=== PATIENT | female | born 1950 | race Hispanic/Latino ===

== ENCOUNTER 2018-03-21 23:08 | Inpatient (IN) | payer OTHER ==
--- OUTSIDE RECORDS SUMMARY | 2018-03-21 23:11 | XMS REPORT | Summary of Care ---
:1950 Author Organization [facility] Address [address], [place] [address]- Encounter HQ Encntr_alias([facility]) [id number] Date(s): 08/01/16 - 08/01/16 [facility] [address] [place] [address]- Discharge Disposition: Home or Self Care Attending Physician: Cele Santos MD Referring Physician: Cele Santos MD Vital Signs No data available for this section Problem List No data available for this section Allergies, Adverse Reactions, Alerts No data available for this section Medications No data available for this section Results No data available for this section Immunizations No data available for this section Procedures No data available for this section Social History No data available for this section Assessment and Plan No data available for this section
--- OUTSIDE RECORDS SUMMARY | 2018-03-21 23:11 | XMS REPORT | Continuity of Care Document ---
:1950 Author Organization Interface Problems Problem Status Onset Classification Date Comments Source Date Reported R33.9 RETENTION Active [facility] OF URINE, 6 UNSPECIFIED RETENTION OF [facility] URINE, UNSPECIFIED Medications Medication Details Route Status Patient Ordering Order Source Instructions Provider Date Allergies, Adverse Reactions, Alerts Substance Category Reaction Severity Reaction Status Date Comments Source type Reported Immunizations Immunization Date Given Site Status Last Updated Comments Source Results Order Name Results Value Reference Date Interpretation Comments Source Range Retroperit Retroperiton Retroperitoneal Complete US 08/01 - sellers ea - [facility] Complete US US CLINICAL HISTORY:bladder retention. Read by: Ricco Figueroa MD Dictated Date/time: 08/01/16 16:21 Electronically Signed by: Ricco Figueroa MD 08/01/16 16:22 FINAL REPORT COMPARISON: None TECHNIQUE: Alvarado scale and color Doppler images of both kidneys were performed with a curvilinear transducer with standard technique. Static images are submitted for review. FINDINGS: KIDNEYS: The right kidney measures 9.6 x 4.4 x 5.1 cm and the left kidney measures 9.9 x 4.8 x 4.7 cm in the sagittal AP and transverse dimensions respectively. Kidneys are relatively symmetric in size. Cortical volume is reasonably well-preserved. 7 mm cyst is noted in the upper pole of left kidney. No renal calculus is evident. No hydronephrosis. BLADDER: Bladder is partially distended with anechoic urine. ASCITES: No ascites noted. IMPRESSION: 7 mm cyst, upper pole of left kidney. No other significant sonographic abnormality is noted in either kidney. SL: [id number] Vital Signs Vital Sign Value Date Comments Source Encounters Location Location Encounter Encounter Reason Attending ADM DC Status Source Details Type Number For Provider Date Date Visit [facility] Outpatient [id number] Cele 08/01 08/02 Jean-Pierre Santos /2015 [facility] Procedures Procedure Code Date Perfomer Comments Source
[2018-03-21] MEDS ORDERED: NA CHLORIDE 0.9% 1,000 ML ONE (23:47)
[2018-03-21 23:49] LABS: Absolute Lymphocytes (CBC) 1.6 K/uL (0.7-4.9); Absolute Monocytes 0.8 K/uL (0.1-1.3); Absolute Neutrophil 9.5 K/uL (1.8-8.0); Basophils % 0.3 % (0-1.3); Eosinophils % 0.9 % (0-4.4); Hematocrit 31.8 % (36.0-45.0); Lymphocytes % 13.2 % (15.3-44.8); MCV 82.5 fL (80-100); MPV 7.6 fL (7.6-11.3); Monocytes % 6.3 % (3.3-12.3); RBC Red Blood Cell Count 3.86 M/uL (3.86-4.86)
[2018-03-21 23:56] LABS: Protime INR 1.15
[2018-03-22 00:16] LABS: ALT/SGPT 19 U/L (12-78); AST/SGOT 20 U/L (15-37); Albumin 3.3 g/dL (3.4-5.0); Alkaline Phosphatase 69 U/L (45-117); BUN Blood Urea Nitrogen 32 mg/dL (7-18); Bicarbonate 27 mmol/L (21-32); Bilirubin Direct < 0.1 mg/dL (0-0.2); Bilirubin Total 0.3 mg/dL (0.2-1.0); Creatine Phosphokinase 141 U/L (26-192); Glucose Level 168 mg/dL (74-106); Lipase 59 U/L (73-393); Magnesium 1.4 mg/dL (1.8-2.4); NT PRO-BNP 422 pg/mL (<125); Potassium 4.1 mmol/L (3.5-5.1); Protein, Total 7.2 g/dL (6.4-8.2); Sodium Level 138 mmol/L (136-145)
[2018-03-22 00:45] LABS: Urine Blood 1+ (NEG); Urine Glucose NEGATIVE (NEG); Urine Protein 3+ (NEG); Urine pH 8.5 (5.0-7.0)
[2018-03-22] MEDS ORDERED: MAGNESIUM SULFATE 1 gm IVPB 1 GM/100 ML BAG IV ONE ×2 (00:50→06:20)
[2018-03-22] MEDS ORDERED: CEFTRIAXONE/SWI 1gm 1 GM/10 ML SYR ONE (00:50)
[2018-03-22] MEDS ORDERED: ONDANSETRON 4 MG/2 ML VIAL ONE (01:27)
[2018-03-22] MEDS ORDERED: MORPHINE 4 MG/ML SYR ONE (01:27)
[2018-03-22] MEDS ORDERED: Levofloxacin500mg IV 0 MG/0 ML BAG IV ONE (01:28)
--- NOTE | 2018-03-22 01:31 | ER ---
Nurse's Notes [facility] Name: Cherry Pompa Age: 68 yrs Sex: Female : 1950 Arrival Date: 03/21/2018 Time: 23:10 Bed 4 Private MD: Diagnosis: Cystitis;Abdominal tenderness;Hypotension;Type 1 diabetes mellitus Presentation: 03/21 23:46 Presenting complaint: Patient states: "She has lower back pain and pain when she pees, lp1 when she wiped herself, there was blood'; Patient states symptoms since this morning. Transition of care: patient was not received from another setting of care. Onset of symptoms was March 21, 2018. Risk Assessment: Do you want to hurt yourself or someone else? Patient reports no desire to harm self or others. Initial Sepsis Screen: Does the patient meet any 2 criteria? No. Patient's initial sepsis screen is negative. Does the patient have a suspected source of infection? No. Patient's initial sepsis screen is negative. Care prior to arrival: None. 23:46 Method Of Arrival: Wheelchair lp1 23:46 Acuity: HERIBERTO 2 lp1 Historical: - Allergies: 23:55 No Known Allergies; lp1 - Home Meds: 23:55 BP med [Active]; insulin SQ [Active]; lp1 - PMHx: 23:55 Angina; Arthritis; Diabetes - IDDM; High Cholesterol; Hypertension; lp1 - PSHx: 23:55 Hernia repair; knee replacement; Hysterectomy; lp1 - Immunization history:: Adult Immunizations up to date. - Family history:: not pertinent. - Social history:: Smoking status: Patient/guardian denies using tobacco. - Ebola Screening: : No symptoms or risks identified at this time. Screenin:52 Abuse screen: Denies threats or abuse. Denies injuries from another. Nutritional lp1 screening: No deficits noted. Tuberculosis screening: No symptoms or risk factors identified. Fall Risk Total Jackson Fall Scale indicates High Risk Score (45 or more points). Fall prevention measures have been instituted. Side Rails Up X 2. Assessment: 23:30 General: Appears in no apparent distress. Behavior is appropriate for age. Pain: Denies lp1 pain. Neuro: Level of Consciousness is awake, alert, obeys commands, Oriented to person, place, situation. Cardiovascular: Patient's skin is warm and dry. Respiratory: Airway is patent Respiratory effort is even, unlabored, Respiratory pattern is regular, symmetrical, Breath sounds are clear bilaterally. GI: Abdomen is non-distended, Abd is soft and non tender X 4 quads. : at vaginal opening Reports burning with urination, vaginal bleeding that is when she wipes. EENT: No signs and/or symptoms were reported regarding the EENT system. Derm: Skin is intact, Skin is dry, Skin is pale. Musculoskeletal: Circulation, motion, and sensation intact. 23:35 Reassessment: Dr. Kurtz at bedside for pelvic exam, bladder observed. lp1 03/22 00:45 Reassessment: Patient appears in no apparent distress at this time. Patient and/or lp1 family updated on plan of care and expected duration. Pain level reassessed. Patient complaint of pain to lower abdomen, provider notified. 01:45 Reassessment: Patient appears in no apparent distress at this time. Patient and/or lp1 family updated on plan of care and expected duration. Pain level reassessed. Patient resting, eyes closed, respirations unlabored; Family at bedside. 03:00 Reassessment: Patient appears in no apparent distress at this time. Patient and/or lp1 family updated on plan of care and expected duration. Pain level reassessed. Patient resting, eyes closed, respirations unlabored. 03:29 Reassessment: Assisted patient to bsc, vomited x1 at this time. lp1 03:29 General: Reports chills for. lp1 04:19 Reassessment: Patient appears in no apparent distress at this time. Patient resting, lp1 eyes closed, respirations unlabored. Vital Signs: 03/21 23:20 BP 80 / 41; Pulse 78; Resp 18; Temp 99(O); Pulse Ox 97% on R/A; Weight 70.76 kg; Height lp1 5 ft. 1 in. (154.94 cm); Pain 0/10; 23:30 BP 110 / 50; Pulse 78; Resp 14; Pulse Ox 96% on R/A; lp1 03/22 00:30 BP 112 / 49; Pulse 98; Resp 19; Pulse Ox 98% on R/A; lp1 01:45 BP 107 / 67; Pulse 90; Resp 14; Pulse Ox 99% on R/A; mt 03:00 BP 126 / 47; Pulse 106; Resp 18; Pulse Ox 95% on R/A; lp1 03:28 BP 126 / 90; Pulse 111; Resp 19; Temp 100(O); Pulse Ox 97% on R/A; lp1 04:18 BP 108 / 79; Pulse 109; Resp 15; Pulse Ox 95% on R/A; lp1 03/21 23:20 Body Mass Index 29.48 (70.76 kg, 154.94 cm) lp1 ED Course: 03/21 23:10 Patient arrived in ED. es 23:23 Carlos Kurtz MD is Attending Physician. aramis 23:35 Inserted saline lock: 20 gauge in right antecubital area, using aseptic technique. lp1 Blood collected. By ITA Salgado. Inserted saline lock: 22 gauge in left wrist, using aseptic technique. 23:37 Vishal Hess, ITA is Primary Nurse. bp 23:46 Arm band placed on right wrist. lp1 23:48 X-ray completed. Portable x-ray completed in exam room. Patient tolerated procedure kw well. 23:48 Triage completed. lp1 23:48 XRAY Chest (1 view) In Process Unspecified. EDMS 23:52 Patient has correct armband on for positive identification. Placed in gown. Bed in low lp1 position. Call light in reach. Side rails up X2. internal combustion engine subassembler on. Pulse ox on. NIBP on. 23:53 Indiana Zapata, ITA is Primary Nurse. lp1 03/22 00:[address] via stretcher. kw1 00:13 CT completed. Patient tolerated procedure well. Patient moved back from CT. kw1 00:17 CT Stone Protocol In Process Unspecified. EDMS 00:30 Urine collected: straight cath specimen, cloudy, sediment noted. lp1 01:29 Yessi Benson MD is Hospitalizing Provider. aramis 02:03 No provider procedures requiring assistance completed. Patient admitted, IV remains in lp1 place. Administered Medications: 03/21 23:54 Drug: NS 0.9% 1000 ml Route: IV; Rate: 125 ml/hr; Site: right antecubital; rv 03/22 03:48 Follow up: IV Status: Infusion continued upon admission bp 00:55 Drug: Magnesium Sulfate 1 grams Route: IVPB; Infused Over: 1 hrs; Site: left wrist; lp1 02:00 Follow up: IV Status: Completed infusion lp1 00:55 Drug: Rocephin - (cefTRIAXone) 1 grams Route: IVPB; Infused Over: 30 mins; Site: right lp1 antecubital; 01:35 Follow up: Response: No adverse reaction; IV Status: Completed infusion lp1 01:34 Drug: levofloxacin 500 mg Volume: 100 ml; Route: IVPB; Infused Over: 60 mins; Site: lp1 right antecubital; 02:50 Follow up: IV Status: Completed infusion lp1 01:35 Drug: morphine 4 mg Route: IVP; Site: right antecubital; lp1 02:00 Follow up: Response: No adverse reaction; Pain is decreased lp1 01:35 Drug: Zofran 4 mg Route: IVP; Site: right antecubital; lp1 02:50 Follow up: Response: No adverse reaction lp1 02:17 Drug: Lactulose 30 grams Volume: 45 ml; Route: PO; rv 03:48 Follow up: Response: No adverse reaction bp 02:17 Drug: Dulcolax Suppository 10 mg Route: OK; rv 03:48 Follow up: Response: No adverse reaction bp Outcome: 01:30 Decision to Hospitalize by Provider. aramis 02:27 Condition: stable lp1 02:27 Instructed on the need for admit. 04:24 Admitted to Med/surg room 207, with chart, Report called to ITA Green lp1 04:31 Patient left the ED. fc Signatures: Dispatcher [employer] EDCarlos Gonzalez MD MD cha Salyer, Edna es Chretien, Felicia, RN RN Evelyn Valencia Laura, RN RN lp1 Rosario Wellington mt, Brian, RN RN Janki Lau kw Giovanni Madsen RN RN rv Corrections: (The following items were deleted from the chart) 00:55 07/01 23:20 BP 80 / 41; Pulse 78bpm; Resp 18bpm; Pulse Ox 97% RA; 70.76 kg; Height 5 lp1 ft. 1 in.; BMI: 29.4; Pain 0/10; lp1 03/22 00:57 07 23:35 Inserted saline lock: 22 gauge in right wrist, using aseptic technique. lp1 lp1
--- NOTE | 2018-03-22 01:31 | EDPHYS ---
Physician Documentation [facility] Name: Cherry Pompa Age: 68 yrs Sex: Female : 1950 Arrival Date: 03/21/2018 Time: 23:10 Bed 4 Private MD: ED Physician Carlos Kurtz HPI: 03/21 23:34 This 68 yrs old Female presents to ER via Unassigned with complaints of PAIN aramis WAIST DOWN, Vaginal Bleeding. 23:34 The patient presents with pelvic pain, urinary symptoms, frequency, hematuria, aramis hesitancy, urgency. Onset: The symptoms/episode began/occurred 3 day(s) ago. Modifying factors: The symptoms are alleviated by nothing, the symptoms are aggravated by nothing. Associated signs and symptoms: The patient has no apparent associated signs or symptoms. Severity of symptoms: At their worst the symptoms were mild, moderate, in the emergency department the symptoms are unchanged. The patient is not sexually active. The patient has experienced similar episodes in the past, a few times. Historical: - Allergies: 23:55 No Known Allergies; lp1 - Home Meds: 23:55 BP med [Active]; insulin SQ [Active]; lp1 - PMHx: 23:55 Angina; Arthritis; Diabetes - IDDM; High Cholesterol; Hypertension; lp1 - PSHx: 23:55 Hernia repair; knee replacement; Hysterectomy; lp1 - Immunization history:: Adult Immunizations up to date. - Family history:: not pertinent. - Social history:: Smoking status: Patient/guardian denies using tobacco. - Ebola Screening: : No symptoms or risks identified at this time. ROS: 23:34 Constitutional: Negative for fever, chills, and weight loss, Eyes: Negative for injury, aramis pain, redness, and discharge, ENT: Negative for injury, pain, and discharge, Neck: Negative for injury, pain, and swelling, Cardiovascular: Negative for chest pain, palpitations, and edema, Respiratory: Negative for shortness of breath, cough, wheezing, and pleuritic chest pain, Back: Negative for injury and pain, MS/Extremity: Negative for injury and deformity, Skin: Negative for injury, rash, and discoloration, Neuro: Negative for headache, weakness, numbness, tingling, and seizure, Psych: Negative for depression, anxiety, suicide ideation, homicidal ideation, and hallucinations, Allergy/Immunology: Negative for hives, rash, and allergies, Endocrine: Negative for neck swelling, polydipsia, polyuria, polyphagia, and marked weight changes, Hematologic/Lymphatic: Negative for swollen nodes, abnormal bleeding, and unusual bruising. 23:34 Abdomen/GI: Positive for abdominal cramps, of the suprapubic area. Exam: 23:34 Constitutional: This is a well developed, well nourished patient who is awake, alert, aramis and in no acute distress. Head/Face: Normocephalic, atraumatic. Eyes: Pupils equal round and reactive to light, extra-ocular motions intact. Lids and lashes normal. Conjunctiva and sclera are non-icteric and not injected. Cornea within normal limits. Periorbital areas with no swelling, redness, or edema. ENT: Nares patent. No nasal discharge, no septal abnormalities noted. Tympanic membranes are normal and external auditory canals are clear. Oropharynx with no redness, swelling, or masses, exudates, or evidence of obstruction, uvula midline. Mucous membranes moist. Neck: Trachea midline, no thyromegaly or masses palpated, and no cervical lymphadenopathy. Supple, full range of motion without nuchal rigidity, or vertebral point tenderness. No Meningismus. Chest/axilla: Normal chest wall appearance and motion. Nontender with no deformity. No lesions are appreciated. Cardiovascular: Regular rate and rhythm with a normal S1 and S2. No gallops, murmurs, or rubs. Normal PMI, no JVD. No pulse deficits. Respiratory: Lungs have equal breath sounds bilaterally, clear to auscultation and percussion. No rales, rhonchi or wheezes noted. No increased work of breathing, no retractions or nasal flaring. Back: No spinal tenderness. No costovertebral tenderness. Full range of motion. Female : Normal external genitalia. Skin: Warm, dry with normal turgor. Normal color with no rashes, no lesions, and no evidence of cellulitis. MS/ Extremity: Pulses equal, no cyanosis. Neurovascular intact. Full, normal range of motion. Neuro: Awake and alert, GCS 15, oriented to person, place, time, and situation. Cranial nerves II-XII grossly intact. Motor strength 5/5 in all extremities. Sensory grossly intact. Cerebellar exam normal. Normal gait. Psych: Awake, alert, with orientation to person, place and time. Behavior, mood, and affect are within normal limits. 23:34 Abdomen/GI: Inspection: abdomen appears normal, Bowel sounds: normal, Palpation: mild abdominal tenderness, in the suprapubic area, Liver: no appreciated palpable abnormalities, Hernia: not appreciated. 23:37 Abdomen/GI: Rectal exam: is unremarkable, rectal tone normal, Stool: normal, aramis hemorrhoid(s), are not appreciated, mass, is not appreciated, swelling, is not appreciated, tenderness, is not appreciated. Vital Signs: 23:20 BP 80 / 41; Pulse 78; Resp 18; Temp 99(O); Pulse Ox 97% on R/A; Weight 70.76 kg; Height lp1 5 ft. 1 in. (154.94 cm); Pain 0/10; 23:30 BP 110 / 50; Pulse 78; Resp 14; Pulse Ox 96% on R/A; lp1 03/22 00:30 BP 112 / 49; Pulse 98; Resp 19; Pulse Ox 98% on R/A; lp1 01:45 BP 107 / 67; Pulse 90; Resp 14; Pulse Ox 99% on R/A; mt 03:00 BP 126 / 47; Pulse 106; Resp 18; Pulse Ox 95% on R/A; lp1 03:28 BP 126 / 90; Pulse 111; Resp 19; Temp 100(O); Pulse Ox 97% on R/A; lp1 04:18 BP 108 / 79; Pulse 109; Resp 15; Pulse Ox 95% on R/A; lp1 03/21 23:20 Body Mass Index 29.48 (70.76 kg, 154.94 cm) lp1 MDM: 03/21 23:23 Patient medically screened. [facility] 23:34 Data reviewed: vital signs, nurses notes, lab test result(s), EKG, radiologic studies, [facility] CT scan, plain films. 03/21 23:33 Order name: Basic Metabolic Panel; Complete Time: 00:27 [facility] 03/21 23:33 Order name: CBC with Diff; Complete Time: 00:27 [facility] 03/21 23:33 Order name: Ckmb; Complete Time: 00:27 [facility] 03/21 23:33 Order name: CPK; Complete Time: 00:27 [facility] 03/21 23:33 Order name: LFT's; Complete Time: 00:27 [facility] 03/21 23:33 Order name: Magnesium; Complete Time: 00:27 [facility] 03/21 23:33 Order name: NT PRO-BNP; Complete Time: 00:27 [facility] 03/21 23:33 Order name: PT-INR; Complete Time: 00:27 [facility] 03/21 23:33 Order name: Ptt, Activated; Complete Time: 00:27 [facility] 03/21 23:33 Order name: Troponin (emerg Dept Use Only); Complete Time: 00:27 [facility] 03/21 23:33 Order name: Urine Culture [facility] 03/21 23:33 Order name: Lipase; Complete Time: 00:27 [facility] 03/21 23:33 Order name: Type And Screen [facility] 03/22 00:09 Order name: Bb Add On 03/21 23:33 Order name: XRAY Chest (1 view) [facility] 03/21 23:33 Order name: EKG; Complete Time: 23:34 [facility] 03/21 23:33 Order name: Cardiac monitoring; Complete Time: 23:54 [facility] 03/21 23:33 Order name: EKG - Nurse/Tech; Complete Time: 01:17 [facility] 03/21 23:33 Order name: IV Saline Lock; Complete Time: 23:55 [facility] 03/21 23:33 Order name: CT Stone Protocol [facility] 03/22 00:09 Order name: Packed RBC Leukored -1 EDTX 03/22 00:42 Order name: Urine Dipstick--Ancillary (enter results); Complete Time: 01:07 03/21 23:33 Order name: Labs collected and sent; Complete Time: 23:55 [facility] 03/21 23:33 Order name: O2 Per Protocol; Complete Time: 23:55 [facility] 03/21 23:33 Order name: O2 Sat Monitoring; Complete Time: 23:55 [facility] 03/21 23:33 Order name: Urine Dipstick-Ancillary (obtain specimen); Complete Time: 00:57 [facility] Administered Medications: 23:54 Drug: NS 0.9% 1000 ml Route: IV; Rate: 125 ml/hr; Site: right antecubital; rv 03/22 03:48 Follow up: IV Status: Infusion continued upon admission bp 00:55 Drug: Magnesium Sulfate 1 grams Route: IVPB; Infused Over: 1 hrs; Site: left wrist; lp1 02:00 Follow up: IV Status: Completed infusion lp1 00:55 Drug: Rocephin - (cefTRIAXone) 1 grams Route: IVPB; Infused Over: 30 mins; Site: right lp1 antecubital; 01:35 Follow up: Response: No adverse reaction; IV Status: Completed infusion lp1 01:34 Drug: levofloxacin 500 mg Volume: 100 ml; Route: IVPB; Infused Over: 60 mins; Site: lp1 right antecubital; 02:50 Follow up: IV Status: Completed infusion lp1 01:35 Drug: morphine 4 mg Route: IVP; Site: right antecubital; lp1 02:00 Follow up: Response: No adverse reaction; Pain is decreased lp1 01:35 Drug: Zofran 4 mg Route: IVP; Site: right antecubital; lp1 02:50 Follow up: Response: No adverse reaction lp1 02:17 Drug: Lactulose 30 grams Volume: 45 ml; Route: PO; rv 03:48 Follow up: Response: No adverse reaction bp 02:17 Drug: Dulcolax Suppository 10 mg Route: MS; rv 03:48 Follow up: Response: No adverse reaction bp Disposition: 03/22/18 01:30 Hospitalization ordered by Yessi Benson for Inpatient Admission. Preliminary diagnosis are Cystitis, Abdominal tenderness, Hypotension, Type 1 diabetes mellitus. - Bed requested for Telemetry/MedSurg (Inpatient). - Status is Inpatient Admission. fc - Condition is Fair. - Problem is new. - Symptoms have improved. UTI on Admission? Yes Signatures: Dispatcher [employer] EDMS Janki Franklin RN Carlos Everett MD MD cha Chretien, Felicia, RN RN Indiana Zapata RN RN lp1 Rebecca Melendez Ronaldo, RN RN rv Vishal Hess RN bp Corrections: (The following items were deleted from the chart) 01:42 01:30 Hospitalization Ordered by Yessi Benson MD for Inpatient Admission. Preliminary eb diagnosis is Cystitis; Abdominal tenderness; Hypotension; Type 1 diabetes mellitus. Bed requested for Telemetry/MedSurg (Inpatient). Status is Inpatient Admission. Condition is Fair. Problem is new. Symptoms have improved. UTI on Admission? Yes. aramis 03:56 01:42 03/22/2018 01:30 Hospitalization Ordered by Yessi Benson MD for Inpatient kl Admission. Preliminary diagnosis is Cystitis; Abdominal tenderness; Hypotension; Type 1 diabetes mellitus. Bed requested for Telemetry/MedSurg (Inpatient). Status is Inpatient Admission. Condition is Fair. Problem is new. Symptoms have improved. UTI on Admission? Yes. eb 04:17 03:56 03/22/2018 01:30 Hospitalization Ordered by Yessi Benson MD for Inpatient kl Admission. Preliminary diagnosis is Cystitis; Abdominal tenderness; Hypotension; Type 1 diabetes mellitus. Bed requested for Telemetry/MedSurg (Inpatient). Status is Inpatient Admission. Condition is Fair. Problem is new. Symptoms have improved. UTI on Admission? Yes. kl 04:31 04:17 03/22/2018 01:30 Hospitalization Ordered by Yessi Benson MD for Inpatient fc Admission. Preliminary diagnosis is Cystitis; Abdominal tenderness; Hypotension; Type 1 diabetes mellitus. Bed requested for Telemetry/MedSurg (Inpatient). Status is Inpatient Admission. Condition is Fair. Problem is new. Symptoms have improved. UTI on Admission? Yes. kl
[2018-03-22] MEDS ORDERED: Levofloxacin500mg IV 500 MG/100 ML BAG IV ONE (01:32)
[2018-03-22] MEDS ORDERED: BISACODYL 10 MG RECTAL SUPP ONE (02:01)
[2018-03-22] MEDS ORDERED: LACTULOSE 20 GM/30 ML UCUP ONE (02:01)
--- NOTE | 2018-03-22 03:50 | P.HP ---
Certification for Inpatient Patient admitted to: Inpatient With expected LOS: >2 Midnights Practitioner: I am a practitioner with admitting privileges, knowledge of patient current condition, hospital course, and medical plan of care. Services: Services provided to patient in accordance with Admission requirements found in Title 42 Section 412.3 of the Code of Federal Regulations Patient History Date of Service: 03/22/18 Reason for admission: UTI History of Present Illness: Ms Pompa is a 68 years old woman with history of CAD, HTN, IDDM, who start yesterday with burning urination. It was associated with subjective fever, and generalized body ache. She had chills but no diaphoresis. She also denied nausea , vomiting or diarrhea. She noticed some blood in her urine. The patient states that she had UTI in the past, and her symptoms are similar. Lab work remarkable for leukocytosis 12.0K, MG low, UA abnormal consistent with UTI. Renal function is abnormal consistent with acute renal injury. Her BP at arrival was 80/40, but improved after volume replacement. Allergies No Known Drug Allergies Allergy (Verified 09/11/14 03:44) Unknown NKDA Allergy (Uncoded 09/11/14 03:44) Unknown No Known Allergies Allergy (Uncoded 11/28/16 20:39) Unknown Home medications list reviewed: Yes Home Medications: Hydrocodone 10/APAP 325 [[place] 10/325*] 1 tab PO Q6HR 09/11/14 Esomeprazole Mag Trihydrate [Nexium] 40 mg PO DAILY 03/01/17 Insulin Glargine,Hum.rec.anlog [Lantus] 25 unit SQ BEDTIME 03/01/17 Insulin Lispro [Humalog] 8 units SQ TID 03/01/17 Liraglutide [Victoza 2-Sharan] 1.8 mg SQ DAILY 03/01/17 Lisinopril 10 mg PO DAILY 03/01/17 Metformin HCl [Metformin HCl ER] 1,000 mg PO DAILY 03/01/17 Simvastatin [Zocor] 40 mg PO BEDTIME 03/01/17 Amoxicillin/Potassium Clav [Augmentin 500-125 Tablet] 1 each PO BID #14 tablet 03/04/17 Aspirin [Aspirin EC 81 MG] 81 mg PO DAILY #90 tablet. 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 - Family History Mother -: Heart disease, Hypertension - Social History Smoking Status: Never smoker Alcohol use: No CD- Drugs: No Caffeine use: Yes Place of Residence: Home Review of Systems 10-point ROS is otherwise unremarkable Physical Examination - Physical Exam General: Alert, In no apparent distress HEENT: Atraumatic, PERRLA, Mucous membr. moist/pink, EOMI, Sclerae nonicteric Neck: Supple, 2+ carotid pulse no bruit, No LAD, Without JVD or thyroid abnormality Respiratory: Clear to auscultation bilaterally, Normal air movement Cardiovascular: Regular rate/rhythm, Normal S1 S2 Gastrointestinal: Normal bowel sounds, No tenderness Musculoskeletal: No tenderness Integumentary: No rashes Neurological: Normal speech, Normal strength at 5/5 x4 extr, Normal tone, Normal affect Lymphatics: No axilla or inguinal lymphadenopathy - Studies Laboratory Data (last 24 hrs) 03/21/18 23:30: PT 13.6 H, INR 1.15, APTT 26.8 03/21/18 23:30: WBC 12.0 H, Hgb 10.0 L, Hct 31.8 L, Plt Count 211 03/21/18 23:30: Sodium 138, Potassium 4.1, BUN 32 H, Creatinine 1.20, Glucose 168 H, Magnesium 1.4 L*, Total Bilirubin 0.3, AST 20, ALT 19, Alkaline Phosphatase 69, Lipase 59 L Assessment and Plan - Problems (Diagnosis) (1) Acute renal injury Onset Date: 03/03/17 Current Visit: No Status: Acute (2) Hypertension Onset Date: 08/06/15 Current Visit: No Status: Acute Qualifiers: Hypertension type: essential hypertension Qualified Code(s): I10 - Essential (primary) hypertension (3) Hypomagnesemia Onset Date: 07/17/15 Current Visit: No Status: Acute (4) Diabetes mellitus Onset Date: 07/17/15 Current Visit: No Status: Chronic (5) UTI (urinary tract infection) Onset Date: 03/03/17 Current Visit: No Status: Acute Qualifiers: Urinary tract infection type: acute cystitis Hematuria presence: with hematuria Qualified Code(s): N30.01 - Acute cystitis with hematuria - Plan The patient will be admitted to the hospital due to UTI. CT abd/pelvis shows no acute abnormalities. Will continue empiric treatment with IV Rocephin, IV fluids , urine culture in process. - Advance Directives Does patient have a Living Will: No Does patient have a Durable POA for Healthcare: No - Code Status/Comfort Care Code Status Assessed: Yes Code Status: Full Code
[2018-03-22] MEDS ORDERED: ACETAMINOPHEN 500 MG TAB ONE (04:06)
[2018-03-22] MEDS ORDERED: ONDANSETRON 4 MG/2 ML VIAL IV PRN (04:10)
[2018-03-22] MEDS: ACETAMINOPHEN 500 MG TAB PO PRN ×2 (04:15→18:16)
[2018-03-22 04:44] VITALS: O2SAT 95
[2018-03-22 05:20] VITALS: BMI 30.6
[2018-03-22] MEDS: NA CHLORIDE 0.9% 1,000 ML IV SCH ×3 (05:46→22:45)
--- NOTE | 2018-03-22 06:32 | EKG ---
Test Date: 2018-03-22 Test Time: 01:10:54 Paper Baler: SUNNY MEASUREMENT RESULTS: Intervals: Rate: 94 VA: 190 QRSD: 74 QT: 362 QTc: 452 [place]: P: 57 VA: 190 QRS: 82 T: 79 INTERPRETIVE STATEMENTS: Normal sinus rhythm Normal ECG Compared to ECG 12/11/2017 23:36:30 No significant changes Electronically Signed On 03-22-18 06:31:27 CDT by Ronald Atkins
--- NOTE | 2018-03-22 06:55 | RAD REPORT ---
EXAM DESCRIPTION: RAD - Chest Single View - 03/21/2018 11:50 pm CLINICAL HISTORY: Cough, abdominal pain COMPARISON: December 11 TECHNIQUE: AP portable chest image was obtained 2337 hours . FINDINGS: Lung volumes are low. Lung eason are clear of failure, infiltrate or mass. Lung markings are similar to comparison. Heart and vasculature are normal. No measurable pleural effusion and no pn eumothorax. No gross bony abnormality seen. No acute aortic findings suspected. IMPRESSION: No acute cardiopulmonary process. No significant change comparison.
--- NOTE | 2018-03-22 07:06 | RAD REPORT ---
EXAM DESCRIPTION: CT - Stone Protocol - 03/22/2018 1:55 am CLINICAL HISTORY: Abdominal pain, back pain, dysuria A preliminary written report was provided at the time of the study, and the report was reviewed prio r to final dictation. COMPARISON: CT study October 2014 TECHNIQUE: Axial 5 mm thick images were obtained without oral or IV contrast. The [id number] span s the entirety of the system including uppermost abdomen and lung bases. All CT scans are performed using dose optimization technique as appropriate and may include automated exposure control or mA/KV adjustment according to patient size. FINDINGS: No hydronephrosis is present and no obstructing ureteral calculi. No suspicious renal mass es. Isodense masses and pyelonephritis are not excluded on a stone protocol CT scan. No bladder wall thickening or mass identifiable. No adrenal abnormality. Two punctate air densities are present withi n the lumen of the urinary bladder. This is typically air associated with a catheterization procedure . Gas-forming organism is possible. Patient has significant pelvic floor laxity. Portion of the bladder trigone and distal rectum fall ou tside of the field of view. Patient has numerous phleboliths. Uterus is absent. Ovaries are absent or atrophic. No ovarian or adnexal mass identifiable. Imaged portions of the liver, spleen and pancreas show no suspicious findings on non-contrast imaging . Cholecystectomy clips are present. No biliary tree dilatation. No significant adrenal finding. No gastric dilatation or gastric wall thickening. No small bowel abnormality identified. Moderate sto ol volume is present throughout colon. Sigmoid colon is redundant with a mild diverticulosis pattern. No active GI process seen. No mass or bulky lymphadenopathy. Postsurgical changes are noted to the anterior abdominal wall. Ther e is stranding in the subcutaneous fatty tissue that is believed to be a mild old scar tissue. There is match or postsurgical change from prior hernia repair. No large hernia defect confirmed. An active process in this region is not suspected. No free air, free fluid or pneumatosis. Disc and bone degenerative changes are present. No acute bone process or bone pathologic process seen . IMPRESSION: No hydronephrosis, obstructing calculus or acute process. Isodense masses and pyelonephritis are not excluded on stone protocol technique. Two punctate air densities are present within the lumen of the bladder. This is the will still weighs associated with an in and out catheterization procedure rather than gas-forming organism. This can b e correlated with history. Patient has significant pelvic floor laxity partially obscuring the distal most rectum, trigone of th e bladder and perineum. Moderate stool volume throughout the colon. No acute GI process.
[2018-03-22] MEDS: INSULIN -REGULAR HUMAN 50 UNIT/0.5 ML ML SQ SCH ×4 (08:18→21:00)
[2018-03-22] MEDS: ENOXAPARIN 40 MG/0.4 ML SQ SCH (08:19)
[2018-03-22] MEDS ORDERED: CEFTRIAXONE 1 GM/NS 50 ML 1 GM/50 ML BAG IV SCH (09:00)
[2018-03-22] MEDS ORDERED: Morphine 2 MG/2 ML SYR IV ONE (22:36)
[2018-03-22] MEDS ORDERED: MORPHINE 2 MG/ML SYR ONE (22:45)
[2018-03-23] MEDS: ACETAMINOPHEN 500 MG TAB PO PRN ×2 (00:50→19:43)
[2018-03-23 05:09] LABS: Absolute Lymphocytes (CBC) 1.6 K/uL (0.7-4.9); Absolute Monocytes 0.8 K/uL (0.1-1.3); Absolute Neutrophil 4.5 K/uL (1.8-8.0); Basophils % 0.8 % (0-1.3); Eosinophils % 2.3 % (0-4.4); Hematocrit 31.7 % (36.0-45.0); Lymphocytes % 22.4 % (15.3-44.8); MCH 26.8 pg (27.0-35.0); MCV 83.3 fL (80-100); MPV 7.6 fL (7.6-11.3); Monocytes % 10.9 % (3.3-12.3)
[2018-03-23 05:47] LABS: Potassium 3.9 mmol/L (3.5-5.1)
[2018-03-23] MEDS ORDERED: POTASSIUM CL SA 10 MEQ TAB PO ONE (06:00)
[2018-03-23] MEDS: INSULIN -REGULAR HUMAN 50 UNIT/0.5 ML ML SQ SCH ×4 (07:30→21:00)
[2018-03-23] MEDS ORDERED: MAGNESIUM SULFATE 1 gm IVPB 1 GM/100 ML BAG IV ONE (07:41)
[2018-03-23] MEDS: CEFTRIAXONE/SWI 1gm 1 GM/10 ML SYR IV SCH (09:39)
[2018-03-23] MEDS: ENOXAPARIN 40 MG/0.4 ML SQ SCH (09:39)
[2018-03-23] MEDS: NA CHLORIDE 0.9% 1,000 ML IV SCH ×2 (09:39→21:50)
--- NOTE | 2018-03-23 14:02 | P.PN ---
Subjective Date of Service: 03/23/18 Chief Complaint: UTI Pt seen and examined at bedside with RN. Chart Reviewed. Pt complains of having back pain and pain in the vaginal Area. H/o of Bladder prolapse with recurrent UTI. Has been seeing urologist in [place]. Awaiting improvement in the blood sugar to perform surgery. Review of Systems General: As per HPI Physical Examination - Vital Signs Temperature: 99.1 F Blood Pressure: 134/59 Pulse: 86 Respirations: 18 Pulse Ox (%): 94 - Physical Exam General: Alert, In no apparent distress HEENT: Atraumatic, PERRLA, EOMI Neck: Supple, JVD not distended Respiratory: Clear to auscultation bilaterally, Normal air movement Cardiovascular: Regular rate/rhythm, Normal S1 S2 Gastrointestinal: Normal bowel sounds, No tenderness Musculoskeletal: No tenderness Integumentary: No rashes Neurological: Normal speech, Normal tone, Normal affect Lymphatics: No axilla or inguinal lymphadenopathy External genitalia: Masses - Studies Medications List Reviewed: Yes Assessment & Plan - Problems (Diagnosis) (1) UTI (urinary tract infection) Onset Date: 03/22/18 Current Visit: Yes Status: Acute Plan: Urine culture + for 4+ gram - rods -H/o Of recurrent UTI due to Bladder prolapse. -Currently on IV rocephin will continue till culture back. -Pt has appt with urology for bladder surgery however needs her BS control before that -Pt advise on diet and exercise. Qualifiers: Urinary tract infection type: acute cystitis (2) Hypertension Onset Date: 08/06/15 Current Visit: No Status: Chronic Qualifiers: Hypertension type: essential hypertension Qualified Code(s): I10 - Essential (primary) hypertension (3) Coronary arteriosclerosis Current Visit: No Status: Chronic (4) Depressive disorder Current Visit: No Status: Chronic (5) Diabetes mellitus Onset Date: 07/17/15 Current Visit: No Status: Chronic (6) Hyperlipidemia Current Visit: No Status: Chronic (7) Hypertensive disorder, systemic arterial Onset Date: 03/03/17 Current Visit: No Status: Chronic Discharge Plan: Home Plan to discharge in: 48 Hours - Code Status/Comfort Care Code Status Assessed: Yes Critical Care: No
[2018-03-24] MEDS: ACETAMINOPHEN 500 MG TAB PO PRN (04:57)
[2018-03-24 05:39] LABS: Magnesium 1.9 mg/dL (1.8-2.4); Potassium 4.3 mmol/L (3.5-5.1)
[2018-03-24] MEDS: NA CHLORIDE 0.9% 1,000 ML IV SCH (06:21)
[2018-03-24] MEDS: INSULIN -REGULAR HUMAN 50 UNIT/0.5 ML ML SQ SCH ×2 (07:30→12:06)
[2018-03-24] MEDS: ENOXAPARIN 40 MG/0.4 ML SQ SCH (09:35)
[2018-03-24] MEDS: CEFTRIAXONE/SWI 1gm 1 GM/10 ML SYR IV SCH (09:35)
--- NOTE | 2018-03-24 11:47 | P.SSS ---
Patient History Date of Service: 03/24/18 Primary Care Provider: Dr Wu Reason for admission: UTI History of Present Illness: Ms Pompa is a 68 years old woman with history of CAD, HTN, IDDM, who start yesterday with burning urination. It was associated with subjective fever, and generalized body ache. She had chills but no diaphoresis. She also denied nausea , vomiting or diarrhea. She noticed some blood in her urine. The patient states that she had UTI in the past, and her symptoms are similar. Lab work remarkable for leukocytosis 12.0K, MG low, UA abnormal consistent with UTI. Renal function is abnormal consistent with acute renal injury. Her BP at arrival was 80/40, but improved after volume replacement. Allergies No Known Drug Allergies Allergy (Verified 03/22/18 04:48) Unknown NKDA Allergy (Uncoded 03/22/18 04:48) Unknown No Known Allergies Allergy (Uncoded 03/22/18 04:48) Unknown Home Medications: Gabapentin [Neurontin*] 1 cap PO BID 03/22/18 Lisinopril 1 tab PO BID 03/22/18 Pantoprazole Sodium [Protonix] 1 tab PO DAILY 03/22/18 levoFLOXacin [Levaquin] 500 mg PO DAILY #10 tab 03/24/18 - Past Medical/Surgical History Has patient received pneumonia vaccine in the past: Yes Diabetic: Yes -: HTN -: Hyperlipidemia -: CAD -: Arthritis -: Obesity -: Noncompliance -: Depression with anxiety -: Hyperlipidemia -: History of UTI -: 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 - Family History Mother -: Heart disease, Hypertension - Social History Smoking Status: Never smoker Alcohol use: No CD- Drugs: No Caffeine use: Yes Place of Residence: Home Review of Systems General: As per HPI Physical Examination - Vital Signs Temperature: 97.8 F Blood Pressure: 177/70 Pulse: 76 Respirations: 16 Pulse Ox (%): 97 - Physical Exam General: Alert, In no apparent distress HEENT: Atraumatic, PERRLA, Mucous membr. moist/pink, EOMI, Sclerae nonicteric Neck: Supple, 2+ carotid pulse no bruit, No LAD, Without JVD or thyroid abnormality Respiratory: Clear to auscultation bilaterally, Normal air movement Cardiovascular: Regular rate/rhythm, Normal S1 S2 Gastrointestinal: Normal bowel sounds, No tenderness Musculoskeletal: No tenderness Integumentary: No rashes Neurological: Normal gait, Normal speech, Normal strength at 5/5 x4 extr, Normal tone, Normal affect Lymphatics: No axilla or inguinal lymphadenopathy - Studies Microbiology Data (last 24 hrs): 03/22/18 00:30 Catheterized Urine [place] Count - Final >100,000 CFU/ML. 03/22/18 00:30 Catheterized Urine - Final Escherichia Coli - Diagnosis (Problem(s)) (1) UTI (urinary tract infection) Onset Date: 03/22/18 Current Visit: Yes Status: Acute Qualifiers: Urinary tract infection type: acute cystitis Hematuria presence: without hematuria Qualified Code(s): N30.00 - Acute cystitis without hematuria (2) Hypertension Onset Date: 08/06/15 Current Visit: No Status: Chronic Qualifiers: Hypertension type: essential hypertension Qualified Code(s): I10 - Essential (primary) hypertension (3) Coronary arteriosclerosis Current Visit: No Status: Chronic (4) Depressive disorder Current Visit: No Status: Chronic (5) Diabetes mellitus Onset Date: 07/17/15 Current Visit: No Status: Chronic (6) Hyperlipidemia Current Visit: No Status: Chronic (7) Hypertensive disorder, systemic arterial Onset Date: 03/03/17 Current Visit: No Status: Chronic Treatment Summary: Pt was admitted to the hospital for UTI. She has a h/o Recurrent UTI due to bladder prolapse. pt has been seen by a urologist in [place] who reccs getting bladder suspension surgery, however pt is asked to get her Diabetes under control before the surgery. Pt was started on IV abx. Urine Culture + for ECOLI sensitive to Levaquin and thus switched to PO levaquin. Resolution of symptoms and thus pt DC home with levaquin and was asked to f.u with urology and for diabetic education was provided. - Disposition Condition: GOOD Patient Discharge Instructions: Please f.u with PCP and Urology in 1 to 2 weeks post discharge. -You need to get your BS under control so that you can schedule your surgery appt with Urology for bladder suspension. New medication. Levaquin 500mg Daily for 10 days. You are admitted to the hospital for UTI. You had ECOLI growing in the urine. Diet: Regular Activity: Ad gera
[2018-03-24 13:09] VITALS: BP 188/79; TEMP 98.4
== END 2018-03-24 16:17 | disposition home or self-care (01) | DRG 690 ==
LOC: ER 23:08 → ERHOLD 03-22 01:33 → 2ND 03-22 04:06
PROVIDERS: ADMIT Internal Medicine; ATTEND Internal Medicine
DX: N30.00 Acute cystitis without hematuria (principal); N17.9 Acute kidney failure, unspecified; B96.20 Unspecified Escherichia coli [E. coli] as the cause of diseases classified elsewhere; N81.10 Cystocele, unspecified; F32.9 Major depressive disorder, single episode, unspecified; I25.10 Atherosclerotic heart disease of native coronary artery without angina pectoris; I10 Essential (primary) hypertension; E11.9 Type 2 diabetes mellitus without complications; E78.5 Hyperlipidemia, unspecified; E83.42 Hypomagnesemia
CPT/HCPCS: 36415; 71045; 74176; 76377; 80048; 80076; 81003; 82550; 82553; 82962; 83690; 83735; 83880; 84484; 85025; 85610; 85730; 86850; 86900; 86901; 87077; 87086; 87088; 87186; 93005; 99285; J0696; J1650; J2270; J2405; J3475; J7030

== ENCOUNTER 2018-04-20 17:09 | Emergency (ER) | payer OTHER ==
--- OUTSIDE RECORDS SUMMARY | 2018-04-20 17:11 | XMS REPORT | Continuity of Care Document ---
[...] Complete US 08/01 - [facility] - [facility] Complete US US CLINICAL HISTORY:bladder retention. [...] abnormality is noted in either kidney. SL: [id number] Vital Signs Vital Sign Value Date Comments Source Encounters Location Location Encounter Encounter Reason Attending ADM DC Status Source Details Type Number For Provider Date Date Visit [facility] Outpatient [id number] Cele 08/01 08/02 Jean-Pierre Santos /2015 [facility] Procedures Procedure Code Date Perfomer Comments Source
[2018-04-20] MEDS ORDERED: NA CHLORIDE 0.9% 1,000 ML ONE (17:47)
[2018-04-20] MEDS ORDERED: MECLIZINE HCL 12.5 MG TAB ONE (17:47)
[2018-04-20] MEDS ORDERED: ONDANSETRON 4 MG/2 ML VIAL ONE (17:47)
[2018-04-20 17:58] LABS: Protime INR 0.93
[2018-04-20 17:59] LABS: Absolute Lymphocytes (CBC) 2.1 K/uL (0.7-4.9); Absolute Monocytes 0.7 K/uL (0.1-1.3); Absolute Neutrophil 4.2 K/uL (1.8-8.0); Basophils % 0.7 % (0-1.3); Eosinophils % 3.8 % (0-4.4); Hematocrit 36.3 % (36.0-45.0); Lymphocytes % 28.4 % (15.3-44.8); MCH 27.8 pg (27.0-35.0); MPV 7.5 fL (7.6-11.3); RBC Red Blood Cell Count 4.38 M/uL (3.86-4.86)
--- NOTE | 2018-04-20 18:21 | RAD REPORT ---
EXAM DESCRIPTION: RAD - Chest Single View - 04/20/2018 5:59 pm CLINICAL HISTORY: Dyspnea COMPARISON: March 21 TECHNIQUE: AP portable chest image was obtained 1745 hour . FINDINGS: Lung volumes are low. No focal lung parenchymal process seen. Heart and vasculature are no rmal. No measurable pleural effusion and no pneumothorax. No gross bony abnormality seen. No acute ao rtic findings suspected. IMPRESSION: No acute cardiopulmonary process. No suspicious change from comparison.
[2018-04-20 18:22] LABS: ALT/SGPT 22 U/L (12-78); AST/SGOT 27 U/L (15-37); Albumin 3.8 g/dL (3.4-5.0); Alkaline Phosphatase 138 U/L (45-117); BUN Blood Urea Nitrogen 17 mg/dL (7-18); Bicarbonate 29 mmol/L (21-32); Bilirubin Direct < 0.1 mg/dL (0-0.2); Bilirubin Total 0.2 mg/dL (0.2-1.0); Glucose Level 231 mg/dL (74-106); Lipase 60 U/L (73-393); Magnesium 1.5 mg/dL (1.8-2.4); NT PRO-BNP 285 pg/mL (<125); Potassium 3.7 mmol/L (3.5-5.1); Protein, Total 8.4 g/dL (6.4-8.2); Sodium Level 139 mmol/L (136-145)
[2018-04-20] MEDS ORDERED: MAGNESIUM SULFATE 1 gm IVPB 2 GM/200 ML BAG IV ONE (18:38)
[2018-04-20] MEDS ORDERED: NA CHLORIDE 0.9% 500 ML ONE (18:39)
[2018-04-20 19:10] LABS: Urine Blood 1+ (NEG); Urine Glucose 2+ (NEG); Urine Protein 1+ (NEG); Urine pH 7.5 (5.0-7.0)
--- NOTE | 2018-04-20 20:45 | ER ---
Nurse's Notes [facility] Name: Cherry Pompa Age: 68 yrs Sex: Female : 1950 Arrival Date: 04/20/2018 Time: 17:12 Bed 8 Private MD: Diagnosis: Nausea and vomiting;Dizziness Presentation: 04/20 17:13 Presenting complaint: EMS states: toned out for dizzyness nausea and vomiting for 2 ch hours. pt vomited sausage in route. pt did not take her blood pressure medication today, doesn't know when she last took it. pt is lethargic. given zofran in route. denies chest pain but c/o "reflux, and burning with vomiting." bp on scene was 226/89. denies headache. Transition of care: pt lives at home with family. Onset of symptoms was April 20, 2018 at 15:00. Risk Assessment: Do you want to hurt yourself or someone else? Patient reports no desire to harm self or others. Initial Sepsis Screen: Does the patient meet any 2 criteria? No. Patient's initial sepsis screen is negative. Does the patient have a suspected source of infection? No. Patient's initial sepsis screen is negative. Care prior to arrival: None. 17:13 Method Of Arrival: EMS: [facility] 17:13 Acuity: HERIBERTO 3 ch Triage Assessment: 17:25 General: Appears in no apparent distress. uncomfortable, Behavior is listless, ch lethargic. Pain: Denies pain. Neuro: Level of Consciousness is obeys commands, lethargic, Oriented to person, place, time, situation, Freight Car [employer]er are equal bilaterally Moves all extremities. Speech is normal, Facial symmetry appears normal, Facial symmetry: tongue is midline, Pupils are sluggish, Reports dizziness. Respiratory: Airway is patent Respiratory effort is even, unlabored. GI: Reports nausea, vomiting, "heart burn, feels like my normal heartburn". Derm: Skin is jaundiced. Musculoskeletal: Circulation, motion, and sensation intact. Historical: - Allergies: 17:25 No Known Allergies; ch - Home Meds: 17:25 insulin SQ [Active]; ch - PMHx: 17:25 Angina; Arthritis; Diabetes - IDDM; High Cholesterol; Hypertension; ch - PSHx: 17:25 Hernia repair; knee replacement; Hysterectomy; ch - Immunization history:: Adult Immunizations up to date. - Social history:: Smoking status: Patient/guardian denies using tobacco, Patient/guardian denies using alcohol, street drugs. - Ebola Screening: : Patient negative for fever greater than or equal to 101.5 degrees Fahrenheit, and additional compatible Ebola Virus Disease symptoms Patient denies exposure to infectious person Patient denies travel to an Ebola-affected area in the 21 days before illness onset No symptoms or risks identified at this time. Screenin:30 Abuse screen: Denies threats or abuse. Denies injuries from another. Nutritional mg2 screening: No deficits noted. Tuberculosis screening: No symptoms or risk factors identified. Fall Risk IV access (20 points). Assessment: 17:31 General: Appears uncomfortable, unkempt, Behavior is calm, cooperative, drowsy. Pain: mg2 Denies pain. Neuro: Level of Consciousness is awake, alert, obeys commands, Oriented to person, place, time, situation, Reports dizziness, since today. Cardiovascular: Capillary refill < 3 seconds Patient's skin is warm and dry. Respiratory: Airway is patent Respiratory effort is even, unlabored, Respiratory pattern is regular, symmetrical. GI: Pt is actively vomiting undigested food. : EENT: No signs and/or symptoms were reported regarding the EENT system. Derm: Skin is intact, Skin is pink, warm \\T\\ dry. normal. Musculoskeletal: Circulation, motion, and sensation intact. 17:59 Reassessment: Patient appears in no apparent distress at this time. No changes from previously documented assessment. Patient and/or family updated on plan of care and expected duration. Pain level reassessed. 19:00 Reassessment: RECD REPORT FROM DORIS JEAN BAPTISTE. 68YO HF P/W NAUSEA AND VOMITING x2 HR. ALL bp CURRENT ORDERS COMPLETE, MAG INFUSING. 19:08 Reassessment: Patient appears in no apparent distress at this time. Patient and/or ch family updated on plan of care and expected duration. Pain level reassessed. pt is still sleepy in room. responds to verbal stimuli. no s/s of distress. report given to vishal. 19:16 Reassessment: pt family calls wanting information on pt. I tell them she is here and ch stable, but that legally speaking I cannot give any more information out. I try to get a call back number to have mother call the pt back, but the line cuts off. 19:45 General: Appears in no apparent distress. Behavior is calm, cooperative, drowsy. Pain: ea Denies pain. Neuro: Level of Consciousness is awake, alert, obeys commands, Oriented to person, place, time, situation. Cardiovascular: Heart tones S1 S2 present Patient's skin is warm and dry. Respiratory: Airway is patent Respiratory effort is even, unlabored, Respiratory pattern is regular, symmetrical, Breath sounds are clear bilaterally. GI: Bowel sounds present X 4 quads. Reports nausea. : No signs and/or symptoms were reported regarding the genitourinary system. EENT: No signs and/or symptoms were reported regarding the EENT system. Derm: Skin is pink, warm \\T\\ dry. Musculoskeletal: Circulation, motion, and sensation intact. 20:30 Reassessment: Patient and/or family updated on plan of care and expected duration. Pain ea level reassessed. Patient is alert, oriented x 3, equal unlabored respirations, skin warm/dry/pink. Patient states symptoms have improved. 21:31 Reassessment: Patient and/or family updated on plan of care and expected duration. Pain ea level reassessed. Patient is alert, oriented x 3, equal unlabored respirations, skin warm/dry/pink. Patient states feeling better. Patient states symptoms have improved. Discharge instructions given to patient and son, verbalized the understanding of instruction. Awaiting on other family member for ride. . 22:08 Reassessment: Patient and/or family updated on plan of care and expected duration. Pain bp level reassessed. Patient is alert, oriented x 3, equal unlabored respirations, skin warm/dry/pink. pt stated she called family, reports they are heading back to pick her up. 22:34 Reassessment: Patient and/or family updated on plan of care and expected duration. Pain bp level reassessed. Patient is alert, oriented x 3, equal unlabored respirations, skin warm/dry/pink. Pt discharged home via wheelchair with family. Vital Signs: 17:25 BP 205 / 109; Pulse 112; Resp 22; Temp 98.5; Pulse Ox 98% on R/A; Weight 68.49 kg; ch Height 5 ft. (152.40 cm); Pain 0/10; 17:59 BP 169 / 82; Pulse 110; Resp 22; Pulse Ox 97% on R/A; Pain 0/10; ch 19:08 BP 189 / 91; Pulse 108; Resp 24; Pulse Ox 99% on R/A; Pain 0/10; ch 20:08 BP 113 / 71; Pulse 97; Resp 16; Pulse Ox 99% ; Pain 0/10; ea 21:35 BP 162 / 89; Pulse 96; Resp 20; Temp 98(O); Pulse Ox 98% on R/A; Pain 0/10; ea 17:25 Body Mass Index 29.49 (68.49 kg, 152.40 cm) ED Course: 17:12 Patient arrived in ED. iw 17:13 Doris Calzada, RN is Primary Nurse. ch 17:15 Triage completed. ch 17:15 Earl Gill PA is PHCP. jr8 17:15 Carlos Kurtz MD is Attending Physician. jr8 17:25 Arm band placed on left wrist. Patient placed in an exam room, on a stretcher, on pulse oximetry. 17:31 Inserted saline lock: 20 gauge in left forearm, using aseptic technique. Blood mg2 collected. 17:31 Maintain EMS IV. Dressing intact. Site clean \\T\\ dry. Gauge \\T\\ site: 22 \\T\\ right forearm. mg2 17:33 Patient has correct armband on for positive identification. Placed in gown. Bed in low mg2 position. Call light in reach. Side rails up X2. cafeteria monitor on. Pulse ox on. NIBP on. Door closed. 17:56 X-ray completed. Portable x-ray completed in exam room. Patient tolerated procedure ml well. 17:57 XRAY Chest (1 view) In Process Unspecified. EDMS 18:30 Urine collected: clean catch specimen. ch 19:08 Report given to Vishal. ch 19:50 Vishal Hess, RN is Primary Nurse. bp 21:34 No provider procedures requiring assistance completed. IV discontinued, intact, ea bleeding controlled, No redness/swelling at site. Pressure dressing applied. Administered Medications: 17:49 Drug: Meclizine 25 mg Route: PO; mg2 17:58 Follow up: Response: No adverse reaction ch 17:49 Drug: NS 0.9% 1000 ml Route: IV; Rate: 1000 ml; Site: left forearm; mg2 19:10 Follow up: IV Status: Completed infusion; IV Intake: 1000ml ch 17:50 Drug: Zofran 4 mg Route: IVP; Site: left forearm; mg2 17:58 Follow up: Response: No adverse reaction; Nausea is decreased ch 19:00 Drug: Magnesium Sulfate 2 grams Route: IVPB; Infused Over: 2 hrs; Site: left forearm; mg2 20:30 Follow up: Response: No adverse reaction; IV Status: Completed infusion ea Point of Care Testing: Blood Glucose: 17:34 Blood Glucose: 236 mg/dL; mg2 Ranges: Intake: 19:10 IV: 1000ml; Total: 1000ml. ch Outcome: 20:45 Discharge ordered by . jrRosie 21:36 Condition: improved ea 21:36 Discharge instructions given to patient, family, Instructed on discharge instructions, follow up and referral plans. medication usage, Demonstrated understanding of instructions, follow-up care, medications, Prescriptions given X 2. 22:34 Discharged to home via wheelchair, with family. bp 22:35 Patient left the ED. bp Signatures: Dispatcher [employer] EDMS Doris Calzada, RN Kayleen Collier ch, RN Fela Gr Josh, PA PA jr8 Binta Gtz RN RN ea Peltier, Brian, RN RN Ralf Villatoro RN RN mg2
--- NOTE | 2018-04-20 20:45 | EDPHYS ---
Physician Documentation [facility] Name: Cherry oPmpa Age: 68 yrs Sex: Female : 1950 Arrival Date: 04/20/2018 Time: 17:12 Bed 8 Private MD: ED Physician Carlos Kurtz HPI: 04/20 20:21 This 68 yrs old Female presents to ER via EMS with complaints of nausea, jr8 vomiting, dizziness. 20:21 The patient presents to the emergency department with nausea, vomiting. Onset: The jr8 symptoms/episode began/occurred acutely, today. Possible causes: bad food exposure. The symptoms are aggravated by food , The symptoms are alleviated by nothing. Associated signs and symptoms: Pertinent positives: dizziness. Severity of symptoms: At their worst the symptoms were moderate in the emergency department the symptoms are unchanged. The patient has not experienced similar symptoms in the past. The patient has not recently seen a physician. Patient stated that she had eggs and sausage for lunch. About 1 hour afterwards had sudden onset of nausea and vomiting followed by dizziness. EMS called at that time . Historical: - Allergies: 17:25 No Known Allergies; ch - Home Meds: 17:25 insulin SQ [Active]; ch - PMHx: 17:25 Angina; Arthritis; Diabetes - IDDM; High Cholesterol; Hypertension; ch - PSHx: 17:25 Hernia repair; knee replacement; Hysterectomy; ch - Immunization history:: Adult Immunizations up to date. - Social history:: Smoking status: Patient/guardian denies using tobacco, Patient/guardian denies using alcohol, street drugs. - Ebola Screening: : Patient negative for fever greater than or equal to 101.5 degrees Fahrenheit, and additional compatible Ebola Virus Disease symptoms Patient denies exposure to infectious person Patient denies travel to an Ebola-affected area in the 21 days before illness onset No symptoms or risks identified at this time. ROS: 20:21 Eyes: Negative for injury, pain, redness, and discharge, ENT: Negative for injury, jr8 pain, and discharge, Neck: Negative for injury, pain, and swelling, Cardiovascular: Negative for chest pain, palpitations, and edema, Respiratory: Negative for shortness of breath, cough, wheezing, and pleuritic chest pain, Back: Negative for injury and pain, MS/Extremity: Negative for injury and deformity, Skin: Negative for injury, rash, and discoloration. 20:21 Abdomen/GI: Positive for nausea and vomiting, Negative for abdominal pain, diarrhea, constipation, abdominal cramps, abdominal distension, anorexia, dysphagia, hematemesis, black/tarry stool, rectal pain, rectal bleeding, bowel incontinence, flatulence. 20:21 Neuro: Positive for dizziness, Negative for altered mental status, gait disturbance, headache, hearing loss, loss of consciousness, numbness, seizure activity, speech changes, syncope, near syncope, tingling, tinnitus, tremor, visual changes, weakness. Exam: 20:21 Eyes: Pupils equal round and reactive to light, extra-ocular motions intact. Lids and jr8 lashes normal. Conjunctiva and sclera are non-icteric and not injected. Cornea within normal limits. Periorbital areas with no swelling, redness, or edema. ENT: Nares patent. No nasal discharge, no septal abnormalities noted. Tympanic membranes are normal and external auditory canals are clear. Oropharynx with no redness, swelling, or masses, exudates, or evidence of obstruction, uvula midline. Mucous membranes moist. Neck: Trachea midline, no thyromegaly or masses palpated, and no cervical lymphadenopathy. Supple, full range of motion without nuchal rigidity, or vertebral point tenderness. No Meningismus. Cardiovascular: Regular rate and rhythm with a normal S1 and S2. No gallops, murmurs, or rubs. Normal PMI, no JVD. No pulse deficits. Respiratory: Lungs have equal breath sounds bilaterally, clear to auscultation and percussion. No rales, rhonchi or wheezes noted. No increased work of breathing, no retractions or nasal flaring. Abdomen/GI: Soft, non-tender, with normal bowel sounds. No distension or tympany. No guarding or rebound. No evidence of tenderness throughout. Back: No spinal tenderness. No costovertebral tenderness. Full range of motion. Skin: Warm, dry with normal turgor. Normal color with no rashes, no lesions, and no evidence of cellulitis. MS/ Extremity: Pulses equal, no cyanosis. Neurovascular intact. Full, normal range of motion. Neuro: Awake and alert, GCS 15, oriented to person, place, time, and situation. Cranial nerves II-XII grossly intact. Motor strength 5/5 in all extremities. Sensory grossly intact. Cerebellar exam normal. Normal gait. Vital Signs: 17:25 BP 205 / 109; Pulse 112; Resp 22; Temp 98.5; Pulse Ox 98% on R/A; Weight 68.49 kg; ch Height 5 ft. (152.40 cm); Pain 0/10; 17:59 BP 169 / 82; Pulse 110; Resp 22; Pulse Ox 97% on R/A; Pain 0/10; ch 19:08 BP 189 / 91; Pulse 108; Resp 24; Pulse Ox 99% on R/A; Pain 0/10; ch 20:08 BP 113 / 71; Pulse 97; Resp 16; Pulse Ox 99% ; Pain 0/10; ea 21:35 BP 162 / 89; Pulse 96; Resp 20; Temp 98(O); Pulse Ox 98% on R/A; Pain 0/10; ea 17:25 Body Mass Index 29.49 (68.49 kg, 152.40 cm) ch MDM: 17:15 Patient medically screened. jr8 20:44 Data reviewed: vital signs, nurses notes, lab test result(s), EKG, radiologic studies, jr8 plain films, and as a result, I will discharge patient. Data interpreted: Pulse oximetry: on room air is 99 %. Interpretation: normal. Counseling: I had a detailed discussion with the patient and/or guardian regarding: the historical points, exam findings, and any diagnostic results supporting the discharge/admit diagnosis, lab results, radiology results, the need for outpatient follow up, a family practitioner, to return to the emergency department if symptoms worsen or persist or if there are any questions or concerns that arise at home. Response to treatment: the patient's symptoms have markedly improved after treatment, patient is well hydrated. ED course: Patient no longer dizzy. Feels much better. Able to ambulate. Negative for focal neurologic deficits. Will send home on Antivert and nausea medicine . 04/20 17:38 Order name: Basic Metabolic Panel; Complete Time: 18:23 8 04/20 17:38 Order name: CBC with Diff; Complete Time: 18:08 8 04/20 17:38 Order name: LFT's; Complete Time: 18:23 8 04/20 17:38 Order name: Magnesium; Complete Time: 18:23 8 04/20 17:38 Order name: NT PRO-BNP; Complete Time: 18:23 04/20 17:38 Order name: PT-INR; Complete Time: 18:08 04/20 17:38 Order name: Troponin (emerg Dept Use Only); Complete Time: 18:22 04/20 17:38 Order name: XRAY Chest (1 view); Complete Time: 18:22 04/20 17:38 Order name: Lipase; Complete Time: 18:23 04/20 18:54 Order name: Urine Dipstick--Ancillary (enter results); Complete Time: 19:45 04/20 17:38 Order name: EKG; Complete Time: 17:39 04/20 17:38 Order name: Cardiac monitoring; Complete Time: 17:50 04/20 17:38 Order name: EKG - Nurse/Tech; Complete Time: 17:50 04/20 17:38 Order name: IV Saline Lock; Complete Time: 17:50 04/20 17:38 Order name: Labs collected and sent; Complete Time: 17: 04/20 17:38 Order name: O2 Per Protocol; Complete Time: 17:04/20 17:38 Order name: O2 Sat Monitoring; Complete Time: 17:50 04/20 17:38 Order name: Urine Dipstick-Ancillary (obtain specimen); Complete Time: 18:55 Administered Medications: 17:49 Drug: Meclizine 25 mg Route: PO; mg2 17:58 Follow up: Response: No adverse reaction ch 17:49 Drug: NS 0.9% 1000 ml Route: IV; Rate: 1000 ml; Site: left forearm; mg2 19:10 Follow up: IV Status: Completed infusion; IV Intake: 1000ml ch 17:50 Drug: Zofran 4 mg Route: IVP; Site: left forearm; mg2 17:58 Follow up: Response: No adverse reaction; Nausea is decreased ch 19:00 Drug: Magnesium Sulfate 2 grams Route: IVPB; Infused Over: 2 hrs; Site: left forearm; mg2 20:30 Follow up: Response: No adverse reaction; IV Status: Completed infusion ea Point of Care Testing: Blood Glucose: 17:34 Blood Glucose: 236 mg/dL; mg2 Ranges: Critical Glucose Levels:Adult <50 mg/dl or >400 mg/dl <40 mg/dl or >180 mg/dl Disposition: 04/21 07:07 Co-signature as Attending Physician, Carlos Kurtz MD I agree with the assessment and [facility] plan of care. Disposition: 04/20/18 20:45 Discharged to Home. Impression: Nausea and vomiting, Dizziness . - Condition is Stable. - Discharge Instructions: Nausea and Vomiting, Adult. - Prescriptions for Meclizine 25 mg Oral Tablet - take 1 tablet by ORAL route every 8 hours As needed; 30 tablet. Zofran 4 mg Oral Tablet - take 1 tablet by ORAL route every 12 hours As needed; 20 tablet. - Medication Reconciliation Form, Thank You Letter, Antibiotic Education, Prescription Opioid Use form. - Follow up: Private Physician; When: 2 - 3 days; Reason: Recheck today's complaints, Continuance of care, Re-evaluation by your physician. - Problem is new. - Symptoms have improved. Signatures: Dispatcher [employer] EDDoris Barton, Carlos Murry RN, ch, MD MD cha Roszak, Josh, PA KYUNG jr8 Vishal Hess RN RN bp Gardose, Michele, RN RN mg2 Antunez, Elena RN ea Corrections: (The following items were deleted from the chart) 04/20 22:35 20:45 04/20/2018 20:45 Discharged to Home. Impression: Nausea and vomiting; Dizziness . bp Condition is Stable. Forms are Medication Reconciliation Form, Thank You Letter, Antibiotic Education, Prescription Opioid Use. Follow up: Private Physician; When: 2 - 3 days; Reason: Recheck today's complaints, Continuance of care, Re-evaluation by your physician. Problem is new. Symptoms have improved. jr8
[2018-04-20 22:49] VITALS: BP 162/89; TEMP 98; O2SAT 98
--- NOTE | 2018-04-21 14:38 | EKG ---
Test Date: 2018-04-20 Test Time: 17:58:03 [employer] Supervisor: MG MEASUREMENT RESULTS: Intervals: Rate: 110 CA: 176 QRSD: 74 QT: 348 QTc: 470 [place]: P: 48 CA: 176 QRS: 72 T: 29 INTERPRETIVE STATEMENTS: Sinus tachycardia Otherwise normal ECG Compared to ECG 03/22/2018 01:10:54 Sinus rhythm no longer present Electronically Signed On 04-21-18 14:36:15 CDT by Ronald Atkins
== END 2018-04-20 22:35 | disposition home or self-care (01) ==
LOC: ER 17:09
DX: R11.2 Nausea with vomiting, unspecified (principal); R42 Dizziness and giddiness; I20.9 Angina pectoris, unspecified; E10.9 Type 1 diabetes mellitus without complications; Z79.4 Long term (current) use of insulin; E78.00 Pure hypercholesterolemia, unspecified; I10 Essential (primary) hypertension
CPT/HCPCS: 36415; 71045; 80048; 80076; 81003; 82962; 83690; 83735; 83880; 84484; 85025; 85610; 93005; J2405; J3475; J7030; 96361; 96365; 96375; 99285

== ENCOUNTER 2018-08-13 16:28 | Emergency (ER) | payer OTHER ==
--- OUTSIDE RECORDS SUMMARY | 2018-08-13 16:31 | XMS REPORT | Continuity of Care Document ---
[...] abnormality is noted in either kidney. SL: [id number] Vital Signs Vital Sign Value Date Comments Source Encounters Location Location Encounter Encounter Reason Attending ADM DC Status Source Details Type Number For Provider Date Date Visit [facility] Outpatient [id number] Cele 08/01 08/02 Jean-Pierre Santos /2015 [facility] Procedures Procedure Code Date Perfomer Comments Source
--- NOTE | 2018-08-13 19:23 | ER ---
Nurse's Notes [facility] Name: Cherry Pompa Age: 68 yrs Sex: Female : 1950 Arrival Date: 08/13/2018 Time: 16:32 Bed 28 Private MD: Diagnosis: Urinary tract infection, site not specified Presentation: 08/13 16:59 Presenting complaint: Patient states: burning with urination that began 3 days ago. Pt aa5 c/o vaginal pressure. Transition of care: patient was not received from another setting of care. Onset of symptoms was July 2018. Risk Assessment: Do you want to hurt yourself or someone else? Patient reports no desire to harm self or others. Initial Sepsis Screen: Does the patient meet any 2 criteria? No. Patient's initial sepsis screen is negative. Does the patient have a suspected source of infection? No. Patient's initial sepsis screen is negative. Care prior to arrival: None. 16:59 Method Of Arrival: Ambulatory aa5 16:59 Acuity: HERIBERTO 3 aa5 Historical: - Allergies: 17:00 No Known Allergies; aa5 - PMHx: 17:00 Angina; Arthritis; Diabetes - IDDM; High Cholesterol; Hypertension; aa5 - PSHx: 17:00 Hernia repair; knee replacement; Hysterectomy; aa5 - Immunization history:: Flu vaccine is not up to date. - Social history:: Smoking status: Patient/guardian denies using tobacco. - Ebola Screening: : No symptoms or risks identified at this time. Screenin:15 Abuse screen: Denies threats or abuse. Nutritional screening: No deficits noted. tl3 Tuberculosis screening: No symptoms or risk factors identified. Fall Risk None identified. Assessment: 19:09 General: Appears uncomfortable, well groomed, well developed, well nourished, Behavior tl3 is calm, cooperative, appropriate for age. Pain: Complains of pain in pain with urination. Neuro: No deficits noted. Level of Consciousness is awake, alert, obeys commands. Cardiovascular: Patient's skin is warm and dry. Respiratory: Airway is patent Respiratory effort is even, unlabored, Respiratory pattern is regular, symmetrical. GI: No signs and/or symptoms were reported involving the gastrointestinal system. : Urine is. 20:14 Reassessment: No changes from previously documented assessment. Patient and/or family tl3 updated on plan of care and expected duration. Pain level reassessed. Patient is alert, oriented x 3, equal unlabored respirations, skin warm/dry/pink. Vital Signs: 17:00 BP 122 / 45; Pulse 90; Resp 18 S; Temp 99.1(O); Pulse Ox 98% on R/A; Weight 70.31 kg aa5 (R); Height 5 ft. 0 in. (152.40 cm) (R); Pain 9/10; 19:45 BP 172 / 82; Pulse 102; Resp 18; Pulse Ox 100% on R/A; tl3 20:14 BP 191 / 156; Pulse 102; Resp 18; Pulse Ox 98% on R/A; tl3 17:00 Body Mass Index 30.27 (70.31 kg, 152.40 cm) aa5 ED Course: 16:32 Patient arrived in ED. mr 16:59 Triage completed. aa5 16:59 Arm band placed on. aa5 18:07 Jerel Quinn NP is PHCP. pm1 18:07 Carlos Kurtz MD is Attending Physician. pm1 19:00 Denia Degroot RN is Primary Nurse. tl3 19:15 Patient has correct armband on for positive identification. Bed in low position. Call tl3 light in reach. Side rails up X 1. Pulse ox on. NIBP on. Warm blanket given. 19:15 No provider procedures requiring assistance completed. Patient did not have IV access tl3 during this emergency room visit. 19:19 Urine Microscopic Only Sent. tl3 19:23 Raman Wu MD is Referral Physician. pm1 19:46 Urine Culture Sent. tl3 Administered Medications: 19:44 Drug: Rocephin (cefTRIAXone) 1 grams Route: IM; Site: left gluteus; tl3 20:15 Follow up: Response: No adverse reaction tl3 Outcome: 19:23 Discharge ordered by MD. pm1 20:14 Discharged to home via wheelchair. tl3 20:14 Condition: stable 20:14 Discharge instructions given to patient, Instructed on discharge instructions, follow up and referral plans. medication usage, Demonstrated understanding of instructions, follow-up care, medications, Prescriptions given X 1. 20:16 Patient left the ED. tl3 Signatures: Elba Holland mr Flora Montes RN RN aa5 Jerel Quinn NP RESTORATION OFFICER pm1 Denia Degroot, RN RN tl3 Corrections: (The following items were deleted from the chart) 17:02 16:59 Presenting complaint: Patient states: burning with urination that began 3 days aa5 ago. aa5 19:17 19:15 ED physician to see patient. Dr Araujo at bedside Pt visited by tl3 tl3
--- NOTE | 2018-08-13 19:24 | EDPHYS ---
Physician Documentation [facility] Name: Cherry Pompa Age: 68 yrs Sex: Female : 1950 Arrival Date: 08/13/2018 Time: 16:32 Bed 28 Private MD: ED Physician Carlos Kurtz HPI: 08/13 19:22 This 68 yrs old Female presents to ER via Ambulatory with complaints of pm1 Urinary Problem. 19:22 The patient presents with urinary symptoms, dysuria. Onset: The symptoms/episode pm1 began/occurred 2 day(s) ago. Modifying factors: The symptoms are alleviated by nothing, the symptoms are aggravated by urinating. Associated signs and symptoms: Pertinent negatives: fever, nausea, vomiting. Severity of symptoms: in the emergency department the symptoms are unchanged. The patient has experienced similar episodes in the past, a few times. The patient has not recently seen a physician, the patient's primary care provider is Dr. Wu. Historical: - Allergies: 17:00 No Known Allergies; aa5 - PMHx: 17:00 Angina; Arthritis; Diabetes - IDDM; High Cholesterol; Hypertension; aa5 - PSHx: 17:00 Hernia repair; knee replacement; Hysterectomy; aa5 - Immunization history:: Flu vaccine is not up to date. - Social history:: Smoking status: Patient/guardian denies using tobacco. - Ebola Screening: : No symptoms or risks identified at this time. ROS: 19:22 Positive for burning with urination. pm1 19:22 Constitutional: Negative for fever, chills, and weight loss, Eyes: Negative for injury, pain, redness, and discharge, ENT: Negative for injury, pain, and discharge, Neck: Negative for injury, pain, and swelling, Cardiovascular: Negative for chest pain, palpitations, and edema, Respiratory: Negative for shortness of breath, cough, wheezing, and pleuritic chest pain, Abdomen/GI: Negative for abdominal pain, nausea, vomiting, diarrhea, and constipation, Back: Negative for injury and pain, MS/Extremity: Negative for injury and deformity, Skin: Negative for injury, rash, and discoloration, Neuro: Negative for headache, weakness, numbness, tingling, and seizure. Exam: 19:22 Constitutional: This is a well developed, well nourished patient who is awake, alert, pm1 and in no acute distress. Head/Face: Normocephalic, atraumatic. Eyes: Pupils equal round and reactive to light, extra-ocular motions intact. Lids and lashes normal. Conjunctiva and sclera are non-icteric and not injected. Cornea within normal limits. Periorbital areas with no swelling, redness, or edema. ENT: Nares patent. No nasal discharge, no septal abnormalities noted. Tympanic membranes are normal and external auditory canals are clear. Oropharynx with no redness, swelling, or masses, exudates, or evidence of obstruction, uvula midline. Mucous membranes moist. Neck: Trachea midline, no thyromegaly or masses palpated, and no cervical lymphadenopathy. Supple, full range of motion without nuchal rigidity, or vertebral point tenderness. No Meningismus. Chest/axilla: Normal chest wall appearance and motion. Nontender with no deformity. No lesions are appreciated. Cardiovascular: Regular rate and rhythm with a normal S1 and S2. No gallops, murmurs, or rubs. Normal PMI, no JVD. No pulse deficits. Respiratory: Lungs have equal breath sounds bilaterally, clear to auscultation and percussion. No rales, rhonchi or wheezes noted. No increased work of breathing, no retractions or nasal flaring. Abdomen/GI: Soft, non-tender, with normal bowel sounds. No distension or tympany. No guarding or rebound. No evidence of tenderness throughout. Back: No spinal tenderness. No costovertebral tenderness. Full range of motion. Skin: Warm, dry with normal turgor. Normal color with no rashes, no lesions, and no evidence of cellulitis. MS/ Extremity: Pulses equal, no cyanosis. Neurovascular intact. Full, normal range of motion. 19:22 Neuro: Orientation: is normal, Motor: is normal, moves all fours. Vital Signs: 17:00 BP 122 / 45; Pulse 90; Resp 18 S; Temp 99.1(O); Pulse Ox 98% on R/A; Weight 70.31 kg aa5 (R); Height 5 ft. 0 in. (152.40 cm) (R); Pain 9/10; 19:45 BP 172 / 82; Pulse 102; Resp 18; Pulse Ox 100% on R/A; tl3 20:14 BP 191 / 156; Pulse 102; Resp 18; Pulse Ox 98% on R/A; tl3 17:00 Body Mass Index 30.27 (70.31 kg, 152.40 cm) aa5 MDM: 18:07 Patient medically screened. pm1 19:22 Data reviewed: vital signs. Data interpreted: Pulse oximetry: on room air is 98 %. pm1 Interpretation: normal. Counseling: I had a detailed discussion with the patient and/or guardian regarding: the historical points, exam findings, and any diagnostic results supporting the discharge/admit diagnosis, lab results, the need for outpatient follow up, to return to the emergency department if symptoms worsen or persist or if there are any questions or concerns that arise at home. 08/13 18:08 Order name: Urine Microscopic Only pm1 08/13 18:09 Order name: Urine Microscopic Only; Complete Time: 23:00 EDMS 08/13 18:08 Order name: Urine Dipstick-Ancillary (obtain specimen); Complete Time: 19:19 pm1 08/13 18:55 Order name: Urine Dipstick--Ancillary (enter results); Complete Time: 23:00 ms 08/13 19:45 Order name: Urine Culture EDMS Administered Medications: 19:44 Drug: Rocephin (cefTRIAXone) 1 grams Route: IM; Site: left gluteus; tl3 20:15 Follow up: Response: No adverse reaction tl3 Disposition: 08/13/18 19:23 Discharged to Home. Impression: Urinary tract infection, site not specified. - Condition is Stable. - Discharge Instructions: Urinary Tract Infection, Adult. - Prescriptions for Bactrim DS 800- 160 mg Oral Tablet - take 1 tablet by ORAL route every 12 hours for 10 days; 20 tablet. - Medication Reconciliation Form, Thank You Letter, Antibiotic Education form. - Follow up: Emergency Department; When: As needed; Reason: Worsening of condition. Follow up: Raman Wu MD; When: 2 - 3 days; Reason: Recheck today's complaints, Continuance of care, Re-evaluation by your physician. - Problem is new. - Symptoms have improved. Addendum: 08/16/2018 08:10 Co-signature as Attending Physician, Carlos Kurtz MD I agree with the assessment and c donato plan of care. Signatures: Dispatcher [employer] EDWI Carlos Kurtz MD MD cha Calderon, Audri, RN RN aa5 Jerel Quinn, PULP MILL SUPERVISOR PULP MILL SUPERVISOR pm1 Denia Degroot, RN RN tl3 Corrections: (The following items were deleted from the chart) 08/13 20:16 19:23 08/13/2018 19:23 Discharged to Home. Impression: Urinary tract infection, site tl3 not specified. Condition is Stable. Forms are Medication Reconciliation Form, Thank You Letter, Antibiotic Education, Prescription Opioid Use. Follow up: Emergency Department; When: As needed; Reason: Worsening of condition. Follow up: Raman Wu; When: 2 - 3 days; Reason: Recheck today's complaints, Continuance of care, Re-evaluation by your physician. Problem is new. Symptoms have improved. pm1
[2018-08-13 19:42] LABS: Urine Bacteria 20-50 /HPF (<20); Urine RBC <5 /HPF (NONE SEEN)
[2018-08-13 19:43] LABS: Urine Amorphous Sediment 3+ /HPF (NONE SEEN); Urine Culture Reflex Order REFLEXED
[2018-08-13] MEDS ORDERED: CEFTRIAXONE 1000 MG/VIAL ONE (19:45)
[2018-08-13] MEDS ORDERED: WATER FOR INJ,STERILE 10 ML ONE (19:45)
[2018-08-13 20:16] LABS: Urine Blood TRACE (NEG); Urine Glucose TRACE (NEG); Urine Specific Gravity 1.015 (1.005-1.030); Urine pH 7.5 (5.0-7.0)
[2018-08-13 20:17] LABS: Urine Protein NEGATIVE (NEG)
[2018-08-13 20:32] VITALS: TEMP 99.1
[2018-08-13 20:34] VITALS: BP 191/156; O2SAT 98
== END 2018-08-13 20:16 | disposition home or self-care (01) ==
LOC: ER 16:28
DX: N39.0 Urinary tract infection, site not specified (principal); I10 Essential (primary) hypertension
CPT/HCPCS: 81003; 81015; 87086; 87088; 96372; 99284

== ENCOUNTER 2018-12-18 09:48 | Emergency (ER) | payer OTHER ==
--- OUTSIDE RECORDS SUMMARY | 2018-12-18 09:50 | XMS REPORT | Continuity of Care Document ---
[...] Complete US 08/01 - sellers ea - [facility] Complete US US CLINICAL HISTORY:bladder retention. [...] abnormality is noted in either kidney. SL: [id number] Vital Signs Vital Sign Value Date Comments Source Encounters Location Location Encounter Encounter Reason Attending ADM DC Status Source Details Type Number For Provider Date Date Visit [facility] [id number] Cele 08/01 08/02 Jean-Pierre Santos /2015 [facility] Procedures Procedure Code Date Perfomer Comments Source
[2018-12-18] MEDS ORDERED: NA CHLORIDE 0.9% 0 ML ONE (10:27)
--- NOTE | 2018-12-18 10:43 | RAD REPORT ---
EXAM DESCRIPTION: CT - [id number] - 12/18/2018 10:29 am CLINICAL HISTORY: Trauma, head and neck injury. Pain;Smash injury COMPARISON: Head C Spine Mpr Wo Con dated 12/12/2017 TECHNIQUE: Axial 5 mm thick images of the head were obtained. Axial 2 mm thick images of the cervical spine were obtained with sagittal and coronal reconstruction images generated and reviewed. All CT scans are performed using dose optimization technique as appropriate and may include automated exposure control or mA/KV adjustment according to patient size. FINDINGS: CT HEAD WITHOUT CONTRAST: No acute hemorrhage, hydrocephalus or extra-axial collection is identified.No areas of brain edema or midline shift. The paranasal sinuses and mastoids are clear.Chronic right lobe hyperdensity.The calvarium is intact. CT CERVICAL SPINE WITHOUT CONTRAST: No fracture or subluxation.No prevertebral soft tissues swelling is identified. IMPRESSION: No acute intracranial or cervical spine findings.
[2018-12-18] MEDS ORDERED: NA CHLORIDE 0.9% 500 ML ONE (10:53)
[2018-12-18 11:25] LABS: Absolute Lymphocytes (CBC) 2.1 K/uL (0.7-4.9); Absolute Monocytes 0.7 K/uL (0.1-1.3); Basophils % 0.9 % (0-1.3); Eosinophils % 4.4 % (0-4.4); Hematocrit 28.1 % (36.0-45.0); Lymphocytes % 33.3 % (15.3-44.8); MPV 7.4 fL (7.6-11.3); Monocytes % 12.2 % (3.3-12.3); RBC Red Blood Cell Count 3.36 M/uL (3.86-4.86)
[2018-12-18 11:44] LABS: BUN Blood Urea Nitrogen 37 mg/dL (7-18); Bicarbonate 25 mmol/L (21-32); Glucose Level 126 mg/dL (74-106); Potassium 4.9 mmol/L (3.5-5.1); Sodium Level 142 mmol/L (136-145); Troponin (Emerg Dept Use Only) < 0.02 ng/mL (0.0-0.045)
--- NOTE | 2018-12-18 11:59 | RAD REPORT ---
EXAM DESCRIPTION: RAD - Shoulder Left 2 View - 12/18/2018 11:43 am CLINICAL HISTORY: SMASH INJURY Fall, trauma, pain COMPARISON: Shoulder Left 2 View dated 12/11/2017 FINDINGS: AC joint and glenohumeral joint arthritic changes are present. No acute fracture or disloc ation. No aggressive marrow lesion.
--- NOTE | 2018-12-18 12:03 | RAD REPORT ---
EXAM DESCRIPTION: RAD - Chest Single View - 12/18/2018 11:43 am CLINICAL HISTORY: PAIN Chest pain. COMPARISON: <Comparisons> FINDINGS: Portable technique limits examination quality. The lungs are grossly clear. The heart is upper limit of normal in size. Degenerative changes are pre sent in the left shoulder. IMPRESSION: No acute intrathoracic process suspected.
--- NOTE | 2018-12-18 12:08 | EDPHYS ---
Physician Documentation [facility] Name: Cherry Pompa Age: 68 yrs Sex: Female : 1950 Arrival Date: 12/18/2018 Time: 09:50 Bed 19 Private MD: ED Physician Bruce Araujo HPI: 12/18 10:09 This 68 yrs old Female presents to ER via EMS with complaints of Shoulder Pain.snw 10:14 This 68 yrs old Female presents to ER via EMS with complaints of Shoulder Pain.rn 10:09 The patient or guardian complains of pain, that is acute. left shoulder and left snw trapezius. Context: The problem was sustained at a store, resulted from a fall, The patient reports no decreased range of motion. The patient reports no obvious deformity. Onset: The symptoms/episode began/occurred suddenly, 3 day(s) ago, and became persistent. Associated signs and symptoms: Pertinent positives: right neck discomfort. Severity of symptoms: At their worst the symptoms were moderate. The patient has experienced similar episodes in the past. The patient has been recently seen by a physician: the patient's primary care provider, Dr. Aron Ocampo with different complaint(s), and apparently was diagnosed with UTI, was given a prescription for antibiotics. 10:14 The patient or guardian complains of pain. left shoulder. Onset: The symptoms/episode rn began/occurred 2 day(s) ago. Modifying factors: the symptoms are alleviated by remaining still, The symptoms are aggravated by movement. Severity of symptoms: At their worst the symptoms were mild, in the emergency department the symptoms are unchanged. The patient has experienced similar episodes in the past. Reports multiple falls in past as well as left shoulder injuries, reports fell 2 days ago, hit left shoulder again, no LOC, does take plavix, reports chronic pain to feet and knees. Reports pain got worse this morning so came in for eval.. Historical: - Allergies: 10:08 No Known Drug Allergies; tw2 - PMHx: 10:08 Angina; Arthritis; Diabetes - IDDM; High Cholesterol; Hypertension; tw2 - PSHx: 10:08 knee replacement; Hernia repair; Hysterectomy; tw2 - Immunization history:: Adult Immunizations. - Social history:: Smoking status: . - Ebola Screening: : Patient denies travel to an Ebola-affected area in the 21 days before illness onset. - Family history:: not pertinent. - Hospitalizations: : No recent hospitalization is reported. ROS: 10:09 Constitutional: Negative for fever, chills, and weight loss, Eyes: Negative for injury, snw pain, redness, and discharge, ENT: Negative for injury, pain, and discharge, Neck: Negative for injury and swelling, +pain to right neck Cardiovascular: Negative for chest pain, palpitations, and edema, Respiratory: Negative for shortness of breath, cough, wheezing, and pleuritic chest pain, Abdomen/GI: Negative for abdominal pain, nausea, vomiting, diarrhea, and constipation, Back: Negative for injury and pain, : Negative for injury, bleeding, discharge, and swelling, MS/Extremity: Negative for deformity, + pain to left shoulder Skin: Negative for injury, rash, and discoloration, Neuro: Negative for headache, weakness, numbness, tingling, and seizure. Exam: 10:09 Constitutional: This is a well developed, well nourished patient who is awake, alert, snw and in no acute distress. Head/Face: Normocephalic, atraumatic. 10:09 ENT: Nares patent. No nasal discharge, no septal abnormalities noted. Tympanic membranes are normal and external auditory canals are clear. Oropharynx with no redness, swelling, or masses, exudates, or evidence of obstruction, uvula midline. Mucous membranes moist. Neck: Trachea midline, no thyromegaly or masses palpated, and no cervical lymphadenopathy. Supple, full range of motion without nuchal rigidity, or vertebral point tenderness. No Meningismus. tenderness to right lateral neck Chest/axilla: Normal chest wall appearance and motion. Nontender with no deformity. No lesions are appreciated. Cardiovascular: Regular rate and rhythm with a normal S1 and S2. No gallops, murmurs, or rubs. Normal PMI, no JVD. No pulse deficits. Respiratory: Lungs have equal breath sounds bilaterally, clear to auscultation and percussion. No rales, rhonchi or wheezes noted. No increased work of breathing, no retractions or nasal flaring. Abdomen/GI: Soft, non-tender, with normal bowel sounds. No distension or tympany. No guarding or rebound. No evidence of tenderness throughout. Back: No spinal tenderness. No costovertebral tenderness. Full range of motion. Skin: Warm, dry with normal turgor. Normal color with no rashes, no lesions, and no evidence of cellulitis. Neuro: Awake and alert, GCS 15, oriented to person, place, time, and situation. Cranial nerves II-XII grossly intact. Motor strength 5/5 in all extremities. Sensory grossly intact. Cerebellar exam normal. Normal gait. Psych: Awake, alert, with orientation to person, place and time. Behavior, mood, and affect are within normal limits. 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 10:09 Musculoskeletal/extremity: Extremities: grossly normal except: noted in the left arm: ROM: intact in all extremities, Circulation is intact in all extremities. Sensation intact. left hand with mild edema. 11:07 ECG was reviewed by the Attending Physician. rn Vital Signs: 09:55 BP 78 / 62; Pulse 71; Resp 16; Temp 98.5(O); Pulse Ox 97% on R/A; Pain 10/10; tw2 10:08 BP 89 / 51; em 10:51 BP 129 / 65; Pulse 76; Resp 18; Pulse Ox 97% on R/A; em 11:30 BP 120 / 73; Pulse 77; Resp 18; Pulse Ox 100% on R/A; em MDM: 09:54 Patient medically screened. rn 12:06 Differential diagnosis: humeral head fracture, glenoid fracture, DJD, tendonitis. Data rn reviewed: vital signs, nurses notes, lab test result(s), EKG, radiologic studies, CT scan, plain films, and as a result, I will discharge patient. Counseling: I had a detailed discussion with the patient and/or guardian regarding: the historical points, exam findings, and any diagnostic results supporting the discharge/admit diagnosis, lab results, radiology results, the need for outpatient follow up, to return to the emergency department if symptoms worsen or persist or if there are any questions or concerns that arise at home. Response to treatment: the patient's symptoms have mildly improved after treatment, and as a result, I will discharge patient. Special discussion: I discussed with the patient/guardian in detail that at this point there is no indication for admission to the hospital. It is understood, however, that if the symptoms persist or worsen the patient needs to return immediately for re-evaluation. 12:18 ED course: Pt on abx for UTI. rn 12/18 11:12 Order name: CBC with Diff; Complete Time: 11:52 iw 12/18 11:12 Order name: Basic Metabolic Panel; Complete Time: 11:52 iw 12/18 10:07 Order name: CT Head C Spine; Complete Time: 11:21 snw 12/18 10:09 Order name: Shoulder Left (2 View) XRAY; Complete Time: 12:06 snw 12/18 11:12 Order name: Troponin (emerg Dept Use Only); Complete Time: 11:52 iw 12/18 12:15 Order name: Urine Dipstick--Ancillary (enter results); Complete Time: 12:18 eb 12/18 10:09 Order name: EKG - Nurse/Tech; Complete Time: 10:22 snw 12/18 10:46 Order name: XRAY Chest (1 view); Complete Time: 12:06 rn EC: Rate is 72 beats/min. Rhythm is regular. DE interval is normal. QRS interval is normal. rn QT interval is normal. T waves are Normal. No ST changes noted. Clinical impression: NSR w/ Non-specific ST/T Changes. Interpreted by me. Reviewed by me. Administered Medications: 10:50 Drug: NS 0.9% 500 ml Route: IV; Rate: bolus; Site: right antecubital; em 12:12 Follow up: IV Status: Completed infusion; IV Intake: 500ml em Disposition: 13:56 Co-signature as Attending Physician, Bruce Araujo MD. rn Disposition: 12/18/18 12:07 Discharged to Home. Impression: Dehydration, Contusion of left shoulder. - Condition is Stable. - Discharge Instructions: Dehydration, Adult, Shoulder Pain. - Medication Reconciliation Form, Thank You Letter, Antibiotic Education, Prescription Opioid Use form. - Follow up: Private Physician; When: As needed; Reason: Recheck today's complaints, Re-evaluation by your physician. - Problem is new. - Symptoms have improved. Signatures: Dispatcher [employer] EDMS Angely Edwards, CADMIUM LIQUOR MAKER-C CADMIUM LIQUOR MAKER-Csnw Jan, Chevy, HTML DEVELOPER HTML DEVELOPER em Bruce Araujo MD MD rn Wise, Tara, RN RN tw2 Corrections: (The following items were deleted from the chart) 12:30 12:07 12/18/2018 12:07 Discharged to Home. Impression: Dehydration; Contusion of left em shoulder. Condition is Stable. Forms are Medication Reconciliation Form, Thank You Letter, Antibiotic Education, Prescription Opioid Use. Follow up: Private Physician; When: As needed; Reason: Recheck today's complaints, Re-evaluation by your physician. Problem is new. Symptoms have improved. rn
--- NOTE | 2018-12-18 12:08 | ER ---
Nurse's Notes [facility] Name: Cherry Pompa Age: 68 yrs Sex: Female : 1950 Arrival Date: 12/18/2018 Time: 09:50 Bed 19 Private MD: Diagnosis: Dehydration;Contusion of left shoulder Presentation: 12/18 09:50 Presenting complaint: EMS states: pt is c/o of LEFT shoulder pain, started tw2 after she fell in the backyard while doing some yardwork, at 3 am the pain woke her up, vs stable. Transition of care: patient was not received from another setting of care. Onset of symptoms was December 18, 2018. Risk Assessment: Do you want to hurt yourself or someone else? Patient reports no desire to harm self or others. Initial Sepsis Screen: Does the patient meet any 2 criteria? No. Patient's initial sepsis screen is negative. Does the patient have a suspected source of infection? No. Patient's initial sepsis screen is negative. Care prior to arrival: None. 09:50 Method Of Arrival: EMS: [facility] tw2 09:55 Acuity: HERIBERTO 3 tw2 Historical: - Allergies: 10:08 No Known Drug Allergies; tw2 - PMHx: 10:08 Angina; Arthritis; Diabetes - IDDM; High Cholesterol; Hypertension; tw2 - PSHx: 10:08 knee replacement; Hernia repair; Hysterectomy; tw2 - Immunization history:: Adult Immunizations. - Social history:: Smoking status: . - Ebola Screening: : Patient denies travel to an Ebola-affected area in the 21 days before illness onset. - Family history:: not pertinent. - Hospitalizations: : No recent hospitalization is reported. Screenin:05 Abuse screen: Denies threats or abuse. Nutritional screening: No deficits noted. em Tuberculosis screening: No symptoms or risk factors identified. Fall Risk Fall in past 12 months (25 points). Secondary diagnosis (15 points) impaired mobility, Ambulatory Aid- Crutches/Cane/Walker (15 pts). Total Jackson Fall Scale indicates High Risk Score (45 or more points). Fall prevention measures have been instituted. Side Rails Up X 2 Placed Close to Nursing Station Family Present and informed to notify staff if the need to leave the bedside. Assessment: 10:05 General: Appears in no apparent distress. comfortable, Behavior is cooperative, drowsy. em Pain: Complains of pain in left shoulder Pain radiates to anterior aspect of left upper chest Pain currently is 10 out of 10 on a pain scale. Quality of pain is described as sharp. Neuro: Level of Consciousness is awake, alert, obeys commands, Oriented to person, place, time, situation, Speech is normal, Facial symmetry appears normal. Cardiovascular: Heart tones S1 S2 present Capillary refill < 3 seconds Patient's skin is warm and dry. Respiratory: Airway is patent Respiratory effort is even, unlabored, Respiratory pattern is regular, symmetrical, Breath sounds are clear bilaterally. GI: Abdomen is round non-distended. : No signs and/or symptoms were reported regarding the genitourinary system. EENT: No signs and/or symptoms were reported regarding the EENT system. Derm: Skin is intact, is healthy with good turgor, Skin is pink, warm \T\ dry. Musculoskeletal: Range of motion: limited in left shoulder. 10:05 Reassessment: provider notified of BP, received verbal order for 500 mL NS 0.9 bolus. em 11:30 Reassessment: Patient appears in no apparent distress at this time. Patient and/or em family updated on plan of care and expected duration. Pain level reassessed. Patient is alert, oriented x 3, equal unlabored respirations, skin warm/dry/pink. ambulated to restroom with cane and assistance from family. 11:54 Reassessment: Patient appears in no apparent distress at this time. Patient and/or em family updated on plan of care and expected duration. Pain level reassessed. Patient is alert, oriented x 3, equal unlabored respirations, skin warm/dry/pink. Vital Signs: 09:55 BP 78 / 62; Pulse 71; Resp 16; Temp 98.5(O); Pulse Ox 97% on R/A; Pain 10/10; tw2 10:08 BP 89 / 51; em 10:51 BP 129 / 65; Pulse 76; Resp 18; Pulse Ox 97% on R/A; em 11:30 BP 120 / 73; Pulse 77; Resp 18; Pulse Ox 100% on R/A; em ED Course: 09:50 Patient arrived in ED. tw2 09:51 Triage completed. tw2 09:52 Arm band placed on. tw2 09:54 Bruce Araujo MD is Attending Physician. rn 10:05 Patient has correct armband on for positive identification. Bed in low position. Call em light in reach. Side rails up X2. Adult w/ patient. laboratory monitor on. Pulse ox on. NIBP on. 10:06 Angely Edwards FNP-C is PHCP. snw 10:08 Chevy Montoya LVN is Primary Nurse. em 10:29 CT Head C Spine In Process Unspecified. EDMS 10:29 CT completed. Patient tolerated procedure well. Patient moved to CT via stretcher. bq Patient moved to radiology. 10:50 Initial lab(s) drawn, by me, sent to lab. Inserted saline lock: 20 gauge in right em antecubital area, using aseptic technique. Blood collected. 11:44 Shoulder Left (2 View) XRAY In Process Unspecified. EDMS 11:44 XRAY Chest (1 view) In Process Unspecified. EDMS 12:15 Urine collected: clean catch specimen, cloudy. [facility] 12:26 No provider procedures requiring assistance completed. IV discontinued, intact, em bleeding controlled, No redness/swelling at site. Pressure dressing applied. Administered Medications: 10:50 Drug: NS 0.9% 500 ml Route: IV; Rate: bolus; Site: right antecubital; em 12:12 Follow up: IV Status: Completed infusion; IV Intake: 500ml em Intake: 12:12 IV: 500ml; Total: 500ml. em Outcome: 12:07 Discharge ordered by MD. rn 12:27 Discharged to home via wheelchair, with family. em 12:27 Condition: good 12:27 Discharge instructions given to patient, family, Instructed on discharge instructions, follow up and referral plans. Demonstrated understanding of instructions, follow-up care. 12:30 Patient left the ED. em Signatures: Dispatcher [employer] EDMS Angely Edwards FNP-C FAMILY EDUCATOR-Csnw Ann Macias bq Chevy Montoya LVN LVN em Bruce Araujo MD MD rn Wise, Tara, RN RN 2 Brigette Kasper [facility] Corrections: (The following items were deleted from the chart) 09:55 09:50 Acuity: HERIBERTO 4 tw2 tw2
[2018-12-18 12:17] LABS: Urine Blood NEGATIVE (NEG); Urine Glucose NEGATIVE (NEG); Urine Protein NEGATIVE (NEG); Urine Specific Gravity 1.015 (1.005-1.030)
[2018-12-18 14:24] VITALS: TEMP 98.5
[2018-12-18 14:27] VITALS: BP 120/73; O2SAT 100
== END 2018-12-18 12:30 | disposition home or self-care (01) ==
LOC: ER 09:48
DX: E86.0 Dehydration (principal); W19.XXXA Unspecified fall, initial encounter; Y93.9 Activity, unspecified; Y92.512 Supermarket, store or market as the place of occurrence of the external cause; Z79.01 Long term (current) use of anticoagulants; I10 Essential (primary) hypertension; E11.9 Type 2 diabetes mellitus without complications
CPT/HCPCS: 36415; 70450; 71045; 72125; 80048; 81003; 84484; 85025; 96360; 99285

== ENCOUNTER 2019-01-14 17:31 | Emergency (ER) | payer OTHER ==
--- OUTSIDE RECORDS SUMMARY | 2019-01-14 17:33 | XMS REPORT | Continuity of Care Document ---
[...] Complete US 08/01 - sellers ea - [facility] Complete US US CLINICAL HISTORY:bladder retention. Read [...] abnormality is noted in either kidney. SL: [id number] Vital Signs Vital Sign Value Date Comments Source Encounters Location Location Encounter Encounter Reason Attending ADM DC Status Source Details Type Number For Provider Date Date Visit [facility] Outpatient [id number] Cele 08/01 08/02 Jean-Pierre Santos /2015 [facility] Procedures Procedure Code Date Perfomer Comments Source
--- NOTE | 2019-01-14 18:17 | EDPHYS ---
Physician Documentation [facility] Name: Cherry Pompa Age: 69 yrs Sex: Female : 1950 Arrival Date: 01/14/2019 Time: 17:34 Bed 23 Private MD: Raman Wu E ED Physician Esivn Alaniz HPI: 01/14 18:13 This 69 yrs old Female presents to ER via Ambulatory with complaints of Leg ma2 Pain. 18:13 The complaints affect the lateral aspect of left calf, left calf, medial aspect of left ma2 calf and left gupta. Onset: The symptoms/episode began/occurred gradually, 3 week(s) ago. Associated signs and symptoms: Pertinent negatives fever, nausea, numbness, rash, swelling, tingling, vomiting, warmth, weakness. Severity of symptoms: At their worst the symptoms were mild, in the emergency department the symptoms are unchanged. Historical: - Allergies: 17:59 No Known Allergies; rv - PMHx: 17:59 Angina; Arthritis; Diabetes - IDDM; High Cholesterol; Hypertension; rv - PSHx: 17:59 Hysterectomy; Cholecystectomy; rv - Immunization history:: Adult Immunizations not up to date. - Social history:: Smoking status: Patient/guardian denies using tobacco, never smoked, Patient/guardian denies using alcohol, street drugs, The patient lives with family. - Ebola Screening: : No symptoms or risks identified at this time. - Family history:: not pertinent. - Hospitalizations: : No recent hospitalization is reported. ROS: 18:13 Constitutional: Negative for fever, chills, and weight loss, Eyes: Negative for injury, ma2 pain, redness, and discharge, Cardiovascular: Negative for chest pain, palpitations, and edema, Respiratory: Negative for shortness of breath, cough, wheezing, and pleuritic chest pain, Abdomen/GI: Negative for abdominal pain, nausea, diarrhea, and constipation. 18:13 MS/extremity: Positive for pain, Negative for contusion, decreased range of motion, swelling, tenderness. 18:13 Skin: Positive for mild cellulitis of both legs no crepitations , Negative for burn, ecchymosis, lesions. 18:13 All other systems are negative. Exam: 18:13 Constitutional: This is a well developed, well nourished patient who is awake, alert, ma2 and in no acute distress. Head/Face: Normocephalic, atraumatic. Eyes: Pupils equal round and reactive to light, extra-ocular motions intact. Lids and lashes normal. Conjunctiva and sclera are non-icteric and not injected. Cornea within normal limits. Periorbital areas with no swelling, redness, or edema. ENT: Nares patent. No nasal discharge, no septal abnormalities noted. Tympanic membranes are normal and external auditory canals are clear. Oropharynx with no redness, swelling, or masses, exudates, or evidence of obstruction, uvula midline. Mucous membranes moist. Neck: Trachea midline, no thyromegaly or masses palpated, and no cervical lymphadenopathy. Supple, full range of motion without nuchal rigidity, or vertebral point tenderness. No Meningismus. Chest/axilla: Normal chest wall appearance and motion. Nontender with no deformity. No lesions are appreciated. Cardiovascular: Regular rate and rhythm with a normal S1 and S2. No gallops, murmurs, or rubs. Normal PMI, no JVD. No pulse deficits. Respiratory: Lungs have equal breath sounds bilaterally, clear to auscultation and percussion. No rales, rhonchi or wheezes noted. No increased work of breathing, no retractions or nasal flaring. Abdomen/GI: Soft, non-tender, with normal bowel sounds. No distension or tympany. No guarding or rebound. No evidence of tenderness throughout. Back: No spinal tenderness. No costovertebral tenderness. Full range of motion. MS/ Extremity: Pulses equal, no cyanosis. Neurovascular intact. Full, normal range of motion. Neuro: Awake and alert, GCS 15, oriented to person, place, time, and situation. Cranial nerves II-XII grossly intact. Motor strength 5/5 in all extremities. Sensory grossly intact. Cerebellar exam normal. Normal gait. Psych: Awake, alert, with orientation to person, place and time. Behavior, mood, and affect are within normal limits. 18:13 Skin: Appearance: Color: normal in color, Temperature: normal temperature, abscess, not appreciated, cellulitis, that is minimal, irregular, on the right leg and left leg, Turgor: is excellent. Vital Signs: 18:00 BP 111 / 54; Pulse 78; Resp 18; Temp 98.1; Pulse Ox 98% ; Weight 73.48 kg; Height 5 ft. rv (152.40 cm); 18:30 BP 109 / 61; Pulse 72; Resp 19 S; Pulse Ox 99% on R/A; ca1 18:00 Body Mass Index 31.64 (73.48 kg, 152.40 cm) rv MDM: 17:52 Patient medically screened. ma2 18:13 Differential diagnosis: mild cellulitis of both legs. Data reviewed: vital signs, ma2 nurses notes. Counseling: I had a detailed discussion with the patient and/or guardian regarding: the historical points, exam findings, and any diagnostic results supporting the discharge/admit diagnosis, the presence of at least one elevated blood pressure reading (>120/80) during this emergency department visit, the need for outpatient follow up. Response to treatment: the patient's symptoms have markedly improved after treatment. Administered Medications: No medications were administered Disposition: 01/14/19 18:16 Discharged to Home. Impression: Cellulitis of left lower limb, Cellulitis of right lower limb. - Condition is Stable. - Discharge Instructions: Cellulitis, Adult. - Prescriptions for Bactrim DS 800- 160 mg Oral Tablet - take 1 tablet by ORAL route every 12 hours for 10 days; 20 tablet. - Medication Reconciliation Form, Thank You Letter, Antibiotic Education, Prescription Opioid Use form. - Follow up: Private Physician; When: Tomorrow; Reason: Continuance of care. Signatures: Esvin Alaniz MD MD ma2 Giovanni Madsen RN RN rv Liz Melgar RN RN ca1 Corrections: (The following items were deleted from the chart) 18:42 18:16 01/14/2019 18:16 Discharged to Home. Impression: Cellulitis of left lower limb; ca1 Cellulitis of right lower limb. Condition is Stable. Forms are Medication Reconciliation Form, Thank You Letter, Antibiotic Education, Prescription Opioid Use. Follow up: Private Physician; When: Tomorrow; Reason: Continuance of care. ma2
--- NOTE | 2019-01-14 18:17 | ER ---
Nurse's Notes [facility] Name: Cherry Pompa Age: 69 yrs Sex: Female : 1950 Arrival Date: 01/14/2019 Time: 17:34 Bed 23 Private MD: Raman Wu E Diagnosis: Cellulitis of left lower limb;Cellulitis of right lower limb Presentation: 01/14 17:57 Presenting complaint: Child states: SHE STARTED HAVING SWELLING WITH HER FEET. AND rv RIGHT LEG PAIN, MOVES UPTO HER HIP. SHE ALSO GOT SOME ABSCESS ON BOTH LEGS. Transition of care: patient was not received from another setting of care. Onset of symptoms was January 07, 2019 at 08:00. Risk Assessment: Do you want to hurt yourself or someone else? Patient reports no desire to harm self or others. Initial Sepsis Screen: Does the patient meet any 2 criteria? No. Patient's initial sepsis screen is negative. Does the patient have a suspected source of infection? No. Patient's initial sepsis screen is negative. Care prior to arrival: None. 17:57 Method Of Arrival: Ambulatory rv 17:57 Acuity: HERIBERTO 4 rv Triage Assessment: 18:00 General: Appears in no apparent distress. comfortable, Behavior is calm, cooperative. rv Pain: Complains of pain in right leg. EENT: No signs and/or symptoms were reported regarding the EENT system. Neuro: Level of Consciousness is awake, alert, obeys commands, Oriented to person, place, time, situation. Cardiovascular: Capillary refill < 3 seconds. Respiratory: Airway is patent. GI: No signs and/or symptoms were reported involving the gastrointestinal system. : No signs and/or symptoms were reported regarding the genitourinary system. Derm: Skin is intact. Musculoskeletal: Swelling present in right leg and left leg Reports pain in right leg. Historical: - Allergies: 17:59 No Known Allergies; rv - PMHx: 17:59 Angina; Arthritis; Diabetes - IDDM; High Cholesterol; Hypertension; rv - PSHx: 17:59 Hysterectomy; Cholecystectomy; rv - Immunization history:: Adult Immunizations not up to date. - Social history:: Smoking status: Patient/guardian denies using tobacco, never smoked, Patient/guardian denies using alcohol, street drugs, The patient lives with family. - Ebola Screening: : No symptoms or risks identified at this time. - Family history:: not pertinent. - Hospitalizations: : No recent hospitalization is reported. Screenin:00 Abuse screen: Denies threats or abuse. Denies injuries from another. Nutritional rv screening: No deficits noted. Tuberculosis screening: No symptoms or risk factors identified. Fall Risk None identified. Assessment: 18:00 General: Appears in no apparent distress. comfortable, Behavior is calm, cooperative, ca1 appropriate for age. Pain: Complains of pain in left gupta and medial aspect of left calf and left calf and lateral aspect of left calf and left leg and right leg Pain currently is 7 out of 10 on a pain scale. Neuro: Level of Consciousness is awake, alert, obeys commands, Oriented to person, place, time, situation. Cardiovascular: Heart tones S1 S2 present Capillary refill < 3 seconds Patient's skin is warm and dry. Respiratory: Airway is patent Respiratory effort is even, unlabored, Respiratory pattern is regular, symmetrical, Breath sounds are clear bilaterally. GI: No deficits noted. No signs and/or symptoms were reported involving the gastrointestinal system. : No deficits noted. No signs and/or symptoms were reported regarding the genitourinary system. EENT: No deficits noted. No signs and/or symptoms were reported regarding the EENT system. Derm: Skin is intact, is healthy with good turgor, Skin is pink, warm \T\ dry. Musculoskeletal: Circulation, motion, and sensation intact. Capillary refill < 3 seconds. Vital Signs: 18:00 BP 111 / 54; Pulse 78; Resp 18; Temp 98.1; Pulse Ox 98% ; Weight 73.48 kg; Height 5 ft. rv (152.40 cm); 18:30 BP 109 / 61; Pulse 72; Resp 19 S; Pulse Ox 99% on R/A; ca1 18:00 Body Mass Index 31.64 (73.48 kg, 152.40 cm) rv ED Course: 17:34 Patient arrived in ED. mr 17:35 Raman Wu MD is Private Physician. mr 17:52 Esvin Alaniz MD is Attending Physician. ma2 17:59 Triage completed. rv 18:01 Patient has correct armband on for positive identification. Bed in low position. Call rv light in reach. Side rails up X 1. Adult w/ patient. Pulse ox on. NIBP on. 18:02 Patient placed in an exam room, on a stretcher, on pulse oximetry, Patient notified of rv wait time. 18:40 No provider procedures requiring assistance completed. Patient did not have IV access ca1 during this emergency room visit. 18:42 Liz Melgar, RN is Primary Nurse. ca1 Administered Medications: No medications were administered Outcome: 18:16 Discharge ordered by . emily 18:40 Discharged to home ambulatory, with family. ca1 18:40 Condition: stable 18:40 Discharge instructions given to patient, Instructed on discharge instructions, follow up and referral plans. medication usage, Demonstrated understanding of instructions, follow-up care, medications, Prescriptions given X 1. 18:42 Patient left the ED. ca1 Signatures: Elba Holland mr Esvin Alaniz MD MD ma2 Giovanni Madsen, RN RN rv Liz Melgar, ITA RN ca1
[2019-01-14] MEDS ORDERED: CLINDAMYCIN IV 150 MG/ML (4 mL) VIAL ONE (18:26)
[2019-01-14 18:48] VITALS: BP 111/54; TEMP 98.1; O2SAT 98
== END 2019-01-14 18:42 | disposition home or self-care (01) ==
LOC: ER 17:31
DX: L03.116 Cellulitis of left lower limb (principal); L03.115 Cellulitis of right lower limb
CPT/HCPCS: 99283; S0077

== ENCOUNTER 2019-01-24 16:53 | Emergency (ER) | payer OTHER ==
--- OUTSIDE RECORDS SUMMARY | 2019-01-24 16:57 | XMS REPORT | Continuity of Care Document ---
[...] Complete US 08/01 - sellers ea - [facility] Complete US US CLINICAL HISTORY:bladder retention. [...] abnormality is noted in either kidney. SL: [id number] Vital Signs Vital Sign Value Date Comments Source Encounters Location Location Encounter Encounter Reason Attending ADM DC Status Source Details Type Number For Provider Date Date Visit [facility] Outpatient [id number] Cele 08/01 08/02 Jean-Pierre Santos /2015 [facility] Procedures Procedure Code Date Perfomer Comments Source
[2019-01-24 18:56] LABS: Absolute Lymphocytes (CBC) 1.8 K/uL (0.7-4.9); Absolute Monocytes 0.6 K/uL (0.1-1.3); Basophils % 0.8 % (0-1.3); Lymphocytes % 22.9 % (15.3-44.8); Monocytes % 8.4 % (3.3-12.3); RBC Red Blood Cell Count 3.79 M/uL (3.86-4.86)
[2019-01-24 19:17] LABS: ALT/SGPT 22 U/L (12-78); AST/SGOT 17 U/L (15-37); Albumin 3.3 g/dL (3.4-5.0); Alkaline Phosphatase 107 U/L (45-117); BUN Blood Urea Nitrogen 19 mg/dL (7-18); Bicarbonate 29 mmol/L (21-32); Bilirubin Direct < 0.1 mg/dL (0-0.2); Bilirubin Total 0.2 mg/dL (0.2-1.0); Glucose Level 276 mg/dL (74-106); Potassium 4.6 mmol/L (3.5-5.1); Protein, Total 7.9 g/dL (6.4-8.2); Sodium Level 139 mmol/L (136-145)
[2019-01-24] MEDS ORDERED: BENZONATATE 100 MG CAP PO ONE (19:54)
--- NOTE | 2019-01-24 20:35 | RAD REPORT ---
EXAM DESCRIPTION: RAD - Chest Single View - 01/24/2019 8:17 pm CLINICAL HISTORY: Cough, shortness of breath COMPARISON: November 2018 TECHNIQUE: AP portable chest image was obtained 1955 hours . FINDINGS: Lung volumes are low. No peripheral mass or consolidation. Lung markings are accentuated b y body habitus and shallow inspiration. No clear change from comparison. Heart and vasculature are no rmal. No measurable pleural effusion and no pneumothorax. No acute bony abnormality seen. No acute ao rtic findings suspected. IMPRESSION: Limited shallow inspiration film without acute cardiopulmonary finding. No significant change from comparison.
--- NOTE | 2019-01-24 20:40 | ER ---
Nurse's Notes [facility] Name: Cherry Pompa Age: 69 yrs Sex: Female : 1950 Arrival Date: 01/24/2019 Time: 16:55 Bed 17 Private MD: Raman Wu E Diagnosis: Cough;Rash and other nonspecific skin eruption Presentation: 01/24 17:02 Presenting complaint: Patient states: bilateral feet swelling and leg pain x 2 weeks. ss Pt reports it is probably because of her poor circulation and diabetes. Transition of care: patient was not received from another setting of care. Onset of symptoms is unknown. Risk Assessment: Do you want to hurt yourself or someone else? Patient reports no desire to harm self or others. Initial Sepsis Screen: Does the patient meet any 2 criteria? No. Patient's initial sepsis screen is negative. Does the patient have a suspected source of infection? No. Patient's initial sepsis screen is negative. Care prior to arrival: None. 17:02 Method Of Arrival: Ambulatory ss 17:02 Acuity: HERIBERTO 4 ss Triage Assessment: 17:18 General: Appears in no apparent distress. uncomfortable, Behavior is calm, cooperative, hj appropriate for age. Pain: Complains of pain in right leg and left leg. Historical: - Allergies: 17:07 No Known Allergies; ss - PMHx: 17:07 Angina; Arthritis; Diabetes - IDDM; Hypertension; High Cholesterol; ss - PSHx: 17:07 Hysterectomy; Cholecystectomy; ss - Immunization history:: Adult Immunizations up to date. - Social history:: Smoking status: Patient/guardian denies using tobacco. - Ebola Screening: : Patient denies exposure to infectious person Patient denies travel to an Ebola-affected area in the 21 days before illness onset. Screenin:18 Abuse screen: Denies threats or abuse. Denies injuries from another. Nutritional hj screening: No deficits noted. Tuberculosis screening: No symptoms or risk factors identified. Fall Risk None identified. Assessment: 17:19 General: Appears in no apparent distress. uncomfortable, Behavior is calm, cooperative, hj appropriate for age. Pain: Complains of pain in right leg and left leg. Neuro: Level of Consciousness is awake, alert, obeys commands, Oriented to person, place, time, situation, Appropriate for age. Cardiovascular: Capillary refill < 3 seconds Patient's skin is warm and dry. Respiratory: Airway is patent Respiratory effort is even, unlabored, Respiratory pattern is regular, symmetrical. GI: No signs and/or symptoms were reported involving the gastrointestinal system. : No signs and/or symptoms were reported regarding the genitourinary system. EENT: No signs and/or symptoms were reported regarding the EENT system. Derm: No signs and/or symptoms reported regarding the dermatologic system. Musculoskeletal: Reports pain in left leg and right leg. 17:25 Reassessment: Patient and/or family updated on plan of care and expected duration. Pain hj level reassessed. Patient is alert, oriented x 3, equal unlabored respirations, skin warm/dry/pink. awaiting provider to signed up;. 18:39 Reassessment: Patient and/or family updated on plan of care and expected duration. Pain hj level reassessed. Patient is alert, oriented x 3, equal unlabored respirations, skin warm/dry/pink. awaiting results and POC; kid in the room with pt;. 19:21 Reassessment: Patient appears in no apparent distress at this time. No changes from jd3 previously documented assessment. Patient and/or family updated on plan of care and expected duration. Pain level reassessed. Patient is alert, oriented x 3, equal unlabored respirations, skin warm/dry/pink. 20:57 Reassessment: Patient appears in no apparent distress at this time. Patient and/or jd3 family updated on plan of care and expected duration. Pain level reassessed. Patient is alert, oriented x 3, equal unlabored respirations, skin warm/dry/pink. Vital Signs: 17:07 BP 126 / 43; Pulse 84; Resp 17; Temp 98.3(TE); Pulse Ox 97% on R/A; Weight 74.84 kg; ss Height 5 ft. 0 in. (152.40 cm); Pain 5/10; 18:39 BP 125 / 50; Pulse 85; Resp 18; Pulse Ox 98% on R/A; hj 19:21 BP 124 / 55; Pulse 86; Resp 15 S; Pulse Ox 95% on R/A; jd3 20:56 BP 104 / 61; Pulse 84; Resp 17 S; Pulse Ox 98% on R/A; jd3 17:07 Body Mass Index 32.22 (74.84 kg, 152.40 cm) ED Course: 16:55 Patient arrived in ED. mr 16:56 Raman Wu MD is Private Physician. mr 17:06 Triage completed. ss 17:07 Arm band placed on right wrist. 17:17 Gordon Lopez, RN is Primary Nurse. 17:18 Patient has correct armband on for positive identification. Placed in gown. Bed in low hj position. Call light in reach. Side rails up X 1. 17:32 Earl Gill PA is PHCP. jr8 17:32 Andrew Rodriguez MD is Attending Physician. jr8 18:45 Initial lab(s) drawn, by nc, sent to lab. Inserted saline lock: 22 gauge in right hj antecubital area, using aseptic technique. Blood collected. 18:46 CBC with Diff Sent. hj 18:46 Basic Metabolic Panel Sent. hj 18:46 LFT's Sent. 20:17 Chest Single View XRAY In Process Unspecified. EDMS 21:09 No provider procedures requiring assistance completed. IV discontinued, intact, jd3 bleeding controlled, No redness/swelling at site. Pressure dressing applied. Administered Medications: 19:43 Drug: Tessalon Perle 100 mg Route: PO; jd3 21:10 Follow up: Response: No adverse reaction jd3 Outcome: 20:40 Discharge ordered by . jr8 21:09 Discharged to home ambulatory. jd3 21:09 Condition: stable 21:09 Discharge instructions given to patient, Instructed on discharge instructions, follow up and referral plans. medication usage, Demonstrated understanding of instructions, follow-up care, medications, Prescriptions given X 1. 21:13 Patient left the ED. jd3 Signatures: Dispatcher [employer] [facility] Elba HollandMakenna, RN ITA Ealr Gill PA PA jr8 Gordon Lopez, Fei Rios RN, RN RN jd3
--- NOTE | 2019-01-24 20:41 | EDPHYS ---
Physician Documentation [facility] Name: Cherry Pompa Age: 69 yrs Sex: Female : 1950 Arrival Date: 01/24/2019 Time: 16:55 Bed 17 Private MD: Raman Wu E ED Physician Andrew Rodriguez HPI: 01/24 18:05 This 69 yrs old Female presents to ER via Ambulatory with complaints of Leg jr8 Pain, Cough. 18:05 The patient presents with a rash, patient describes as "nonhealing pimples" to jr8 bilateral lower legs. The complaints affect the lateral aspect of left calf, left lateral ankle, left calf, left Achilles, medial aspect of left calf, left medial ankle, left gupta and anterior aspect of left ankle. Onset: The symptoms/episode began/occurred gradually, 2 week(s) ago, and became persistent 2 weeks ago. Modifying factors: The symptoms are alleviated by nothing. the symptoms are aggravated by nothing. Associated signs and symptoms: Pertinent negatives calf tenderness, fever, swelling, warmth. Treatment prior to arrival includes: antibiotics. The patient has experienced similar episodes in the past, a few times. The patient has been recently seen at the [facility] Emergency Department, a couple of weeks ago, for similar complaints was given a prescription for antibiotics. Historical: - Allergies: 17:07 No Known Allergies; ss - PMHx: 17:07 Angina; Arthritis; Diabetes - IDDM; Hypertension; High Cholesterol; ss - PSHx: 17:07 Hysterectomy; Cholecystectomy; ss - Immunization history:: Adult Immunizations up to date. - Social history:: Smoking status: Patient/guardian denies using tobacco. - Ebola Screening: : Patient denies exposure to infectious person Patient denies travel to an Ebola-affected area in the 21 days before illness onset. ROS: 18:53 Constitutional: Negative for fever, chills, and weight loss, Cardiovascular: Negative jr8 for chest pain, palpitations, and edema, Respiratory: Negative for shortness of breath, cough, wheezing, and pleuritic chest pain, Abdomen/GI: Negative for abdominal pain, nausea, vomiting, diarrhea, and constipation, Back: Negative for injury and pain, MS/Extremity: Negative for injury and deformity, Neuro: Negative for headache, weakness, numbness, tingling, and seizure. 18:53 Skin: Positive for pustules. Exam: 18:54 Constitutional: This is a well developed, well nourished patient who is awake, alert, jr8 and in no acute distress. ENT: Nares patent. No nasal discharge, no septal abnormalities noted. Tympanic membranes are normal and external auditory canals are clear. Oropharynx with no redness, swelling, or masses, exudates, or evidence of obstruction, uvula midline. Mucous membranes moist. Cardiovascular: Regular rate and rhythm with a normal S1 and S2. No gallops, murmurs, or rubs. Normal PMI, no JVD. No pulse deficits. Respiratory: Lungs have equal breath sounds bilaterally, clear to auscultation and percussion. No rales, rhonchi or wheezes noted. No increased work of breathing, no retractions or nasal flaring. Abdomen/GI: Soft, non-tender, with normal bowel sounds. No distension or tympany. No guarding or rebound. No evidence of tenderness throughout. Back: No spinal tenderness. No costovertebral tenderness. Full range of motion. MS/ Extremity: Pulses equal, no cyanosis. Neurovascular intact. Full, normal range of motion. Neuro: Awake and alert, GCS 15, oriented to person, place, time, and situation. Cranial nerves II-XII grossly intact. Motor strength 5/5 in all extremities. Sensory grossly intact. Cerebellar exam normal. Normal gait. 18:54 Skin: Appearance: Color: jaundiced, Temperature: normal temperature, Moisture: normal moisture, cellulitis, is not appreciated, rash a mild rash is noted, rash can be described as pustular, on the lateral aspect of left calf, left lateral ankle, left calf, left Achilles, medial aspect of left calf, left medial ankle, left gupta and anterior aspect of left ankle, Turgor: is good. Vital Signs: 17:07 BP 126 / 43; Pulse 84; Resp 17; Temp 98.3(TE); Pulse Ox 97% on R/A; Weight 74.84 kg; ss Height 5 ft. 0 in. (152.40 cm); Pain 5/10; 18:39 BP 125 / 50; Pulse 85; Resp 18; Pulse Ox 98% on R/A; hj 19:21 BP 124 / 55; Pulse 86; Resp 15 S; Pulse Ox 95% on R/A; jd3 20:56 BP 104 / 61; Pulse 84; Resp 17 S; Pulse Ox 98% on R/A; jd3 17:07 Body Mass Index 32.22 (74.84 kg, 152.40 cm) ss MDM: 17:33 Patient medically screened. jr8 20:34 Data reviewed: vital signs, nurses notes, lab test result(s), radiologic studies, plain jr8 films, and as a result, I will discharge patient. Data interpreted: Pulse oximetry: on room air is 95 %. Interpretation: normal. Counseling: I had a detailed discussion with the patient and/or guardian regarding: the historical points, exam findings, and any diagnostic results supporting the discharge/admit diagnosis, the need for outpatient follow up, a family practitioner, to return to the emergency department if symptoms worsen or persist or if there are any questions or concerns that arise at home. ED course: Detailed discussion with patient that there are no acute lab or radiologic findings. That there is no sign of infection to her lesions on her legs. Antibiotics not indicated. Has 2 + pedal pulses bilaterally with no signs of acute arterial insufficiency. Recommended f/u with vascular surgeon or cardiology to further explore her PAD. If they deem ok then she needs to f/u with dermatology. From an emergency stand point. Nothing else we can do at this time except help with pain . 01/24 18:17 Order name: CBC with Diff; Complete Time: 19:04 [facility] 01/24 18:17 Order name: Basic Metabolic Panel; Complete Time: 19:37 [facility] 01/24 18:17 Order name: IV; Complete Time: 18:46 [facility] 01/24 18:17 Order name: LFT's; Complete Time: 19:37 [facility] 01/24 19:37 Order name: Chest Single View XRAY; Complete Time: 20:41 jd3 Administered Medications: 19:43 Drug: Tessalon Perle 100 mg Route: PO; jd3 21:10 Follow up: Response: No adverse reaction jd3 Disposition: 01/25 10:29 Co-signature as Attending Physician, Andrew Rodriguez MD. Disposition: 01/24/19 20:40 Discharged to Home. Impression: Cough, Rash and other nonspecific skin eruption. - Condition is Stable. - Discharge Instructions: Peripheral Vascular Disease, Cough, Adult. - Prescriptions for Ultracet 37.5- 325 mg Oral Tablet - take 2 tablet by ORAL route every 6 hours - for up to 5 days; do not exceed 8 tablets per day.; 30 tablet. - Medication Reconciliation Form, Thank You Letter, Antibiotic Education, Prescription Opioid Use form. - Follow up: Private Physician; When: 2 - 3 days; Reason: Wound Recheck, Recheck today's complaints, Continuance of care, Re-evaluation by your physician. - Problem is new. - Symptoms have improved. Signatures: Dispatcher [employer] EDMS Makenna Nelson RN RN Earl Arthur PA PA jr8 Andrew Rodriguez MD MD gs Davies, Jonathon, RN RN jd3 Corrections: (The following items were deleted from the chart) 01/24 21:13 20:40 01/24/2019 20:40 Discharged to Home. Impression: Cough; Rash and other jd3 nonspecific skin eruption. Condition is Stable. Forms are Medication Reconciliation Form, Thank You Letter, Antibiotic Education, Prescription Opioid Use. Follow up: Private Physician; When: 2 - 3 days; Reason: Wound Recheck, Recheck today's complaints, Continuance of care, Re-evaluation by your physician. Problem is new. Symptoms have improved. jr8
[2019-01-24 21:40] VITALS: TEMP 98.3
[2019-01-24 21:44] VITALS: BP 104/61; O2SAT 98
== END 2019-01-24 21:13 | disposition home or self-care (01) ==
LOC: ER 16:53
DX: R05 Cough (principal); R21 Rash and other nonspecific skin eruption; E11.9 Type 2 diabetes mellitus without complications; I10 Essential (primary) hypertension; E78.00 Pure hypercholesterolemia, unspecified; Z79.4 Long term (current) use of insulin
CPT/HCPCS: 36415; 71045; 80048; 80076; 85025; 99284

== ENCOUNTER 2019-04-03 22:01 | Emergency (ER) | payer OTHER ==
--- OUTSIDE RECORDS SUMMARY | 2019-04-03 22:04 | XMS REPORT | Continuity of Care Document ---
:1950 Author Organization [facility] Care Team Providers Name Role Phone [facility] Unavailable Unavailable Problems Problem Status Onset Classification Date Comments Source Date Reported R33.9 RETENTION Active [facility] OF URINE, 6 UNSPECIFIED RETENTION OF Active [facility] URINE, UNSPECIFIED Medications No Data Provided for This Section Allergies, Adverse Reactions, Alerts No Known Medication Allergies Immunizations No Data Provided for This Section Results No Data Provided for This Section Pathology Reports No Data Provided for This Section Diagnostic Reports Report Value Date Source Retroperitoneal Complete Retroperitoneal Complete US 08/01/2016 [facility] CLINICAL HISTORY:bladder retention. COMPARISON: None TECHNIQUE: Alvarado scale and color [...] symmetric in size. Cortical volume is reasonably well- preserved. 7 mm cyst is noted in the upper pole of left kidney. No renal calculus is evident. No hydronephrosis. BLADDER: Bladder is partially distended with anechoic urine. ASCITES: No ascites noted. IMPRESSION: 7 mm cyst, upper pole of left kidney. No other significant sonographic abnormality is noted in either kidney. SL: [id number] Consultation Notes No Data Provided for This Section Discharge Summaries No Data Provided for This Section History and Physicals No Data Provided for This Section Vital Signs No Data Provided for This Section Encounters Location Location Encounter Encounter Reason Attending ADM DC Status Source Details Type Number For Provider Date Date Visit [facility] [id number] Cele 08/01 08/02 [facility] /2015 [facility] Procedures No Data Provided for This Section Assessment and Plan No Data Provided for This Section Plan of Care No Data Provided for This Section Social History Social History Date Source No data available for this 08/02/2016 [facility] section Family History No Data Provided for This Section Advance Directives No Data Provided for This Section Functional Status No Data Provided for This Section
--- NOTE | 2019-04-03 22:39 | EDPHYS ---
Physician Documentation [facility] Name: Cherry Pompa Age: 69 yrs Sex: Female : 1950 Arrival Date: 04/03/2019 Time: 22:05 Bed 8 Private MD: ED Physician Josep Kessler HPI: 04/03 22:32 This 69 yrs old Female presents to ER via Wheelchair with complaints of Foot ps1 Pain. 22:32 patient states that she has recurrent leg pain. previously evaluated for the same. Hx ps1 of PAD. Did not follow up with out patient provider. States that she is still in pain. Has norco 7.5 at home. Leg is normal color and temperature. . Historical: - Allergies: 22:24 No Known Allergies; aa1 - Home Meds: 22:24 Unable to obtain [Active]; aa1 - PMHx: 22:24 Angina; Arthritis; Diabetes - IDDM; High Cholesterol; Hypertension; neuropathy; aa1 - PSHx: 22:24 Hysterectomy; Cholecystectomy; aa1 - Immunization history:: Flu vaccine is not up to date. - Social history:: Smoking status: Patient/guardian denies using tobacco. - Ebola Screening: : No symptoms or risks identified at this time. ROS: 22:32 Constitutional: Negative for fever, chills, and weight loss, Eyes: Negative for injury, ps1 pain, redness, and discharge, ENT: Negative for injury, pain, and discharge, Cardiovascular: Negative for chest pain, palpitations, and edema, Respiratory: Negative for shortness of breath, cough, wheezing, and pleuritic chest pain, Abdomen/GI: Negative for abdominal pain, nausea, vomiting, diarrhea, and constipation, MS/Extremity: Negative for injury and deformity. 22:32 Skin: Positive for ulceration, of the left leg and right leg and right gupta, PAD. Exam: 22:32 Constitutional: This is a well developed, well nourished patient who is awake, alert, ps1 and in no acute distress. Head/Face: Normocephalic, atraumatic. Eyes: Pupils equal round and reactive to light, extra-ocular motions intact. Lids and lashes normal. Conjunctiva and sclera are non-icteric and not injected. Chest/axilla: Normal chest wall appearance and motion. Nontender with no deformity. No lesions are appreciated. Cardiovascular: Regular rate and rhythm. No gallops, murmurs, or rubs. Normal PMI, no JVD. No pulse deficits. Respiratory: Lungs have equal breath sounds bilaterally, clear to auscultation and percussion. No rales, rhonchi or wheezes noted. No increased work of breathing, no retractions or nasal flaring. Abdomen/GI: Soft, non-tender, with normal bowel sounds. No distension or tympany. No guarding or rebound. No evidence of tenderness throughout. 22:32 Skin: lesion(s), noted, and can be described as stasis ulcers and skin discoloration c/w PAD. . Vital Signs: 22:24 BP 131 / 84; Pulse 76; Resp 18; Temp 97.4; Pulse Ox 98% on R/A; Weight 74.84 kg; Height aa1 5 ft. 0 in. (152.40 cm); Pain 8/10; 22:24 Body Mass Index 32.22 (74.84 kg, 152.40 cm) aa1 MDM: 22:32 Data reviewed: vital signs, nurses notes, and as a result, I will discharge patient. ps1 22:38 Patient medically screened. ps1 Administered Medications: No medications were administered Disposition: 04/03/19 22:38 Discharged to Home. Impression: Peripheral neuropathy. - Condition is Stable. - Discharge Instructions: Peripheral Neuropathy. - Prescriptions for gabapentin 300 mg Oral capsule - take 1 capsule by ORAL route 3 times per day; 30 capsule. - Medication Reconciliation Form, Thank You Letter, Antibiotic Education, Prescription Opioid Use form. - Follow up: Private Physician; When: [facility]; Reason: Further diagnostic work-up. Follow up: Emergency Department; When: As needed; Reason: Fever > 102 F, Worsening of condition. - Problem is an acute exacerbation. - Symptoms have worsened. Signatures: Deb Molina RN RN aa1 Fei Ontiveros RN RN jd3 Josep Kessler MD MD ps1 Corrections: (The following items were deleted from the chart) 22:59 22:38 04/03/2019 22:38 Discharged to Home. Impression: Peripheral neuropathy. Condition jd3 is Stable. Forms are Medication Reconciliation Form, Thank You Letter, Antibiotic Education, Prescription Opioid Use. Follow up: Private Physician; When: [facility]; Reason: Further diagnostic work-up. Follow up: Emergency Department; When: As needed; Reason: Fever > 102 F, Worsening of condition. Problem is an acute exacerbation. Symptoms have worsened. ps1
--- NOTE | 2019-04-03 22:39 | ER ---
Nurse's Notes [facility] Name: Cherry Pompa Age: 69 yrs Sex: Female : 1950 Arrival Date: 04/03/2019 Time: 22:05 Bed 8 Private MD: Diagnosis: Peripheral neuropathy Presentation: 04/03 22:22 Presenting complaint: Patient states: pain in RLE > 1 month. Reports she has neuropathy aa1 and has been seen here twice for this but she is still having pain and wants an x-ray. Denies injury. CMS intact. Transition of care: patient was not received from another setting of care. Onset of symptoms was January 2019. Risk Assessment: Do you want to hurt yourself or someone else? Patient reports no desire to harm self or others. Initial Sepsis Screen: Does the patient meet any 2 criteria? No. Patient's initial sepsis screen is negative. Does the patient have a suspected source of infection? No. Patient's initial sepsis screen is negative. Care prior to arrival: None. 22:22 Method Of Arrival: Wheelchair aa1 22:22 Acuity: HERIBERTO 4 aa1 Triage Assessment: 22:24 General: Appears in no apparent distress. comfortable, Behavior is calm, cooperative, aa1 appropriate for age. Historical: - Allergies: 22:24 No Known Allergies; aa1 - Home Meds: 22:24 Unable to obtain [Active]; aa1 - PMHx: 22:24 Angina; Arthritis; Diabetes - IDDM; High Cholesterol; Hypertension; neuropathy; aa1 - PSHx: 22:24 Hysterectomy; Cholecystectomy; aa1 - Immunization history:: Flu vaccine is not up to date. - Social history:: Smoking status: Patient/guardian denies using tobacco. - Ebola Screening: : No symptoms or risks identified at this time. Screenin:31 Abuse screen: Denies threats or abuse. Nutritional screening: No deficits noted. jd3 Tuberculosis screening: No symptoms or risk factors identified. Fall Risk Ambulatory Aid- None/Bed Rest/Nurse Assist (0 pts). Gait- Normal/Bed Rest/Wheelchair (0 pts) Mental Status- Oriented to own ability (0 pts). Total Jackson Fall Scale indicates No Risk (0-24 pts). Assessment: 22:26 General: Appears in no apparent distress. uncomfortable, Behavior is calm, cooperative, jd3 appropriate for age. Pain: Complains of pain in right gupta Quality of pain is described as aching, crampy. Neuro: Level of Consciousness is awake, alert, obeys commands, Oriented to person, place, time, situation. Cardiovascular: Capillary refill < 3 seconds Patient's skin is warm and dry. Respiratory: Airway is patent Respiratory effort is even, unlabored, Respiratory pattern is regular, symmetrical. GI: No signs and/or symptoms were reported involving the gastrointestinal system. : No signs and/or symptoms were reported regarding the genitourinary system. EENT: No signs and/or symptoms were reported regarding the EENT system. Derm: Skin is intact, Skin is dry, Skin is normal, Skin temperature is warm. Musculoskeletal: Circulation, motion, and sensation intact. Range of motion: intact in all extremities, Reports pain in right gupta. 22:58 Reassessment: Patient appears in no apparent distress at this time. Patient and/or jd3 family updated on plan of care and expected duration. Pain level reassessed. Patient is alert, oriented x 3, equal unlabored respirations, skin warm/dry/pink. reported understanding of discharge instructions. Vital Signs: 22:24 BP 131 / 84; Pulse 76; Resp 18; Temp 97.4; Pulse Ox 98% on R/A; Weight 74.84 kg; Height aa1 5 ft. 0 in. (152.40 cm); Pain 8/10; 22:24 Body Mass Index 32.22 (74.84 kg, 152.40 cm) aa1 ED Course: 22:05 Patient arrived in ED. ds1 22:23 Triage completed. aa1 22:24 Arm band placed on right wrist. Patient placed in an exam room, on a stretcher. aa1 22:25 Josep Kessler MD is Attending Physician. ps1 22:25 Fei Ontiveros, ITA is Primary Nurse. jd3 22:31 Patient has correct armband on for positive identification. Bed in low position. Call jd3 light in reach. Side rails up X 1. 22:57 No provider procedures requiring assistance completed. Patient did not have IV access jd3 during this emergency room visit. Administered Medications: No medications were administered Outcome: 22:38 Discharge ordered by . ps1 22:58 Discharged to home via wheelchair, with family. jd3 22:58 Condition: stable 22:58 Discharge instructions given to patient, Instructed on discharge instructions, follow up and referral plans. medication usage, Demonstrated understanding of instructions, follow-up care, medications, Prescriptions given X 1. 22:59 Patient left the ED. jd3 Signatures: Deb Molina RN RN aa1 Sherly Brower ds1 Fei Ontiveros RN RN jd3 Josep Kessler MD MD ps1
[2019-04-03 23:38] VITALS: BP 131/84; TEMP 97.4; O2SAT 98
== END 2019-04-03 22:59 | disposition home or self-care (01) ==
LOC: ER 22:01
DX: G62.9 Polyneuropathy, unspecified (principal)
CPT/HCPCS: 99282

== ENCOUNTER 2019-06-06 14:34 | Inpatient (IN) | payer OTHER ==
--- OUTSIDE RECORDS SUMMARY | 2019-06-06 14:39 | XMS REPORT | Summary of Care ---
:1950 Author Organization [facility] Address [address] [place] [address] Care Team Providers Name Role Phone Shell Qureshi RN Unavailable Unavailable James Crawford Primary Care Provider Reason for Referral (Routine) Status Reason Specialty Diagnoses / Referred By Referred To Procedures Contact Contact New Request Vascular Surgery Diagnoses Ulcer of right lower extremity, limited to breakdown of skin Karen, Procedures LORENA MULTI LEVEL BY VASCULAR LAB MD Yasmin [address] [place] [phone] Reason for Visit Reason Comments New Patient right leg issues (Routine) Status Reason Specialty Diagnoses / Referred By Referred To Procedures Contact Contact Closed CAIN-VASCULAR Procedures Vascular Surg Yasmin Jones, SURGERY / OUTPATIENT [address] Vascular Surgery [address] NEW VISIT (FIRST [facility] TIME) [place] [phone] Phone: Encounter Details Date Type Department Care Team Description 05/03/2019 Office Visit [facility] Vascular Yasmin Jones, Ulcer of right lower Surgery- Rohit SON extremity, limited to [address] breakdown of [address] [place], [place] (Primary Dx) [address] [phone] [place], [place] [phone] [address] [phone] Allergies No Known Allergiesdocumented as of this encounter (statuses as of 05/03/2019) Medications Medication Sig Dispensed Refills Start Date End Date Status insulin aspart RAPID inject 6 Units 0 Active 100 unit/mL injection under the skin 3 (three) times daily before meals. omeprazole 20 mg Take 20 mg by 0 Active capsule mouth daily. clopidogrel 75 mg Take 75 mg by 0 Active tablet mouth daily. meloxicam 15 mg tablet Take 15 mg by 0 Active mouth daily. gabapentin 300 mg Take 300 mg by 0 Active capsule mouth 2 (two) times daily. FLUoxetine 40 mg Take 40 mg by 0 Active capsule mouth daily. metFORMIN 1,000 mg Take 1,000 mg by 0 Active tablet mouth 2 (two) times daily. insulin glargine inject 25 Units 0 Active (LANTUS) 100 unit/mL under the skin at injection bedtime. HYDROcodone-acetaminoph Take 1 tablet by 0 Active en (NORCO) 10-325 mg mouth 4 (four) tablet times daily. fenofibrate 145 mg Take 145 mg by 0 Active tablet mouth daily. documented as of this encounter (statuses as of 05/03/2019) Active Problems Problem Noted Date Coronary artery disease involving [place] coronary artery of [place] heart 01/07 without angina pectoris Small bowel obstruction, partial 01/07/2017 UTI (urinary tract infection) 01/06/2017 Incisional hernia with bowel obstruction 01/06/2017 Diastasis recti 01/06/2017 Obesity (BMI 30-39.9) 11/15/2016 Incarcerated ventral hernia 11/15/2016 PEMA (acute kidney injury) 11/14/2016 Essential hypertension 10/22/2016 Type 2 diabetes mellitus with complication, with long-term current use of 09/2016 insulin Dyslipidemia 10/22/2016 Neuropathy 10/22/2016 documented as of this encounter (statuses as of 05/03/2019) Immunizations Name Administration Dates Next Due Influenza High Dose 11/18/2016 documented as of this encounter Social History Tobacco Use Types Packs/Day Years Used Date Never Smoker Smokeless Tobacco: Never Used Alcohol Use Drinks/Week oz/Week Comments No 0 Standard drinks or equivalent 0.0 Sex Assigned at Date Recorded Not on file Job Start Date Occupation Industry Not on file Not on file Not on file Travel History Travel Start Travel End No recent travel history available. documented as of this encounter Last Filed Vital Signs Vital Sign Reading Time Taken Comments Blood Pressure 107/53 05/03/2019 11:07 AM CDT Pulse 79 05/03/2019 11:07 AM CDT Temperature 36.7 C (98 F) 05/03/2019 11:07 AM CDT Respiratory Rate 16 05/03/2019 11:07 AM CDT Oxygen Saturation - - Inhaled Oxygen Concentration - - Weight 73.8 kg (162 lb 9.6 oz) 05/03/2019 11:07 AM CDT Height - - Body Mass Index 31.76 05/01/2017 3:00 PM CDT documented in this encounter Progress Notes Yasmin Jones MD - 05/03/2019 10:45 AM CDT Vascular Surgery Clinic Note Date of Service: 05/03/2019 HISTORY OF PRESENT ILLNESS: This 69 year old year old female patient presents for bilateral gupta wounds that have been presenting on and off for the past few months and are in stages of healing. She notes severe pain in her rightankle that is very sensitive to touch. She also notes severe right hip pain when lying on her right side that radiates down her right leg. She ambulates with a walker but denies typical claudication symptoms of calf or thigh cramping with ambulation. Her pain is more limited to foot/ankle. She does not have any toe wounds. She is a diabetic who was recently started on gabapentin for neuropathy. She has not seen her PCP recently as she states she recently was assigned a new one. She has yet to meet with them about her new concerns. She is otherwise without complaints today. No history of stroke/TIA. PAST MEDICAL HISTORY: Past Medical History: Diagnosis Date Back pain CAD (coronary artery disease) stents Diabetes Diastasis recti 01/06/2017 Dyslipidemia HTN (hypertension) Incarcerated ventral hernia 11/15/2016 Incisional hernia with bowel obstruction 01/06/2017 Obesity (BMI 30.0-34.9) non-contributory for this patient presenting symptoms Past Surgical History: Procedure Laterality Date LAPAROSCOPIC INTERNAL HERNIA REPAIR (SHX) N/A 01/10/2017 Surgeon: Wale Luna MD; Location: [facility] OR [facility] LUMBAR EPIDURAL STEROID INJECTION LUMBAR EPIDURAL STEROID INJECTION N/A 05/04/2017 Surgeon: Tyler Ledesma MD; Location: [facility] OR Location [place] LAP, VENTRAL HERNIA REPAIR,INCARCERATED 01/12/2017 PTCA/STENT 2006 Medications: Current Outpatient Medications on File Prior to Visit Medication Sig Dispense Refill clopidogrel 75 mg tablet Take 75 mg by mouth daily. fenofibrate 145 mg tablet Take 145 mg by mouth daily. FLUoxetine 40 mg capsule Take 40 mg by mouth daily. gabapentin 300 mg capsule Take 300 mg by mouth 2 (two) times daily. HYDROcodone-acetaminophen (NORCO) 10-325 mg tablet Take 1 tablet by mouth 4 (four) times daily. insulin aspart RAPID 100 unit/mL injection inject 6 Units under the skin 3 ( three) times daily before meals. insulin glargine (LANTUS) 100 unit/mL injection inject 25 Units under the skin at bedtime. meloxicam 15 mg tablet Take 15 mg by mouth daily. metFORMIN 1,000 mg tablet Take 1,000 mg by mouth 2 (two) times daily. omeprazole 20 mg capsule Take 20 mg by mouth daily. No current facility-administered medications on file prior to visit. I have reviewed the social history, it is non-contributory. I have reviewed the family history, it is non-contributory. Allergies: No Known Allergies Make sure patient is not allergic to Contrast (Iodine): No Review of Systems: (-)=Negative,(+)=Positive Constitutional: (-) fever, (-) chills Eyes: (-) Amarosis fugax Mouth/Throat: (-) facial droop Cardiovascular: (-) chest pain Respiratory: (-) cough Endocrine: (+) diabetes Musculoskeletal: (+) muscle pain, (+) joint pain, (-) claudication Integumentary: (-) swelling Hematologic: (-) DVT Infectious Disease: (-) Neuro: (+) numbness, (+) tingling, (-) TIAs/ Stroke Physical Exam: BP 107/53 (BP Location: Right arm, Patient Position: Sitting, BP CUFF SIZE: Adult Large) | Pulse 79 | Temp 36.7 C (98 F) (Oral) | Resp 16 | Wt 73.8 kg (162 lb 9.6 oz) | BMI 31.76 kg/m Constitutional: alert, healthy and no acute distress Facial Droop: No Eyes: extra ocular movements intact Head: normal Respiratory: breathing comfortably on room air Cardio: regular rate Extremities: no clubbing, cyanosis, or edema; bilateral gupta round lesions in various stages of healing without signs of infection, scab over one of the lesions on the right but appears to be healing; bilateral DP biphasic signals, bilateral PT monophasic signals; hyperesthetic right ankle without erythema or swelling Neurologic: alert and oriented x 3 Psychiatric: alert, with appropriate affect Hematologic: (-) bruises and (-) hematoma Labs: No new labs. Imaging: No new Radiology. Vascular Labs: No new Vascular lab studies. Diagnosis: Cherry Pompa is a 69 year old female with concern for multiple gupta lesions in setting of PAD. She does not have palpable pulses and denies any previous vascular history. Her current wounds are healing on their own. She does not have typical claudication. - LORENA multilevel - Continue ambulation as tolerated - Make appointment with PCP about neuropathy and gupta lesions - RTC in 4-6 weeks for wound check and discussion of LORENA results Yasmin Jones MD, [facility] Vascular Surgery TENTCCheryl cardona MA - 05/03/2019 10:45 AM CDTMabilio Pompa is a 69 year old female comes to clinic independent in ambulation for right leg pain. Pt comes alone . Pt in NAD w/ pain reported 0/10. Pt preferred language is Japanese. Pt. denies fall in last 12 months. Allergies and medications reviewed and updated. documented in this encounter Plan of Treatment Date Type Specialty Care Team Description 06/10/2019 Office Visit Vascular Surgery Yasmin Jones MD [address] [place] [phone] Health Maintenance Due Date Last Done Comments HEPATITIS C (HCV) SCREEN 1950 EYE EXAM 01/03/1958 LDL-C 01/03/1958 URINE MICROALBUMIN 01/03/1958 FOOT EXAM 01/03/1966 DTaP,Tdap,and Td Vaccines (1 - 01/03/1967 Tdap) MAMMOGRAM 1988 COLONOSCOPY 01/03/1998 Zoster Recombinant Vaccine 01/03/1998 (SHINGRIX) (1 of 2) Medicare Wellness Visit 01/03/2013 Osteoporosis Screening 01/03/2013 PNEUMOCOCCAL VACCINES 65+ (1 of 2 01/03/2013 - PCV13) HgA1C 04/21/2017 10/22/2016 CREATININE (SERUM) 01/12/2018 01/12/2017, 01/11/2017, 01/10/2017, Additional history exists INFLUENZA VACCINE 05/22/2019 11/18/2016 documented as of this encounter Implants Implanted Type Area Cashier Host/Hostess Device Shelf Model / Identifier Expiration Date Serial / Lot Proceed Surgical Mesh 15.2cmx20.3cm MESH Abdomen Ethicon 10/21/2018 [id number] / Implanted: Qty: 1 on 01/10/2017 by Wale Luna MD at [facility] [id number] / [id number] documented as of this encounter Results Not on filedocumented in this encounter Visit Diagnoses Diagnosis Ulcer of right lower extremity, limited to breakdown of skin - Primary documented in this encounter Insurance Payer Benefit Plan / Subscriber ID Effective Phone Address Type Group Dates [facility] [id number] 2016-Pres Medicare HEALTHCARE - HEALTHCARE ent Adv HMO MANAGED MEDICARE ADV MEDICARE HMO [facility] MEDICAID OF xxxxxxxxx 2013-Pres [phone] [place] ent [id number] [place] [address] (Work) documented as of this encounter"
--- OUTSIDE RECORDS SUMMARY | 2019-06-06 14:39 | XMS REPORT ---
:1950 Author Organization [facility] Address [address] [place] [address] Dr. Hess [address] [place] [address] Care Team Providers Name Role Phone Unavailable Unavailable Unavailable Problems This patient has no known problems. Allergies, Adverse Reactions, Alerts This patient has no known allergies or adverse reactions. Medications This patient has no known medications.
--- OUTSIDE RECORDS SUMMARY | 2019-06-06 14:39 | XMS REPORT | Summary of Care ---
:1950 Author Organization [facility] - Health Address [address] [place] [address] Care Team Providers Name Role Phone Shell Qureshi RN Unavailable Unavailable James Crawford Primary Care Provider Encounter Details Date Type Department Care Team Description 05/03/2019 Orders Only [facility] Doctor Unassigned, No [address] [facility] [place] [address] [address] [place] [address] Allergies No Known Allergiesdocumented as of this [...] Problem Noted Date Coronary artery disease involving [place] coronary artery of [place] heart 01/07 without angina pectoris Small bowel [...] of this encounter Last Filed Vital Signs Not on filedocumented in this encounter Plan of Treatment Health Maintenance Due Date Last Done Comments [...] of this encounter Implants Implanted Type Area Meat Soaker Device Shelf Model / Identifier Expiration Date Serial / Lot Proceed Surgical Mesh 15.2cmx20.3cm MESH Abdomen Ethicon 10/21/2018 [id number] / Implanted: Qty: 1 on 01/10/2017 by Wale Luna MD at [facility] [id number] / [id number] documented as of this encounter Procedures Procedure Name Priority Date/Time Associated Diagnosis Comments ASSIGNMENT OF BENEFITS Routine 05/03/2019 10:52 AM CDT documented in this encounter Results Not on filedocumented in this encounter Insurance Payer Benefit Plan / Subscriber ID Effective Phone Address Type Group Dates [facility] [id number] 2016-Pres Medicare HEALTHCARE - HEALTHCARE ent Adv HMO MANAGED MEDICARE ADV MEDICARE HMO [facility] MEDICAID OF xxxxxxxxx 2013-Pres [phone] Medicaid [place] ent [id number] [place] [address] documented as of this encounter
--- OUTSIDE RECORDS SUMMARY | 2019-06-06 14:39 | XMS REPORT | Continuity of Care Document ---
:1950 Author Organization [facility] [employer] Care Team Providers Name Role Phone [facility] [employer] Unavailable Unavailable Problems Problem Status Onset Classification Date Comments Source Date Reported R33.9 RETENTION Active [facility] OF URINE, 6 UNSPECIFIED RETENTION OF Active [facility] URINE, UNSPECIFIED Medications No Data Provided for This Section Allergies, Adverse Reactions, Alerts No Known Medication Allergies Immunizations No Data Provided for This Section Results No Data Provided for This Section Pathology Reports No Data Provided for This Section Diagnostic Reports Report Value Date Source Retroperitoneal Complete Retroperitoneal Complete US 08/01/2016 [facility] CLINICAL HISTORY:bladder retention. COMPARISON: None TECHNIQUE: Alvarado [...] abnormality is noted in either kidney. SL: [id number] Consultation Notes No Data Provided for This Section Discharge Summaries No Data Provided for This Section History and Physicals No Data Provided for This Section Vital Signs No Data Provided for This Section Encounters Location Location Encounter Encounter Reason Attending ADM DC Status Source Details Type Number For Provider Date Date Visit [facility] Outpatient [id number] Cele 08/01 08/02 [facility] [place] /2015 [facility] Procedures No Data Provided for This Section Assessment and Plan No Data Provided for This Section Plan of Care No Data Provided for This Section Social History Social History Date Source No data available for this 08/02/2016 [facility] section Family History No Data Provided for This Section Advance Directives No Data Provided for This Section Functional Status No Data Provided for This Section
--- OUTSIDE RECORDS SUMMARY | 2019-06-06 14:39 | XMS REPORT | Summary of Care ---
:1950 Author Organization [facility] Address [address] [place] [address] Care Team Providers Name Role Phone Shell Qureshi RN Unavailable Unavailable James Crawford Primary Care Provider Reason for Referral (Routine) Status Reason Specialty Diagnoses / Referred By Referred To Procedures Contact Contact New Request Vascular Surgery Diagnoses Ulcer of right lower extremity, limited to breakdown of skin Karen, Procedures LORENA MULTI LEVEL BY VASCULAR LAB MD Yasmin [address] [place] [phone] Reason for Visit Reason Comments New Patient right leg issues (Routine) Status Reason Specialty Diagnoses / Referred By Referred To Procedures Contact Contact Closed CAIN-VASCULAR Procedures Vascular Surg Yasmin Jones, SURGERY / OUTPATIENT [address] Vascular Surgery [address] NEW VISIT (FIRST [facility] TIME) [place] [phone] Phone: Encounter Details Date Type Department Care Team Description 05/03/2019 Office Visit [facility] Vascular Yasmin Jones, Ulcer of right lower Surgery- Rohit SON extremity, limited to [address] breakdown of skin [address] [place], [place] (Primary Dx) [address] [address] [place], [place] [phone] [address] [phone] Allergies No Known Allergiesdocumented as of this [...] Problem Noted Date Coronary artery disease involving [place] coronary artery of [place] heart 01/07 without angina pectoris Small bowel [...] N/A 01/10/2017 Surgeon: Wale Luna MD; Location: [facility] OR [facility] LUMBAR EPIDURAL STEROID INJECTION LUMBAR EPIDURAL STEROID INJECTION N/A 05/04/2017 Surgeon: Tyler Ledesma MD; Location: [facility] OR Location [place] LAP, VENTRAL HERNIA REPAIR,INCARCERATED 01/12/2017 PTCA/STENT 2006 [...] discussion of LORENA results Yasmin Jones MD, [facility] Vascular Surgery TENTCCheryl cardona MA - 05/03/2019 10:45 AM CDTMabilio Pompa is a 69 year old female comes to clinic independent in ambulation for right leg pain. Pt comes alone . Pt in NAD w/ pain reported 0/10. Pt preferred language is Turkish. Pt. denies fall in last 12 months. Allergies and medications reviewed and updated. documented in this encounter Plan of Treatment Date Type Specialty Care Team Description 06/10/2019 Office Visit Vascular Surgery Yasmin Jones MD [address] [place] [phone] Health Maintenance Due Date Last Done [...] of this encounter Implants Implanted Type Area Can Marker Device Shelf Model / Identifier Expiration Date Serial / Lot Proceed Surgical Mesh 15.2cmx20.3cm MESH Abdomen Ethicon 10/21/2018 [id number] / Implanted: Qty: 1 on 01/10/2017 by Wale Luna MD at [facility] [id number] / [id number] documented as of this encounter Results Not on filedocumented in this encounter Visit Diagnoses Diagnosis Ulcer of right lower extremity, limited to breakdown of skin - Primary documented in this encounter Insurance Payer Benefit Plan / Subscriber ID Effective Phone Address Type Group Dates [facility] [id number] 2016-Pres Medicare HEALTHCARE - HEALTHCARE ent Adv HMO MANAGED MEDICARE ADV MEDICARE HMO [facility] MEDICAID OF xxxxxxxxx 2013-Pres [phone] [place] ent [id number] [place] [address] (Work) documented as of this encounter"
--- OUTSIDE RECORDS SUMMARY | 2019-06-06 14:40 | XMS REPORT ---
:1950 Author Organization [employer] Care Team Providers Name Role Phone James Crawford Provider Role Unavailable Allergies No Known Allergies Problems Problem Type Condition Code Onset Dates Condition Status Problem Female bladder prolapse N81.10 Active Problem Diabetes E11.9 Active Problem Heart disease I51.9 Active Problem Hypertension I10 Active Problem Diabetic polyneuropathy associated E11.42 Active with type 2 diabetes mellitus Problem Peripheral vascular disease due to E13.51 Active secondary diabetes Problem History of heart artery stent Z95.5 Active Problem Coronary artery disease involving I25.10 Active [place] coronary artery of [place] heart without angina pectoris Medications No Known Medications Results No Known Results Summary Purpose [employer] Submission
[2019-06-06] MEDS ORDERED: FENTANYL CITR 100 MCG/2 ML ONE (15:39)
[2019-06-06 15:42] LABS: Absolute Lymphocytes (CBC) 1.3 K/uL (0.7-4.9); Basophils % 0.5 % (0-1.3); Hematocrit 30.9 % (36.0-45.0); Lymphocytes % 12.6 % (15.3-44.8); MPV 7.4 fL (7.6-11.3); RBC Red Blood Cell Count 3.74 M/uL (3.86-4.86)
[2019-06-06 15:43] LABS: Protime INR 1.05
[2019-06-06 16:00] LABS: ALT/SGPT 22 U/L (12-78); AST/SGOT 20 U/L (15-37); Albumin 3.7 g/dL (3.4-5.0); Alkaline Phosphatase 104 U/L (45-117); BUN Blood Urea Nitrogen 25 mg/dL (7-18); Bicarbonate 29 mmol/L (21-32); Bilirubin Direct < 0.1 mg/dL (0-0.2); Bilirubin Total 0.3 mg/dL (0.2-1.0); Glucose Level 276 mg/dL (74-106); Magnesium 1.8 mg/dL (1.8-2.4); NT PRO-BNP 352 pg/mL (<125); Potassium 4.4 mmol/L (3.5-5.1); Protein, Total 7.8 g/dL (6.4-8.2); Sodium Level 140 mmol/L (136-145); Troponin (Emerg Dept Use Only) < 0.02 ng/mL (0.0-0.045)
[2019-06-06] MEDS ORDERED: TETANUS & DIPHTHERIA TOX,ADULT 0.5 ML VIAL ONE (16:20)
--- NOTE | 2019-06-06 16:52 | RAD REPORT ---
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 Small suprapatellar joint effusion. No a cute fracture demonstrated.
--- NOTE | 2019-06-06 16:56 | EKG ---
Test Date: 2019-06-06 Test Time: 15:31:19 Curator Of Manuscripts: PANCHITO MEASUREMENT RESULTS: Intervals: Rate: 84 OH: 210 QRSD: 132 QT: 370 QTc: 437 [place]: P: 58 OH: 210 QRS: 105 T: 50 INTERPRETIVE STATEMENTS: Sinus rhythm with 1st degree AV block Right bundle branch block Abnormal ECG Compared to ECG 12/18/2018 10:18:58 First degree AV block now present Right bundle-branch block now present Right-axis deviation no longer present Electronically Signed On 06-06-19 16:55:25 CDT by Lobo Baird
--- NOTE | 2019-06-06 16:58 | RAD REPORT ---
EXAM DESCRIPTION: RAD - Hip Left 2 View - 06/06/2019 4:42 pm CLINICAL HISTORY: Pain;Smash injury COMPARISON: <Comparisons> FINDINGS: Intratrochanteric fracture of the proximal left femur is seen with varus angulation. No di slocation.
--- NOTE | 2019-06-06 17:00 | RAD REPORT ---
EXAM DESCRIPTION: RAD - Chest Single View - 06/06/2019 4:42 pm CLINICAL HISTORY: fall Chest pain. COMPARISON: <Comparisons> FINDINGS: Portable technique limits examination quality. The lungs are underinflated but grossly clear. The heart is normal in size. No displaced fractures. IMPRESSION: No acute intrathoracic process suspected.
--- NOTE | 2019-06-06 17:40 | EDPHYS ---
Physician Documentation [facility] Name: Cherry Pompa Age: 69 yrs Sex: Female : 1950 Arrival Date: 06/06/2019 Time: 14:44 Bed 27 Private MD: ED Physician Carlos Kurtz HPI: 06/06 15:51 This 69 yrs old Female presents to ER via EMS with complaints of Fall Injury. snw 15:51 Details of fall: The patient fell from an upright position, while walking. Onset: The snw symptoms/episode began/occurred suddenly. Associated injuries: The patient sustained left hip, decreased range of motion. Severity of symptoms: At their worst the symptoms were moderate. The patient has not experienced similar symptoms in the past. It is unknown whether or not the patient has recently seen a physician. No LOC. Historical: - Allergies: 14:54 No Known Allergies; ca1 - PMHx: 14:54 Angina; Arthritis; Diabetes - IDDM; High Cholesterol; Hypertension; neuropathy; ca1 - PSHx: 14:54 Cholecystectomy; Hysterectomy; ca1 - Immunization history: Last tetanus immunization: - up to date. - Social history:: Smoking status: Patient/guardian denies using tobacco. - Ebola Screening: : Patient negative for fever greater than or equal to 101.5 degrees Fahrenheit, and additional compatible Ebola Virus Disease symptoms Patient denies exposure to infectious person Patient denies travel to an Ebola-affected area in the 21 days before illness onset No symptoms or risks identified at this time. ROS: 15:32 Constitutional: Negative for fever, chills, and weight loss, Eyes: Negative for injury, snw pain, redness, and discharge, ENT: Negative for injury, pain, and discharge, Neck: Negative for injury, pain, and swelling, Cardiovascular: Negative for chest pain, palpitations, and edema, Respiratory: Negative for shortness of breath, cough, wheezing, and pleuritic chest pain, Abdomen/GI: Negative for abdominal pain, nausea, vomiting, diarrhea, and constipation, Back: Negative for injury and pain, : Negative for injury, bleeding, discharge, and swelling, Skin: Negative for injury, rash, and discoloration, Neuro: Negative for headache, weakness, numbness, tingling, and seizure, Psych: Negative for depression, anxiety, suicide ideation, homicidal ideation, and hallucinations. 15:32 MS/extremity: Positive for injury or acute deformity, pain, tenderness, of the left hip. Exam: 15:19 Eyes: Pupils equal round and reactive to light, extra-ocular motions intact. Lids and snw lashes normal. Conjunctiva and sclera are non-icteric and not injected. Cornea within normal limits. Periorbital areas with no swelling, redness, or edema. ENT: Nares patent. No nasal discharge, no septal abnormalities noted. Tympanic membranes are normal and external auditory canals are clear. Oropharynx with no redness, swelling, or masses, exudates, or evidence of obstruction, uvula midline. Mucous membranes moist. Neck: Trachea midline, no thyromegaly or masses palpated, and no cervical lymphadenopathy. Supple, full range of motion without nuchal rigidity, or vertebral point tenderness. No Meningismus. Chest/axilla: Normal chest wall appearance and motion. Nontender with no deformity. No lesions are appreciated. Cardiovascular: Regular rate and rhythm with a normal S1 and S2. No gallops, murmurs, or rubs. Normal PMI, no JVD. No pulse deficits. Respiratory: Lungs have equal breath sounds bilaterally, clear to auscultation and percussion. No rales, rhonchi or wheezes noted. No increased work of breathing, no retractions or nasal flaring. Abdomen/GI: Soft, non-tender, with normal bowel sounds. No distension or tympany. No guarding or rebound. No evidence of tenderness throughout. Back: No spinal tenderness. No costovertebral tenderness. Full range of motion. 15:19 Constitutional: The patient appears alert, awake, uncomfortable. 15:19 Head/face: Noted is no noted changes per family, pt's face is puffy with right eyelid ptosis. 15:19 Musculoskeletal/extremity: Extremities: grossly normal except: noted in the left hip: tenderness, left knee pain, decreased ROM, left leg with shortening and external rotation., ROM: limited active range of motion due to pain, in the left hip, Circulation is intact in all extremities. Sensation intact. 15:19 Skin: injury, abrasion(s), very small abrasion noted, of the left knee. Vital Signs: 14:45 BP 139 / 58; Pulse 89; Resp 12; Temp 99.5(O); Pulse Ox 95% on R/A; Weight 72.57 kg (R); ca1 Height 5 ft. (152.40 cm) (R); Pain 10/10; 15:05 BP 139 / 58; Pulse 89; Resp 12; Temp 99.5(O); Pulse Ox 95% on R/A; Weight 72.57 kg (R); ca1 Height 5 ft. (152.40 cm) (R); Pain 10/10; 16:10 BP 109 / 84; Pulse 97; Resp 17 S; Pulse Ox 95% on R/A; ca1 17:00 BP 133 / 62; Pulse 90; Resp 15 S; Pulse Ox 95% on R/A; ca1 18:00 BP 144 / 70; Pulse 86; Resp 16 S; Pulse Ox 94% on R/A; ca1 19:00 BP 137 / 67; Pulse 97; Resp 19 S; Pulse Ox 95% on NC; ca1 20:00 BP 132 / 66; Pulse 98; Resp 16 S; Pulse Ox 95% on R/A; ca1 15:05 Body Mass Index 31.25 (72.57 kg, 152.40 cm) ca1 Delonte Coma Score: 14:45 Eye Response: spontaneous(4). Verbal Response: oriented(5). Motor Response: obeys ca1 commands(6). Total: 15. Trauma Score (Adult): 14:45 Eye Response: spontaneous(1); Verbal Response: oriented(1); Motor Response: obeys ca1 commands(2); Systolic BP: > 89 mm Hg(4); Respiratory Rate: 10 to 29 per min(4); Delonte Score: 15; Trauma Score: 12 MDM: 14:59 Patient medically screened. aramis 17:26 Data reviewed: vital signs, nurses notes. Data interpreted: Pulse oximetry: on room air snw is 95 %. Interpretation: normal. Counseling: I had a detailed discussion with the patient and/or guardian regarding: the historical points, exam findings, and any diagnostic results supporting the discharge/admit diagnosis, lab results, radiology results, the need for further work-up and treatment in the hospital. Physician consultation: Felix Yung MD was called at 17:27, was contacted at 17:27, regarding consult. 17:39 Physician consultation: James Crawford MD was called at 17:39, was contacted at 17:39, snw regarding admission, to the telemetry unit. patient's condition. 06/06 15:14 Order name: Basic Metabolic Panel; Complete Time: 16:09 snw 06/06 15:14 Order name: CBC with Diff snw 06/06 15:14 Order name: LFT's; Complete Time: 16:09 snw 06/06 15:14 Order name: Magnesium; Complete Time: 16:09 snw 06/06 15:14 Order name: NT PRO-BNP; Complete Time: 16:09 snw 06/06 15:14 Order name: PT-INR snw 06/06 15:14 Order name: Troponin (emerg Dept Use Only); Complete Time: 16:09 snw 06/06 15:14 Order name: XRAY Chest (1 view); Complete Time: 17:54 snw 06/06 15:14 Order name: Hip Left 2 View XRAY; Complete Time: 17:54 snw 06/06 15:14 Order name: Knee Left 3 View XRAY; Complete Time: 17:54 snw 06/06 15:23 Order name: TSH; Complete Time: 16:09 snw 06/06 15:37 Order name: Glucose, Ancillary Testing; Complete Time: 15:52 EDMS 06/06 15:14 Order name: EKG; Complete Time: 15:16 snw 06/06 15:14 Order name: Cardiac monitoring; Complete Time: 15:30 snw 06/06 15:14 Order name: EKG - Nurse/Tech; Complete Time: 15:30 snw 06/06 15:14 Order name: IV Saline Lock; Complete Time: 15:30 snw 06/06 15:14 Order name: Labs collected and sent; Complete Time: 15:30 snw 06/06 15:14 Order name: O2 Per Protocol; Complete Time: 15:30 snw 06/06 15:14 Order name: O2 Sat Monitoring; Complete Time: 15:30 snw 06/06 17:40 Order name: NPO; Complete Time: 17:43 snw 06/06 17:40 Order name: Beckham; Complete Time: 18:06 snw Administered Medications: 15:40 Drug: fentaNYL (PF) 25 mcg {Note: RASS - 0.} Route: IVP; Site: right antecubital; ca1 16:22 Drug: Tetanus-Diphtheria Toxoid Adult 0.5 ml {Lehr Cutter: Utan. Exp: ca1 02/01/2021. Lot #: [id number]. } Route: IM; Site: right deltoid; Point of Care Testing: Blood Glucose: 15:12 Blood Glucose: 326 mg/dL; lt1 Ranges: Critical Glucose Levels:Adult <50 mg/dl or >400 mg/dl <40 mg/dl or >180 mg/dl Disposition: 06/07 07:45 Co-signature as Attending Physician, Carlos Kurtz MD I agree with the assessment and [facility] plan of care. Disposition: 06/06/19 17:39 Hospitalization ordered by James Crawford for Inpatient Admission. Preliminary diagnosis are Intertrochanteric fracture of femur, Fall on same level, unspecified, Hyperglycemia, unspecified. - Bed requested for Telemetry/MedSurg (Inpatient). - Status is Inpatient Admission. bb - Condition is Stable. - Problem is new. - Symptoms are unchanged. UTI on Admission? No Signatures: Dispatcher [employer] EDCarlos Gonzalez MD MD cha Therrien, Shelly, ELECTRIC TRUCK DRIVER-C ELECTRIC TRUCK DRIVER-Csnw Montse Cancino RN RN bb Brigette Kemp ms, Cheryl RN RN ca1 Corrections: (The following items were deleted from the chart) 06/06 18:52 17:39 Hospitalization Ordered by James Crawford MD for Inpatient Admission. Preliminary ms diagnosis is Intertrochanteric fracture of femur; Fall on same level, unspecified; Hyperglycemia, unspecified. Bed requested for Telemetry/MedSurg (Inpatient). Status is Inpatient Admission. Condition is Stable. Problem is new. Symptoms are unchanged. UTI on Admission? No. snw 20:15 18:52 06/06/2019 17:39 Hospitalization Ordered by James Crawford MD for Inpatient bb Admission. Preliminary diagnosis is Intertrochanteric fracture of femur; Fall on same level, unspecified; Hyperglycemia, unspecified. Bed requested for Telemetry/MedSurg (Inpatient). Status is Inpatient Admission. Condition is Stable. Problem is new. Symptoms are unchanged. UTI on Admission? No. ms
--- NOTE | 2019-06-06 17:40 | ER ---
Nurse's Notes [facility] Name: Cherry Pompa Age: 69 yrs Sex: Female : 1950 Arrival Date: 06/06/2019 Time: 14:44 Bed 27 Private MD: Diagnosis: Intertrochanteric fracture of femur;Fall on same level, unspecified;Hyperglycemia, unspecified Presentation: 06/06 14:45 Presenting complaint: EMS states: pt had mechanical fall at 0800. C/O left hip pain and ca1 leg pain. Denies LOC, denies use of blood thinners. Care prior to arrival: None. Mechanism of Injury: Fall from standing position. Trauma event details: Injury occurred in the [facility], Injury occurred: at home. Injury occurred: June 06, 2019 Injury occurred at: 08:00. 14:45 Acuity: HERIBERTO 2 ca1 14:45 Method Of Arrival: EMS: [facility] ca1 14:52 Transition of care: patient was not received from another setting of care. Onset of ca1 symptoms was June 06, 2019 at 08:00. Risk Assessment: Do you want to hurt yourself or someone else? Patient reports no desire to harm self or others. Initial Sepsis Screen: Does the patient meet any 2 criteria? No. Patient's initial sepsis screen is negative. Does the patient have a suspected source of infection? No. Patient's initial sepsis screen is negative. Trauma Activation: Alert Physician: ED Physician; Name: ; Notified At: ; Arrived At: Physician: General Surgeon; Name: ; Notified At: ; Arrived At: Physician: Radiology; Name: ; Notified At: ; Arrived At: Physician: Respiratory; Name: ; Notified At: ; Arrived At: Physician: Lab; Name: ; Notified At: ; Arrived At: Historical: - Allergies: 14:54 No Known Allergies; ca1 - PMHx: 14:54 Angina; Arthritis; Diabetes - IDDM; High Cholesterol; Hypertension; neuropathy; ca1 - PSHx: 14:54 Cholecystectomy; Hysterectomy; ca1 - Immunization history: Last tetanus immunization: - up to date. - Social history:: Smoking status: Patient/guardian denies using tobacco. - Ebola Screening: : Patient negative for fever greater than or equal to 101.5 degrees Fahrenheit, and additional compatible Ebola Virus Disease symptoms Patient denies exposure to infectious person Patient denies travel to an Ebola-affected area in the 21 days before illness onset No symptoms or risks identified at this time. Screenin:45 Abuse screen: Denies threats or abuse. Denies injuries from another. Nutritional ca1 screening: No deficits noted. Tuberculosis screening: No symptoms or risk factors identified. 14:55 Fall Risk Fall in past 12 months (25 points). IV access (20 points). Ambulatory Aid- ca1 Crutches/Cane/Walker (15 pts). Gait- Total Jackson Fall Scale indicates High Risk Score (45 or more points). Fall prevention measures have been instituted. Side Rails Up X 2 Frequent Obs/Assessments Occuring Family Present and informed to notify staff if the need to leave the bedside As available patient and family educated on Fall Prevention Program and Strategies. Primary Survey: 14:45 NO uncontrolled hemorrhage observed. A: The patient is alert. Airway: patent. ca1 Breathing/Chest: Respiratory pattern: regular, Respiratory effort: spontaneous, unlabored, Breath sounds: clear, bilaterally. Chest inspection: symmetrical rise and fall of the chest. Circulation: Cardiac rhythm: sinus rhythm Heart tones present. Pulses: palpable bilateral radial, brachial, femoral, popliteal, posterior tibial and and dorsalis pedis arteries.. Skin color: pink, Skin temperature: warm, dry. Disability Alert. Exposure/Environment: All clothing and personal items were removed. Forensic evidence collection is not deemed to be indicated at this time. Items placed in patient belonging bag. There is no evidence of uncontrolled external bleeding. Obvious injury(ies) are noted at this time: external rotation of left hip and shortening of L leg. 16:00 Reassessment Airway Airway Patent Breathing/Chest Respiratory pattern Regular ca1 Respiratory effort Spontaneous Unlabored Breath sounds Clear Chest inspection Symmetrical Circulation Heart rhythm Sinus rhythm Heart tones Present Absent Pulses Palpable Color [place] Temperature Warm Disability Alert. Assessment: 14:55 General: Appears in no apparent distress. comfortable, Behavior is calm, cooperative, ca1 appropriate for age. Pain: Complains of pain in left hip Pain currently is 10 out of 10 on a pain scale. Pain began 0800 today. Neuro: Level of Consciousness is awake, alert, obeys commands, Oriented to person, place, time, situation, Appropriate for age. Cardiovascular: Heart tones S1 S2 present Capillary refill < 3 seconds Patient's skin is warm and dry. Respiratory: Airway is patent Respiratory effort is even, unlabored, Respiratory pattern is regular, symmetrical, Breath sounds are clear bilaterally. GI: Abdomen is round non-distended, Bowel sounds present X 4 quads. Abd is soft and non tender X 4 quads. : No deficits noted. No signs and/or symptoms were reported regarding the genitourinary system. EENT: No deficits noted. No signs and/or symptoms were reported regarding the EENT system. Derm: Skin is intact, is healthy with good turgor, Skin is pink, warm \T\ dry. Musculoskeletal: Circulation, motion, and sensation intact. Capillary refill < 3 seconds, Range of motion: intact in all extremities. 16:10 Reassessment: Patient appears in no apparent distress at this time. Patient and/or ca1 family updated on plan of care and expected duration. Pain level reassessed. Patient is alert, oriented x 3, equal unlabored respirations, skin warm/dry/pink. 17:00 Reassessment: Patient appears in no apparent distress at this time. Patient and/or ca1 family updated on plan of care and expected duration. Pain level reassessed. Patient is alert, oriented x 3, equal unlabored respirations, skin warm/dry/pink. 18:00 Reassessment: Patient appears in no apparent distress at this time. Patient and/or ca1 family updated on plan of care and expected duration. Pain level reassessed. Patient is alert, oriented x 3, equal unlabored respirations, skin warm/dry/pink. 18:00 Reassessment: Dr. Crawford at bedside. He said to document: 0.4% risk of IA at OR table ca1 and Mild Sliding Scale. 19:55 Reassessment: report called to Christianne JEAN BAPTISTE for room 411. bb Vital Signs: 14:45 BP 139 / 58; Pulse 89; Resp 12; Temp 99.5(O); Pulse Ox 95% on R/A; Weight 72.57 kg (R); ca1 Height 5 ft. (152.40 cm) (R); Pain 10/10; 15:05 BP 139 / 58; Pulse 89; Resp 12; Temp 99.5(O); Pulse Ox 95% on R/A; Weight 72.57 kg (R); ca1 Height 5 ft. (152.40 cm) (R); Pain 10/10; 16:10 BP 109 / 84; Pulse 97; Resp 17 S; Pulse Ox 95% on R/A; ca1 17:00 BP 133 / 62; Pulse 90; Resp 15 S; Pulse Ox 95% on R/A; ca1 18:00 BP 144 / 70; Pulse 86; Resp 16 S; Pulse Ox 94% on R/A; ca1 19:00 BP 137 / 67; Pulse 97; Resp 19 S; Pulse Ox 95% on NC; ca1 20:00 BP 132 / 66; Pulse 98; Resp 16 S; Pulse Ox 95% on R/A; ca1 15:05 Body Mass Index 31.25 (72.57 kg, 152.40 cm) ca1 Delonte Coma Score: 14:45 Eye Response: spontaneous(4). Verbal Response: oriented(5). Motor Response: obeys ca1 commands(6). Total: 15. Trauma Score (Adult): 14:45 Eye Response: spontaneous(1); Verbal Response: oriented(1); Motor Response: obeys ca1 commands(2); Systolic BP: > 89 mm Hg(4); Respiratory Rate: 10 to 29 per min(4); Lavina Score: 15; Trauma Score: 12 ED Course: 14:44 Patient arrived in ED. ca1 14:44 Liz Melgar, RN is Primary Nurse. ca1 14:45 Patient has correct armband on for positive identification. Placed in gown. Bed in low ca1 position. Call light in reach. Side rails up X2. 14:45 Arm band placed on. ca1 14:45 Patient maintains SpO2 saturation greater than 95% on room air. ca1 14:47 Triage completed. ca1 14:55 potline monitor on. Pulse ox on. NIBP on. Warm blanket given. ca1 14:55 No provider procedures requiring assistance completed. ca1 14:58 Carlos Kurtz MD is Attending Physician. snw 14:58 Angely Edwards FNP-C [facility]. snw 15:05 Thermoregulation: warm blanket given to patient. ca1 15:28 Initial lab(s) drawn, by me, sent to lab. Inserted saline lock: 22 gauge in right lt1 antecubital area, using aseptic technique. 15:36 EKG done, by consultant technology. reviewed by Angely RUIZ. sm3 16:46 XRAY Chest (1 view) In Process Unspecified. EDMS 16:46 Hip Left 2 View XRAY In Process Unspecified. EDMS 16:47 Knee Left 3 View XRAY In Process Unspecified. EDMS 17:37 James Crawford MD is Hospitalizing Provider. snw 17:50 Beckham cath inserted, using sterile technique, 18 Fr., by ri, balloon inflated, to ca1 gravity drainage, clamped. returned clear yellow urine. Patient tolerated well. 20:00 Patient admitted, IV remains in place. ca1 Administered Medications: 15:40 Drug: fentaNYL (PF) 25 mcg {Note: RASS - 0.} Route: IVP; Site: right antecubital; ca1 16:22 Drug: Tetanus-Diphtheria Toxoid Adult 0.5 ml {Medical Secretary: Azuro. Exp: ca1 02/01/2021. Lot #: [id number]. } Route: IM; Site: right deltoid; Point of Care Testing: Blood Glucose: 15:12 Blood Glucose: 326 mg/dL; lt1 Ranges: Output: 18:00 Urine: 300ml (Beckham); Total: 300ml. ca1 Outcome: 17:39 Decision to Hospitalize by Provider. snw 19:55 Admitted to Tele via stretcher, room 411. bb 19:55 Condition: stable 19:55 Instructed on the need for admit. 20:10 Patient's length of stay in the Emergency Department was greater than 2 hours. ca1 20:15 Patient left the ED. bb Signatures: Dispatcher [employer] EDMS Angely Edwards, MANDY-C LOBBY PORTER-Csnw Montse Cancino RN RN bb Kyra Jones 3 Liz Melgar RN RN ca1 Elvira Moss lt1 Corrections: (The following items were deleted from the chart) 14:55 14:45 BP 139 / 58; Pulse 89bpm; Resp 12bpm; Pulse Ox 95% RA; 72.57 kg Reported; Height ca1 5 ft. Reported; BMI: 31.2; Pain 10/10; ca1 15:04 14:55 Fall Risk Fall in past 12 months (25 points). IV access (20 points). Ambulatory ca1 Aid- Crutches/Cane/Walker (15 pts). Gait- Weak (10 pts.). ca1 22:35 21:30 Patient admitted, IV remains in place. ca1 ca1
[2019-06-06] MEDS ORDERED: MORPHINE 2 MG/ML SYR IV PRN (21:30)
[2019-06-06] MEDS ORDERED: GLUCAGON 1 MG/VIAL IM PRN (21:30)
[2019-06-06] MEDS ORDERED: D50W 25 GM/50 ML SYRINGE IV PRN (21:30)
[2019-06-06] MEDS ORDERED: ACETAMINOPHEN 500 MG TAB PO PRN (21:30)
[2019-06-06] MEDS: INSULIN -REGULAR HUMAN 50 UNIT/0.5 ML ML SQ SCH (22:00)
[2019-06-06] MEDS: NA CHLORIDE 0.9% 1,000 ML IV SCH (22:00)
[2019-06-06 22:42] VITALS: BMI 32.8
--- NOTE | 2019-06-07 01:55 | CON ---
Reason For Consultation: Left IT hip fracture. History Of Present Illness: Ms. Pompa is a 69-year-old woman with a host of medical problems, who ahmadi stained a left IT hip fracture. We were consulted for management of this. Past Medical History: Significant for coronary artery disease, hypertension, altered mental status, hyperlipidemia, diabetes mellitus type 2, abdominal pain, leukocytosis, anemia of chronic disease. S he is admitted this evening after this mechanical fall. Current Medications: Only listed for the current medication she is taking in the hospital. Allergies: SHE HAS NO KNOWN DRUG ALLERGIES. Physical Examination: General: She is alert and oriented x3, but somewhat lethargic. Musculoskeletal: Complains of pain in the left hip. Clearly communicates with the location of her h ip fracture. Denies pain elsewhere. Laboratory Data: Reveals a hemoglobin low at 10.3. Her sodium is 140. Her glucose is 276. Pro-geeta e and INR within normal limits. X-ray revealed displaced IT hip fracture. Plan: Plan will be to proceed with intramedullary rodding after medical clearance. SARAY Voice ID: [id number] Report ID: [id number]
[2019-06-07 06:15] LABS: Urine Appearance CLOUDY; Urine Bilirubin NEGATIVE (NEG); Urine Blood TRACE (NEG); Urine Color YELLOW; Urine Glucose 2+ (NEG); Urine Protein NEGATIVE (NEG); Urine Specific Gravity 1.025 (1.005-1.030)
[2019-06-07] MEDS: MORPHINE 4 MG/ML SYR IV PRN ×3 (06:23→20:16)
[2019-06-07 06:40] LABS: Absolute Lymphocytes (CBC) 1.6 K/uL (0.7-4.9); Basophils % 0.5 % (0-1.3); Hematocrit 30.4 % (36.0-45.0); Lymphocytes % 10.7 % (15.3-44.8); RBC Red Blood Cell Count 3.72 M/uL (3.86-4.86)
[2019-06-07 06:42] LABS: Urine Microscopic Reflex ORDER UMIC
[2019-06-07 06:55] LABS: Urine Bacteria >50 /HPF (<20); Urine Culture Reflex Order NOT NEEDED; Urine Mucus MOD /HPF (NONE SEEN); Urine RBC <5 /HPF (NONE SEEN)
[2019-06-07 07:02] LABS: Potassium 4.5 mmol/L (3.5-5.1)
[2019-06-07] MEDS: ONDANSETRON 4 MG/2 ML VIAL IV PRN ×3 (08:04→23:07)
[2019-06-07] MEDS: NA CHLORIDE 0.9% 1,000 ML IV SCH ×2 (08:04→17:30)
[2019-06-07] MEDS: INSULIN -REGULAR HUMAN 50 UNIT/0.5 ML ML SQ SCH ×4 (08:12→21:00)
[2019-06-07 08:45] LABS: Blood Morphology Comment NOT SEEN (NOT SEEN); Platelet Estimate ADEQ; Urine White Blood Cell Casts OK
--- NOTE | 2019-06-07 14:51 | P.HP ---
Certification for Inpatient Patient admitted to: Inpatient With expected LOS: >2 Midnights Patient will require the following post-hospital care: Rehabilitation Practitioner: I am a practitioner with admitting privileges, knowledge of patient current condition, hospital course, and medical plan of care. Services: Services provided to patient in accordance with Admission requirements found in Title 42 Section 412.3 of the Code of Federal Regulations Patient History Date of Service: 06/06/19 Primary Care Provider: Ty Reason for admission: left femoral intratrochantric fracture. 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 She has a history of diabetes, htn and cad. Has been stented by Dr. Atkins. The patient was getting into her car when she stubbed her toe. She fell and was not able to get up. The patient was brought to the ER, found to have a fracture. Consult was made to Dr. Garcia. Most likely she will need surgical repair. Allergies No Known Drug Allergies Allergy (Verified 03/22/18 04:48) Unknown NKDA Allergy (Uncoded 03/22/18 04:48) Unknown No Known Allergies Allergy (Uncoded 03/22/18 04:48) Unknown Home Medications: Gabapentin [Neurontin*] 1 cap PO BID 03/22/18 Lisinopril 1 tab PO BID 03/22/18 Pantoprazole Sodium [Protonix] 1 tab PO DAILY 03/22/18 levoFLOXacin [Levaquin] 500 mg PO DAILY #10 tab 03/24/18 - Past Medical/Surgical History Has patient received pneumonia vaccine in the past: Yes Diabetic: Yes -: HTN -: Hyperlipidemia -: CAD -: Arthritis -: Obesity -: Noncompliance -: Depression with anxiety -: Hyperlipidemia -: History of UTI -: 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 - Family History Mother -: Heart disease, Hypertension - Social History Smoking Status: Never smoker Alcohol use: No CD- Drugs: No Caffeine use: Yes Place of Residence: Home Review of Systems 10-point ROS is otherwise unremarkable Musculoskeletal: Other (left hip pain.) Physical Examination - Vital Signs Temperature: 99.3 F Blood Pressure: 127/62 Pulse: 101 Respirations: 17 Pulse Ox (%): 92 - Physical Exam General: Alert, In no apparent distress HEENT: Atraumatic, PERRLA, Mucous membr. moist/pink, EOMI, Sclerae nonicteric Neck: Supple, 2+ carotid pulse no bruit, No LAD, Without JVD or thyroid abnormality Respiratory: Clear to auscultation bilaterally, Normal air movement Cardiovascular: Regular rate/rhythm, Normal S1 S2 Gastrointestinal: Normal bowel sounds, No tenderness Musculoskeletal: Tenderness (left hip) Integumentary: No rashes Neurological: Normal gait, Normal speech, Normal strength at 5/5 x4 extr, Normal tone, Normal affect Lymphatics: No axilla or inguinal lymphadenopathy - Studies Laboratory Data (last 24 hrs) 06/06/19 15:21: PT 12.4, INR 1.05 06/06/19 15:21: WBC 10.1, Hgb 10.3 L, Hct 30.9 L, Plt Count 223 06/06/19 15:21: Sodium 140, Potassium 4.4, BUN 25 H, Creatinine 1.18, Glucose 276 H, Magnesium 1.8, Total Bilirubin 0.3, AST 20, ALT 22, Alkaline Phosphatase 104 Assessment and Plan - Problems (Diagnosis) (1) Fracture, intertrochanteric, left femur Current Visit: Yes Status: Acute Plan: Will be seen by Dr. Garcia. Will start her on morphine for pain medication. Will put her on lovenox for dvt prophylaxis. Qualifiers: Encounter type: initial encounter Fracture type: closed Fracture alignment: nondisplaced Qualified Code(s): S72.145A - Nondisplaced intertrochanteric fracture of left femur, initial encounter for closed fracture (2) Coronary arteriosclerosis Current Visit: No Status: Chronic Plan: Stable no chest pain. She has a 0.4% risk of cad per the geriatric risk score for surgery. Will continue home medications. (3) Diabetes mellitus Onset Date: 07/17/15 Current Visit: No Status: Chronic Plan: Moderate control. Will start a insulin sliding scale to cover. (4) Hypertension Onset Date: 08/06/15 Current Visit: No Status: Chronic Plan: Moderated control. Will continue home medications. Will adjust her medications as needed. Qualifiers: Hypertension type: essential hypertension Qualified Code(s): I10 - Essential (primary) hypertension Discharge Plan: Custodial Plan to discharge in: 48 Hours - Advance Directives Does patient have a Living Will: No Does patient have a Durable POA for Healthcare: No - Code Status/Comfort Care Code Status Assessed: No Code Status: Full Code Physician Review: Patient Assessed, Agree with Above Assessment and Plan Critical Care: No Time Spent Managing Pts Care (In Minutes): 40
--- NOTE | 2019-06-07 14:59 | P.PN ---
Subjective Date of Service: 06/07/19 Primary Care Provider: Ty Chief Complaint: left femoral intratrochantric fracture. Subjective: No new changes Review of Systems 10-point ROS is otherwise unremarkable Musculoskeletal: Leg Pain (left hip pain.) Physical Examination - Vital Signs Temperature: 99.3 F Blood Pressure: 127/62 Pulse: 101 Respirations: 17 Pulse Ox (%): 92 - Physical Exam General: Alert, In no apparent distress HEENT: Atraumatic, PERRLA, EOMI Neck: Supple, JVD not distended Respiratory: Clear to auscultation bilaterally, Normal air movement Cardiovascular: Regular rate/rhythm, Normal S1 S2 Gastrointestinal: Normal bowel sounds, No tenderness Musculoskeletal: No tenderness Integumentary: No rashes Neurological: Normal speech, Normal tone, Normal affect Lymphatics: No axilla or inguinal lymphadenopathy - Studies Laboratory Data (last 24 hrs) 06/06/19 15:21: PT 12.4, INR 1.05 06/06/19 15:21: WBC 10.1, Hgb 10.3 L, Hct 30.9 L, Plt Count 223 06/06/19 15:21: Sodium 140, Potassium 4.4, BUN 25 H, Creatinine 1.18, Glucose 276 H, Magnesium 1.8, Total Bilirubin 0.3, AST 20, ALT 22, Alkaline Phosphatase 104 Assessment & Plan - Problems (Diagnosis) (1) Fracture, intertrochanteric, left femur Current Visit: Yes Status: Acute Plan: Will be seen by Dr. Garcia. Will start her on morphine for pain medication. Will put her on lovenox for dvt prophylaxis. Qualifiers: Encounter type: initial encounter Fracture type: closed Fracture alignment: nondisplaced Qualified Code(s): S72.145A - Nondisplaced intertrochanteric fracture of left femur, initial encounter for closed fracture (2) Coronary arteriosclerosis Current Visit: No Status: Chronic Plan: Stable no chest pain. She has a 0.4% risk of cad per the geriatric risk score for surgery. Will continue home medications. (3) Diabetes mellitus Onset Date: 07/17/15 Current Visit: No Status: Chronic Plan: Moderate control. Will start a insulin sliding scale to cover. (4) Hypertension Onset Date: 08/06/15 Current Visit: No Status: Chronic Plan: Moderated control. Will continue home medications. Will adjust her medications as needed. Qualifiers: Hypertension type: essential hypertension Qualified Code(s): I10 - Essential (primary) hypertension Discharge Plan: [facility] Plan to discharge in: 48 Hours - Code Status/Comfort Care Code Status Assessed: No Code Status: Full Code Physician Review: Patient Assessed, Agree with Above Assessment and Plan Critical Care: No Time Spent Managing Pts Care (In Minutes): 20
[2019-06-08] MEDS: MORPHINE 4 MG/ML SYR IV PRN ×3 (00:13→08:47)
[2019-06-08] MEDS: NA CHLORIDE 0.9% 1,000 ML IV SCH (04:23)
[2019-06-08] MEDS: INSULIN -REGULAR HUMAN 50 UNIT/0.5 ML ML SQ SCH ×4 (07:30→20:12)
--- NOTE | 2019-06-08 11:19 | P.PN ---
Subjective Date of Service: 06/08/19 Primary Care Provider: Ty Chief Complaint: left femoral intratrochantric fracture. Subjective: No new changes (did not have her surgery due to scheduling. Possible repair today) Review of Systems 10-point ROS is otherwise unremarkable Musculoskeletal: Leg Pain (mild painin the hip) Physical Examination - Vital Signs Temperature: 98.9 F Blood Pressure: 119/56 Pulse: 101 Respirations: 17 Pulse Ox (%): 96 - Physical Exam General: Alert, In no apparent distress HEENT: Atraumatic, PERRLA, EOMI Neck: Supple, JVD not distended Respiratory: Clear to auscultation bilaterally, Normal air movement Cardiovascular: Regular rate/rhythm, Normal S1 S2 Gastrointestinal: Normal bowel sounds, No tenderness Musculoskeletal: No tenderness Integumentary: No rashes Neurological: Normal speech, Normal tone, Normal affect Lymphatics: No axilla or inguinal lymphadenopathy Assessment And Plan - Current Problems (Diagnosis) (1) Fracture, intertrochanteric, left femur Current Visit: Yes Status: Acute Plan: Will be seen by Dr. Garcia. Will start her on morphine for pain medication. Will put her on lovenox for dvt prophylaxis. Qualifiers: Encounter type: initial encounter Fracture type: closed Fracture alignment: nondisplaced Qualified Code(s): S72.145A - Nondisplaced intertrochanteric fracture of left femur, initial encounter for closed fracture (2) Coronary arteriosclerosis Current Visit: No Status: Chronic Plan: Stable no chest pain. She has a 0.4% risk of cad per the geriatric risk score for surgery. Will continue home medications. (3) Diabetes mellitus Onset Date: 07/17/15 Current Visit: No Status: Chronic Plan: Moderate control. Will start a insulin sliding scale to cover. (4) Hypertension Onset Date: 08/06/15 Current Visit: No Status: Chronic Plan: Moderated control. Will continue home medications. Will adjust her medications as needed. Qualifiers: Hypertension type: essential hypertension Qualified Code(s): I10 - Essential (primary) hypertension Discharge Plan: LTAC Plan to discharge in: 24 Hours - Code Status/Comfort Care Code Status Assessed: No Physician Review: Patient Assessed, Agree with Above Assessment and Plan Critical Care: No Time Spent Managing PTS Care (In Minutes): 25
[2019-06-08] MEDS ORDERED: CEFAZOLIN 2 GM/20 ML SYR ONE (11:29)
[2019-06-08] MEDS ORDERED: FENTANYL CITR 100 MCG/2 ML ONE (11:30)
[2019-06-08] MEDS ORDERED: LIDOCAINE 1% MPF 5 ML VIAL ONE (11:30)
[2019-06-08] MEDS ORDERED: PROPOFOL 200 MG/20 ML VIAL IV ONE (11:30)
[2019-06-08] MEDS: NA CHLORIDE 0.9% 1,000 ML ONE ×2 (11:50→12:30)
[2019-06-08] MEDS ORDERED: NS 0.9% VIAL 10 ML ONE ×2 (11:56→12:01)
[2019-06-08] MEDS ORDERED: EPHEDRINE SULF 50 MG/ML VIAL ONE (11:56)
[2019-06-08] MEDS ORDERED: Phenylephrine HCl 10 MG/ML 1 ML VIAL ONE (12:01)
[2019-06-08] MEDS ORDERED: ONDANSETRON 4 MG/2 ML VIAL ONE (12:36)
--- NOTE | 2019-06-08 12:47 | RAD REPORT ---
EXAM DESCRIPTION: RAD - Hip In Or - 06/08/2019 12:40 pm CLINICAL HISTORY: Left femoral fracture FINDINGS: One fluoroscopic spot image is submitted. Fluoroscopy time 1.6 minutes. Intramedullary donnie and compression screw affixing a femoral fracture in good position Surgery performed by Dr. Lopez
[2019-06-08] MEDS ORDERED: MORPHINE/NS PCA 50 MG/50 ML PCA.SYRING IV PRN (13:15)
[2019-06-08] MEDS: MORPHINE 4 MG/ML SYR ONE ×2 (13:20→13:35)
--- NOTE | 2019-06-08 14:12 | RAD REPORT ---
EXAM DESCRIPTION: RAD - Pelvis - 06/08/2019 2:06 pm CLINICAL HISTORY: Left femoral fracture FINDINGS: Impressions mid intramedullary donnie affix a femoral fracture in good alignment.
[2019-06-08] MEDS: HYDROCODONE/APAP 5/325 MG TAB PO PRN (14:17)
[2019-06-08] MEDS: NACHLORIDE 0.45% 1,000 ML IV SCH (14:27)
[2019-06-08] MEDS: CEFAZOLIN/SWI 1gm 1 GM/10 ML SYR IV SCH (16:33)
[2019-06-08] MEDS: DOCUSATE NA 100 MG CAP PO SCH (20:12)
--- NOTE | 2019-06-08 23:21 | OP ---
Surgeon: Felix Nieves MD Pneumatic Jacketer: RUFUS Dominguez Preoperative Diagnosis: Left intertrochanteric hip fracture. Postoperative Diagnosis: Left intertrochanteric hip fracture. Procedure Performed: Intramedullary rodding, left intertrochanteric hip fracture. Complications: None. Disposition: Recovery room, stable. Procedure In Detail: The patient was taken to operative suite, placed in supine position, induced an esthesia. Left hip was prepped and draped in usual sterile fashion. found to have ____ IT hip fracture. Hemostasis was verified on the approach. After single stage entry and guidewi re passed all single stage awl followed by 9 x 125 mm angle nail short. An 85 lag screw was placed i n the subchondral bone and femoral head verified on biplane radiography followed by distal interlocki ng with 32 mm screw. Patient tolerated the procedure well, reversed anesthesia and should be in the recovery room shortly. DANIEL/MORENO Voice ID: [id number] Report ID: [id number]
[2019-06-09] MEDS: CEFAZOLIN/SWI 1gm 1 GM/10 ML SYR IV SCH (00:49)
[2019-06-09] MEDS: NACHLORIDE 0.45% 1,000 ML IV SCH ×3 (02:20→23:58)
[2019-06-09 05:24] LABS: Potassium 3.9 mmol/L (3.5-5.1)
[2019-06-09 05:47] LABS: Absolute Lymphocytes (CBC) 1.1 K/uL (0.7-4.9); Basophils % 0.4 % (0-1.3); Hematocrit 25.2 % (36.0-45.0); Lymphocytes % 11.2 % (15.3-44.8); MPV 7.8 fL (7.6-11.3); RBC Red Blood Cell Count 3.08 M/uL (3.86-4.86)
[2019-06-09] MEDS: INSULIN -REGULAR HUMAN 50 UNIT/0.5 ML ML SQ SCH ×4 (07:30→21:36)
[2019-06-09] MEDS: DOCUSATE NA 100 MG CAP PO SCH ×2 (09:21→21:36)
[2019-06-09] MEDS: RIVAROXABAN 10 MG TABLET PO SCH (09:21)
--- NOTE | 2019-06-09 11:24 | P.PN ---
Subjective Date of Service: 06/09/19 Primary Care Provider: Ty Chief Complaint: left femoral intratrochantric fracture. patient was kept in ICU post op. She is eating doing well. Vitals stable. She is on a pain pump Review of Systems 10-point ROS is otherwise unremarkable Physical Examination - Vital Signs Temperature: 98.3 F Blood Pressure: 133/58 Pulse: 97 Respirations: 12 Pulse Ox (%): 100 - Physical Exam General: Alert, In no apparent distress HEENT: Atraumatic, PERRLA, EOMI Neck: Supple, JVD not distended Respiratory: Clear to auscultation bilaterally, Normal air movement Cardiovascular: Regular rate/rhythm, Normal S1 S2 Gastrointestinal: Normal bowel sounds, No tenderness Musculoskeletal: No tenderness Integumentary: No rashes Neurological: Normal speech, Normal tone, Normal affect Lymphatics: No axilla or inguinal lymphadenopathy Assessment & Plan - Problems (Diagnosis) (1) Fracture, intertrochanteric, left femur Current Visit: Yes Status: Acute Plan: Doing well after surgery yesterday. Will transfer her out of the ICU. Needs a PT evaluation. Is she able to go home or will she need inpt Physical therapy Qualifiers: Encounter type: initial encounter Fracture type: closed Fracture alignment: nondisplaced Qualified Code(s): S72.145A - Nondisplaced intertrochanteric fracture of left femur, initial encounter for closed fracture (2) Coronary arteriosclerosis Current Visit: No Status: Chronic Plan: Stable no chest pain. She has a 0.4% risk of cad per the geriatric risk score for surgery. Will continue home medications. (3) Diabetes mellitus Onset Date: 07/17/15 Current Visit: No Status: Chronic Plan: Moderate control. Will start a insulin sliding scale to cover. (4) Hypertension Onset Date: 08/06/15 Current Visit: No Status: Chronic Plan: Moderated control. Will continue home medications. Will adjust her medications as needed. Qualifiers: Hypertension type: essential hypertension Qualified Code(s): I10 - Essential (primary) hypertension Discharge Plan: LTAC Plan to discharge in: 48 Hours - Code Status/Comfort Care Code Status Assessed: No Physician Review: Patient Assessed, Agree with Above Assessment and Plan Critical Care: No Time Spent Managing Pts Care (In Minutes): 25
[2019-06-09] MEDS: MORPHINE 2 MG/ML SYR IV PRN ×3 (13:30→22:11)
[2019-06-09] MEDS: ONDANSETRON 4 MG/2 ML VIAL IV PRN (13:45)
[2019-06-09] MEDS: HYDROCODONE/APAP 5/325 MG TAB PO PRN (21:36)
[2019-06-10] MEDS: NACHLORIDE 0.45% 1,000 ML IV SCH ×3 (03:30→16:00)
[2019-06-10] MEDS: MORPHINE 2 MG/ML SYR IV PRN ×5 (05:45→23:17)
[2019-06-10 06:16] LABS: Basophils % 0.4 % (0-1.3); Hematocrit 25.1 % (36.0-45.0); Lymphocytes % 12.5 % (15.3-44.8); MPV 7.7 fL (7.6-11.3); RBC Red Blood Cell Count 3.04 M/uL (3.86-4.86)
[2019-06-10 06:32] LABS: BUN Blood Urea Nitrogen 16 mg/dL (7-18); Bicarbonate 30 mmol/L (21-32); Glucose Level 134 mg/dL (74-106); Potassium 3.9 mmol/L (3.5-5.1); Sodium Level 139 mmol/L (136-145)
[2019-06-10] MEDS: INSULIN -REGULAR HUMAN 50 UNIT/0.5 ML ML SQ SCH ×4 (07:30→19:58)
[2019-06-10] MEDS: DOCUSATE NA 100 MG CAP PO SCH ×2 (08:15→20:01)
[2019-06-10] MEDS: RIVAROXABAN 10 MG TABLET PO SCH (08:16)
[2019-06-10] MEDS: HYDROCODONE/APAP 5/325 MG TAB PO PRN (19:59)
[2019-06-11] MEDS: NACHLORIDE 0.45% 1,000 ML IV SCH (01:53)
[2019-06-11] MEDS: MORPHINE 2 MG/ML SYR IV PRN ×2 (03:43→21:55)
[2019-06-11] MEDS: HYDROCODONE/APAP 5/325 MG TAB PO PRN ×3 (07:12→15:55)
[2019-06-11] MEDS: INSULIN -REGULAR HUMAN 50 UNIT/0.5 ML ML SQ SCH ×4 (07:30→19:53)
--- NOTE | 2019-06-11 08:22 | P.PN ---
Subjective Date of Service: 06/11/19 Primary Care Provider: Ty Chief Complaint: left femoral intratrochantric fracture. She is eating doing well. only able to transfer with PT Review of Systems 10-point ROS is otherwise unremarkable Physical Examination - Vital Signs Temperature: 98.2 F Blood Pressure: 158/86 Pulse: 90 Respirations: 16 Pulse Ox (%): 96 - Physical Exam General: Alert, In no apparent distress HEENT: Atraumatic, PERRLA, EOMI Neck: Supple, JVD not distended Respiratory: Clear to auscultation bilaterally, Normal air movement Cardiovascular: Regular rate/rhythm, Normal S1 S2 Gastrointestinal: Normal bowel sounds, No tenderness Musculoskeletal: No tenderness Integumentary: No rashes Neurological: Normal speech, Normal tone, Normal affect Lymphatics: No axilla or inguinal lymphadenopathy Assessment & Plan - Problems (Diagnosis) (1) Fracture, intertrochanteric, left femur Current Visit: Yes Status: Acute Plan: Doing well after surgery yesterday. Will transfer her out of the ICU. Needs a PT evaluation. Is she able to go home or will she need inpt Physical therapy Qualifiers: Encounter type: initial encounter Fracture type: closed Fracture alignment: nondisplaced Qualified Code(s): S72.145A - Nondisplaced intertrochanteric fracture of left femur, initial encounter for closed fracture (2) Coronary arteriosclerosis Current Visit: No Status: Chronic Plan: Stable no chest pain. She has a 0.4% risk of cad per the geriatric risk score for surgery. Will continue home medications. (3) Diabetes mellitus Onset Date: 07/17/15 Current Visit: No Status: Chronic Plan: Moderate control. Will start a insulin sliding scale to cover. (4) Hypertension Onset Date: 08/06/15 Current Visit: No Status: Chronic Plan: Moderated control. Will continue home medications. Will adjust her medications as needed. Qualifiers: Hypertension type: essential hypertension Qualified Code(s): I10 - Essential (primary) hypertension Discharge Plan: LTAC Plan to discharge in: 48 Hours - Code Status/Comfort Care Code Status Assessed: No Code Status: Full Code Physician Review: Patient Assessed, Agree with Above Assessment and Plan Critical Care: No Time Spent Managing Pts Care (In Minutes): 15
[2019-06-11] MEDS: DOCUSATE NA 100 MG CAP PO SCH ×2 (08:30→19:53)
[2019-06-11] MEDS: RIVAROXABAN 10 MG TABLET PO SCH (08:31)
[2019-06-11] MEDS: METOPROLOL TAR 50 MG TAB PO SCH (09:00)
[2019-06-11] MEDS: GABAPENTIN 300 MG CAP PO SCH ×2 (09:17→19:53)
[2019-06-11] MEDS: PANTOPRAZOLE 40MG TABLET PO SCH (09:17)
[2019-06-11] MEDS: CLOPIDOGREL 75 MG TABLET PO SCH (09:17)
[2019-06-11] MEDS: INSULIN GLARGINE 100 UNITS/ML SQ SCH (09:18)
[2019-06-12] MEDS: MORPHINE 2 MG/ML SYR IV PRN ×2 (03:11→21:15)
[2019-06-12] MEDS: INSULIN -REGULAR HUMAN 50 UNIT/0.5 ML ML SQ SCH ×4 (08:00→20:03)
[2019-06-12] MEDS: METOPROLOL TAR 50 MG TAB PO SCH (08:52)
[2019-06-12] MEDS: CLOPIDOGREL 75 MG TABLET PO SCH (08:53)
[2019-06-12] MEDS: PANTOPRAZOLE 40MG TABLET PO SCH (08:53)
[2019-06-12] MEDS: GABAPENTIN 300 MG CAP PO SCH ×2 (08:53→20:03)
[2019-06-12] MEDS: DOCUSATE NA 100 MG CAP PO SCH ×2 (08:53→20:03)
[2019-06-12] MEDS: RIVAROXABAN 10 MG TABLET PO SCH (08:53)
[2019-06-12] MEDS: INSULIN GLARGINE 100 UNITS/ML SQ SCH (08:53)
[2019-06-12] MEDS: HYDROCODONE/APAP 5/325 MG TAB PO PRN ×2 (09:38→09:39)
--- NOTE | 2019-06-12 10:38 | P.PN ---
Subjective Date of Service: 06/12/19 Primary Care Provider: Ty Chief Complaint: left femoral intratrochantric fracture. She is eating doing well. only able to transfer with PT Review of Systems 10-point ROS is otherwise unremarkable Musculoskeletal: Leg Pain (from the site of hip surgery) Physical Examination - Vital Signs Temperature: 97.6 F Blood Pressure: 131/68 Pulse: 88 Respirations: 17 Pulse Ox (%): 100 - Physical Exam General: Alert, In no apparent distress HEENT: Atraumatic, PERRLA, EOMI Neck: Supple, JVD not distended Respiratory: Clear to auscultation bilaterally, Normal air movement Cardiovascular: Regular rate/rhythm, Normal S1 S2 Gastrointestinal: Normal bowel sounds, No tenderness Musculoskeletal: No tenderness Integumentary: No rashes Neurological: Normal speech, Normal tone, Normal affect Lymphatics: No axilla or inguinal lymphadenopathy Assessment & Plan - Problems (Diagnosis) (1) Fracture, intertrochanteric, left femur Current Visit: Yes Status: Acute Plan: Doing well after surgery yesterday. Will transfer her out of the ICU. Needs a PT evaluation. Is she able to go home or will she need inpt Physical therapy Qualifiers: Encounter type: initial encounter Fracture type: closed Fracture alignment: nondisplaced Qualified Code(s): S72.145A - Nondisplaced intertrochanteric fracture of left femur, initial encounter for closed fracture (2) Coronary arteriosclerosis Current Visit: No Status: Chronic Plan: Stable no chest pain. She has a 0.4% risk of cad per the geriatric risk score for surgery. Will continue home medications. (3) Diabetes mellitus Onset Date: 07/17/15 Current Visit: No Status: Chronic Plan: Moderate control. Will start a insulin sliding scale to cover. (4) Hypertension Onset Date: 08/06/15 Current Visit: No Status: Chronic Plan: Moderated control. Will continue home medications. Will adjust her medications as needed. Qualifiers: Hypertension type: essential hypertension Qualified Code(s): I10 - Essential (primary) hypertension (5) Language barrier affecting health care Current Visit: Yes Status: Chronic Plan: Patient is [place] speaking. Her son and my [place] seem to be adequate. She is worried that a PT center is a permanent [facility]. That she can get oxygen and a hospital bed to go home. However she is not going home, she should go to a PT center. Have spent 10min trying to say this. However the patient will most likely need to hear this multiple times. Discharge Plan: Home Plan to discharge in: 24 Hours - Code Status/Comfort Care Code Status Assessed: No Code Status: Full Code Physician Review: Patient Assessed, Agree with Above Assessment and Plan Critical Care: No Time Spent Managing Pts Care (In Minutes): 25
--- NOTE | 2019-06-12 11:25 | P.PN ---
Subjective Date of Service: 06/12/19 Primary Care Provider: Ty Chief Complaint: left femoral intratrochantric fracture. Subjective: Improving (ready for palcement from ortho standpoint agree with SNIF placement will be [facility] for six weeks rachael out at 2 weeks), Doing well Physical Examination - Vital Signs Temperature: 97.6 F Blood Pressure: 131/68 Pulse: 88 Respirations: 17 Pulse Ox (%): 100 Assessment And Plan Physician Review: Patient Assessed, Agree with Above Assessment and Plan
[2019-06-13] MEDS: HYDROCODONE/APAP 5/325 MG TAB PO PRN ×2 (04:46→20:46)
[2019-06-13] MEDS: INSULIN -REGULAR HUMAN 50 UNIT/0.5 ML ML SQ SCH ×4 (07:30→20:47)
[2019-06-13] MEDS: ACETAMINOPHEN 325 MG TABLET PO SCH ×4 (08:30→21:00)
[2019-06-13] MEDS ORDERED: TRAMADOL HCL 50 MG TAB PO PRN (08:30)
[2019-06-13] MEDS: METOPROLOL TAR 50 MG TAB PO SCH (08:32)
[2019-06-13] MEDS: RIVAROXABAN 10 MG TABLET PO SCH (08:33)
[2019-06-13] MEDS: CLOPIDOGREL 75 MG TABLET PO SCH (08:33)
[2019-06-13] MEDS: PANTOPRAZOLE 40MG TABLET PO SCH (08:33)
[2019-06-13] MEDS: GABAPENTIN 300 MG CAP PO SCH ×2 (08:33→20:46)
[2019-06-13] MEDS: DOCUSATE NA 100 MG CAP PO SCH ×2 (08:33→20:47)
[2019-06-13] MEDS: INSULIN GLARGINE 100 UNITS/ML SQ SCH (08:34)
--- NOTE | 2019-06-13 09:17 | P.PN ---
Subjective Date of Service: 06/13/19 Primary Care Provider: Ty Chief Complaint: left femoral intratrochantric fracture. She is eating doing well. only able to transfer with PT Review of Systems 10-point ROS is otherwise unremarkable Musculoskeletal: Leg Pain (left hip) Physical Examination - Vital Signs Temperature: 97.7 F Blood Pressure: 124/61 Pulse: 79 Respirations: 18 Pulse Ox (%): 97 - Physical Exam General: Alert, In no apparent distress HEENT: Atraumatic, PERRLA, EOMI Neck: Supple, JVD not distended Respiratory: Clear to auscultation bilaterally, Normal air movement Cardiovascular: Regular rate/rhythm, Normal S1 S2 Gastrointestinal: Normal bowel sounds, No tenderness Musculoskeletal: No tenderness Integumentary: No rashes Neurological: Normal speech, Normal tone, Normal affect Lymphatics: No axilla or inguinal lymphadenopathy Assessment & Plan - Problems (Diagnosis) (1) Fracture, intertrochanteric, left femur Current Visit: Yes Status: Acute Plan: Doing well after surgery yesterday. Will transfer her out of the ICU. Needs a PT evaluation. Is she able to go home or will she need inpt Physical therapy Qualifiers: Encounter type: initial encounter Fracture type: closed Fracture alignment: nondisplaced Qualified Code(s): S72.145A - Nondisplaced intertrochanteric fracture of left femur, initial encounter for closed fracture (2) Coronary arteriosclerosis Current Visit: No Status: Chronic Plan: Stable no chest pain. She has a 0.4% risk of cad per the geriatric risk score for surgery. Will continue home medications. (3) Diabetes mellitus Onset Date: 07/17/15 Current Visit: No Status: Chronic Plan: Moderate control. Will start a insulin sliding scale to cover. (4) Hypertension Onset Date: 08/06/15 Current Visit: No Status: Chronic Plan: Moderated control. Will continue home medications. Will adjust her medications as needed. Qualifiers: Hypertension type: essential hypertension Qualified Code(s): I10 - Essential (primary) hypertension (5) Language barrier affecting health care Current Visit: Yes Status: Chronic Plan: Patient is Cypriot speaking. Her son and my Cypriot seem to be adequate. She is worried that a PT center is a permanent [facility]. That she can get oxygen and a hospital bed to go home. However she is not going home, she should go to a PT center. Have spent 10min trying to say this. However the patient will most likely need to hear this multiple times. Discharge Plan: LTAC Plan to discharge in: 24 Hours - Code Status/Comfort Care Code Status Assessed: No Physician Review: Patient Assessed, Agree with Above Assessment and Plan Critical Care: No Time Spent Managing Pts Care (In Minutes): 15
[2019-06-14] MEDS: HYDROCODONE/APAP 5/325 MG TAB PO PRN ×2 (06:43→13:48)
[2019-06-14 08:38] VITALS: O2SAT 92
[2019-06-14] MEDS: INSULIN GLARGINE 100 UNITS/ML SQ SCH (08:49)
[2019-06-14] MEDS: INSULIN -REGULAR HUMAN 50 UNIT/0.5 ML ML SQ SCH ×3 (08:49→15:20)
[2019-06-14] MEDS: RIVAROXABAN 10 MG TABLET PO SCH (08:50)
[2019-06-14] MEDS: ACETAMINOPHEN 325 MG TABLET PO SCH ×2 (08:50→14:00)
[2019-06-14] MEDS: GABAPENTIN 300 MG CAP PO SCH (08:50)
[2019-06-14] MEDS: DOCUSATE NA 100 MG CAP PO SCH (08:51)
[2019-06-14] MEDS: CLOPIDOGREL 75 MG TABLET PO SCH (08:51)
[2019-06-14] MEDS: PANTOPRAZOLE 40MG TABLET PO SCH (08:51)
[2019-06-14] MEDS: METOPROLOL TAR 50 MG TAB PO SCH (09:09)
--- NOTE | 2019-06-14 16:01 | P.DS ---
Admission Date: 06/06/19 Discharge Date: 06/14/19 Primary Care Provider: Ty Disposition: TRANSFER TO SNF - REHAB Reason for Admission: left femoral intratrochantric fracture. - Problems (1) Fracture, intertrochanteric, left femur Current Visit: Yes Status: Acute Qualifiers: Encounter type: initial encounter Fracture type: closed Fracture alignment: nondisplaced Qualified Code(s): S72.145A - Nondisplaced intertrochanteric fracture of left femur, initial encounter for closed fracture (2) Coronary arteriosclerosis Current Visit: No Status: Chronic (3) Diabetes mellitus Onset Date: 07/17/15 Current Visit: No Status: Chronic (4) Hypertension Onset Date: 08/06/15 Current Visit: No Status: Chronic Qualifiers: Hypertension type: essential hypertension Qualified Code(s): I10 - Essential (primary) hypertension (5) Language barrier affecting health care Current Visit: Yes Status: Chronic Brief History of Present Illness: Office patient of [facility]. She has a history of diabetes, htn and cad. Has been stented by Dr. Atkins. The patient was getting into her car when she stubbed her toe. She fell and was not able to get up. The patient was brought to the ER, found to have a fracture. Consult was made to Dr. Garcia. Most likely she will need surgical repair. Hospital Course: Patient was admitted she had a left hip fracture. Was surgical corrected by Dr. Garcia. She is doing better however the patient was doing well. She was able to ambulate with assitance in the corridor today. Will be transfering her to [facility] for Physical therapy. Hopefully she can go home soon Vital Signs/Physical Exam: Temp Pulse Resp BP Pulse Ox 96.9 F 65 17 122/50 L 98 06/14/19 12:00 06/14/19 12:00 06/14/19 14:48 06/14/19 12:00 06/14/19 14:48 General: Alert, In no apparent distress HEENT: Atraumatic, PERRLA, EOMI Neck: Supple, JVD not distended Respiratory: Clear to auscultation bilaterally, Normal air movement Cardiovascular: Regular rate/rhythm, Normal S1 S2 Gastrointestinal: Normal bowel sounds, No tenderness Musculoskeletal: No tenderness Integumentary: No rashes Neurological: Normal speech, Normal tone, Normal affect Lymphatics: No axilla or inguinal lymphadenopathy Laboratory Data at Discharge: WBC 8.1 K/uL (4.3-10.9) D 06/10/19 05:30 Hgb 8.5 g/dL (12.0-15.0) L 06/10/19 05:30 Hct 25.1 % (36.0-45.0) L 06/10/19 05:30 Plt Count 178 K/uL (152-406) D 06/10/19 05:30 PT 12.4 SECONDS (9.5-12.5) 06/06/19 15:21 INR 1.05 06/06/19 15:21 Sodium 139 mmol/L (136-145) 06/10/19 05:30 Potassium 3.9 mmol/L (3.5-5.1) 06/10/19 05:30 BUN 16 mg/dL (7-18) 06/10/19 05:30 Creatinine 0.61 mg/dL (0.55-1.3) 06/10/19 05:30 Glucose 134 mg/dL (74-106) H 06/10/19 05:30 Magnesium 1.8 mg/dL (1.8-2.4) 06/06/19 15:21 Total Bilirubin 0.3 mg/dL (0.2-1.0) 06/06/19 15:21 AST 20 U/L (15-37) 06/06/19 15:21 ALT 22 U/L (12-78) 06/06/19 15:21 Alkaline Phosphatase 104 U/L (45-117) 06/06/19 15:21 Home Medications: Clopidogrel Bisulfate [Plavix] 75 mg PO DAILY 06/08/19 Gabapentin [Neurontin] 600 mg PO BID 06/08/19 Insulin Glargine Human [Lantus] 25 unit SQ DAILY 06/08/19 Metformin HCl [Glucophage] 500 mg PO DAILY WITH BREAKFAST 06/08/19 Metoprolol Tartrate [Lopressor] 50 mg PO DAILY 06/08/19 Pantoprazole [Protonix Tab] 40 mg PO DAILY 06/08/19 Phenazopyridine HCl [Pyridium] 100 mg PO BID 2 Days #4 tablet 06/14/19 New Medications: Phenazopyridine HCl [Pyridium] 100 mg PO BID 2 Days #4 tablet Diet: ADA Activity: Ad gera Physician Review: Patient Assessed, Agree with Above Assessment and Plan Time spent managing pt's care (in minutes): 30
[2019-06-14 17:40] VITALS: BP 91/42; TEMP 98
[2019-06-14] MEDS ORDERED: PHENAZOPYRIDINE 100MG TAB PO SCH (21:00)
== END 2019-06-14 17:51 | DRG 482 ==
LOC: ER 14:34 → ERHOLD 17:44 → 4TH 20:01 → 3RD-ICU 06-08 13:23 → 4TH 06-09 13:52
PROVIDERS: ADMIT Internal Medicine; ATTEND Internal Medicine
PROC: 0QHC36Z Insertion of Intramedullary Internal Fixation Device into Left Lower Femur, Percutaneous Approach (ICD-10-PCS; principal; 2019-06-08 11:45)
DX: S72.145A Nondisplaced intertrochanteric fracture of left femur, initial encounter for closed fracture (principal); W01.0XXA Fall on same level from slipping, tripping and stumbling without subsequent striking against object, initial encounter; Y92.89 Other specified places as the place of occurrence of the external cause; E11.9 Type 2 diabetes mellitus without complications; I25.10 Atherosclerotic heart disease of native coronary artery without angina pectoris; I10 Essential (primary) hypertension; E78.5 Hyperlipidemia, unspecified; F41.8 Other specified anxiety disorders; Z95.5 Presence of coronary angioplasty implant and graft
CPT/HCPCS: 36415; 51702; 71045; 72170; 73530; 80048; 80076; 81003; 81015; 82962; 83735; 83880; 84443; 84484; 85025; 85610; 90471; 90714; 93005; 96374; 97110; 97112; 97116; 97161; 97530; 99285; J0690; J2270; J2370; J2405; J2704; J3010; J7030

== ENCOUNTER 2019-06-19 09:07 | Inpatient (IN) | payer OTHER ==
[2019-06-19] MEDS ORDERED: NA CHLORIDE 0.9% 1,000 ML ONE ×3 (09:43→15:25)
[2019-06-19] MEDS ORDERED: CEFTRIAXONE/SWI 1gm 1 GM/10 ML SYR ONE (09:43)
[2019-06-19 09:45] LABS: Basophils % 0.3 % (0-1.3); Hematocrit 21.8 % (36.0-45.0); Lymphocytes % 5.2 % (15.3-44.8); MPV 6.7 fL (7.6-11.3)
[2019-06-19 09:51] LABS: Protime INR 1.1
[2019-06-19 10:02] LABS: Urine Blood TRACE (NEG); Urine Glucose NEGATIVE (NEG); Urine Protein 1+ (NEG)
[2019-06-19 10:06] LABS: Albumin 2.2 g/dL (3.4-5.0); Bilirubin Direct 0.2 mg/dL (0-0.2); Bilirubin Total 0.4 mg/dL (0.2-1.0); CKMB Creatine Kinase MB 1.4 ng/mL (0.3-3.6); Troponin (Emerg Dept Use Only) 0.49 ng/mL (0.0-0.045)
[2019-06-19 10:26] LABS: Urine Amorphous Sediment 2+ /HPF (NONE SEEN); Urine Bacteria LOADED /HPF (<20); Urine Culture Reflex Order NOT NEEDED; Urine RBC <5 /HPF (NONE SEEN)
--- NOTE | 2019-06-19 10:57 | EDPHYS ---
Physician Documentation [facility] Name: Cherry Pompa Age: 69 yrs Sex: Female : 1950 Arrival Date: 06/19/2019 Time: 09:28 Bed 2 Private MD: Carlos Nesbitt HPI: 06/19 10:06 This 69 yrs old Female presents to ER via EMS with complaints of General pm1 Weakness, Hypotension. 10:06 The patient presents with urinary symptoms, dysuria. Onset: The symptoms/episode pm1 began/occurred 3 day(s) ago. Modifying factors: The symptoms are alleviated by. Associated signs and symptoms: Pertinent positives: dysuria, generalized weakness, Pertinent negatives: constipation, diarrhea, fever, nausea, vomiting. The patient has been recently been admitted at [facility], was discharged last week. Patient with left hip surgery repair about 1.5 weeks ago and was discharged 5 days ago to long-term for rehabilitation. Onset of burning with urination 3 days ago. Patient was sent to the ER from the long-term due to low blood pressure and r/o urosepsis. Historical: - Allergies: 09:35 No Known Allergies; ph - Home Meds: 09:40 ibuprofen 200 mg Oral tab 4 tabs every 8 hours [Active]; Lantus 100 unit/mL Sub-Q soln ph 25 unit daily [Active]; metformin 500 mg Oral tab 1 tab daily [Active]; metoprolol tartrate 50 mg Oral tab 1 tab once daily [Active]; Neurontin 600 mg Oral tab 1 tab twice a day [Active]; Plavix 75 mg Oral tab 1 tab once daily [Active]; Protonix 40 mg Oral TbEC 1 tab once daily [Active]; Silvadene 1 % Topical crea once daily [Active]; tramadol 50 mg Oral tab 1 tab twice a day [Active]; acetaminophen 325 mg Oral tab 2 tabs three times a day [Active]; - PMHx: 09:35 Angina; Arthritis; Diabetes - IDDM; High Cholesterol; Hypertension; neuropathy; ph - PSHx: 09:35 Cholecystectomy; Hysterectomy; ph - Immunization history:: Adult Immunizations up to date. - Social history:: Smoking status: Patient/guardian denies using tobacco. - Ebola Screening: : No symptoms or risks identified at this time. ROS: 10:06 Positive for burning with urination, Negative for flank pain. pm1 10:06 Constitutional: Negative for fever, chills, and weight loss, Eyes: Negative for injury, pain, redness, and discharge, ENT: Negative for injury, pain, and discharge, Neck: Negative for injury, pain, and swelling, Cardiovascular: Negative for chest pain, palpitations, and edema, Respiratory: Negative for shortness of breath, cough, wheezing, and pleuritic chest pain, Abdomen/GI: Negative for abdominal pain, nausea, vomiting, diarrhea, and constipation, Back: Negative for injury and pain, MS/Extremity: Negative for injury and deformity, Skin: Negative for injury, rash, and discoloration. 10:06 Neuro: Positive for Generalized weakness, Negative for headache, numbness, tingling. Exam: 10:06 Constitutional: This is a well developed, well nourished patient who is awake, alert, pm1 and in no acute distress. Head/Face: Normocephalic, atraumatic. Eyes: Pupils equal round and reactive to light, extra-ocular motions intact. Lids and lashes normal. Conjunctiva and sclera are non-icteric and not injected. Cornea within normal limits. Periorbital areas with no swelling, redness, or edema. ENT: Nares patent. No nasal discharge, no septal abnormalities noted. Tympanic membranes are normal and external auditory canals are clear. Oropharynx with no redness, swelling, or masses, exudates, or evidence of obstruction, uvula midline. Mucous membranes moist. Neck: Trachea midline, no thyromegaly or masses palpated, and no cervical lymphadenopathy. Supple, full range of motion without nuchal rigidity, or vertebral point tenderness. No Meningismus. Chest/axilla: Normal chest wall appearance and motion. Nontender with no deformity. No lesions are appreciated. Cardiovascular: Regular rate and rhythm with a normal S1 and S2. No gallops, murmurs, or rubs. Normal PMI, no JVD. No pulse deficits. Respiratory: Lungs have equal breath sounds bilaterally, clear to auscultation and percussion. No rales, rhonchi or wheezes noted. No increased work of breathing, no retractions or nasal flaring. Abdomen/GI: Soft, non-tender, with normal bowel sounds. No distension or tympany. No guarding or rebound. No evidence of tenderness throughout. Back: No spinal tenderness. No costovertebral tenderness. Full range of motion. Skin: Warm, dry with normal turgor. Normal color with no rashes, no lesions, and no evidence of cellulitis. MS/ Extremity: Pulses equal, no cyanosis. Neurovascular intact. Full, normal range of motion. 10:06 Neuro: Orientation: is normal, Motor: is normal, moves all fours. 10:13 Abdomen/GI: Rectal exam: is unremarkable, rectal tone Stool: brown, guaiac negative, pm1 Lori RN. Vital Signs: 09:33 BP 75 / 51; Pulse 79; Resp 20; Pulse Ox 89% on R/A; ph 09:41 Temp 99.6(O); ph 09:42 Weight 72.57 kg; ph 09:55 BP 94 / 49; Pulse 84; Resp 18; Pulse Ox 100% ; sv 10:10 BP 105 / 84; Pulse 84; Resp 14; Pulse Ox 100% on 3 lpm NC; sv 11:00 BP 89 / 50; Pulse 84; Resp 18; Pulse Ox 98% on 2 lpm NC; ph 11:30 BP 87 / 56; Pulse 84; Resp 18; Pulse Ox 99% on 2 lpm NC; ph 12:00 BP 77 / 52; Pulse 83; Resp 16; Temp 98.1(O); Pulse Ox 98% on 2 lpm NC; ph 12:30 BP 79 / 51; Pulse 81; Resp 18; Pulse Ox 100% on 2 lpm NC; ph 13:00 BP 81 / 47; Pulse 85; Resp 18; Pulse Ox 99% on 2 lpm NC; ph 13:30 BP 105 / 53; Pulse 78; Resp 16; Pulse Ox 99% on 2 lpm NC; ph 13:52 BP 94 / 69; Pulse 80; Resp 15; Pulse Ox 100% on 3 lpm NC; mg2 14:14 BP 106 / 69; Pulse 81; Resp 18; Temp 98.6(O); Pulse Ox 98% on 2 lpm NC; ph 14:31 BP 110 / 57; Pulse 83; Resp 18; Pulse Ox 100% on R/A; mg2 MDM: 09:29 Patient medically screened. pm1 10:51 Data reviewed: vital signs. Data interpreted: Pulse oximetry: on room air is 100 %. pm1 Interpretation: normal. Counseling: I had a detailed discussion with the patient and/or guardian regarding: the historical points, exam findings, and any diagnostic results supporting the discharge/admit diagnosis, lab results, radiology results, the need for further work-up and treatment in the hospital. 11:14 Physician consultation: James Crawford MD was called at 11:10, was contacted at 11:14, pm1 regarding admission, patient's condition, and will see patient in ED, shortly, would like medications started, Levaquin, NS 100 mL per hour. 12:34 Physician consultation: James Crawford MD regarding would like further tests performed, pm1 ferritin, transferritin, retic count, and CBC in 2 hours. Transfuse 1 unit PRBC now, in the emergency department to see patient at 12:25. 06/19 09:31 Order name: Urine Culture pm06/19 09:31 Order name: Basic Metabolic Panel; Complete Time: 10:30 pm06/19 09:31 Order name: Blood Culture Adult (2) pm06/19 09:31 Order name: CBC with Diff; Complete Time: 13:36 pm06/19 09:31 Order name: Ckmb; Complete Time: 10:30 pm06/19 09:31 Order name: CPK; Complete Time: 10:30 pm06/19 09:31 Order name: Lactate; Complete Time: 10:30 pm06/19 09:31 Order name: LFT's; Complete Time: 10:30 pm06/19 09:31 Order name: Lipase; Complete Time: 10:30 pm06/19 09:31 Order name: Procalcitonin; Complete Time: 10:30 pm06/19 09:31 Order name: Protime (+inr); Complete Time: 09:58 pm06/19 09:31 Order name: Ptt, Activated; Complete Time: 09:58 pm06/19 09:31 Order name: Troponin (emerg Dept Use Only); Complete Time: 10:30 pm06/19 09:31 Order name: Urine Microscopic Only; Complete Time: 10:30 pm06/19 09:31 Order name: Chest Single View XRAY; Complete Time: 11:08 pm06/19 09:57 Order name: Urine Dipstick--Ancillary (enter results); Complete Time: 10:05 eb 06/19 09:57 Order name: TS eb 06/19 10:13 Order name: CT Head Brain wo Cont; Complete Time: 11:08 pm1 06/19 10:13 Order name: Occult Blood--Ancillary; Complete Time: 10:30 eb 06/19 12:34 Order name: Ferritin pm1 06/19 12:34 Order name: TRANSFERRIN SAT/IRON BINDING pm1 06/19 12:34 Order name: Retic Count pm1 06/19 12:52 Order name: Transferrin Sat/Iron Binding; Complete Time: 13:36 EDMS 06/19 12:52 Order name: Ferritin; Complete Time: 13:36 EDMS 06/19 12:54 Order name: Retic Count; Complete Time: 13:36 EDMS 06/19 13:09 Order name: Manual Differential; Complete Time: 13:36 EDMS 06/19 14:16 Order name: CBC with Diff ph 06/19 14:44 Order name: Lactate Sepsis 2 HR Follow-up; Complete Time: 14:50 EDMS 06/19 09:31 Order name: Accucheck; Complete Time: 09:41 pm1 06/19 09:31 Order name: Cardiac monitoring; Complete Time: 09:41 pm1 06/19 09:31 Order name: EKG - Nurse/Tech; Complete Time: 10:05 pm1 06/19 09:31 Order name: IV Saline Lock - Large Bore; Complete Time: 09:41 pm1 06/19 09:31 Order name: Labs collected and sent; Complete Time: 09:41 pm1 06/19 09:31 Order name: O2 Per Protocol; Complete Time: 09:41 pm1 06/19 09:31 Order name: O2 Sat Monitoring; Complete Time: 09:41 pm1 06/19 09:31 Order name: Urine Dipstick-Ancillary (obtain specimen); Complete Time: 10:06 pm1 Administered Medications: 10:00 Drug: NS 0.9% (30 ml/kg) 30 ml/kg Route: IV; Rate: bolus; Site: right forearm; ph 12:45 Follow up: Response: No adverse reaction; IV Status: Completed infusion; IV Intake: ph 2000ml 10:14 Drug: Rocephin 1 grams Route: IV; Rate: calculated rate; Site: right forearm; sv 14:06 Follow up: Response: No adverse reaction; IV Status: Completed infusion mg2 12:32 Drug: LevaQUIN 500 mg Volume: 100 ml; Route: IVPB; Infused Over: 60 mins; Site: right ph antecubital; 14:06 Follow up: Response: No adverse reaction; IV Status: Completed infusion mg2 12:32 Drug: NS 0.9% 1000 ml Route: IV; Rate: 100 ml/hr; Site: right antecubital; ph 14:00 Follow up: Response: No adverse reaction; IV Status: Infusion continued upon admission ph Point of Care Testing: Blood Glucose: 09:34 Blood Glucose: 203 mg/dL; ph Ranges: Critical Glucose Levels:Adult <50 mg/dl or >400 mg/dl <40 mg/dl or >180 mg/dl Disposition: 06/20 09:06 Co-signature as Attending Physician, Carlos Kurtz MD I agree with the assessment and aramis plan of care. Disposition: 06/19/19 10:55 Hospitalization ordered by James Crawford for Inpatient Admission. Preliminary diagnosis are Urosepsis, Anemia, unspecified, Hypotension. - Bed requested for Telemetry/MedSurg (Inpatient). - Status is Inpatient Admission. ph - Condition is Stable. - Problem is new. - Symptoms have improved. UTI on Admission? Yes Signatures: Dispatcher [employer] Abbie Doherty RN ITA Aurora Hodge RN RN dw Anderson, Corey, MD MD cha Hall, Patricia, RN RN Jerel Quinn NP [employer] pm1 Ralf Samayoa RN mg2 Corrections: (The following items were deleted from the chart) 06/19 12:30 10:55 Hospitalization Ordered by James Crawford MD for Inpatient Admission. Preliminary diagnosis is Urosepsis; Anemia, unspecified; Hypotension. Bed requested for Telemetry/MedSurg (Inpatient). Status is Inpatient Admission. Condition is Stable. Problem is new. Symptoms have improved. UTI on Admission? Yes. pm1 14:46 12:30 06/19/2019 10:55 Hospitalization Ordered by James Crawford MD for Inpatient ph Admission. Preliminary diagnosis is Urosepsis; Anemia, unspecified; Hypotension. Bed requested for Telemetry/MedSurg (Inpatient). Status is Inpatient Admission. Condition is Stable. Problem is new. Symptoms have improved. UTI on Admission? Yes. dw
--- NOTE | 2019-06-19 10:57 | ER ---
Nurse's Notes [facility] Name: Cherry Pompa Age: 69 yrs Sex: Female : 1950 Arrival Date: 06/19/2019 Time: 09:28 Bed 2 Private MD: Diagnosis: Urosepsis;Anemia, unspecified;Hypotension Presentation: 06/19 09:28 Presenting complaint: EMS states: Pt hx of L hip fracture, d/c 5 days ago and at [facility] for rehab, c/o generalized weakness and shakiness, BP at facility 98/45, highest BP for EMS 70 systolic, Spo2 90% RA improved to 98% on NC, BGL 196, HR 80 bpm w/ 12 lead showing R BBB, parish 20 G IVs approx 400 NS bolus given, hx of UTI. Transition of care: patient was not received from another setting of care. Onset of symptoms was June 19, 2019. Risk Assessment: Do you want to hurt yourself or someone else? Patient reports no desire to harm self or others. Initial Sepsis Screen: Does the patient meet any 2 criteria? Systolic BP < 90 mmHg. Mean Arterial Pressure (MAP) < 65. Yes Does the patient have a suspected source of infection? Yes: Dysuria/Frequency/Urgency/UTI Bone or joint infection. Care prior to arrival: Medication(s) given: Normal saline infusion, 400 mL IV initiated. 20 GA, in the left in the right forearm, Glucose check: 196 Oxygen administered. via nasal cannula. 09:28 Method Of Arrival: EMS: [facility] ph 09:28 Acuity: HERIBERTO 1 ph Historical: - Allergies: 09:35 No Known Allergies; ph - Home Meds: 09:40 ibuprofen 200 mg Oral tab 4 tabs every 8 hours [Active]; Lantus 100 unit/mL Sub-Q soln ph 25 unit daily [Active]; metformin 500 mg Oral tab 1 tab daily [Active]; metoprolol tartrate 50 mg Oral tab 1 tab once daily [Active]; Neurontin 600 mg Oral tab 1 tab twice a day [Active]; Plavix 75 mg Oral tab 1 tab once daily [Active]; Protonix 40 mg Oral TbEC 1 tab once daily [Active]; Silvadene 1 % Topical crea once daily [Active]; tramadol 50 mg Oral tab 1 tab twice a day [Active]; acetaminophen 325 mg Oral tab 2 tabs three times a day [Active]; - PMHx: 09:35 Angina; Arthritis; Diabetes - IDDM; High Cholesterol; Hypertension; neuropathy; ph - PSHx: 09:35 Cholecystectomy; Hysterectomy; ph - Immunization history:: Adult Immunizations up to date. - Social history:: Smoking status: Patient/guardian denies using tobacco. - Ebola Screening: : No symptoms or risks identified at this time. Screenin:40 Abuse screen: Denies threats or abuse. Denies injuries from another. Nutritional ph screening: No deficits noted. Tuberculosis screening: No symptoms or risk factors identified. Fall Risk Fall in past 12 months (25 points). Secondary diagnosis (15 points) impaired mobility, IV access (20 points). Ambulatory Aid- None/Bed Rest/Nurse Assist (0 pts). Gait- Weak (10 pts.). Mental Status- Oriented to own ability (0 pts). Total Jackson Fall Scale indicates High Risk Score (45 or more points). Fall prevention measures have been instituted. Side Rails Up X 2 Placed Close to Nursing Station Frequent Obs/Assessments Occuring Family Present and informed to notify staff if the need to leave the bedside As available patient and family educated on Fall Prevention Program and Strategies. Assessment: 09:50 General: Appears in no apparent distress. comfortable, well groomed, Behavior is calm, ph cooperative, drowsy. Pain: Complains of pain in left hip, recent hip fracture. Neuro: Level of Consciousness is awake, obeys commands, lethargic, Oriented to person, place, time, situation, Speech is normal. Cardiovascular: Capillary refill is > 3 seconds in bilateral fingers Patient's skin is warm and dry. Respiratory: Airway is patent Respiratory effort is even, unlabored, Respiratory pattern is regular, symmetrical. GI: Patient currently denies abdominal pain, diarrhea, nausea, vomiting. Derm: Skin is healthy with good turgor, Skin is pink, warm \T\ dry. surgical site to L hip, healthy in appearance. Musculoskeletal: Range of motion: limited in left hip. 10:24 Reassessment: Patient appears in no apparent distress at this time. Patient and/or ph family updated on plan of care and expected duration. Pain level reassessed. Pt taken for CT. 11:30 Reassessment: Patient appears in no apparent distress at this time. No changes from ph previously documented assessment. Patient and/or family updated on plan of care and expected duration. Pain level reassessed. 13:00 Reassessment: Patient appears in no apparent distress at this time. No changes from ph previously documented assessment. Patient and/or family updated on plan of care and expected duration. Pain level reassessed. 14:30 Reassessment: Patient appears in no apparent distress at this time. Patient and/or ph family updated on plan of care and expected duration. Pain level reassessed. Pt asleep w/ equal and unlabored respirations, awakens easily to verbal stimuli, report called to 2nd floor, pt to be taken to roiom via stretcher. Vital Signs: 09:33 BP 75 / 51; Pulse 79; Resp 20; Pulse Ox 89% on R/A; ph 09:41 Temp 99.6(O); ph 09:42 Weight 72.57 kg; ph 09:55 BP 94 / 49; Pulse 84; Resp 18; Pulse Ox 100% ; sv 10:10 BP 105 / 84; Pulse 84; Resp 14; Pulse Ox 100% on 3 lpm NC; sv 11:00 BP 89 / 50; Pulse 84; Resp 18; Pulse Ox 98% on 2 lpm NC; ph 11:30 BP 87 / 56; Pulse 84; Resp 18; Pulse Ox 99% on 2 lpm NC; ph 12:00 BP 77 / 52; Pulse 83; Resp 16; Temp 98.1(O); Pulse Ox 98% on 2 lpm NC; ph 12:30 BP 79 / 51; Pulse 81; Resp 18; Pulse Ox 100% on 2 lpm NC; ph 13:00 BP 81 / 47; Pulse 85; Resp 18; Pulse Ox 99% on 2 lpm NC; ph 13:30 BP 105 / 53; Pulse 78; Resp 16; Pulse Ox 99% on 2 lpm NC; ph 13:52 BP 94 / 69; Pulse 80; Resp 15; Pulse Ox 100% on 3 lpm NC; mg2 14:14 BP 106 / 69; Pulse 81; Resp 18; Temp 98.6(O); Pulse Ox 98% on 2 lpm NC; ph 14:31 BP 110 / 57; Pulse 83; Resp 18; Pulse Ox 100% on R/A; mg2 ED Course: 09:28 Patient arrived in ED. ph 09:29 Jerel Quinn, BAILEY is PHCP. pm1 09:29 Carlos Kurtz MD is Attending Physician. pm1 09:33 Triage completed. ph 09:35 Initial lab(s) drawn, by me, sent to lab. sv 09:40 Arm band placed on Patient placed in an exam room, on a stretcher, on oxygen, on ph quality assurance monitor final, on pulse oximetry. 09:41 Patient has correct armband on for positive identification. Placed in gown. Bed in low ph position. Call light in reach. Side rails up X2. monitoring analyst on. Pulse ox on. NIBP on. Door closed. Noise minimized. Warm blanket given. 09:42 X-ray completed. Portable x-ray completed in exam room. Patient tolerated procedure kw well. 09:43 First set of blood cultures drawn by me, EKG done, by ED staff, reviewed by Carlos Kurtz MD. 09:45 Chest Single View XRAY In Process Unspecified. EDMS 09:52 Beckham cath inserted, using sterile technique, 16 Fr., by me, balloon inflated, to sv gravity drainage, urine specimen collected. returned cloudy urine. Patient tolerated well. 10:00 Lori Cornell, RN is Primary Nurse. ph 10:10 Served as a manufacturing design engineer during rectal exam. ph 10:33 CT Head Brain wo Cont In Process Unspecified. EDMS 10:33 CT completed. Patient tolerated procedure well. Patient moved back from CT. mw3 10:54 James Crawford MD is Hospitalizing Provider. pm1 12:30 Maintain EMS IV. Dressing intact. Good blood return noted. Site clean \T\ dry. Gauge \T\ mg 2 site: 20 \T\ LAC. 14:21 Patient admitted, IV remains in place. mg2 14:23 Inserted saline lock: 22 gauge in right antecubital area, using aseptic technique. mg2 Administered Medications: 10:00 Drug: NS 0.9% (30 ml/kg) 30 ml/kg Route: IV; Rate: bolus; Site: right forearm; ph 12:45 Follow up: Response: No adverse reaction; IV Status: Completed infusion; IV Intake: ph 2000ml 10:14 Drug: Rocephin 1 grams Route: IV; Rate: calculated rate; Site: right forearm; sv 14:06 Follow up: Response: No adverse reaction; IV Status: Completed infusion mg2 12:32 Drug: LevaQUIN 500 mg Volume: 100 ml; Route: IVPB; Infused Over: 60 mins; Site: right ph antecubital; 14:06 Follow up: Response: No adverse reaction; IV Status: Completed infusion mg2 12:32 Drug: NS 0.9% 1000 ml Route: IV; Rate: 100 ml/hr; Site: right antecubital; ph 14:00 Follow up: Response: No adverse reaction; IV Status: Infusion continued upon admission ph Point of Care Testing: Blood Glucose: 09:34 Blood Glucose: 203 mg/dL; ph Ranges: Intake: 12:45 IV: 2000ml; Total: 2000ml. ph Outcome: 10:55 Decision to Hospitalize by Provider. pm1 14:46 Patient left the ED. ph 14:46 Admitted to Tele accompanied by tech, family with patient, via stretcher, with oxygen, ph with chart. 14:46 Condition: stable Signatures: Dispatcher [employer] EDAbbie Zepeda RN RN Brigette Kemp ms, Kimberlee kw Hall, Patricia, RN RN Jerel Quinn, BAILEY LAB ANIMAL TECHNICIAN pm1 Ralf Samayoa RN RN mg2 Rossana Carranza mw3 Corrections: (The following items were deleted from the chart) 14:16 14:14 BP 106 / 69; Pulse 81bpm; Resp 18bpm; Pulse Ox 98% 2 lpm Nasal Cannula; ph ph
--- NOTE | 2019-06-19 10:58 | RAD REPORT ---
EXAM DESCRIPTION: CT - Head Brain Wo Cont - 06/19/2019 10:33 am CLINICAL HISTORY: Weakness, history of hypertension and neuropathy COMPARISON: September 2014 TECHNIQUE: Axial 5 mm thick images of the head were obtained without IV contrast. All CT scans are performed using dose optimization technique as appropriate and may include automated exposure control or mA/KV adjustment according to patient size. FINDINGS: No intracranial hemorrhage, mass, edema or shift of mid-line structures. No acute cortical based infarction. No cortical edema or sulcal effacement. Atrophy and chronic ischemic changes are m inimal for age. No abnormal extra-axial fluid collections. Ventricles are in proportion to volume los s. Mastoid air cells are clear. No acute paranasal sinus finding. Opacified and partially calcified righ t globe has not change from comparison. No acute bony findings. IMPRESSION: Negative noncontrast CT head exam for acute finding.
--- NOTE | 2019-06-19 11:00 | RAD REPORT ---
EXAM DESCRIPTION: RAD - Chest Single View - 06/19/2019 9:43 am CLINICAL HISTORY: Weakness, shortness of breath, recent left hip fracture repair COMPARISON: June 06 TECHNIQUE: AP portable chest image was obtained 0941 hour . FINDINGS: Lung volumes are very low. No peripheral consolidation mass. Heart size is increased sligh tly from comparison. Central vasculature and lung markings are also slightly increased. No measurable pleural effusion and no pneumothorax. No acute bony abnormality seen. No acute aortic findings suspe cted. IMPRESSION: Limited shallow inspiration film suspicious for early failure or volume overload compare to June 06.
[2019-06-19] MEDS ORDERED: Levofloxacin500mg IV 500 MG/100 ML BAG IV ONE (12:27)
--- NOTE | 2019-06-19 12:39 | P.HP ---
Certification for Inpatient Patient admitted to: Inpatient With expected LOS: >2 Midnights Patient will require the following post-hospital care: Alf Practitioner: I am a practitioner with admitting privileges, knowledge of patient current condition, hospital course, and medical plan of care. Services: Services provided to patient in accordance with Admission requirements found in Title 42 Section 412.3 of the Code of Federal Regulations Patient History Date of Service: 06/19/19 Primary Care Provider: Ty Reason for admission: Urosepsis History of Present Illness: Patient of mine who was recently admitted for a left intertrochantric fracture. She had internal fixation and sent to [facility] for PT. She was found to have a bottle of norco in her room there yesterday. Was sent home with her son. However the patient started complaining of chills. She was worse this morning and sent to the ER. The patient was found to have a uti and was hypotensive. She respond to a lt of fluids. However her bp is trending downwards. Also of note the patients HB was 8.5 on 06/10. Is down to 7.1 today. She has been on the above mentioned norco for a few years with Dr. Duff. She did not tell us this during her last admission. Nor did she tell the nurses in [place]. When asked about this she states she forgot to tell us Allergies No Known Drug Allergies Allergy (Verified 03/22/18 04:48) Unknown NKDA Allergy (Uncoded 03/22/18 04:48) Unknown No Known Allergies Allergy (Uncoded 03/22/18 04:48) Unknown Home Medications: Clopidogrel Bisulfate [Plavix] 75 mg PO DAILY 06/08/19 Gabapentin [Neurontin] 600 mg PO BID 06/08/19 Insulin Glargine Human [Lantus] 25 unit SQ DAILY 06/08/19 Metformin HCl [Glucophage] 500 mg PO DAILY WITH BREAKFAST 06/08/19 Metoprolol Tartrate [Lopressor] 50 mg PO DAILY 06/08/19 Pantoprazole [Protonix Tab] 40 mg PO DAILY 06/08/19 Phenazopyridine HCl [Pyridium] 100 mg PO BID 2 Days #4 tablet 06/14/19 - Past Medical/Surgical History Diabetic: Yes -: HTN -: Hyperlipidemia -: CAD -: Arthritis -: Obesity -: Noncompliance -: Depression with anxiety -: Hyperlipidemia -: History of UTI -: 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 - Family History Mother -: Heart disease, Hypertension - Social History Alcohol use: No CD- Drugs: No Caffeine use: Yes Review of Systems General: Fever, Chills, Malaise Physical Examination - Physical Exam General: Alert, Oriented x3, Cooperative, Mild distress HEENT: Atraumatic, PERRLA, Mucous membr. moist/pink, EOMI, Sclerae nonicteric Neck: Supple, 2+ carotid pulse no bruit, No LAD, Without JVD or thyroid abnormality Respiratory: Clear to auscultation bilaterally, Normal air movement Cardiovascular: Regular rate/rhythm, Normal S1 S2 Gastrointestinal: Normal bowel sounds, No tenderness Musculoskeletal: No tenderness Integumentary: No rashes Neurological: Normal gait, Normal speech, Normal strength at 5/5 x4 extr, Normal tone, Normal affect Lymphatics: No axilla or inguinal lymphadenopathy - Studies Laboratory Data (last 24 hrs) 06/19/19 09:35: PT 12.9 H, INR 1.10, APTT 30.3 06/19/19 09:35: WBC 19.6 H D, Hgb 7.1 L*, Hct 21.8 L, Plt Count 310 D 06/19/19 09:35: Sodium 140, Potassium 5.0, BUN 34 H, Creatinine 1.31 H, Glucose 182 H, Total Bilirubin 0.4, AST 20, ALT 12, Alkaline Phosphatase 124 H, Lipase 25 L Microbiology Data (last 24 hrs): 06/19/19 10:13 Stool Occult Blood - Final Assessment and Plan - Problems (Diagnosis) (1) Sepsis associated hypotension Current Visit: Yes Status: Acute Plan: From the uti. Will try volume resucitating her. Will continue levaquin till the cultures are back. May need the unit. As we are giving her a lot of fluids. Will give her a unit of blood. Most likely we will dilute her hb down even further. Will get type and screen. (2) Diabetes mellitus Onset Date: 07/17/15 Current Visit: No Status: Chronic Plan: Will continue a low dose insulin sliding scale. Hold her basal insulin (3) Hyperlipidemia Current Visit: No Status: Chronic Plan: we can restart any statins in the morning (4) Hypertension Onset Date: 08/06/15 Current Visit: No Status: Chronic Plan: will hold bp meds at this time as she is hypotensive from the sepsis Qualifiers: Hypertension type: essential hypertension Qualified Code(s): I10 - Essential (primary) hypertension (5) Language barrier affecting health care Current Visit: No Status: Chronic Plan: The hidding of the jennie is worrisome. Also the lack of communication about her pills to the staff and myself. (6) Fracture, intertrochanteric, left femur Current Visit: No Status: Acute Plan: from previous admission. We can continue PT after the sepsis resolves. Qualifiers: Encounter type: initial encounter Fracture type: closed Fracture alignment: nondisplaced Qualified Code(s): S72.145A - Nondisplaced intertrochanteric fracture of left femur, initial encounter for closed fracture (7) Chronic, continuous use of opioids Current Visit: Yes Status: Acute Plan: Usually gets from Dr. Duff. The patient did not disclose this, which is troublesome. She is only taking it for OA. Which is becoming less acceptable. She was asking for pain medicaitons from our ER PA. Which he would rightfully not due as the patient was hypotensive under his care. The [place] shows a drug overdose risk of 270 (8) Anemia Onset Date: 07/17/15 Current Visit: No Status: Acute Plan: She is guiac negative. Was trending down after surgery then stabilized. Is this due to infection or inflammation from the surgery. These can depress the marrow. Will get a reticulocyte count and iron studies. Then give the patient a unit of PRBC. Will follow with Serial H&H for the first 48 hours. Qualifiers: Anemia type: unspecified type Qualified Code(s): D64.9 - Anemia, unspecified Discharge Plan: [facility] Plan to discharge in: Greater than 2 days - Advance Directives Does patient have a Living Will: No Does patient have a Durable POA for Healthcare: No - Code Status/Comfort Care Code Status Assessed: No Code Status: Full Code Physician Review: Patient Assessed, Agree with Above Assessment and Plan Critical Care: No Time Spent Managing Pts Care (In Minutes): 75
[2019-06-19 12:52] LABS: Ferritin 80.9 ng/mL (8-388); RBC Red Blood Cell Count 2.59 M/uL (3.86-4.86)
[2019-06-19 13:08] LABS: Blood Morphology Comment NOT SEEN (NOT SEEN); Platelet Estimate ADEQ; Toxic Granulation PRESENT
[2019-06-19 15:00] LABS: Absolute Lymphocytes (CBC) 1.1 K/uL (0.7-4.9); Basophils % 0.4 % (0-1.3); Hematocrit 23.3 % (36.0-45.0); Lymphocytes % 6.7 % (15.3-44.8); MPV 6.9 fL (7.6-11.3); RBC Red Blood Cell Count 2.75 M/uL (3.86-4.86)
[2019-06-19] MEDS ORDERED: Levofloxacin500mg IV 500 MG/100 ML BAG IV SCH (15:08)
[2019-06-19] MEDS ORDERED: GLUCAGON 1 MG/VIAL IM PRN (15:08)
[2019-06-19] MEDS ORDERED: D50W 25 GM/50 ML SYRINGE IV PRN (15:08)
[2019-06-19] MEDS: NA CHLORIDE 0.9% 1,000 ML IV SCH (15:29)
[2019-06-19] MEDS: INSULIN -REGULAR HUMAN 50 UNIT/0.5 ML ML SQ SCH ×2 (16:28→21:00)
[2019-06-19 20:32] LABS: Hematocrit 24.1 % (36.0-45.0)
[2019-06-19] MEDS ORDERED: TRAMADOL HCL 50 MG TAB PO PRN (21:30)
[2019-06-20] MEDS: NA CHLORIDE 0.9% 1,000 ML IV SCH ×3 (00:37→19:52)
[2019-06-20 02:17] LABS: Hematocrit 22.8 % (36.0-45.0)
[2019-06-20 06:08] LABS: Absolute Lymphocytes (CBC) 1.6 K/uL (0.7-4.9); Basophils % 0.3 % (0-1.3); Hematocrit 23.7 % (36.0-45.0); Lymphocytes % 11.3 % (15.3-44.8); RBC Red Blood Cell Count 2.83 M/uL (3.86-4.86)
[2019-06-20 06:14] LABS: Potassium 4.2 mmol/L (3.5-5.1)
[2019-06-20] MEDS: INSULIN -REGULAR HUMAN 50 UNIT/0.5 ML ML SQ SCH ×4 (07:30→19:56)
[2019-06-20] MEDS: ACETAMINOPHEN 325 MG TABLET PO PRN ×2 (10:53→16:58)
[2019-06-20 11:04] LABS: Hematocrit 24.2 % (36.0-45.0)
[2019-06-20] MEDS: HYDROCODONE/APAP 7.5/325 MG TAB PO SCH ×2 (12:55→19:48)
[2019-06-20] MEDS: Levofloxacin500mg IV 500 MG/100 ML BAG IV SCH (12:57)
[2019-06-20 15:41] VITALS: BMI 26.9
--- NOTE | 2019-06-20 16:28 | P.PN ---
Subjective Date of Service: 06/20/19 Primary Care Provider: Ty Chief Complaint: Urosepsis Subjective: No new changes (gram negative rods) Review of Systems 10-point ROS is otherwise unremarkable General: Other (complaints of pain) Physical Examination - Vital Signs Temperature: 98.3 F Blood Pressure: 149/67 Pulse: 85 Respirations: 18 Pulse Ox (%): 96 - Physical Exam General: Alert, In no apparent distress HEENT: Atraumatic, PERRLA, EOMI Neck: Supple, JVD not distended Respiratory: Clear to auscultation bilaterally, Normal air movement Cardiovascular: Regular rate/rhythm, Normal S1 S2 Gastrointestinal: Normal bowel sounds, No tenderness Musculoskeletal: No tenderness Integumentary: No rashes Neurological: Normal speech, Normal tone, Normal affect Lymphatics: No axilla or inguinal lymphadenopathy Assessment & Plan - Problems (Diagnosis) (1) Sepsis associated hypotension Current Visit: Yes Status: Acute Plan: Patient has gram negative rods in her urine. Will continue her on levaquin. Till we get an antibotigram (2) Diabetes mellitus Onset Date: 07/17/15 Current Visit: No Status: Chronic Plan: Will continue a low dose insulin sliding scale. Hold her basal insulin (3) Hyperlipidemia Current Visit: No Status: Chronic Plan: we can restart any statins in the morning (4) Hypertension Onset Date: 08/06/15 Current Visit: No Status: Chronic Plan: will hold bp meds at this time as she is hypotensive from the sepsis Qualifiers: Hypertension type: essential hypertension Qualified Code(s): I10 - Essential (primary) hypertension (5) Language barrier affecting health care Current Visit: No Status: Chronic Plan: The hidding of the jennie is worrisome. Also the lack of communication about her pills to the staff and myself. (6) Fracture, intertrochanteric, left femur Current Visit: No Status: Acute Plan: from previous admission. We can continue PT after the sepsis resolves. Qualifiers: Encounter type: initial encounter Fracture type: closed Fracture alignment: nondisplaced Qualified Code(s): S72.145A - Nondisplaced intertrochanteric fracture of left femur, initial encounter for closed fracture (7) Anemia Onset Date: 07/17/15 Current Visit: No Status: Acute Plan: She is guiac negative. iron deficient. Without adequate reticulocyte response. Fortunately her hb is stable and climbing from her admission. She is almost an 8. So no need for transfusion. Will start her on iron tablets. Qualifiers: Anemia type: unspecified type Qualified Code(s): D64.9 - Anemia, unspecified (8) Chronic, continuous use of opioids Current Visit: Yes Status: Acute Plan: Usually gets from Dr. Duff. The patient did not disclose this, which is troublesome. She is only taking it for OA. Which is becoming less acceptable. She was asking for pain medicaitons from our ER PA. Which he would rightfully not due as the patient was hypotensive under his care. The [place] shows a drug overdose risk of 270 Discharge Plan: [facility] Plan to discharge in: 48 Hours - Code Status/Comfort Care Code Status Assessed: No Code Status: Full Code Physician Review: Patient Assessed, Agree with Above Assessment and Plan Critical Care: No Time Spent Managing Pts Care (In Minutes): 25
--- NOTE | 2019-06-20 16:31 | P.PN ---
Subjective Date of Service: 06/10/19 Primary Care Provider: Ty Chief Complaint: Urosepsis Subjective: No new changes Review of Systems 10-point ROS is otherwise unremarkable Physical Examination - Vital Signs Temperature: 98.3 F Blood Pressure: 149/67 Pulse: 85 Respirations: 18 Pulse Ox (%): 96 - Physical Exam General: Alert, In no apparent distress HEENT: Atraumatic, PERRLA, EOMI Neck: Supple, JVD not distended Respiratory: Clear to auscultation bilaterally, Normal air movement Cardiovascular: Regular rate/rhythm, Normal S1 S2 Gastrointestinal: Normal bowel sounds, No tenderness Musculoskeletal: No tenderness Integumentary: No rashes Neurological: Normal speech, Normal tone, Normal affect Lymphatics: No axilla or inguinal lymphadenopathy Assessment & Plan - Problems (Diagnosis) (1) Fracture, intertrochanteric, left femur Current Visit: No Status: Acute Plan: from previous admission. We can continue PT after the sepsis resolves. Qualifiers: Encounter type: initial encounter Fracture type: closed Fracture alignment: nondisplaced Qualified Code(s): S72.145A - Nondisplaced intertrochanteric fracture of left femur, initial encounter for closed fracture (2) Hyperlipidemia Current Visit: No Status: Chronic Plan: we can restart any statins in the morning (3) Hypertension Onset Date: 08/06/15 Current Visit: No Status: Chronic Plan: will hold bp meds at this time as she is hypotensive from the sepsis Qualifiers: Hypertension type: essential hypertension Qualified Code(s): I10 - Essential (primary) hypertension Discharge Plan: Home Physician Review: Patient Assessed, Agree with Above Assessment and Plan Critical Care: No Time Spent Managing Pts Care (In Minutes): 15
[2019-06-20] MEDS: FERROUS GLUCONATE 324 MG TAB PO SCH (16:55)
[2019-06-20] MEDS ORDERED: ENOXAPARIN 40 MG/0.4 ML SQ SCH (17:00)
[2019-06-20 17:12] LABS: Hematocrit 25.5 % (36.0-45.0)
[2019-06-20] MEDS: GABAPENTIN 300 MG CAP PO SCH (19:48)
[2019-06-20 23:25] LABS: Hematocrit 22.8 % (36.0-45.0)
[2019-06-21] MEDS: HYDROCODONE/APAP 7.5/325 MG TAB PO SCH ×2 (03:00→12:14)
[2019-06-21] MEDS: NA CHLORIDE 0.9% 1,000 ML IV SCH (05:36)
[2019-06-21] MEDS: ACETAMINOPHEN 325 MG TABLET PO PRN (05:36)
[2019-06-21 06:08] LABS: Absolute Lymphocytes (CBC) 1.5 K/uL (0.7-4.9); Basophils % 0.6 % (0-1.3); Lymphocytes % 15.7 % (15.3-44.8); RBC Red Blood Cell Count 2.91 M/uL (3.86-4.86)
[2019-06-21] MEDS ORDERED: PANTOPRAZOLE 40MG TABLET PO SCH (06:30)
[2019-06-21 06:32] LABS: ALT/SGPT 14 U/L (12-78); AST/SGOT 23 U/L (15-37); Albumin 2.3 g/dL (3.4-5.0); Alkaline Phosphatase 135 U/L (45-117); BUN Blood Urea Nitrogen 13 mg/dL (7-18); Bicarbonate 27 mmol/L (21-32); Bilirubin Total 0.3 mg/dL (0.2-1.0); Glucose Level 136 mg/dL (74-106); Potassium 4.2 mmol/L (3.5-5.1); Protein, Total 6.2 g/dL (6.4-8.2); Sodium Level 141 mmol/L (136-145)
--- NOTE | 2019-06-21 07:23 | P.DS ---
Admission Date: 06/19/19 Discharge Date: 06/21/19 Primary Care Provider: Ty Disposition: TRANSFER TO LONGTERM Discharge Condition: GOOD Reason for Admission: Urosepsis - Problems (1) Chronic, continuous use of opioids Current Visit: Yes Status: Acute (2) Sepsis associated hypotension Current Visit: Yes Status: Acute (3) Hyperlipidemia Current Visit: No Status: Chronic (4) Hypertension Onset Date: 08/06/15 Current Visit: No Status: Chronic Qualifiers: Hypertension type: essential hypertension Qualified Code(s): I10 - Essential (primary) hypertension (5) Fracture, intertrochanteric, left femur Current Visit: No Status: Acute Qualifiers: Encounter type: initial encounter Fracture type: closed Fracture alignment: nondisplaced Qualified Code(s): S72.145A - Nondisplaced intertrochanteric fracture of left femur, initial encounter for closed fracture Brief History of Present Illness: Patient of mine who was recently admitted for a left intertrochantric fracture. She had internal fixation and sent to [facility] for PT. She was found to have a bottle of norco in her room there yesterday. Was sent home with her son. However the patient started complaining of chills. She was worse this morning and sent to the ER. The patient was found to have a uti and was hypotensive. She respond to a lt of fluids. However her bp is trending downwards. Also of note the patients HB was 8.5 on 06/10. Is down to 7.1 today. She has been on the above mentioned norco for a few years with Dr. Duff. She did not tell us this during her last admission. Nor did she tell the nurses in [place]. When asked about this she states she forgot to tell us Hospital Course: Patient is positive for drug sensitive ecoli. Will discharge on levaquin. Will keep her on ferrous gluconate for the anemia. At 8.1 she does not require a transfusion. This is most like due to iron deficency. She seems to be pain seeking. She states she forgot to tell me about the hydrocodone. However she has not told us in the office or when she was admitted last. She forgot to tell her nurses in [place]. This is a bit suspicious. Have informed her this morning that she will not be getting more. She simple repeats she has pain, she has pain. Vital Signs/Physical Exam: Temp Pulse Resp BP Pulse Ox 98.0 F 79 18 140/61 94 06/21/19 04:00 06/21/19 04:00 06/21/19 04:00 06/21/19 04:00 06/21/19 04:00 General: Alert, In no apparent distress HEENT: Atraumatic, PERRLA, EOMI Neck: Supple, JVD not distended Respiratory: Clear to auscultation bilaterally, Normal air movement Cardiovascular: Regular rate/rhythm, Normal S1 S2 Gastrointestinal: Normal bowel sounds, No tenderness Musculoskeletal: No tenderness Integumentary: No rashes Neurological: Normal speech, Normal tone, Normal affect Lymphatics: No axilla or inguinal lymphadenopathy Laboratory Data at Discharge: WBC 9.7 K/uL (4.3-10.9) D 06/21/19 05:43 Hgb 8.1 g/dL (12.0-15.0) L 06/21/19 05:43 Hct 24.0 % (36.0-45.0) L 06/21/19 05:43 Plt Count 299 K/uL (152-406) 06/21/19 05:43 PT 12.9 SECONDS (9.5-12.5) H 06/19/19 09:35 INR 1.10 06/19/19 09:35 APTT 30.3 SECONDS (24.3-36.9) 06/19/19 09:35 Sodium 141 mmol/L (136-145) 06/21/19 05:43 Potassium 4.2 mmol/L (3.5-5.1) 06/21/19 05:43 BUN 13 mg/dL (7-18) 06/21/19 05:43 Creatinine 0.56 mg/dL (0.55-1.3) 06/21/19 05:43 Glucose 136 mg/dL (74-106) H 06/21/19 05:43 Total Bilirubin 0.3 mg/dL (0.2-1.0) 06/21/19 05:43 AST 23 U/L (15-37) 06/21/19 05:43 ALT 14 U/L (12-78) 06/21/19 05:43 Alkaline Phosphatase 135 U/L (45-117) H 06/21/19 05:43 Lipase 25 U/L (73-393) L 06/19/19 09:35 Home Medications: Clopidogrel Bisulfate [Plavix] 75 mg PO DAILY 06/08/19 Gabapentin [Neurontin] 600 mg PO BID 06/08/19 Insulin Glargine Human [Lantus*] 25 unit SQ DAILY 06/08/19 Metformin HCl [Glucophage*] 500 mg PO DAILY WITH BREAKFAST 06/08/19 Metoprolol Tartrate [Lopressor] 50 mg PO DAILY 06/08/19 Pantoprazole [Protonix Tab] 40 mg PO DAILY 06/08/19 Acetaminophen [Tylenol] 325 mg PO TID 06/19/19 Silver Sulfadiazine [Silvadene 1% Cream] 1 appl TOP DAILY 06/19/19 Ferrous Gluconate 240 mg PO BID 5 Days #60 tablet 06/21/19 Levofloxacin [Levaquin] 500 mg PO DAILY 7 Days #7 tablet 06/21/19 New Medications: Ferrous Gluconate 240 mg PO BID 5 Days #60 tablet Levofloxacin [Levaquin] 500 mg PO DAILY 7 Days #7 tablet Diet: ADA Activity: Ad gera Time spent managing pt's care (in minutes): 30
[2019-06-21] MEDS: INSULIN -REGULAR HUMAN 50 UNIT/0.5 ML ML SQ SCH ×2 (07:30→11:30)
--- NOTE | 2019-06-21 07:30 | EKG ---
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
[2019-06-21] MEDS: FERROUS GLUCONATE 324 MG TAB PO SCH (08:43)
[2019-06-21] MEDS: GABAPENTIN 300 MG CAP PO SCH (08:44)
[2019-06-21] MEDS ORDERED: METOPROLOL TAR 50 MG TAB PO SCH (09:00)
[2019-06-21] MEDS ORDERED: CLOPIDOGREL 75 MG TABLET PO SCH (09:00)
[2019-06-21 10:54] VITALS: O2SAT 98
[2019-06-21] MEDS: Levofloxacin500mg IV 500 MG/100 ML BAG IV SCH (13:00)
[2019-06-21 18:19] VITALS: BP 173/72; TEMP 97.9
== END 2019-06-21 17:22 | DRG 871 ==
LOC: ER 09:07 → ERHOLD 12:03 → 2ND 14:25
PROVIDERS: ADMIT Internal Medicine; ATTEND Internal Medicine
DX: A41.9 Sepsis, unspecified organism (principal); S72.142A Displaced intertrochanteric fracture of left femur, initial encounter for closed fracture; N39.0 Urinary tract infection, site not specified; B96.20 Unspecified Escherichia coli [E. coli] as the cause of diseases classified elsewhere; E11.9 Type 2 diabetes mellitus without complications; E78.5 Hyperlipidemia, unspecified; I10 Essential (primary) hypertension; F11.90 Opioid use, unspecified, uncomplicated; D64.9 Anemia, unspecified; F41.8 Other specified anxiety disorders; I25.10 Atherosclerotic heart disease of native coronary artery without angina pectoris; Z95.5 Presence of coronary angioplasty implant and graft
CPT/HCPCS: 36415; 51702; 70450; 71045; 80048; 80053; 80076; 81003; 81015; 82272; 82550; 82553; 82728; 82962; 83540; 83605; 83690; 84145; 84466; 84484; 85014; 85018; 85025; 85044; 85610; 85730; 86850; 86900; 86901; 87040; 87077; 87086; 87088; 87186; 87205; 93005; 96361; 96365; 96366; 96368; 97110; 97116; 97161; 97530; 99291; J0696; J1650; J7030

== ENCOUNTER 2019-07-24 11:54 | Observation (INO) | payer OTHER ==
[2019-07-24 12:34] LABS: Absolute Lymphocytes (CBC) 1.6 K/uL (0.7-4.9); Basophils % 0.8 % (0-1.3); Hematocrit 30.1 % (36.0-45.0); Lymphocytes % 27.1 % (15.3-44.8); MPV 7.2 fL (7.6-11.3); RBC Red Blood Cell Count 3.66 M/uL (3.86-4.86)
[2019-07-24 12:41] LABS: Protime INR 1.1
[2019-07-24 12:52] LABS: BUN Blood Urea Nitrogen 12 mg/dL (7-18); Bicarbonate 29 mmol/L (21-32); Glucose Level 258 mg/dL (74-106); NT PRO-BNP 304 pg/mL (<125); Potassium 4.3 mmol/L (3.5-5.1); Sodium Level 139 mmol/L (136-145); Troponin (Emerg Dept Use Only) < 0.02 ng/mL (0.0-0.045)
--- NOTE | 2019-07-24 13:03 | RAD REPORT ---
EXAM DESCRIPTION: RAD - Chest Single View - 07/24/2019 12:55 pm CLINICAL HISTORY: CHEST PAIN Chest pain. COMPARISON: Chest Single View dated 06/19/2019; Chest Single View dated 06/06/2019; Chest Single View dated 01/24/2019; Chest Single View dated 12/18/2018 FINDINGS: Portable technique limits examination quality. The lungs are grossly clear. The heart is normal in size. No displaced fractures. IMPRESSION: No acute intrathoracic process suspected.
--- NOTE | 2019-07-24 13:50 | ER ---
Nurse's Notes [facility] Name: Cherry Pompa Age: 69 yrs Sex: Female : 1950 Arrival Date: 07/24/2019 Time: 11:59 Bed 7 Private MD: Diagnosis: Chest pain, unspecified Presentation: 07/24 12:00 Presenting complaint: EMS states: Substernal chest pain began 1 hour ago. Transition of jl7 care: patient was received from another setting of care (long-term care facility), [facility]. Onset of symptoms was July 24, 2019. Risk Assessment: Do you want to hurt yourself or someone else? Patient reports no desire to harm self or others. Initial Sepsis Screen: Does the patient meet any 2 criteria? No. Patient's initial sepsis screen is negative. Does the patient have a suspected source of infection? No. Patient's initial sepsis screen is negative. Care prior to arrival: Medication(s) given: ASA, 81 mg, x 4, IV initiated. 18 GA, in the left antecubital area, Glucose check: 238. 12:00 Method Of Arrival: EMS: [facility] 7 12:00 Acuity: HERIBERTO 2 jl7 Triage Assessment: 12:00 General: Appears in no apparent distress. uncomfortable, Behavior is calm, cooperative, jl7 appropriate for age. Pain: Complains of pain in mid-sternal area Pain radiates to right jaw and left jaw Pain currently is 6 out of 10 on a pain scale. Quality of pain is described as pressure, squeezing, Pain began 1 hour ago. Is continuous. 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 Neuro: Level of Consciousness is awake, alert, obeys commands, Oriented to person, place, time, situation. Cardiovascular: Heart tones S1 S2 present Patient's skin is warm and dry. Rhythm is sinus rhythm. Respiratory: Airway is patent Respiratory effort is even, unlabored, Respiratory pattern is regular, symmetrical, Breath sounds are clear bilaterally. GI: Abdomen is round non-distended. : No signs and/or symptoms were reported regarding the genitourinary system. Derm: Skin is pink, warm \T\ dry. Historical: - Allergies: 12:08 No Known Allergies; jl7 - Home Meds: 12:08 acetaminophen 325 mg Oral tab 2 tabs three times a day [Active]; Plavix 75 mg Oral tab jl7 1 tab once daily [Active]; Neurontin 600 mg Oral tab 1 tab twice a day [Active]; Insulin Glargine Sub-Q [Active]; metformin 500 mg Oral tab 1 tab daily [Active]; metoprolol tartrate 50 mg Oral tab 1 tab once daily [Active]; [place] 7.5-325 mg Oral tab [Active]; Protonix 40 mg Oral TbEC 1 tab once daily [Active]; acetaminophen-codeine 300-30 mg Oral tab 1 tab every 4 hours [Active]; - PMHx: 12:08 Angina; Arthritis; Diabetes - IDDM; High Cholesterol; Hypertension; neuropathy; GERD; jl7 - PSHx: 12:08 Cholecystectomy; Hysterectomy; jl7 - Immunization history:: Adult Immunizations up to date. - Social history:: Smoking status: Patient/guardian denies using tobacco. - Ebola Screening: : No symptoms or risks identified at this time. - Family history:: not pertinent. - Hospitalizations: : No recent hospitalization is reported. Screenin:00 Abuse screen: Denies threats or abuse. Denies injuries from another. Nutritional jl7 screening: No deficits noted. Tuberculosis screening: No symptoms or risk factors identified. Fall Risk IV access (20 points). Assessment: 12:00 General: See triage assessment. jl7 13:00 Reassessment: Patient appears in no apparent distress at this time. No changes from jl7 previously documented assessment. Patient and/or family updated on plan of care and expected duration. Pain level reassessed. Patient is alert, oriented x 3, equal unlabored respirations, skin warm/dry/pink. 14:00 Reassessment: Patient appears in no apparent distress at this time. No changes from jl7 previously documented assessment. Patient and/or family updated on plan of care and expected duration. Pain level reassessed. Patient is alert, oriented x 3, equal unlabored respirations, skin warm/dry/pink. 15:00 Reassessment: Patient appears in no apparent distress at this time. No changes from jl7 previously documented assessment. Patient and/or family updated on plan of care and expected duration. Pain level reassessed. Patient is alert, oriented x 3, equal unlabored respirations, skin warm/dry/pink. 15:53 Reassessment: Patient appears in no apparent distress at this time. No changes from jl7 previously documented assessment. Patient and/or family updated on plan of care and expected duration. Pain level reassessed. Patient is alert, oriented x 3, equal unlabored respirations, skin warm/dry/pink. Vital Signs: 12:08 BP 138 / 53; Pulse 65; Resp 18 S; Pulse Ox 94% on R/A; jl7 12:25 Temp 98.1(TE); jl7 13:31 BP 124 / 40; Pulse 63; Resp 17; Pulse Ox 99% on R/A; em1 14:30 BP 154 / 67; Pulse 66; Resp 96 S; Pulse Ox 100% on R/A; jl7 15:25 BP 123 / 62; Pulse 60; Resp 16 S; Pulse Ox 100% on R/A; jl7 15:53 BP 129 / 60; Pulse 65; Resp 16 S; Pulse Ox 100% on R/A; Pain 0/10; jl7 ED Course: 11:59 Patient arrived in ED. rn 11:59 Bruce Araujo MD is Attending Physician. rn 12:00 Stephanie Yanes RN is Primary Nurse. jl7 12:02 Triage completed. jl7 12:08 Arm band placed on right wrist. jl7 12:10 Patient has correct armband on for positive identification. Placed in gown. Bed in low jl7 position. Call light in reach. Side rails up X2. surveillance system monitor on. Pulse ox on. NIBP on. Warm blanket given. 12:10 Initial lab(s) drawn, by me, sent to lab. Maintain EMS IV. Dressing intact. Good blood jl7 return noted. Site clean \T\ dry. Gauge \T\ site: 22 left wrist. 12:54 X-ray completed. Portable x-ray completed in exam room. Patient tolerated procedure mh1 well. 12:56 XRAY Chest (1 view) In Process Unspecified. EDMS 13:49 Kody Lindsay DO is Hospitalizing Provider. rn 15:51 Inserted saline lock: 22 gauge in right wrist, using aseptic technique. jl7 Administered Medications: No medications were administered Outcome: 13:50 Decision to Hospitalize by Provider. rn 16:09 Patient left the ED. jl7 Signatures: Dispatcher [employer] EDMS Kateryna Trent1 Bruce Araujo MD MD rn Mihai Kasper 1 Stephanie Yanes RN RN jl7 Corrections: (The following items were deleted from the chart) 15:52 12:10 Maintain EMS IV. Dressing intact. Good blood return noted. Site clean \T\ dry. jl7 Gauge \T\ site: 18 left wrist. jl7
--- NOTE | 2019-07-24 13:50 | EDPHYS ---
Physician Documentation [facility] Name: Cherry Pompa Age: 69 yrs Sex: Female : 1950 Arrival Date: 07/24/2019 Time: 11:59 Bed 7 Private MD: ED Physician Bruce Araujo HPI: 07/24 13:03 This 69 yrs old Female presents to ER via EMS with complaints of chest pain. rn 13:03 The patient or guardian reports chest pain that is located primarily in the substernal rn area. Onset: this morning. The pain radiates to right neck. The chest pain is described as a heaviness, a pressure. Duration: The patient or guardian reports multiple episodes, that are intermittent. Modifying factors: The symptoms are alleviated by nothing. the symptoms are aggravated by nothing. Severity of pain: At its worst the pain was moderate in the emergency department the pain has improved. The patient has experienced similar episodes in the past. Sent by PCP for evaluation and admission of chest pain. Reports substernal chest pain, pressure, radiates to neck, no trauma, reports present when woke up. Now resolved and only took aspirin. NO fever/cough/sob/abd pain/vomiting. . Historical: - Allergies: 12:08 No Known Allergies; jl7 - Home Meds: 12:08 acetaminophen 325 mg Oral tab 2 tabs three times a day [Active]; Plavix 75 mg Oral tab jl7 1 tab once daily [Active]; Neurontin 600 mg Oral tab 1 tab twice a day [Active]; Insulin Glargine Sub-Q [Active]; metformin 500 mg Oral tab 1 tab daily [Active]; metoprolol tartrate 50 mg Oral tab 1 tab once daily [Active]; [place] 7.5-325 mg Oral tab [Active]; Protonix 40 mg Oral TbEC 1 tab once daily [Active]; acetaminophen-codeine 300-30 mg Oral tab 1 tab every 4 hours [Active]; - PMHx: 12:08 Angina; Arthritis; Diabetes - IDDM; High Cholesterol; Hypertension; neuropathy; GERD; jl7 - PSHx: 12:08 Cholecystectomy; Hysterectomy; jl7 - Immunization history:: Adult Immunizations up to date. - Social history:: Smoking status: Patient/guardian denies using tobacco. - Ebola Screening: : No symptoms or risks identified at this time. - Family history:: not pertinent. - Hospitalizations: : No recent hospitalization is reported. ROS: 13:03 Constitutional: Negative for fever, chills, and weight loss, Eyes: Negative for injury, rn pain, redness, and discharge, Neck: Negative for injury, pain, and swelling, Cardiovascular: Negative for palpitations, and edema, Respiratory: Negative for shortness of breath, cough, wheezing, and pleuritic chest pain, Abdomen/GI: Negative for abdominal pain, nausea, vomiting, diarrhea, and constipation, MS/Extremity: Negative for injury and deformity, Skin: Negative for injury, rash, and discoloration, Neuro: Negative for headache, weakness, numbness, tingling, and seizure. Exam: 13:03 Constitutional: This is a well developed, well nourished patient who is awake, alert, rn and in no acute distress. Head/Face: Normocephalic, atraumatic. ENT: MMM Neck: Trachea midline, no thyromegaly or masses palpated, and no cervical lymphadenopathy. Supple, full range of motion without nuchal rigidity, or vertebral point tenderness. No Meningismus. Cardiovascular: Regular rate and rhythm. No pulse deficits. Respiratory: No increased work of breathing, no retractions or nasal flaring. Abdomen/GI: soft, non-tender MS/ Extremity: Pulses equal, no cyanosis. Neurovascular intact. Full, normal range of motion. Equal circumference. Neuro: Awake and alert, GCS 15, oriented to person, place, time, and situation. Cranial nerves II-XII grossly intact. Motor strength 5/5 in all extremities. Sensory grossly intact. Vital Signs: 12:08 BP 138 / 53; Pulse 65; Resp 18 S; Pulse Ox 94% on R/A; jl7 12:25 Temp 98.1(TE); jl7 13:31 BP 124 / 40; Pulse 63; Resp 17; Pulse Ox 99% on R/A; em1 14:30 BP 154 / 67; Pulse 66; Resp 96 S; Pulse Ox 100% on R/A; jl7 15:25 BP 123 / 62; Pulse 60; Resp 16 S; Pulse Ox 100% on R/A; jl7 15:53 BP 129 / 60; Pulse 65; Resp 16 S; Pulse Ox 100% on R/A; Pain 0/10; jl7 MDM: 11:59 Patient medically screened. rn 13:36 Differential diagnosis: acute myocardial infarction, acute pericarditis, anxiety, rn coronary artery disease chest wall pain, congestive heart failure costochondritis, esophagitis, gastritis, gastroesophageal reflux disease (GERD), pneumonia, pneumothorax, stable angina. The patient was not given aspirin in the Emergency Department. Patient reports taking aspirin within the past 24 hours. Data reviewed: vital signs, nurses notes, lab test result(s), EKG, radiologic studies, plain films, and as a result, I will admit patient. Counseling: I had a detailed discussion with the patient and/or guardian regarding: the historical points, exam findings, and any diagnostic results supporting the discharge/admit diagnosis, lab results, radiology results, the need for further work-up and treatment in the hospital. Response to treatment: the patient's symptoms have mildly improved after treatment, and as a result, I will admit patient. 13:49 Admission orders: after a detailed discussion of the patient's condition and case, the speech language pathologist prn orders are written by me. 07/24 11:59 Order name: Basic Metabolic Panel; Complete Time: 12:59 rn 07/24 11:59 Order name: CBC with Diff; Complete Time: 12:59 rn 07/24 11:59 Order name: NT PRO-BNP; Complete Time: 12:59 rn 07/24 11:59 Order name: PT-INR; Complete Time: 12:59 rn 07/24 11:59 Order name: Troponin (emerg Dept Use Only); Complete Time: 12:59 rn 07/24 11:59 Order name: XRAY Chest (1 view); Complete Time: 13:11 rn 07/24 11:59 Order name: EKG; Complete Time: 12:01 rn 07/24 11:59 Order name: Cardiac monitoring; Complete Time: 12:25 rn 07/24 11:59 Order name: EKG - Nurse/Tech; Complete Time: 12:24 rn 07/24 11:59 Order name: IV Saline Lock; Complete Time: 12:24 rn 07/24 11:59 Order name: Labs collected and sent; Complete Time: 12:24 rn 07/24 11:59 Order name: O2 Per Protocol; Complete Time: 12:24 rn 07/24 11:59 Order name: O2 Sat Monitoring; Complete Time: 12:24 rn Administered Medications: No medications were administered Disposition: 07/24/19 13:50 Hospitalization ordered by Kody Lindsay for Observation. Preliminary diagnosis is Chest pain, unspecified. - Bed requested for Telemetry/MedSurg (observation). - Status is Observation. jl7 - Condition is Stable. - Problem is new. - Symptoms have improved. UTI on Admission? No Signatures: Dispatcher [employer] EDMS Bruce Araujo MD MD rn Martinez, Eric em1 Stephanie Yanes RN RN jl7 Corrections: (The following items were deleted from the chart) 15:01 13:50 Hospitalization Ordered by Kody Lindsay DO for Observation. Preliminary em1 diagnosis is Chest pain, unspecified. Bed requested for Telemetry/MedSurg (observation). Status is Observation. Condition is Stable. Problem is new. Symptoms have improved. UTI on Admission? No. rn 16:09 15:01 07/24/2019 13:50 Hospitalization Ordered by Kody Lindsay DO for Observation. jl7 Preliminary diagnosis is Chest pain, unspecified. Bed requested for Telemetry/MedSurg (observation). Status is Observation. Condition is Stable. Problem is new. Symptoms have improved. UTI on Admission? No. em1
[2019-07-24] MEDS ORDERED: TRAMADOL HCL 50 MG TAB PO PRN (16:36)
[2019-07-24] MEDS ORDERED: ONDANSETRON 4 MG/2 ML VIAL IV PRN (16:36)
[2019-07-24] MEDS: INSULIN -REGULAR HUMAN 50 UNIT/0.5 ML ML SQ SCH ×2 (16:36→21:30)
[2019-07-24] MEDS ORDERED: ACETAMINOPHEN 500 MG TAB PO PRN (16:36)
--- NOTE | 2019-07-24 17:11 | P.HP ---
Certification for Inpatient Patient admitted to: Observation With expected LOS: <2 Midnights Patient will require the following post-hospital care: None Practitioner: I am a practitioner with admitting privileges, knowledge of patient current condition, hospital course, and medical plan of care. Services: Services provided to patient in accordance with Admission requirements found in Title 42 Section 412.3 of the Code of Federal Regulations Patient History Date of Service: 07/24/19 Primary Care Provider: Dr. Crawford(Hospitalist is covering him) Reason for admission: Chest pain History of Present Illness: 69-year-old female with history of diabetes mellitus type 2 insulin dependent, hypertension, hyperlipidemia, and chronic pain. Patient presented with chest pain. Patient will go up with chest pain today. It was to the substernal region. She reports not being able to sleep over the last 3 days. Patient currently at a skilled facility as she had recent left hip surgery. Chest pain was associated with some headaches and mild shortness of breath. Patient was brought in to the emergency room for further evaluation. In the ER EKG shows no significant EKG changes. White count 5.8, hemoglobin 10.1, sodium 139, potassium 4.3. BUN of 12, creatinine 0.71 with a GFR of 81. Glucose 258. Initial troponin unremarkable. BNP around 300. Chest x-ray unremarkable. Vital signs stable. Patient was admitted for further evaluation and observation. When I saw the patient in the ER, she appeared stable. Prior history shows stress test in 2017 showing some possible ischemia. Unsure of prior heart catheterization results. Patient is seen by Cardiology. Patient has had issues with chronic pain medication. Allergies No Known Drug Allergies Allergy (Verified 03/22/18 04:48) Unknown NKDA Allergy (Uncoded 03/22/18 04:48) Unknown No Known Allergies Allergy (Uncoded 03/22/18 04:48) Unknown Home medications list reviewed: Yes Home Medications: Clopidogrel Bisulfate [Plavix] 75 mg PO DAILY 06/08/19 Gabapentin [Neurontin] 600 mg PO BID 06/08/19 Insulin Glargine Human [Lantus*] 25 unit SQ DAILY 06/08/19 Metformin HCl [Glucophage*] 500 mg PO DAILY WITH BREAKFAST 06/08/19 Metoprolol Tartrate [Lopressor] 50 mg PO DAILY 06/08/19 Pantoprazole [Protonix Tab] 40 mg PO DAILY 06/08/19 Acetaminophen [Tylenol] 325 mg PO TID 06/19/19 Codeine/APAP [Tylenol W/Codeine #3 tab] 1 tab PO Q4HP PRN 07/24/19 Hydrocodone 7.5/APAP 325 [[place] 7.5/325 mg] 1 tab PO TID 07/24/19 - Past Medical/Surgical History Diabetic: Yes -: HTN -: Hyperlipidemia -: CAD -: Arthritis -: Obesity -: Noncompliance -: Depression with anxiety -: Hyperlipidemia -: History of UTI -: 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 - Family History Mother -: Heart disease, Hypertension - Social History Smoking Status: Never smoker Alcohol use: No CD- Drugs: No Caffeine use: Yes Place of Residence: Home Review of Systems General: As per HPI Eyes: Unremarkable ENT: Unremarkable Respiratory: Unremarkable Cardiovascular: Chest Pain, Light Headedness, As per HPI Gastrointestinal: Unremarkable Genitourinary: Unremarkable Musculoskeletal: Pedal edema, As per HPI Integumentary: Unremarkable Neurological: Unremarkable Lymphatics: Unremarkable Physical Examination - Physical Exam General: Alert, In no apparent distress, Oriented x3, Cooperative, Other ( Increased anxiety) HEENT: Atraumatic, Normocephalic, Other (Cataract to the right eye) Neck: Supple Respiratory: Clear to auscultation bilaterally, Normal air movement Cardiovascular: Normal pulses, Regular rate/rhythm Gastrointestinal: Normal bowel sounds, Soft and benign, Non-distended, No tenderness, No masses, No rebound, No guarding Musculoskeletal: No erythema, No tenderness, No warmth Integumentary: No erythema, No warmth, No cyanosis, Tenderness/swelling ( Nonpitting edema to the lower extremities) Neurological: Normal speech, Normal strength at 5/5 x4 extr, Normal tone, Normal affect - Studies Laboratory Data (last 24 hrs) 07/24/19 12:16: PT 12.9 H, INR 1.10 07/24/19 12:16: WBC 5.8, Hgb 10.1 L, Hct 30.1 L, Plt Count 249 07/24/19 12:16: Sodium 139, Potassium 4.3, BUN 12, Creatinine 0.71, Glucose 258 H Assessment and Plan - Plan Impression: Chest pain with history of CAD Diabetes mellitus type 2 insulin dependent Hypertension Hyperlipidemia Chronic pain with neuropathy Recent left hip surgery status post repair Plan: Chest pain with history of CAD: Patient will be admitted for further evaluation and observation. Will continue to monitor telemetry and cardiac enzymes. Will continue with aspirin, Plavix. Will continue with her blood pressure medication. Will provide DVT prophylaxis-Lovenox. Will obtain echocardiogram to further evaluate. Will obtain venous Doppler of the lower extremities due to mild edema. Will consult cardiology to further evaluate. Will keep the patient NPO after midnight for possible cardiac evaluation- intervention. Await further recommendations from cardiology. I will turn the service over to Dr. Gomez tomorrow. I will go over the plan of care with her. Anticipate discharge likely tomorrow after clinical/cardiology evaluation. Diabetes mellitus type 2 insulin dependent: Will provide insulin sliding scale and monitor Accu-Cheks. Hypertension: Will continue with blood pressure medication. Hyperlipidemia: Will continue with medication. Will obtain lipid panel. Chronic pain with neuropathy: Will continue with gabapentin. Will provide medication for pain. Recent left hip surgery status post repair: Will have physical therapy assess ambulation and continued therapy. Patient will need to return back to skilled facility after discharge. Will have rn social services help in this process. Discharge Plan: Other (correction facility) Plan to discharge in: 24 Hours - Advance Directives Does patient have a Living Will: No Does patient have a Durable POA for Healthcare: No - Code Status/Comfort Care Code Status Assessed: Yes (Patient is full code) Time Spent Managing Pts Care (In Minutes): 55
[2019-07-24 19:36] LABS: CKMB Creatine Kinase MB 1.3 ng/mL (0.3-3.6); Creatine Phosphokinase 32 U/L (26-192); Troponin I < 0.02 ng/mL (0.0-0.045)
--- NOTE | 2019-07-24 19:59 | RAD REPORT ---
EXAM DESCRIPTION: US - Extrem Venous W Compress Jose - 07/24/2019 7:52 pm CLINICAL HISTORY: Evaluate edema to the lower extremity, Bilateral leg edema and swelling. COMPARISON: UP LOW EXT ARTERIES MULTI dated 05/16/2013 TECHNIQUE: Real-time sonographic interrogation of the left and right lower extremity deep venous sys tems was performed. FINDINGS: Normal compressibility, flow augmentation, phasic flow and spontaneous flow is identified in both the left and right lower extremity deep venous systems. IMPRESSION: No sonographic evidence of left or right lower extremity deep venous thrombosis.
[2019-07-24 20:01] VITALS: BMI 31.2
[2019-07-24] MEDS: GABAPENTIN 300 MG CAP PO SCH (21:28)
[2019-07-24] MEDS: HYDROCODONE/APAP 7.5/325 MG TAB PO PRN (21:28)
[2019-07-24] MEDS ORDERED: NA CHLORIDE 0.9% 250 ML IV PRN (23:53)
[2019-07-25] MEDS ORDERED: NA CHLORIDE 0.9% 250 ML ONE (00:13)
[2019-07-25] MEDS: NA CHLORIDE 0.9% 1,000 ML IV SCH ×2 (00:26→17:13)
[2019-07-25 02:39] LABS: Urine Appearance CLOUDY; Urine Bilirubin NEGATIVE (NEG); Urine Blood NEGATIVE (NEG); Urine Color YELLOW; Urine Glucose 1+ (NEG); Urine Protein NEGATIVE (NEG); Urine Specific Gravity 1.015 (1.005-1.030); Urine Urobilinogen 0.2 mg/dL (0.2-1.0)
[2019-07-25 02:40] LABS: Urine Microscopic Reflex ORDER UMIC
[2019-07-25 02:47] LABS: Urine Amorphous Sediment 1+ /HPF (NONE SEEN); Urine Bacteria 20-50 /HPF (<20); Urine Culture Reflex Order NOT NEEDED; Urine RBC NONE SEEN /HPF (NONE SEEN)
[2019-07-25 03:56] LABS: Absolute Lymphocytes (CBC) 2.4 K/uL (0.7-4.9); Basophils % 1.4 % (0-1.3); Lymphocytes % 41.5 % (15.3-44.8); MPV 7.4 fL (7.6-11.3); RBC Red Blood Cell Count 3.41 M/uL (3.86-4.86)
[2019-07-25 04:22] LABS: CKMB Creatine Kinase MB 1.1 ng/mL (0.3-3.6); Creatine Phosphokinase 32 U/L (26-192); Troponin I < 0.02 ng/mL (0.0-0.045)
[2019-07-25] MEDS: HYDROCODONE/APAP 7.5/325 MG TAB PO PRN (04:24)
[2019-07-25] MEDS: PANTOPRAZOLE 40MG TABLET PO SCH (04:25)
[2019-07-25 04:42] LABS: Potassium 3.9 mmol/L (3.5-5.1); Thyroid Stimulating Hormone 1.83 uIU/mL (0.360-3.740)
[2019-07-25 04:44] LABS: Magnesium 1.3 mg/dL (1.8-2.4)
[2019-07-25] MEDS ORDERED: Magnesium Sulfate 2gm IVPB 2 G/50 ML BAG IV ONE (04:45)
--- NOTE | 2019-07-25 05:23 | EKG ---
Test Date: 2019-07-24 Test Time: 13:00:16 Child Support Investigator: LALY MEASUREMENT RESULTS: Intervals: Rate: 65 VT: 170 QRSD: 120 QT: 406 QTc: 422 [place]: P: 40 VT: 170 QRS: 111 T: 12 INTERPRETIVE STATEMENTS: Normal sinus rhythm Right bundle branch block Abnormal ECG Compared to ECG 06/19/2019 09:30:07 no significant change from previous ECG Electronically Signed On 07-25-19 05:22:30 MAP COMPILER by Ronald Atkins
[2019-07-25] MEDS: INSULIN -REGULAR HUMAN 50 UNIT/0.5 ML ML SQ SCH ×4 (07:30→20:53)
[2019-07-25] MEDS: METOPROLOL TAR 50 MG TAB PO SCH (08:07)
[2019-07-25] MEDS ORDERED: KCL 20 MEQ/100 mL IVPB 20 MEQ/100 ML BAG IV SCH (08:50)
[2019-07-25] MEDS: ASPIRIN EC 81 MG TAB PO SCH (09:00)
[2019-07-25] MEDS: GABAPENTIN 300 MG CAP PO SCH ×2 (09:00→20:53)
[2019-07-25] MEDS: CLOPIDOGREL 75 MG TABLET PO SCH (09:00)
[2019-07-25] MEDS: FERROUS SULFATE 325 MG TAB PO SCH (09:00)
[2019-07-25] MEDS: ENOXAPARIN 40 MG/0.4 ML SQ SCH (09:00)
--- NOTE | 2019-07-25 09:31 | P.PN ---
Date of Service: 07/24/19 SUBJECTIVE: I was called because of low blood pressure. Patient's systolic blood pressure was 85 over a diastolic of 50. patient was bolused IV fluids. Repeat blood pressure showed a systolic over 100. Patient responds appropriately. No other complaints. Will DC her hydrocodone and put her on Ultram. OBJECTIVE: Vital Signs: reviewed General: responds appropriately CV: RRR Lungs: clear bilaterally Abd: Soft NT/distended BS + Ext: Within normal limits ASSESSMENT: 1. Hypotension 2. Chronic pain syndrome 3. DM-2 PLAN: - continue with IV hydration. Recheck vitals later today.
[2019-07-25] MEDS: NITROGLYCERIN 0.4 MG/TAB SL PRN ×2 (10:26→22:35)
[2019-07-25] MEDS: TRAMADOL HCL 50 MG TAB PO PRN (12:30)
--- NOTE | 2019-07-25 14:30 | P.SSS ---
Patient History Date of Service: 07/25/19 Primary Care Provider: Dr. Crawford(Hospitalist is covering him) Reason for admission: Chest pain History of Present Illness: See HPI Allergies No Known Drug Allergies Allergy (Verified 03/22/18 04:48) Unknown NKDA Allergy (Uncoded 03/22/18 04:48) Unknown No Known Allergies Allergy (Uncoded 03/22/18 04:48) Unknown Home Medications: Clopidogrel Bisulfate [Plavix*] 75 mg PO DAILY 06/08/19 Gabapentin [Neurontin] 600 mg PO BID 06/08/19 Insulin Glargine Human [Lantus*] 25 unit SQ DAILY 06/08/19 Metformin HCl [Glucophage*] 500 mg PO DAILY WITH BREAKFAST 06/08/19 Metoprolol Tartrate [Lopressor] 50 mg PO DAILY 06/08/19 Pantoprazole [Protonix Tab*] 40 mg PO DAILY 06/08/19 Acetaminophen [Tylenol] 325 mg PO TID 06/19/19 Codeine/APAP [Tylenol #3*] 1 tab PO Q4HP PRN 07/24/19 Hydrocodone 7.5/APAP 325 [[place] 7.5/325 mg*] 1 tab PO TID 07/24/19 - Past Medical/Surgical History Has patient received pneumonia vaccine in the past: Yes Diabetic: Yes -: HTN -: Hyperlipidemia -: CAD -: Arthritis -: Obesity -: Noncompliance -: Depression with anxiety -: Hyperlipidemia -: History of UTI -: 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 - Family History Mother -: Heart disease, Hypertension - Social History Smoking Status: Never smoker Alcohol use: No CD- Drugs: No Caffeine use: Yes Place of Residence: Home Review of Systems 10-point ROS is otherwise unremarkable Physical Examination - Vital Signs Temperature: 97.7 F Blood Pressure: 147/73 Pulse: 94 Respirations: 18 Pulse Ox (%): 98 - Physical Exam General: Alert, In no apparent distress HEENT: Atraumatic, PERRLA, Mucous membr. moist/pink, EOMI, Sclerae nonicteric Neck: Supple, 2+ carotid pulse no bruit, No LAD, Without JVD or thyroid abnormality Respiratory: Clear to auscultation bilaterally, Normal air movement Cardiovascular: Regular rate/rhythm, Normal S1 S2 Gastrointestinal: Normal bowel sounds, No tenderness Musculoskeletal: No tenderness Integumentary: No rashes Neurological: Normal gait, Normal speech, Normal strength at 5/5 x4 extr, Normal tone, Normal affect Lymphatics: No axilla or inguinal lymphadenopathy - Diagnosis (Problem(s)) (1) Chest pain Onset Date: 07/17/15 Current Visit: No Status: Resolved (2) Anemia of chronic disease Current Visit: No Status: Chronic (3) Anxiety Current Visit: No Status: Chronic (4) Coronary arteriosclerosis Current Visit: No Status: Chronic (5) Depressive disorder Current Visit: No Status: Chronic (6) Diabetes mellitus Onset Date: 07/17/15 Current Visit: No Status: Chronic (7) Hyperlipidemia Current Visit: No Status: Chronic (8) Hypertension Onset Date: 08/06/15 Current Visit: No Status: Chronic Qualifiers: Hypertension type: essential hypertension Qualified Code(s): I10 - Essential (primary) hypertension Treatment Summary: Overall during the hospital stay patient main stable Patient was initially admitted to the hospital for chest pain. Troponin x2 remained negative. Cardiology was consulted. Patient was started on ACS medications here in the hospital. Cardiology saw the patient here in the hospital. Patient's chest pain had resolved after 24 hr. Cardiology recommended to continue with medical management. Patient's Pap catheterization was uneventful. Patient was thus referred over back to the senior care facility. Paperwork has been sent and patient was discharged to the senior care facility once accepted. Patient was asked to continue with the current medical management and follow up with cardiology in about 1-2 days post discharge - Disposition Disposition: TRANSFER TO LONG-TERM Condition: GOOD Diet: Regular Activity: Ad gera
--- NOTE | 2019-07-25 14:39 | CON ---
Mrs. Pompa is 69. She came to the hospital because of chest pain. History Of Present Illness: Ms. Pmopa has diabetes, known coronary heart disease. She has had a cor onary intervention. She has extremely small coronary arteries and they were not amenable to revascul arization. In May of this year, she underwent a hip nailing and intramedullary rodding for lef t intertrochanteric hip fracture. It was not a joint replacement, it was emergent. There were no ca rdiac complications at that time. She says the last time she had any chest pain was probably 6 month s ago. The last time I did a cardiac cath was 2014 and at that point, her arteries were truly, diffu sely, severely diseased and not amenable to any kind of coronary interventions, bypass or stents. So , she has been doing very well considering how bad her arteries look. Medications: Her outpatient medications have been insulin, metformin, gabapentin, metoprolol, Proton ix, Plavix, acetaminophen, hydrocodone and codeine with acetaminophen. Physical Examination: General: She is 5 feet tall, 160 pounds, obese, alert, oriented, pleasant, not in distress. Lungs: Clear. Heart: Exam within normal limits. Abdomen: Soft. Extremities: Normal. Her electrocardiogram shows sinus rhythm, right bundle. No change from older EKGs. Impression: Ms. Pompa has stable angina, not an acute coronary syndrome. We can add long-acting ora l nitrates or Ranexa in the future if she has more chest pain. I suspect this episode of chest pain was not even related to the coronary arteries. NATTY/MORENO Voice ID: [id number] Report ID: [id number]
[2019-07-25] MEDS ORDERED: MAGNESIUM SULFATE 1 gm IVPB 1 GM/100 ML BAG IV ONE (14:53)
--- NOTE | 2019-07-25 15:46 | ECHO ---
HEIGHT: 5 ft 0 in WEIGHT: 160 lb 0 oz DATE OF STUDY: 07/25/[address]: Kody Lindsay DO 2-DIMENSIONAL: YES M.MODE: YES DOPPLER: YES COLOR FLOW: YES TDS: NO PORTABLE: NO DEFINITY: NO BUBBLE STUDY: NO DIAGNOSIS: CHEST PAIN CARDIAC HISTORY: CATHERIZATION: NO SURGERY: NO PROSTHETIC VALVE: NO PACEMAKER: NO MEASUREMENTS (cm) DIASTOLIC (NORMALS) SYSTOLIC (NORMALS) IVSd 1.3 (0.6-1.2) LA Diam (1.9-4.0) LVEF 78% LVIDd 2.7 (3.5-5.7) LVIDs 1.5 (2.0-3.5) %FS 45% LVPWd 1.2 (0.6-1.2) Ao Diam 2.4 (2.0-3.7) 2 DIMENSIONAL ASSESSMENT: RIGHT ATRIUM: NORMAL LEFT ATRIUM: NORMAL RIGHT VENTRICLE: NORMAL LEFT VENTRICLE: LEFT VENTRICULAR HYPERTROPHY TRICUSPID VALVE: NORMAL MITRAL VALVE: MITRAL ANNULAR CALCIFICATION PULMONIC VALVE: NORMAL AORTIC VALVE: NORMAL PERICARDIAL EFFUSION: NONE AORTIC ROOT: NORMAL LEFT VENTRICULAR WALL MOTION: NORMAL. DOPPLER/COLOR FLOW: IMPAIRED LEFT VENTRICULAR RELAXATION. COMMENTS: NORMAL LEFT VENTRICULAR EJECTION FRACTION. LEFT VENTRICULAR HYPERTROPHY. MITRAL ANNULAR CALCIFICATION. IMPAIRED LEFT VENTRICULAR RELAXATION. TECHNOLOGIST: URMILA YEE
[2019-07-26] MEDS: NA CHLORIDE 0.9% 1,000 ML IV SCH ×4 (02:55→21:14)
[2019-07-26] MEDS: PANTOPRAZOLE 40MG TABLET PO SCH (05:07)
[2019-07-26 06:03] LABS: Magnesium 1.8 mg/dL (1.8-2.4); Potassium 4.1 mmol/L (3.5-5.1)
[2019-07-26] MEDS: TRAMADOL HCL 50 MG TAB PO PRN (07:01)
[2019-07-26] MEDS: INSULIN -REGULAR HUMAN 50 UNIT/0.5 ML ML SQ SCH ×4 (07:30→21:23)
[2019-07-26] MEDS ORDERED: MAGNESIUM SULFATE 1 gm IVPB 1 GM/100 ML BAG IV ONE (09:00)
[2019-07-26] MEDS: METOPROLOL TAR 50 MG TAB PO SCH (09:00)
[2019-07-26] MEDS: GABAPENTIN 300 MG CAP PO SCH ×2 (09:01→21:13)
[2019-07-26] MEDS: CLOPIDOGREL 75 MG TABLET PO SCH (09:01)
[2019-07-26] MEDS: ASPIRIN EC 81 MG TAB PO SCH (09:01)
[2019-07-26] MEDS: FERROUS SULFATE 325 MG TAB PO SCH (09:01)
[2019-07-26] MEDS: ENOXAPARIN 40 MG/0.4 ML SQ SCH (09:04)
--- NOTE | 2019-07-26 11:20 | P.PN ---
Date of Service: 07/26/19 Subjective: Patient seen and examined at bedside with RN. Chart reviewed. Doing well overall this morning. Now cleared for discharge. Awaiting Insurance approval for SNF Objective: Vital signs: Reviewed Physical exam General: Not in acute distress alert and oriented x3 Cardiovascular: Regular rate and rhythm Lungs: Clear to auscultate bilateral Extremities: 2+ pulse and wet gangrene improving Assessment and plan Chest Pain, ACS R/o -troponin x 2 negative. EKG with nonspecific Changes -Cardiology consulted. Appreciated Reccs -medical Mgmt -DC back to [place] for SNF Diabetes mellitus type 2 insulin dependent -Will provide insulin sliding scale and monitor Accu-Cheks. Hypertension -Will continue with blood pressure medication. Hyperlipidemia -Will continue with medication. Chronic pain with neuropathy -Will continue with gabapentin. Recent left hip surgery status post repair -Patient to return back to skilled facility on discharge.CM working on process. Awaiting Insurance Approval Disposition: Continue with plan of care. Return back to the alf Once Accepted.
--- NOTE | 2019-07-26 15:25 | PN ---
Date of Progress Note: 07/26/2019 Ms. Pompa is a 69, had came in with chest pain which was thought secondary to stable angina. She is known to have small coronary artery disease. She is not a candidate intervention. She has diabetes and hypertension. Echocardiogram that was done yesterday which was normal. She is chest pain-free. We can certainly add Ranexa or Imdur to her regimen. She can be discharged whenever it is okay with Dr. Gomez. MENDY/MORENO Voice ID: [id number] Report ID: [id number]
[2019-07-27] MEDS: PANTOPRAZOLE 40MG TABLET PO SCH (05:20)
[2019-07-27] MEDS: NA CHLORIDE 0.9% 1,000 ML IV SCH (05:21)
[2019-07-27 06:18] LABS: Magnesium 1.6 mg/dL (1.8-2.4); Potassium 4.4 mmol/L (3.5-5.1)
[2019-07-27] MEDS ORDERED: HYDROCODONE/APAP 7.5/325 MG TAB PO PRN (08:35)
[2019-07-27] MEDS ORDERED: MAGNESIUM SULFATE 1 gm IVPB 1 GM/100 ML BAG IV ONE (09:00)
[2019-07-27] MEDS: METOPROLOL TAR 50 MG TAB PO SCH (09:24)
[2019-07-27] MEDS: ASPIRIN EC 81 MG TAB PO SCH (09:24)
[2019-07-27] MEDS: INSULIN -REGULAR HUMAN 50 UNIT/0.5 ML ML SQ SCH ×2 (09:24→12:02)
[2019-07-27] MEDS: GABAPENTIN 300 MG CAP PO SCH (09:25)
[2019-07-27] MEDS: CLOPIDOGREL 75 MG TABLET PO SCH (09:25)
[2019-07-27] MEDS: ENOXAPARIN 40 MG/0.4 ML SQ SCH (09:25)
[2019-07-27] MEDS: FERROUS SULFATE 325 MG TAB PO SCH (09:26)
[2019-07-27 12:46] VITALS: O2SAT 98
--- NOTE | 2019-07-27 13:30 | P.DS ---
Admission Date: 07/24/19 Discharge Date: 07/27/19 Primary Care Provider: Dr. Crawford(Hospitalist is covering him) Disposition: TRANSFER TO CARE HOME Discharge Condition: GOOD Reason for Admission: Chest pain Consultations: Cardiology-Dr. Atkins Procedures: Venous Doppler: No lower extremity DVT in identified Echocardiogram: Ejection fraction 78% LEFT VENTRICULAR WALL MOTION: NORMAL. DOPPLER/COLOR FLOW: IMPAIRED LEFT VENTRICULAR RELAXATION. COMMENTS: NORMAL LEFT VENTRICULAR EJECTION FRACTION. LEFT VENTRICULAR HYPERTROPHY. MITRAL ANNULAR CALCIFICATION. IMPAIRED LEFT VENTRICULAR RELAXATION. Medical Problem List: Chest pain likely stable angina with history of CAD Diabetes mellitus type 2 insulin dependent Hypertension Chronic pain with neuropathy Recent left hip surgery status post repair Brief History of Present Illness: 69-year-old female with history of diabetes mellitus type 2 insulin dependent, hypertension, hyperlipidemia, and chronic pain. Patient presented with chest pain. Patient will go up with chest pain today. It was to the substernal region. She reports not being able to sleep over the last 3 days. Patient currently at a skilled facility as she had recent left hip surgery. Chest pain was associated with some headaches and mild shortness of breath. Patient was brought in to the emergency room for further evaluation. In the ER EKG shows no significant EKG changes. White count 5.8, hemoglobin 10.1, sodium 139, potassium 4.3. BUN of 12, creatinine 0.71 with a GFR of 81. Glucose 258. Initial troponin unremarkable. BNP around 300. Chest x-ray unremarkable. Vital signs stable. Patient was admitted for further evaluation and observation. When I saw the patient in the ER, she appeared stable. Prior history shows stress test in 2017 showing some possible ischemia. Unsure of prior heart catheterization results. Patient is seen by Cardiology. Patient has had issues with chronic pain medication. Hospital Course: Patient presented with chest pain. Cardiac enzymes unremarkable. Patient with history of CAD. Patient seen and evaluated by Cardiology. Echocardiogram performed showed normal ejection fraction. Cardiology felt chest pain likely stable angina. Recommendation was to add Ranexa 500 mg twice daily. At discharge patient may continue with aspirin 81 mg daily, Plavix 75 mg daily and new medication Ranexa 500 mg 1 pill twice daily. Recommend follow up with cardiology in 1-2 weeks to follow up this hospitalization. No further cardiac intervention required. Patient with diabetes mellitus type 2 insulin dependent. This has remained stable. At discharge she will continue with metformin 500 mg daily and Lantus 25 units daily. Recommend to maintain blood sugars less 140 fasting and less than 200 after meals. Further adjustment can be done by her PCP. Patient with hypertension. This has remained stable. At discharge she will continue with Lopressor 50 mg daily. Recommend to maintain blood pressures less 150/80. Further adjustment can be done by her PCP. Patient with GERD. Patient will continue with Protonix 40 mg daily. Patient with chronic pain and diabetic neuropathy. At discharge she will continue with gabapentin 600 mg twice daily and [place] 7.5/325 mg one pill 3 times a day as needed for pain. Recommend follow up with pain management to further monitor and address. Further adjustment in gabapentin may be required. Patient with recent left hip surgery status post repair. Patient will return back to the skilled facility at discharge to continue physical therapy. Vital Signs/Physical Exam: Temp Pulse Resp BP Pulse Ox 97.9 F 80 18 131/60 18 L 07/27/19 08:00 07/27/19 09:24 07/27/19 08:00 07/27/19 09:24 07/27/19 08:00 General: Alert, In no apparent distress, Oriented x3, Cooperative HEENT: Atraumatic Neck: Supple Respiratory: Clear to auscultation bilaterally, Normal air movement Cardiovascular: Normal pulses, Regular rate/rhythm Gastrointestinal: Normal bowel sounds, Soft and benign, Non-distended Musculoskeletal: No erythema, No tenderness, No warmth Integumentary: No erythema, No warmth, No cyanosis Neurological: Normal speech, Normal strength at 5/5 x4 extr, Normal tone, Normal affect Laboratory Data at Discharge: WBC 5.7 K/uL (4.3-10.9) 07/25/19 03:18 Hgb 9.2 g/dL (12.0-15.0) L 07/25/19 03:18 Hct 28.0 % (36.0-45.0) L 07/25/19 03:18 Plt Count 226 K/uL (152-406) 07/25/19 03:18 PT 12.9 SECONDS (9.5-12.5) H 07/24/19 12:16 INR 1.10 07/24/19 12:16 Sodium 139 mmol/L (136-145) 07/27/19 05:29 Potassium 4.4 mmol/L (3.5-5.1) 07/27/19 05:29 BUN 13 mg/dL (7-18) 07/27/19 05:29 Creatinine 0.75 mg/dL (0.55-1.3) 07/27/19 05:29 Glucose 226 mg/dL (74-106) H 07/27/19 05:29 Magnesium 1.6 mg/dL (1.8-2.4) L 07/27/19 05:29 Troponin I < 0.02 ng/mL (0.0-0.045) 07/25/19 03:18 Triglycerides 164 mg/dL (<150) H 07/25/19 03:18 Cholesterol 149 mg/dL (<200) 07/25/19 03:18 HDL Cholesterol 38 mg/dL (40-60) L 07/25/19 03:18 Cholesterol/HDL Ratio 3.92 07/25/19 03:18 Home Medications: Clopidogrel Bisulfate [Plavix*] 75 mg PO DAILY 06/08/19 Gabapentin [Neurontin] 600 mg PO BID 06/08/19 Insulin Glargine Human [Lantus*] 25 unit SQ DAILY 06/08/19 Metformin HCl [Glucophage*] 500 mg PO DAILY WITH BREAKFAST 06/08/19 Metoprolol Tartrate [Lopressor] 50 mg PO DAILY 06/08/19 Pantoprazole [Protonix Tab*] 40 mg PO DAILY 06/08/19 Acetaminophen [Tylenol] 325 mg PO TID 06/19/19 Hydrocodone 7.5/APAP 325 [[place] 7.5/325 mg*] 1 tab PO TID 07/24/19 Ranolazine [Ranexa] 500 mg PO BID #60 tab.er.12h 07/27/19 New Medications: Ranolazine [Ranexa] 500 mg PO BID #60 tab.er.12h Patient Discharge Instructions: 1. Patient to return to skilled facility to continue rehabilitation. 2. Patient presented with chest pain. Cardiac enzymes unremarkable. Patient with history of CAD. Patient seen and evaluated by Cardiology. Echocardiogram performed showed normal ejection fraction. Cardiology felt chest pain likely stable angina. Recommendation was to add Ranexa 500 mg twice daily. At discharge patient may continue with aspirin 81 mg daily, Plavix 75 mg daily and new medication Ranexa 500 mg 1 pill twice daily. Recommend follow up with cardiology in 1-2 weeks to follow up this hospitalization. No further cardiac intervention required. 3. Patient with diabetes mellitus type 2 insulin dependent. This has remained stable. At discharge she will continue with metformin 500 mg daily and Lantus 25 units daily. Recommend to maintain blood sugars less 140 fasting and less than 200 after meals. Further adjustment can be done by her PCP. 4. Patient with hypertension. This has remained stable. At discharge she will continue with Lopressor 50 mg daily. Recommend to maintain blood pressures less 150/80. Further adjustment can be done by her PCP. 5. Patient with GERD. Patient will continue with Protonix 40 mg daily. 6. Patient with chronic pain and diabetic neuropathy. At discharge she will continue with gabapentin 600 mg twice daily and [place] 7.5/325 mg one pill 3 times a day as needed for pain. Recommend follow up with pain management to further monitor and address. Further adjustment in gabapentin may be required. 7. Patient with recent left hip surgery status post repair. Patient will return back to the skilled facility at discharge to continue physical therapy. Diet: Regular Activity: Ad gera Followup: Ronald Atkins MD [ACTIVE - CAN ADMIT] - (please call to make an appointment. ) Time spent managing pt's care (in minutes): 55
[2019-07-27 14:05] VITALS: BP 109/55; TEMP 97.3
--- OUTSIDE RECORDS SUMMARY | 2019-07-31 20:19 | XMS REPORT ---
:1950 [facility] Address [address] [place] [address] Dr. Hess [address] [place] [id number] Care Team Providers Name Role Phone Unavailable Unavailable Unavailable Problems This patient has no known problems. Allergies, Adverse Reactions, Alerts This patient has no known allergies or adverse reactions. Medications This patient has no known medications.
--- OUTSIDE RECORDS SUMMARY | 2019-07-31 20:20 | XMS REPORT ---
:1950 Author Organization [employer] Care Team Providers Name Role Phone James Crawford Provider Role Unavailable Allergies No Known Allergies Problems Problem Type Condition Code Onset Dates Condition Status Assessment Chronic, continuous use of opioids F11.90 Active Problem Female bladder prolapse N81.10 Active Problem Diabetes E11.9 Active Problem Heart disease I51.9 Active Problem Hypertension I10 Active Problem Diabetic polyneuropathy associated E11.42 Active with type 2 diabetes mellitus Problem Peripheral vascular disease due to E13.51 Active secondary diabetes Problem History of heart artery stent Z95.5 Active Problem Coronary artery disease involving I25.10 Active [place] coronary artery of [place] heart without angina pectoris Medications Medication Code Code Instructions Start End Status Dosage System Date Date Pantoprazole ND 95566189086 40 MG Orally Once Active 1 tablet Sodium a day Gabapentin ND 32146801734 300 MG Orally Active 1 capsule Once a day Restasis ND 45871397318 0.05 % Ophthalmic Active 1 drop Twice a day into affected eye Touhasmukh SoloStar ND 71837851574 300u/ml February 03Jul Active 25 units subcutaneously 2018 12, once daily 2018 Gabapentin ND 78837529213 600 MG Orally Active 1 capsule Once a day Plavix ND 31501017023 75 MG Orally Once Active 1 tablet a day Linzess ND 44503885500 145 mcg po once a Active 1 tablet day Metformin HCl ND 91095597179 1000 MG Orally Active 1 tablet Once a day with a meal Nitroglycerin ND 85614031958 0.3 MG Sublingual Active as directed Hydrocodone-Acet ND 61298442830 7.5-325 MG Orally Active 1 tablet aminophen every 6 hrs as needed Fenofibrate ND 68315068264 160 MG Orally Active 1 tablet Once a day with food Results No Known Results Summary Purpose [employer] Submission
== END 2019-07-27 12:38 ==
LOC: ER 11:54 → ERHOLD 14:28 → 2ND 15:59
PROVIDERS: ADMIT Family Medicine; ATTEND Family Medicine
DX: I25.119 Atherosclerotic heart disease of native coronary artery with unspecified angina pectoris (principal); I95.9 Hypotension, unspecified; E11.9 Type 2 diabetes mellitus without complications; I10 Essential (primary) hypertension; E78.5 Hyperlipidemia, unspecified; M19.90 Unspecified osteoarthritis, unspecified site; G89.4 Chronic pain syndrome; D63.8 Anemia in other chronic diseases classified elsewhere; F41.8 Other specified anxiety disorders; E66.9 Obesity, unspecified; Z68.31 Body mass index [BMI] 31.0-31.9, adult
CPT/HCPCS: 93005; 93306; 85025 ×2; 80048 ×4; 36415 ×3; 83735 ×4; 82550 ×2; 85610; 80061; 82947 ×12; 84443; 84484 ×3; 82553 ×2; 84439; 83880; 71045; 93970; 97116 ×3; 97161; 97530 ×2; 99284; J1650 ×3; J3475 ×4; G0378 ×6; J7030 ×6; 81003; 81015

== ENCOUNTER 2019-08-19 20:36 | Emergency (ER) | payer OTHER ==
--- OUTSIDE RECORDS SUMMARY | 2019-08-19 20:38 | XMS REPORT ---
:1950 [facility] Address [address] [place] [address] Dr. Hess [address] [place] [address] Care Team Providers Name Role Phone Unavailable Unavailable Unavailable Problems This patient has no known problems. Allergies, Adverse Reactions, Alerts This patient has no known allergies or adverse reactions. Medications This patient has no known medications.
--- OUTSIDE RECORDS SUMMARY | 2019-08-19 20:39 | XMS REPORT ---
[...] Problem Coronary artery disease involving I25.10 Active [place] coronary artery of [place] heart without angina pectoris Medications Medication Code Code Instructions Start End Status Dosage System Date Date Pantoprazole ND 30249921026 40 MG Orally Once Active 1 tablet Sodium a day Gabapentin ND 03382002442 300 MG Orally Active 1 capsule Once a day Restasis ND 62330552936 0.05 % Ophthalmic Active 1 drop Twice a day into affected eye Touhasmukh SoloStar ND 48779067236 300u/ml February 03Jul Active 25 units subcutaneously 2018 12, once daily 2018 Gabapentin ND 83273980706 600 MG Orally Active 1 capsule Once a day Plavix ND 07562421879 75 MG Orally Once Active 1 tablet a day Linzess ND 76593292745 145 mcg po once a Active 1 tablet day Metformin HCl ND 52482408256 1000 MG Orally Active 1 tablet Once a day with a meal Nitroglycerin ND 58125643363 0.3 MG Sublingual Active as directed Hydrocodone-Acet ND 87927621755 7.5-325 MG Orally Active 1 tablet aminophen every 6 hrs as needed Fenofibrate ND 45062925647 160 MG Orally Active 1 tablet Once a day with food Results No Known Results Summary Purpose [employer]Clinical[employer] Submission
--- NOTE | 2019-08-20 01:39 | EDPHYS ---
Physician Documentation [facility] Name: Cherry Pompa Age: 69 yrs Sex: Female : 1950 Arrival Date: 08/19/2019 Time: 20:38 Bed 16 Private MD: ED Physician Carlos Kurtz Historical: - Allergies: 08/19 21:36 No Known Allergies; jd3 - Home Meds: 21:36 Protonix 40 mg Oral TbEC 1 tab once daily [Active]; acetaminophen 325 mg Oral tab 2 jd3 tabs three times a day [Active]; acetaminophen-codeine 300-30 mg Oral tab 1 tab every 4 hours [Active]; Insulin Glargine Sub-Q [Active]; metformin 500 mg Oral tab 1 tab daily [Active]; metoprolol tartrate 50 mg Oral tab 1 tab once daily [Active]; Neurontin 600 mg Oral tab 1 tab twice a day [Active]; [place] 7.5-325 mg Oral tab [Active]; Plavix 75 mg Oral tab 1 tab once daily [Active]; - PMHx: 21:36 Hypertension; High Cholesterol; GERD; Diabetes - IDDM; Arthritis; neuropathy; Angina; jd3 - PSHx: 21:36 Cholecystectomy; Hysterectomy; jd3 - Immunization history:: Adult Immunizations up to date. - Social history:: Smoking status: Patient/guardian denies using tobacco. - Ebola Screening: : Patient negative for fever greater than or equal to 101.5 degrees Fahrenheit, and additional compatible Ebola Virus Disease symptoms. Vital Signs: 21:36 BP 112 / 50; Pulse 86; Resp 18 S; Temp 98.9(O); Pulse Ox 98% on R/A; Weight 68.95 kg jd3 (R); Height 5 ft. 0 in. (152.40 cm) (R); Pain 5/10; 21:36 Body Mass Index 29.69 (68.95 kg, 152.40 cm) jd3 MDM: 23:30 Patient medically screened. [facility] 08/19 23:02 Order name: Urine Dipstick--Ancillary (enter results) ar5 08/20 00:13 Order name: Basic Metabolic Panel aramis 08/20 00:13 Order name: CBC with Diff [facility] 08/20 00:13 Order name: LFT's [facility] 08/20 00:13 Order name: Magnesium [facility] 08/20 00:13 Order name: NT PRO-BNP [facility] 08/20 00:13 Order name: PT-INR [facility] 08/20 00:13 Order name: Troponin (emerg Dept Use Only) [facility] 08/20 00:13 Order name: XRAY Chest (1 view) [facility] 08/20 00:13 Order name: CT Stone Protocol [facility] 08/20 00:13 Order name: Urine Culture [facility] 08/20 00:13 Order name: Lipase [facility] 08/20 00:20 Order name: Glucose, Ancillary Testing [facility] 08/19 22:56 Order name: Urine Dipstick-Ancillary (obtain specimen); Complete Time: 22:56 aj 08/20 00:13 Order name: Cardiac monitoring [facility] 08/20 00:13 Order name: EKG - Nurse/Tech [facility] 08/20 00:13 Order name: IV Saline Lock [facility] 08/20 00:13 Order name: Labs collected and sent [facility] 08/20 00:13 Order name: O2 Per Protocol [facility] 08/20 00:13 Order name: O2 Sat Monitoring [facility] Administered Medications: 08/20 01:49 Not Given (Patient Eloped): NS 0.9% 500 ml IV at bolus once aj1 01:49 Not Given (Patient Eloped): NS 0.9% 1000 ml IV at 125 ml/hr continuous aj1 01:49 Not Given (Patient Eloped): morphine 2 mg IVP once; (PAIN>8) RASS on ADMN: Combtv4, aj1 Very Agttd3, Agttd2, Rstlss1, AlertClm0, Drwsy-1, LtSdtn-2, ModSdtn-3, DpSdtn-4, UnArsble-5 x2 01:49 Not Given (Patient Eloped): Zofran 4 mg IVP once; over 2 minutes aj1 01:49 Not Given (Patient Eloped): Rocephin 1 grams IV at per protocol once; Given slow IV aj1 push per pharmacy instructions Disposition: 08/20/19 01:38 Patient left the facility before being seen by provider. Preliminary diagnosis is Pelvic and perineal pain. - Patient left due to other. - Condition is Undetermined. - Problem is an acute exacerbation. - Symptoms are unchanged. Signatures: Dispatcher [employer] EDOR Monique Null RN RN aj1 Carlos Kurtz MD MD cha Davies, Jonathon RN RN jd3 Corrections: (The following items were deleted from the chart) 01:50 01:38 08/20/2019 01:38 Patient left the facility before being seen by provider. aj1 Preliminary diagnosis is Pelvic and perineal pain. Reason stated they are leaving due to other. Condition is Undetermined. Problem is an acute exacerbation. Symptoms are unchanged. aramis
--- NOTE | 2019-08-20 01:39 | ER ---
Nurse's Notes [facility] Name: Cherry Pompa Age: 69 yrs Sex: Female : 1950 Arrival Date: 08/19/2019 Time: 20:38 Bed 16 Private MD: Diagnosis: Pelvic and perineal pain Presentation: 08/19 21:30 Presenting complaint: Patient states: "I was at [facility] and was told I jd3 had a UTI and had anemia and they couldn't give me a blood transfusion because of the UTI. started today I am having blood in my urine. I also have a potential shingles rash on my neck.". Transition of care: patient was not received from another setting of care. Onset of symptoms was August 19, 2019. Risk Assessment: Do you want to hurt yourself or someone else? Patient reports no desire to harm self or others. Initial Sepsis Screen: Does the patient meet any 2 criteria? No. Patient's initial sepsis screen is negative. Does the patient have a suspected source of infection? No. Patient's initial sepsis screen is negative. Care prior to arrival: None. 21:30 Method Of Arrival: Wheelchair jd3 21:30 Acuity: HERIBERTO 3 jd3 Historical: - Allergies: 21:36 No Known Allergies; jd3 - Home Meds: 21:36 Protonix 40 mg Oral TbEC 1 tab once daily [Active]; acetaminophen 325 mg Oral tab 2 jd3 tabs three times a day [Active]; acetaminophen-codeine 300-30 mg Oral tab 1 tab every 4 hours [Active]; Insulin Glargine Sub-Q [Active]; metformin 500 mg Oral tab 1 tab daily [Active]; metoprolol tartrate 50 mg Oral tab 1 tab once daily [Active]; Neurontin 600 mg Oral tab 1 tab twice a day [Active]; [place] 7.5-325 mg Oral tab [Active]; Plavix 75 mg Oral tab 1 tab once daily [Active]; - PMHx: 21:36 Hypertension; High Cholesterol; GERD; Diabetes - IDDM; Arthritis; neuropathy; Angina; jd3 - PSHx: 21:36 Cholecystectomy; Hysterectomy; jd3 - Immunization history:: Adult Immunizations up to date. - Social history:: Smoking status: Patient/guardian denies using tobacco. - Ebola Screening: : Patient negative for fever greater than or equal to 101.5 degrees Fahrenheit, and additional compatible Ebola Virus Disease symptoms. Screenin:44 Abuse screen: Denies threats or abuse. Denies injuries from another. Nutritional aj1 screening: No deficits noted. Tuberculosis screening: No symptoms or risk factors identified. 08/20 00:26 Fall Risk None identified. aj1 Assessment: 08/19 21:44 General: Appears in no apparent distress. comfortable, Behavior is calm, cooperative, aj1 appropriate for age. Pain: Pain currently is 5 out of 10 on a pain scale. Neuro: Level of Consciousness is awake, alert, obeys commands, Oriented to person, place, time, situation. Cardiovascular: Patient's skin is warm and dry. Respiratory: Airway is patent Respiratory effort is even, unlabored, Respiratory pattern is regular, symmetrical. GI: No signs and/or symptoms were reported involving the gastrointestinal system. : Reports blood in urine, recent diagnosis of UTI. EENT: No signs and/or symptoms were reported regarding the EENT system. Derm: No signs and/or symptoms reported regarding the dermatologic system. Skin is pink, warm \\T\\ dry. normal. Musculoskeletal: No signs and/or symptoms reported regarding the musculoskeletal system. Circulation, motion, and sensation intact. 22:45 Reassessment: Patient appears in no apparent distress at this time. No changes from aj1 previously documented assessment. Patient and/or family updated on plan of care and expected duration. Pain level reassessed. Patient is alert, oriented x 3, equal unlabored respirations, skin warm/dry/pink. 23:40 Reassessment: Patient reports pain to her legs, states that she takes gabapentin for aj1 this pain but it doesn't help and she would like something else. Notified Dr. Kurtz of patient complaint. 08/20 00:06 Reassessment: Patient's family states they want patient's blood sugar checked, FSBS is aj1 241. 00:10 Reassessment: Patient's family is upset that the doctor has not been in to see her and jam has not order pain medication. Reports that they think that she has leg pain because she has a prolapsed bladder. Notified Dr. Kurtz. 00:15 Reassessment: Went into patient's room to explain tests that have been ordered by Dr. jam Kurtz. Patient's family member is agitated, yelling at staff, states that they are leaving. Notified Dr. Kurtz. Vital Signs: 08/19 21:36 BP 112 / 50; Pulse 86; Resp 18 S; Temp 98.9(O); Pulse Ox 98% on R/A; Weight 68.95 kg jd3 (R); Height 5 ft. 0 in. (152.40 cm) (R); Pain 5/10; 21:36 Body Mass Index 29.69 (68.95 kg, 152.40 cm) jd3 ED Course: 20:38 Patient arrived in ED. ds1 21:35 Triage completed. jd3 21:37 Arm band placed on. jd3 21:44 Monique Null, RN is Primary Nurse. aj1 21:44 Patient has correct armband on for positive identification. Bed in low position. Call aj1 light in reach. 21:44 No provider procedures requiring assistance completed. aj1 23:00 Straight cath inserted, using sterile technique, Returned cloudy urine. Patient aj1 tolerated well. 23:30 Carlos Kurtz MD is Attending Physician. [facility] 08/20 00:26 Patient did not have IV access during this emergency room visit. aj1 Administered Medications: 01:49 Not Given (Patient Eloped): NS 0.9% 500 ml IV at bolus once aj1 01:49 Not Given (Patient Eloped): NS 0.9% 1000 ml IV at 125 ml/hr continuous aj1 01:49 Not Given (Patient Eloped): morphine 2 mg IVP once; (PAIN>8) RASS on ADMN: Combtv4, aj1 Very Agttd3, Agttd2, Rstlss1, AlertClm0, Drwsy-1, LtSdtn-2, ModSdtn-3, DpSdtn-4, UnArsble-5 x2 01:49 Not Given (Patient Eloped): Zofran 4 mg IVP once; over 2 minutes aj1 01:49 Not Given (Patient Eloped): Rocephin 1 grams IV at per protocol once; Given slow IV aj1 push per pharmacy instructions Outcome: 00:27 AMA Left before signing form. aj1 00:27 Condition: stable 01:50 Patient left the ED. aj1 Signatures: Monique Null RN RN aisha1 Carlos Kurtz MD MD cha Sanford, Demi ds1 Fei Ontiveros RN RN jd3
[2019-08-20 02:40] LABS: Urine Blood 1+ (NEG); Urine Glucose 2+ (NEG); Urine Protein NEGATIVE (NEG)
[2019-08-20 07:47] VITALS: BP 112/50; TEMP 98.9; O2SAT 98
== END 2019-08-20 01:50 | disposition left against medical advice (07) ==
LOC: ER 20:36
DX: Z53.21 Procedure and treatment not carried out due to patient leaving prior to being seen by health care provider (principal)
CPT/HCPCS: 51702; 81003; 82947; 99281

== ENCOUNTER 2019-10-07 12:25 | Emergency (ER) | payer OTHER ==
--- OUTSIDE RECORDS SUMMARY | 2019-10-07 12:27 | XMS REPORT ---
:1950 [facility] [address] [place] [address] Dr. Hess [address] [place] [id number] Care Team Providers Name Role Phone Unavailable Unavailable Unavailable Problems This patient has no known problems. Allergies, Adverse Reactions, Alerts This patient has no known allergies or adverse reactions. Medications This patient has no known medications.
--- OUTSIDE RECORDS SUMMARY | 2019-10-07 12:28 | XMS REPORT ---
[...] Problem Coronary artery disease involving I25.10 Active [place] coronary artery of [place] heart without angina pectoris Medications Medication Code Code Instructions Start End Status Dosage System Date Date Pantoprazole ND 35802732121 40 MG Orally Once Active 1 tablet Sodium a day Gabapentin ND 42646334144 300 MG Orally Active 1 capsule Once a day Restasis ND 60052914901 0.05 % Ophthalmic Active 1 drop Twice a day into affected eye Touhasmukh SoloStar ND 03102792244 300u/ml February 03Jul Active 25 units subcutaneously 2018 12, once daily 2018 Gabapentin ND 59540339272 600 MG Orally Active 1 capsule Once a day Plavix ND 00001190581 75 MG Orally Once Active 1 tablet a day Linzess ND 04828185634 145 mcg po once a Active 1 tablet day Metformin HCl ND 77991987549 1000 MG Orally Active 1 tablet Once a day with a meal Nitroglycerin ND 77924061489 0.3 MG Sublingual Active as directed Hydrocodone-Acet ND 78414690294 7.5-325 MG Orally Active 1 tablet aminophen every 6 hrs as needed Fenofibrate ND 04247464203 160 MG Orally Active 1 tablet Once a day with food Results No Known Results Summary Purpose eClinicalWorks Submission
[2019-10-07] MEDS ORDERED: FENTANYL CITR 100 MCG/2 ML ONE (13:04)
[2019-10-07] MEDS ORDERED: ONDANSETRON 4 MG/2 ML VIAL ONE (13:04)
--- NOTE | 2019-10-07 13:09 | RAD REPORT ---
EXAM DESCRIPTION: Jeri Single View10/07/2019 1:04 pm CLINICAL HISTORY: Chest pain COMPARISON: July 2019 FINDINGS: The lungs appear clear of acute infiltrate. The heart is normal size IMPRESSION: No acute abnormalities displayed
[2019-10-07 13:48] LABS: Absolute Lymphocytes (CBC) 1.4 K/uL (0.7-4.9); Basophils % 1.5 % (0-1.3); Hematocrit 30.7 % (36.0-45.0); Lymphocytes % 23.1 % (15.3-44.8); MPV 6.8 fL (7.6-11.3); RBC Red Blood Cell Count 3.89 M/uL (3.86-4.86)
[2019-10-07 13:53] LABS: Protime INR 1.11
[2019-10-07 14:14] LABS: ALT/SGPT 122 U/L (12-78); AST/SGOT 103 U/L (15-37); Albumin 2.7 g/dL (3.4-5.0); Alkaline Phosphatase 367 U/L (45-117); BUN Blood Urea Nitrogen 20 mg/dL (7-18); Bicarbonate 28 mmol/L (21-32); Bilirubin Direct 0.3 mg/dL (0-0.2); Bilirubin Total 0.4 mg/dL (0.2-1.0); Glucose Level 267 mg/dL (74-106); NT PRO-BNP 1058 pg/mL (<125); Potassium 4.4 mmol/L (3.5-5.1); Protein, Total 6.7 g/dL (6.4-8.2); Sodium Level 139 mmol/L (136-145); Troponin (Emerg Dept Use Only) < 0.02 ng/mL (0.0-0.045)
[2019-10-07 14:17] LABS: Magnesium 1.3 mg/dL (1.8-2.4)
[2019-10-07 14:44] LABS: Blood Morphology Comment NOT SEEN (NOT SEEN); Platelet Estimate ADEQ; Urine White Blood Cell Casts OK
[2019-10-07] MEDS ORDERED: MAGNESIUM SULFATE 1 gm IVPB 1 GM/100 ML BAG IV ONE (15:02)
--- NOTE | 2019-10-07 16:01 | RAD REPORT ---
EXAM DESCRIPTION: CT - Abdomen Pelvis W Contrast - 10/07/2019 3:39 pm CLINICAL HISTORY: Dysuria;Constipation, chest pain, abdominal pain COMPARISON: CT study October 2014 TECHNIQUE: Biphasic, helical CT imaging of the abdomen and pelvis was performed following 100 ml non -ionic IV contrast. No oral contrast. All CT scans are performed using dose optimization technique as appropriate and may include automated exposure control or mA/KV adjustment according to patient size. FINDINGS: No suspicious findings in the lung bases. The liver, spleen, and pancreas show no suspicious findings. Cholecystectomy clips present. Biliary t ree not outside of normal range for post cholecystectomy status. Symmetric renal function is seen with no hydronephrosis or suspicious renal mass. No pyelonephritis o r acute parenchymal process. Note asymmetric bladder wall thickening or mass. [place] of the bladder ar e mildly prominent. No bladder stones seen. Uterus is absent. Ovaries are atrophic or possibly absent . No adnexal mass. No adrenal abnormalities. No gastric dilatation or wall thickening. No dilated large or small bowel. Moderately large stool vol ume is present. There is prominent stool distending the distal rectum. Sigmoid diverticulosis without diverticulitis. No free air, free fluid or inflammatory stranding. No mass or bulky lymphadenopathy. Small hernia de fects are seen in the supra umbilical abdominal wall. No acute component suspected. No omental thicke jade or bulky lymphadenopathy. Prominent disc and bony degenerative change present. Left femur fracture repair hardware in place. Dense arterial tree calcifications present. IMPRESSION: No obstruction, free air or surgically emergent finding. Large stool volume distends the rectum and there is moderate stool volume filling the colon. Sigmoid diverticulosis present without diverticulitis. 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 Uterus and possibly ovaries are absent. [place] of the urinary bladder a re mildly prominent. Cystitis is not excluded if there are matching clinical or laboratory findings. Status post cholecystectomy with normal size biliary tree.
[2019-10-07] MEDS ORDERED: MORPHINE 4 MG/ML SYR ONE (16:04)
[2019-10-07 16:32] LABS: Urine Blood 1+ (NEG); Urine Glucose 1+ (NEG); Urine Protein NEGATIVE (NEG); Urine Specific Gravity 1.015 (1.005-1.030)
[2019-10-07 16:42] LABS: Urine Bacteria 20-50 /HPF (<20); Urine Culture Reflex Order REFLEXED; Urine Mucus 1+ /HPF (NONE SEEN)
--- NOTE | 2019-10-07 16:46 | ER ---
Nurse's Notes [facility] Name: Cherry Pompa Age: 69 yrs Sex: Female : 1950 Arrival Date: 10/07/2019 Time: 12:32 Bed 13 Private MD: Diagnosis: Chest pain, unspecified;Constipation;Cystitis Presentation: 10/07 12:37 Presenting complaint: EMS states: pt c/o chest pain X 3 days. intermittent, worse iw today, pt took 2 SL nitro at home, EMS gave 1 SL nitro and ASA 324 , pt is also dizzy and has not had a BM in 5 days , also has hx of prolapsed bladder and UTI, currently on abx. Transition of care: patient was not received from another setting of care. Onset of symptoms was October 04, 2019. Risk Assessment: Do you want to hurt yourself or someone else? Patient reports no desire to harm self or others. Initial Sepsis Screen: Does the patient meet any 2 criteria? No. Patient's initial sepsis screen is negative. Does the patient have a suspected source of infection? No. Patient's initial sepsis screen is negative. Care prior to arrival: Medication(s) given: ASA, 81 mg, x 4, Nitroglycerin, 0.4 mg SL x 1, IV initiated. 20 GA, in the right wrist. 12:37 Method Of Arrival: EMS: [facility] iw 12:37 Acuity: HERIBERTO 3 iw Triage Assessment: 16:00 General: Appears in no apparent distress. Behavior is calm, cooperative. iw Historical: - Allergies: 12:44 No Known Allergies; iw - PMHx: 12:44 Angina; Arthritis; Diabetes - IDDM; GERD; High Cholesterol; Hypertension; neuropathy; iw - PSHx: 12:44 Cholecystectomy; Hysterectomy; iw - Immunization history:: Adult Immunizations up to date. - Social history:: Smoking status: Patient/guardian denies using tobacco. - Ebola Screening: : Patient negative for fever greater than or equal to 101.5 degrees Fahrenheit, and additional compatible Ebola Virus Disease symptoms Patient denies exposure to infectious person Patient denies travel to an Ebola-affected area in the 21 days before illness onset No symptoms or risks identified at this time. Screenin:32 Abuse screen: Denies threats or abuse. Denies injuries from another. Nutritional iw screening: No deficits noted. Tuberculosis screening: No symptoms or risk factors identified. Fall Risk None identified. Assessment: 14:10 Reassessment: pt c/o pain, requesting pain medicine, BAILEY Beltrán notified, order placed.iw 16:00 Pain: Pain does not radiate. Pain began 2-3 days ago. iw 16:23 Reassessment: Patient appears in no apparent distress at this time. Patient and/or iw family updated on plan of care and expected duration. Pain level reassessed. Patient is alert, oriented x 3, equal unlabored respirations, skin warm/dry/pink. pt states pain has improved after morphine, urine specimen obtained vis straight cath Patient states feeling better. Patient states symptoms have improved. 18:01 Reassessment: Patient appears in no apparent distress at this time. Patient and/or iw family updated on plan of care and expected duration. Pain level reassessed. Patient is alert, oriented x 3, equal unlabored respirations, skin warm/dry/pink. Patient denies pain at this time. Patient states feeling better. Cardiovascular: Denies chest pain, Patient's skin is warm and dry. Vital Signs: 12:44 BP 122 / 59; Pulse 86; Resp 16 S; Temp 98.2; Pulse Ox 97% on R/A; Weight 72.57 kg; iw Height 4 ft. 6 in. (137.16 cm); 16:23 BP 165 / 70; Pulse 77; Resp 16; Pulse Ox 98% on R/A; Pain 5/10; iw 18:03 BP 130 / 55; Pulse 78; Resp 20 S; Temp 98.4(O); Pulse Ox 95% on R/A; iw 12:44 Body Mass Index 38.58 (72.57 kg, 137.16 cm) iw ED Course: 12:32 Patient arrived in ED. iw 12:33 Kayleen Diego, ITA is Primary Nurse. iw 12:37 Jerel Quinn NP is PHCP. pm1 12:37 Carlos Kurtz MD is Attending Physician. pm1 12:41 Triage completed. iw 12:45 Arm band placed on. iw 13:04 XRAY Chest (1 view) In Process Unspecified. EDMS 13:31 EKG done, by coal gasification technician. reviewed by Jerel Quinn NP. tc 15:40 CT Abd/Pelvis - IV Contrast Only In Process Unspecified. EDMS 16:23 Patient has correct armband on for positive identification. 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 Pulse iw ox on. NIBP on. 16:25 Maintain EMS IV. Dressing intact. Good blood return noted. Site clean \T\ dry. Gauge \T\ iw site: 20 right wrist. Patient maintains SpO2 saturation greater than 95% on room air. 16:45 Kody Lindsay DO is Hospitalizing Provider. pm1 18:35 Ronald Atkins MD is Referral Physician. pm1 18:37 No provider procedures requiring assistance completed. IV discontinued, intact, iw bleeding controlled, No redness/swelling at site. Pressure dressing applied. Administered Medications: 13:44 Drug: fentaNYL (PF) 25 mcg Route: IVP; Site: right wrist; iw 13:44 Drug: Zofran 4 mg Route: IVP; Site: right wrist; iw 15:09 Drug: Magnesium Sulfate 1 grams Route: IVPB; Infused Over: 1 hrs; Site: right wrist; iw 16:05 Drug: morphine 4 mg Route: IVP; Site: right wrist; iw 18:35 Not Given (Other Intervention Used): Nitro-Bid Ointment 2 % 1 inches Transdermal once iw Outcome: 16:45 Decision to Hospitalize by Provider. pm1 18:28 Discharge ordered by . pm1 19:16 Discharged to home via wheelchair, with family. iw 19:16 Condition: good 19:16 Discharge instructions given to patient, family, Instructed on discharge instructions, follow up and referral plans. medication usage, Demonstrated understanding of instructions, follow-up care, medications, Prescriptions given X 1, daughter states pt was already on Augmentin and they changed it to Cipro, requested a diff antibiotic, BAILEY Beltrán was notified and wrote for new script, wrote for Vantin 19:17 Patient left the ED. 5 Signatures: Dispatcher [employer] EDMS Kayleen Diego RN RN iw Cheryl Grant, preschool teacher assistant EKG Ttc Jerel Quinn NP PRESSURE CONTROLLER pm1 Brigette Kasper 5 Corrections: (The following items were deleted from the chart) 18:36 18:03 BP 130 / 55; Pulse 78bpm; Resp 23bpm; Pulse Ox 95% RA; Temp 98.4F Oral; 5 iw 20:17 19:16 Discharge instructions given to patient, family, Instructed on discharge iw instructions, follow up and referral plans. medication usage, Demonstrated understanding of instructions, follow-up care, medications, Prescriptions given X 1, daughter states pt was already on Augmentin and they changed it to Cipro, requested a diff antibiotic, BAILEY Beltrán was notified and wrote for new script iw
--- NOTE | 2019-10-07 16:46 | EDPHYS ---
Physician Documentation [facility] Name: Cherry Pompa Age: 69 yrs Sex: Female : 1950 Arrival Date: 10/07/2019 Time: 12:32 Bed 13 Private MD: ED Physician Carlos Kurtz HPI: 10/07 12:48 This 69 yrs old Female presents to ER via EMS with complaints of Chest Pain, pm1 Abdominal Pain. 12:48 The patient or guardian reports chest pain that is located primarily in the anterior pm1 chest wall. Onset: 3 day(s) ago. The pain does not radiate. Associated signs and symptoms: Pertinent positives: abdominal pain, dysuria, constipation. The chest pain is described as aching. Duration: The patient or guardian reports multiple episodes. Modifying factors: The symptoms are alleviated by NTG, the symptoms are aggravated by nothing. Severity of pain: in the emergency department the pain has improved is a 6 / 10. EMS care prior to arrival includes: aspirin, nitroglycerin, x 1, with partial relief of the chest pain, patient took nitro x 2 prior to arrival. Patient also complaining of burning with urination and abdominal pain. Patient is currently taking Cipro for her UTI. 12:48 Constipation for 5 days. pm1 Historical: - Allergies: 12:44 No Known Allergies; iw - PMHx: 12:44 Angina; Arthritis; Diabetes - IDDM; GERD; High Cholesterol; Hypertension; neuropathy; iw - PSHx: 12:44 Cholecystectomy; Hysterectomy; iw - Immunization history:: Adult Immunizations up to date. - Social history:: Smoking status: Patient/guardian denies using tobacco. - Ebola Screening: : Patient negative for fever greater than or equal to 101.5 degrees Fahrenheit, and additional compatible Ebola Virus Disease symptoms Patient denies exposure to infectious person Patient denies travel to an Ebola-affected area in the 21 days before illness onset No symptoms or risks identified at this time. ROS: 12:48 Constitutional: Negative for fever, chills, and weight loss, Eyes: Negative for injury, pm1 pain, redness, and discharge, ENT: Negative for injury, pain, and discharge, Neck: Negative for injury, pain, and swelling. 12:48 Respiratory: Negative for shortness of breath, cough, wheezing, and pleuritic chest pain. 12:48 Back: Negative for injury and pain. 12:48 MS/Extremity: Negative for injury and deformity, Skin: Negative for injury, rash, and discoloration, Neuro: Negative for headache, weakness, numbness, tingling, and seizure. 12:48 Cardiovascular: Positive for chest pain, Negative for edema, palpitations. 12:48 Abdomen/GI: Positive for abdominal pain, constipation, Negative for nausea, vomiting, and diarrhea. 12:48 : Positive for burning with urination. Exam: 12:48 Constitutional: This is a well developed, well nourished patient who is awake, alert, pm1 and in no acute distress. Head/Face: Normocephalic, atraumatic. Neck: Trachea midline, no thyromegaly or masses palpated, and no cervical lymphadenopathy. Supple, full range of motion without nuchal rigidity, or vertebral point tenderness. No Meningismus. Chest/axilla: Normal chest wall appearance and motion. Nontender with no deformity. No lesions are appreciated. 12:48 Respiratory: Lungs have equal breath sounds bilaterally, clear to auscultation and percussion. No rales, rhonchi or wheezes noted. No increased work of breathing, no retractions or nasal flaring. Abdomen/GI: Soft, non-tender, with normal bowel sounds. No distension or tympany. No guarding or rebound. No evidence of tenderness throughout. Back: No spinal tenderness. No costovertebral tenderness. Full range of motion. Skin: Warm, dry with normal turgor. Normal color with no rashes, no lesions, and no evidence of cellulitis. MS/ Extremity: Pulses equal, no cyanosis. Neurovascular intact. Full, normal range of motion. 12:48 Cardiovascular: Rate: normal, Rhythm: regular, Pulses: no pulse deficits are appreciated, Heart sounds: normal. 12:48 Neuro: Orientation: is normal, Motor: is normal, moves all fours. Vital Signs: 12:44 BP 122 / 59; Pulse 86; Resp 16 S; Temp 98.2; Pulse Ox 97% on R/A; Weight 72.57 kg; iw Height 4 ft. 6 in. (137.16 cm); 16:23 BP 165 / 70; Pulse 77; Resp 16; Pulse Ox 98% on R/A; Pain 5/10; iw 18:03 BP 130 / 55; Pulse 78; Resp 20 S; Temp 98.4(O); Pulse Ox 95% on R/A; iw 12:44 Body Mass Index 38.58 (72.57 kg, 137.16 cm) iw MDM: 12:37 Patient medically screened. pm1 16:41 Data reviewed: vital signs. Data interpreted: Pulse oximetry: on room air is 98 %. pm1 Interpretation: normal. Counseling: I had a detailed discussion with the patient and/or guardian regarding: the historical points, exam findings, and any diagnostic results supporting the discharge/admit diagnosis, lab results, radiology results, the need for further work-up and treatment in the hospital. 17:37 Physician consultation: Kody Lindsay DO regarding admission, patient's condition, in pm1 the emergency department to see patient at 17:37, Knows patient well. Recommendation is discharge the patient home with Ranexa 500 Mg BID, Augmentin, and Lactulose. Follow up with PCP. 17:45 ED course: Informed Dr. Lindsay that patient and family did not want to go home for pm1 follow up with PCP. Evaluated the patient in the ER and recommended repeat troponin. 18:33 Physician consultation: Kody Lindsay DO Repeat troponin negative. Discharge patient pm1 home with Ranexa 500 mg PO BID. 19:26 ED course: Daughter reports that patient had augmentin prior to current cipro. pm1 Therefore changed to Vantin 200 mg PO BID. 10/07 12:38 Order name: Basic Metabolic Panel; Complete Time: 14:38 pm1 10/07 12:38 Order name: CBC with Diff; Complete Time: 15:01 pm1 10/07 12:38 Order name: LFT's; Complete Time: 14:38 pm1 10/07 12:38 Order name: Magnesium; Complete Time: 14:38 pm1 10/07 12:38 Order name: NT PRO-BNP; Complete Time: 14:38 pm1 10/07 12:38 Order name: PT-INR; Complete Time: 13:59 pm1 10/07 12:38 Order name: Troponin (emerg Dept Use Only); Complete Time: 14:38 pm1 10/07 12:38 Order name: XRAY Chest (1 view); Complete Time: 13:11 pm1 10/07 13:27 Order name: Urine Microscopic Only; Complete Time: 16:45 pm1 10/07 14:43 Order name: CBC Smear Scan; Complete Time: 15:01 EDKY 10/07 15:03 Order name: CT Abd/Pelvis - IV Contrast Only; Complete Time: 16:09 pm1 10/07 16:29 Order name: Urine Dipstick--Ancillary (enter results); Complete Time: 16:34 eb 10/07 16:44 Order name: Urine Culture EDKY 10/07 17:42 Order name: Troponin (emerg Dept Use Only); Complete Time: 18:26 pm1 10/07 12:38 Order name: EKG; Complete Time: 12:39 pm1 10/07 12:38 Order name: Cardiac monitoring; Complete Time: 16:55 pm1 10/07 12:38 Order name: EKG - Nurse/Tech; Complete Time: 16:55 pm1 10/07 12:38 Order name: IV Saline Lock; Complete Time: 16:55 pm1 10/07 12:38 Order name: Labs collected and sent; Complete Time: 16:55 pm1 10/07 12:38 Order name: O2 Per Protocol; Complete Time: 16:55 pm1 10/07 12:38 Order name: O2 Sat Monitoring; Complete Time: 16:55 pm1 10/07 13:27 Order name: Urine Dipstick-Ancillary (obtain specimen); Complete Time: 16:41 pm1 Administered Medications: 13:44 Drug: fentaNYL (PF) 25 mcg Route: IVP; Site: right wrist; iw 13:44 Drug: Zofran 4 mg Route: IVP; Site: right wrist; iw 15:09 Drug: Magnesium Sulfate 1 grams Route: IVPB; Infused Over: 1 hrs; Site: right wrist; iw 16:05 Drug: morphine 4 mg Route: IVP; Site: right wrist; iw 18:35 Not Given (Other Intervention Used): Nitro-Bid Ointment 2 % 1 inches Transdermal once iw Disposition: 20:38 Co-signature as Attending Physician, Carlos Kurtz MD I agree with the assessment and aramis plan of care. Disposition: 10/07/19 18:28 Discharged to Home. Impression: Chest pain, unspecified, Constipation, Cystitis. - Condition is Stable. - Discharge Instructions: Nonspecific Chest Pain, Constipation, Adult, Urinary Tract Infection, Adult. - Prescriptions for Ranexa 500 mg Oral tablet extended release 12 hr - take 1 tablet by ORAL route 2 times per day; 30 tablet. Augmentin 875- 125 mg Oral Tablet - take 1 tablet by ORAL route every 12 hours for 10 days; 20 tablet. Lactulose 10 gram/15 mL Oral Solution - take 30 milliliter by ORAL route once daily; 300 milliliter. - Medication Reconciliation Form, Thank You Letter, Antibiotic Education, Prescription Opioid Use form. - Follow up: Emergency Department; When: As needed; Reason: Worsening of condition. Follow up: Private Physician; When: 2 - 3 days; Reason: Recheck today's complaints, Continuance of care, Re-evaluation by your physician. Follow up: Ronald Atkins MD; When: 2 - 3 days; Reason: Recheck today's complaints, Continuance of care, Re-evaluation by your physician. - Problem is new. - Symptoms have improved. Signatures: Dispatcher [employer] EDMS Carlos Kurtz MD MD cha Williams, Irene, RN RN iw Jerel Quinn NP BREAKER UP pm1 Brigette Kasper [facility] Corrections: (The following items were deleted from the chart) 18:27 16:45 Hospitalization Ordered by Kody Lindsay DO for Observation. Preliminary pm1 diagnosis is Chest pain, unspecifiedConstipation; Cystitis. Bed requested for Telemetry/MedSurg (observation). Status is Observation. Condition is Stable. Problem is new. Symptoms have improved. UTI on Admission? Yes. pm1 18:36 18:28 10/07/2019 18:28 Discharged to Home. Impression: Chest pain, unspecified. pm1 Condition is Stable. Forms are Medication Reconciliation Form, Thank You Letter, Antibiotic Education, Prescription Opioid Use. Follow up: Emergency Department; When: As needed; Reason: Worsening of condition. Follow up: Private Physician; When: 2 - 3 days; Reason: Recheck today's complaints, Continuance of care, Re-evaluation by your physician. Problem is new. Symptoms have improved. pm1 19:07 18:36 10/07/2019 18:28 Discharged to Home. Impression: Chest pain, unspecified. pm1 Condition is Stable. Discharge Instructions: Nonspecific Chest Pain. Prescriptions for Ranexa 500 mg Oral tablet extended release 12 hr - take 1 tablet by ORAL route 2 times per day; 30 tablet. and Forms are Medication Reconciliation Form, Thank You Letter, Antibiotic Education, Prescription Opioid Use. Follow up: Emergency Department; When: As needed; Reason: Worsening of condition. Follow up: Private Physician; When: 2 - 3 days; Reason: Recheck today's complaints, Continuance of care, Re-evaluation by your physician. Follow up: Ronald Atkins; When: 2 - 3 days; Reason: Recheck today's complaints, Continuance of care, Re-evaluation by your physician. Problem is new. Symptoms have improved. pm1 19:17 19:07 10/07/2019 18:28 Discharged to Home. Impression: Chest pain, unspecified; mh5 Constipation; Cystitis. Condition is Stable. Discharge Instructions: Nonspecific Chest Pain. Prescriptions for Ranexa 500 mg Oral tablet extended release 12 hr - take 1 tablet by ORAL route 2 times per day; 30 tablet. and Forms are Medication Reconciliation Form, Thank You Letter, Antibiotic Education, Prescription Opioid Use. Follow up: Emergency Department; When: As needed; Reason: Worsening of condition. Follow up: Private Physician; When: 2 - 3 days; Reason: Recheck today's complaints, Continuance of care, Re-evaluation by your physician. Follow up: Ronald Atkins; When: 2 - 3 days; Reason: Recheck today's complaints, Continuance of care, Re-evaluation by your physician. Problem is new. Symptoms have improved. pm1
[2019-10-07 19:37] VITALS: BP 130/55; TEMP 98.4; O2SAT 95
--- NOTE | 2019-10-08 06:37 | EKG ---
Test Date: 2019-10-07 Test Time: 13:13:57 Dot Compliance Coordinator: ROOSEVELT MEASUREMENT RESULTS: Intervals: Rate: 82 MN: 174 QRSD: 122 QT: 386 QTc: 450 [place]: P: 51 MN: 174 QRS: 87 T: 56 INTERPRETIVE STATEMENTS: Normal sinus rhythm Right bundle branch block Abnormal ECG Compared to ECG 07/24/2019 13:00:16 No significant changes Electronically Signed On 10-08-19 06:35:54 PHARMACY CONSULTANT by Lobo Baird
== END 2019-10-07 19:17 | disposition home or self-care (01) ==
LOC: ER 12:25
DX: N30.90 Cystitis, unspecified without hematuria (principal); K59.00 Constipation, unspecified; I10 Essential (primary) hypertension
CPT/HCPCS: 93005; 87088; 85025; 87086; 80048; 36415; 83735; 85610; 80076; 84484 ×2; 83880; 74177; 71045; 96375; 96374; 99285; Q9967; J3010; J3475; J2405; 81003; 81015

== ENCOUNTER 2020-07-20 17:48 | Emergency (ER) | payer OTHER ==
--- OUTSIDE RECORDS SUMMARY | 2020-07-20 17:50 | XMS REPORT | Continuity of Care Document ---
:1950 Author Organization [facility] t Address [address] [place] [address] Care Team Providers Name Role Phone Ga Hobson Attending Clinician Danielle Attending Clinician Problems Condition Condition Condition Status Onset Resolution Last Treating Co mments Source Name Details Category Date Date Treatment Clinician Date R33.9 Diagnosis Active 2015-092016-08-01 Mem [facility] RETENTION 0-31 13:07:00 l OF URINE, R33.9 00:00: Carlito n UNSPECIFIE RETENTION 00 D OF URINE, UNSPECIFIE D Active 07/21/2016 [facility] Diabetes [facility] Female Female Problem Active [facility] prol[facility] Hypertensi Hypertensi Problem Active [facility] Diabetic Diabetic Problem Active [facility] polyneurop polyneurop Jocelyne kes - athy athy [facility] 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 ati 2 diabetes 2 diabetes en t mellitus mellitus Clinic s Peripheral Peripheral Problem Active [facility] vascular vascular [facility] disease disease [facility] due to due to l secondary secondary Outp ati diabetes diabetes ent Clinics Heart Heart Problem Active [facility] disease disease [facility] History of History of Problem Active [facility] heart heart [facility] - artery artery [facility] stent stent l [facility] Coronary Coronary Problem Active [facility] artery artery [facility] disease disease [facility] involving involving l [facility] coronary coronary ent artery of artery of Clin ics [facility] heart heart without without angina angina pectoris pectoris Chronic, Chronic, Diagnosis Active [facility] continuous continuous Jocelyne kes - use of use of [facility] opioids opioids l [facility] RETENTION Diagnosis Active 2016-08-01 [facility] OF URINE, 13:07:00 l UNSPECIFIE Carlito n D RETENTION OF URINE, UNSPECIFIE D Active [facility] Allergies, Adverse Reactions, Alerts This patient has no known allergies or adverse reactions. Social History Social Habit Start Date Stop Date Quantity Comments Source Social History 2016-08-02 2016-08-02 [facility] 05:59:00 05:59:00 Medications Ordered Filled Start Stop Current Ordering Indication Dosage Frequency Signature Comments Components Source Medication Medication Date Date Medication? Clinician (SIG) Name Name Mohinder Vines 2019-0 2019- No James [address] SoloStar SoloStar 02-03 [facility] 00:00: 00:00 [facility] 00 :00 l [facility] Plavix Plavix Yes James 1 tablet [facility] Gabapentin Gabapentin Yes James [address] [facility] Nitroglycer Nitroglycer Yes James as [facility] directed [facility] Gabapentin Gabapentin Yes James [address] [facility] Pantoprazol Pantoprazol Yes James [address] [facility] e Sodium e Sodium Ty [facility] Restasis Restasis Yes James [address] [facility] Ty into [facility] affected [facility] Metformin Metformin Yes James [address] [facility] [address] HCl HCl Ty with a [facility] - meal [facility] Fenofibrate Fenofibrate Yes James [address] [facility] Ty with food [facility] Linzess Linzess Yes James [address] [facility] Hydrocodone Hydrocodone Yes James [address] [facility] [address] -Acetaminop -Acetaminop Ty as needed [facility] Procedures This patient has no known procedures. Encounters Start End Encounter Admission Attending Care Care Encounter Source Date/Time Date/Time Type Type Clinicians Facility Department ID 2020-04-12 2020-04-12 Office MARKELL Bergeron [id number] 28 09:07:37 10:06:12 Visit [facility] [id number] Surgical [id number] Special [id number] [place] 2019-06-20 2019-06-20 [facility] [id number] [facility] 09:51:00 09:51:00 [facility] 2019-05-19 2019-05-19 [place] [place] [id number] [facility] 14:56:00 14:56:00 [facility] 2019-05-10 2019-05-10 [facility] [id number] [address] 15:30:00 15:30:00 [facility] 2016-08-01 2016-08-01 Outpatient RAUL Santos [facility] [id number] 12:28:00 23:59:00 [place] 00 Results This patient has no known results.
--- OUTSIDE RECORDS SUMMARY | 2020-07-20 17:50 | XMS REPORT | Continuity of Care Document ---
:1950 Author Organization [facility] [address] yuback Care Team Providers Name Role Phone Infusion Resource Unavailable Un available Problems Problem Status Onset Classification Date Comments Sourc e Date Reported R33.9 RETENTION Active [place] OF [place], 6 UNSPECIFIED RETENTION OF Active [place] URINE, UNSPECIFIED Medications No Data Provided for This Section Allergies, Adverse Reactions, Alerts No Known Medication Allergies Immunizations No Data Provided for This Section Results No Data Provided for This Section Pathology Reports No Data Provided for This Section Diagnostic Reports Report Value Date Source Retroperitoneal Complete Retroperitoneal Complete US 08/01/2016 [facility] CLINICAL HISTORY:bladder retention. COMPARISON: None TECHNIQUE: Alvarado scale and co daren Doppler images of both kidneys were performed with a curvilinear transducer with standard technique. Static images are submitted for review. FINDINGS: KIDNEYS: The right kidney me asures 9.6 x 4.4 x 5.1 cm and the left kidney measures 9.9 x 4.8 x 4.7 cm in the sagittal AP and transverse dimensions respectively. Kidneys are relatively symme tric in size. Cortical volume is reasonably well-preserved. 7 mm cyst is noted in the up per pole of left kidney. No renal calculus is evident. No hydronephrosis. BLADDER: Bladder is partially distended with ane choic urine. ASCITES: No ascites noted. IMPRESSION: 7 mm cyst, upper pole of left kidney. No other significant sonographic abnormality is noted in either kidney. SL: [id number] Consultation Notes No Data Provided for This Section Discharge Summaries No Data Provided for This Section History and Physicals No Data Provided for This Section Vital Signs No Data Provided for This Section Encounters Location Location Encounter Encounter Reason Attending ADM IN Stat us Source Details Type Number For Provider Date Date Visit [facility] Outpatient [id number] Cele 08/01 08/02 Jean-Pierre Santos /[address] [facility] Procedures No Data Provided for This Section Assessment and Plan No Data Provided for This Section Plan of Care No Data Provided for This Section Social History Social History Date Source No data available for this 08/02/2016 [facility] section Family History No Data Provided for This Section Advance Directives No Data Provided for This Section Functional Status No Data Provided for This Section
[2020-07-20 19:43] LABS: Urine Blood 1+ (NEG); Urine Glucose NEGATIVE (NEG); Urine Protein NEGATIVE (NEG); Urine Specific Gravity 1.015 (1.005-1.030)
[2020-07-20 19:49] LABS: Urine Bacteria 20-50 /HPF (<20); Urine Culture Reflex Order REFLEXED; Urine Yeast PRESENT (NONE SEEN)
--- NOTE | 2020-07-20 19:57 | RAD REPORT ---
EXAM DESCRIPTION: Jeri Single View07/20/2020 7:18 pm CLINICAL HISTORY: Chest pain COMPARISON: September 2019 FINDINGS: The lungs appear clear of acute infiltrate. The heart is normal size IMPRESSION: No acute abnormalities displayed
[2020-07-20] MEDS ORDERED: MORPHINE 4 MG/ML SYR ONE (20:24)
[2020-07-20] MEDS ORDERED: ONDANSETRON 4 MG/2 ML VIAL ONE (20:25)
[2020-07-20 20:27] LABS: Absolute Lymphocytes (CBC) 2.3 K/uL (0.7-4.9); Basophils % 0.7 % (0-1.3); Hematocrit 36.4 % (36.0-45.0); Lymphocytes % 31.9 % (15.3-44.8); MPV 6.9 fL (7.6-11.3); RBC Red Blood Cell Count 4.31 M/uL (3.86-4.86)
[2020-07-20 20:54] LABS: ALT/SGPT 25 U/L (12-78); AST/SGOT 22 U/L (15-37); Albumin 3.9 g/dL (3.4-5.0); Alkaline Phosphatase 113 U/L (45-117); BUN Blood Urea Nitrogen 16 mg/dL (7-18); Bicarbonate 29 mmol/L (21-32); Bilirubin Direct 0.1 mg/dL (0-0.2); Bilirubin Total 0.4 mg/dL (0.2-1.0); Glucose Level 137 mg/dL (74-106); Magnesium 1.5 mg/dL (1.8-2.4); NT PRO-BNP 712 pg/mL (<125); Potassium 4.5 mmol/L (3.5-5.1); Protein, Total 8.6 g/dL (6.4-8.2); Sodium Level 140 mmol/L (136-145); Troponin (Emerg Dept Use Only) < 0.02 ng/mL (0.0-0.045)
--- NOTE | 2020-07-20 22:23 | ER ---
Nurse's Notes [facility] Name: Cherry Pompa Age: 70 yrs Sex: Female : 1950 Arrival Date: 07/20/2020 Time: 17:54 Bed 13 Private MD: Diagnosis: Other abdominal pain;Urinary tract infection, site not specified Presentation: 07/20 17:56 Chief complaint: EMS states: C/O High blood pressure since last night. Highest SBP 179 ca1 last night, this afternoon at 1430 SBP at 160s. Took Metoprolol at 1430. BP WNL with EMS. Pt also c/o pain and pus sack on her bottom and some bladder pain. Coronavirus screen: Client denies travel out of the [place] in the last 14 days. At this time, the client does not indicate any symptoms associated with coronavirus-19. Ebola Screen: Patient negative for fever greater than or equal to 101.5 degrees Fahrenheit, and additional compatible Ebola Virus Disease symptoms Patient denies exposure to infectious person. Patient denies travel to an Ebola-affected area in the 21 days before illness onset. No symptoms or risks identified at this time. Initial Sepsis Screen: Does the patient meet any 2 criteria? No. Patient's initial sepsis screen is negative. Does the patient have a suspected source of infection? No. Patient's initial sepsis screen is negative. Risk Assessment: Do you want to hurt yourself or someone else? Patient reports no desire to harm self or others. Onset of symptoms was July 20, 2020. 17:56 Method Of Arrival: EMS: [facility] ca1 17:56 Acuity: HERIBERTO 3 ca1 Triage Assessment: 18:07 General: Appears in no apparent distress. comfortable, Behavior is calm, cooperative, ca1 appropriate for age. Pain: Complains of pain in buttocks. EENT: No signs and/or symptoms were reported regarding the EENT system. Neuro: Level of Consciousness is awake, alert, obeys commands, Oriented to person, place, time, situation. Cardiovascular: Heart tones S1 S2 present Capillary refill < 3 seconds Patient's skin is warm and dry. Respiratory: Airway is patent Respiratory effort is even, unlabored, Respiratory pattern is regular, symmetrical, Breath sounds are clear bilaterally. GI: Abdomen is round non-distended, Bowel sounds present X 4 quads. Abd is soft and non tender X 4 quads. : Reports burning with urination, urgency, urinary frequency. Derm: Skin is intact, is healthy with good turgor, Skin is pink, warm \T\ dry. Musculoskeletal: Circulation, motion, and sensation intact. Capillary refill < 3 seconds. Historical: - Allergies: 18:07 No Known Allergies; ca1 - Home Meds: 18:07 Plavix 75 mg Oral tab 1 tab once daily [Active]; metoprolol tartrate 50 mg Oral tab 1 ca1 tab once daily [Active]; metformin 500 mg Oral tab 1 tab daily [Active]; Neurontin 300 mg oral cap 1 cap twice a day [Active]; fenofibrate 160 mg oral tab 1 tab once daily [Active]; Insulin Glargine Sub-Q [Active]; - PMHx: 18:07 Angina; Arthritis; Diabetes - IDDM; GERD; High Cholesterol; Hypertension; neuropathy; ca1 Anemia; - PSHx: 18:07 Cholecystectomy; Hysterectomy; ca1 - Immunization history:: Adult Immunizations up to date, Flu vaccine is up to date. - Social history:: Smoking status: Patient denies any tobacco usage or history of. Screenin:08 Abuse screen: Denies threats or abuse. Denies injuries from another. Nutritional ca1 screening: No deficits noted. Tuberculosis screening: No symptoms or risk factors identified. Fall Risk IV access (20 points). Ambulatory Aid- Crutches/Cane/Walker (15 pts). Total Jackson Fall Scale indicates Low Risk Score (25-44 pts). Fall prevention measures have been instituted. Side Rails Up X 2 Family Present and informed to notify staff if they need to leave bedside As available Patient and Family Educated on Fall Prevention Program and strategies. Assessment: 18:08 Reassessment: see triage notes. ca1 19:18 Reassessment: Patient appears in no apparent distress at this time. Patient and/or ca1 family updated on plan of care and expected duration. Pain level reassessed. Patient is alert, oriented x 3, equal unlabored respirations, skin warm/dry/pink. 20:01 Reassessment: Patient appears in no apparent distress at this time. Patient and/or ca1 family updated on plan of care and expected duration. Pain level reassessed. Patient is alert, oriented x 3, equal unlabored respirations, skin warm/dry/pink. 20:50 Reassessment: Patient appears in no apparent distress at this time. Patient and/or ca1 family updated on plan of care and expected duration. Pain level reassessed. Patient is alert, oriented x 3, equal unlabored respirations, skin warm/dry/pink. 21:50 Reassessment: Patient appears in no apparent distress at this time. Patient and/or ca1 family updated on plan of care and expected duration. Pain level reassessed. Patient is alert, oriented x 3, equal unlabored respirations, skin warm/dry/pink. Vital Signs: 18:08 Weight 72.57 kg; Height 5 ft. 0 in. (152.40 cm) (R); Pain 7/10; ca1 18:09 BP 144 / 92; Pulse 62; Resp 20; Temp 98.5; Pulse Ox 100% ; dh4 19:18 BP 165 / 78; Pulse 70; Resp 16 S; Pulse Ox 98% on R/A; ca1 20:00 BP 154 / 60; Pulse 66; Resp 17 S; Pulse Ox 97% on R/A; ca1 20:50 BP 174 / 76; Pulse 73; Resp 19 S; Pulse Ox 98% on R/A; ca1 21:50 BP 132 / 60; Pulse 70; Resp 16 S; Pulse Ox 100% on R/A; ca1 18:08 Body Mass Index 31.25 (72.57 kg, 152.40 cm) ca1 ED Course: 17:54 Patient arrived in ED. ca1 17:59 Triage completed. ca1 18:07 Arm band placed on right wrist. ca1 18:08 Patient has correct armband on for positive identification. Placed in gown. Bed in low ca1 position. Call light in reach. Side rails up X2. productivity engineer on. Pulse ox on. NIBP on. Warm blanket given. 18:30 Liz Melgar, ITA is Primary Nurse. ca1 18:48 Jeremy Dunham PA is PHCP. [facility] 18:48 Ray Kim MD is Attending Physician. jmm 19:10 Missed attempt(s): 20 gauge in left antecubital area. Bleeding controlled, band aid ca1 applied, catheter tip intact. 19:18 XRAY Chest (1 view) In Process Unspecified. EDMS 19:31 Missed attempt(s): 20 gauge in right antecubital area. Bleeding controlled, band aid ca1 applied, catheter tip intact. 20:15 Inserted saline lock: 22 gauge in left hand, using aseptic technique. Blood collected. 4 21:57 CT Abd/Pelvis - IV Contrast Only In Process Unspecified. EDMS 23:00 No provider procedures requiring assistance completed. fu 23:00 IV discontinued, bleeding controlled, Pressure dressing applied. fu Administered Medications: 20:12 Drug: Zofran (Ondansetron) 4 mg Route: IVP; Site: left hand; ca1 21:00 Follow up: Response: No adverse reaction; Nausea is decreased ca1 20:14 Drug: morphine 4 mg {Note: rass - 0.} Route: IVP; Site: left hand; ca1 21:00 Follow up: Response: No adverse reaction; Pain is decreased; RASS: Alert and Calm (0) ca1 22:45 Drug: DiFLUcan 150 mg Route: PO; fu 23:01 Follow up: Response: Medication administered at discharge. fu Outcome: 22:23 Discharge ordered by MD. brady 23:03 Discharged to home via wheelchair, with family. fu 23:03 Condition: stable 23:03 Discharge instructions given to patient, family, Instructed on discharge instructions, follow up and referral plans. Demonstrated understanding of instructions, follow-up care, Prescriptions given X 1. 23:04 Patient left the ED. fu Signatures: Dispatcher [employer] EDMS Jeremy Dunham PA PA jmm Umadhay, Felix, RN RN Liz Melgar RN RN [facility] Martinez Morrison 4 Corrections: (The following items were deleted from the chart) 19:17 18:07 : No signs and/or symptoms were reported regarding the genitourinary system. ca1ca1
--- NOTE | 2020-07-20 22:23 | EDPHYS ---
Physician Documentation [facility] Name: Cherry Pompa Age: 70 yrs Sex: Female : 1950 Arrival Date: 07/20/2020 Time: 17:54 Bed 13 Private MD: ED Physician Ray Kim HPI: 07/20 18:56 This 70 yrs old Female presents to ER via EMS with complaints of High Blood jmm Pressure. 18:56 The patient presents with abdominal pain in the lower abdomen. Onset: The jmm symptoms/episode began/occurred gradually, 2 week(s) ago. The symptoms do not radiate. Associated signs and symptoms: Pertinent positives: dysuria, Pertinent negatives: nausea and vomiting, diarrhea, fever. This is a 70 year old female with a history of DM, GERD, HLP, HTN that presents to the ED with complaints of lower abdominal pain beginning approx 2 weeks ago worsening over the past 3 days. . Historical: - Allergies: 18:07 No Known Allergies; ca1 - Home Meds: 18:07 Plavix 75 mg Oral tab 1 tab once daily [Active]; metoprolol tartrate 50 mg Oral tab 1 ca1 tab once daily [Active]; metformin 500 mg Oral tab 1 tab daily [Active]; Neurontin 300 mg oral cap 1 cap twice a day [Active]; fenofibrate 160 mg oral tab 1 tab once daily [Active]; Insulin Glargine Sub-Q [Active]; - PMHx: 18:07 Angina; Arthritis; Diabetes - IDDM; GERD; High Cholesterol; Hypertension; neuropathy; ca1 Anemia; - PSHx: 18:07 Cholecystectomy; Hysterectomy; ca1 - Immunization history:: Adult Immunizations up to date, Flu vaccine is up to date. - Social history:: Smoking status: Patient denies any tobacco usage or history of. ROS: 18:56 Constitutional: Negative for fever, chills, and weight loss, Cardiovascular: Negative jmm for chest pain, palpitations, and edema, Respiratory: Negative for shortness of breath, cough, wheezing, and pleuritic chest pain. 18:56 Abdomen/GI: Positive for abdominal pain. 18:56 All other systems are negative. Exam: 18:56 Constitutional: This is a well developed, well nourished patient who is awake, alert, jmm and in no acute distress. Head/Face: atraumatic. Eyes: EOMI, no conjunctival erythema appreciated ENT: Moist Mucus Membranes Neck: Trachea midline, Supple Chest/axilla: Normal chest wall appearance and motion. Cardiovascular: Regular rate and rhythm. No edema appreciated Respiratory: Normal respirations, no respiratory distress appreciated 18:56 Back: Normal ROM Skin: General appearance color normal MS/ Extremity: Moves all extremities, no obvious deformities appreciated, no edema noted to the lower extremities Neuro: Awake and alert, normal gait Psych: Behavior is normal, Mood is normal, Patient is cooperative and pleasant 18:56 Abdomen/GI: Inspection: abdomen appears normal, Bowel sounds: normal, Palpation: soft, mild abdominal tenderness, in the suprapubic area. Vital Signs: 18:08 Weight 72.57 kg; Height 5 ft. 0 in. (152.40 cm) (R); Pain 7/10; ca1 18:09 BP 144 / 92; Pulse 62; Resp 20; Temp 98.5; Pulse Ox 100% ; dh4 19:18 BP 165 / 78; Pulse 70; Resp 16 S; Pulse Ox 98% on R/A; ca1 20:00 BP 154 / 60; Pulse 66; Resp 17 S; Pulse Ox 97% on R/A; ca1 20:50 BP 174 / 76; Pulse 73; Resp 19 S; Pulse Ox 98% on R/A; ca1 21:50 BP 132 / 60; Pulse 70; Resp 16 S; Pulse Ox 100% on R/A; ca1 18:08 Body Mass Index 31.25 (72.57 kg, 152.40 cm) ca1 MDM: 18:51 Patient medically screened. brady 22:21 Data reviewed: vital signs, nurses notes. Counseling: I had a detailed discussion with brady the patient and/or guardian regarding: the historical points, exam findings, and any diagnostic results supporting the discharge/admit diagnosis, lab results, radiology results, the need for outpatient follow up, to return to the emergency department if symptoms worsen or persist or if there are any questions or concerns that arise at home. ED course: Patient is alert and non toxic in appearance in the ED. CT negative for an acute process. Patient is advised to follow up with pcp for reevaluation. Patient understood and agrees with the plan of care. . 07/20 18:54 Order name: Basic Metabolic Panel; Complete Time: 20:58 [facility] 07/20 18:54 Order name: CBC with Diff; Complete Time: 20:30 [facility] 07/20 18:54 Order name: LFT's; Complete Time: 20:58 [facility] 07/20 18:54 Order name: Magnesium; Complete Time: 20:58 [facility] 07/20 18:54 Order name: NT PRO-BNP; Complete Time: 20:58 [facility] 07/20 18:54 Order name: PT-INR; Complete Time: 20:58 [facility] 07/20 18:54 Order name: Troponin (emerg Dept Use Only); Complete Time: 20:58 [facility] 07/20 18:54 Order name: XRAY Chest (1 view); Complete Time: 20:30 [facility] 07/20 18:55 Order name: CT Abd/Pelvis - IV Contrast Only [facility] 07/20 18:56 Order name: Urine Dipstick--Ancillary (enter results); Complete Time: 19:45 em1 07/20 19:18 Order name: Urine Microscopic Only; Complete Time: 20:30 ca1 07/20 19:50 Order name: Urine Culture [facility] 07/20 18:54 Order name: EKG; Complete Time: 18:55 [facility] 07/20 18:54 Order name: Cardiac monitoring; Complete Time: 20:50 [facility] 07/20 18:54 Order name: EKG - Nurse/Tech; Complete Time: 20:50 [facility] 07/20 18:54 Order name: IV Saline Lock; Complete Time: 20:26 [facility] 07/20 18:54 Order name: Labs collected and sent; Complete Time: 20:26 [facility] 07/20 18:54 Order name: O2 Per Protocol; Complete Time: 20:26 [facility] 07/20 18:55 Order name: O2 Sat Monitoring; Complete Time: 20:26 [facility] 07/20 18:55 Order name: Urine Dipstick-Ancillary (obtain specimen); Complete Time: 18:56 jmm Administered Medications: 20:12 Drug: Zofran (Ondansetron) 4 mg Route: IVP; Site: left hand; ca1 21:00 Follow up: Response: No adverse reaction; Nausea is decreased ca1 20:14 Drug: morphine 4 mg {Note: rass - 0.} Route: IVP; Site: left hand; ca1 21:00 Follow up: Response: No adverse reaction; Pain is decreased; RASS: Alert and Calm (0) ca1 22:45 Drug: DiFLUcan 150 mg Route: PO; fu 23:01 Follow up: Response: Medication administered at discharge. fu Disposition: 07/20/20 22:23 Discharged to Home. Impression: Other abdominal pain, Urinary tract infection, site not specified. - Condition is Stable. - Discharge Instructions: Abdominal Pain, Adult, Urinary Tract Infection, Adult. - Prescriptions for Bactrim DS 800- 160 mg Oral Tablet - take 1 tablet by ORAL route every 12 hours for 10 days; 20 tablet. - Medication Reconciliation Form, Thank You Letter, Antibiotic Education, Prescription Opioid Use form. - Follow up: Private Physician; When: 2 - 3 days; Reason: Recheck today's complaints, Continuance of care, Re-evaluation by your physician. Addendum: 07/22/2020 14:33 Co-signature as Attending Physician, Ray Kim MD I agree with the assessment and k dr plan of care. Signatures: Dispatcher [employer] EDND Ray Kim MD MD kdr Mickail, Joel, PA PA [facility] Julio Cesar Mae, RN RN Liz Landry, RN RN ca1 Corrections: (The following items were deleted from the chart) 07/20 23:04 22:23 07/20/2020 22:23 Discharged to Home. Impression: Other abdominal pain; Urinary fu tract infection, site not specified. Condition is Stable. Forms are Medication Reconciliation Form, Thank You Letter, Antibiotic Education, Prescription Opioid Use. Follow up: Private Physician; When: 2 - 3 days; Reason: Recheck today's complaints, Continuance of care, Re-evaluation by your physician. [facility]
[2020-07-20] MEDS ORDERED: FLUCONAZOLE 100 MG TAB ONE (22:45)
[2020-07-20 23:36] VITALS: TEMP 98.5
[2020-07-20 23:43] VITALS: BP 132/60; O2SAT 100
--- NOTE | 2020-07-21 20:04 | RAD REPORT ---
EXAM DESCRIPTION: CT - Abdomen Pelvis W Contrast - 07/21/2020 6:47 am CLINICAL HISTORY: Lower abdominal pain COMPARISON: None. TECHNIQUE: CT ABDOMEN PELVIS WITH IV CONTRAST on 07/20/2020 6:55 PM CDT This exam was performed according to our departmental dose-optimization program, which includes autom ated exposure control, adjustment of the mA and/or kV according to patient size and/or use of iterati ve reconstruction technique. FINDINGS: Lower lungs are clear. Abdomen: The liver is normal in appearance. There is mild intra and extrahepatic biliary dilatation. Cholecystectomy was performed. There is a small hiatal hernia. The pancreas and spleen are normal in appearance. The adrenal glands and kidneys are unremarkable. Abdominal aorta is densely calcified without aneurysm. There is no free air. There is no retroperiton eal adenopathy. Pelvis: There is moderate diverticulosis of the distal colon. There is mild diffuse thickening of the urinary bladder. There is no free fluid. Hysterectomy was performed. Appendix is not clearly seen. Skeleton: There are no acute osseous findings. No suspicious bony lesions. IMPRESSION: No definite acute process. Electronically signed by: Darwin Willoughby MD 07/20/2020 10:14 PM CDT Due to temporary technical issues with the PACS/Fluency reporting system, reports are being signed by the in house radiologists without review as a courtesy to insure prompt reporting. The interpreting radiologist is fully responsible for the content of the report.
--- NOTE | 2020-07-22 10:13 | EKG ---
Test Date: 2020-07-20 Test Time: 20:31:08 Hollow Ware Maker: DAYNE MEASUREMENT RESULTS: Intervals: Rate: 66 CO: 172 QRSD: 122 QT: 418 QTc: 438 Gervais: P: 37 CO: 172 QRS: 102 T: 38 INTERPRETIVE STATEMENTS: Normal sinus rhythm Right bundle branch block Abnormal ECG Compared to ECG 10/07/2019 13:13:57 No significant changes Electronically Signed On 07-22-20 10:10:25 CHILDREN TEACHER by Lobo Baird
== END 2020-07-20 23:04 | disposition home or self-care (01) ==
LOC: ER 17:48
DX: N39.0 Urinary tract infection, site not specified (principal); I10 Essential (primary) hypertension; E11.40 Type 2 diabetes mellitus with diabetic neuropathy, unspecified; E78.00 Pure hypercholesterolemia, unspecified; Z79.4 Long term (current) use of insulin; Z79.01 Long term (current) use of anticoagulants
CPT/HCPCS: 93005; 87088; 85025; 87086; 80048; 36415; 83735; 85610; 80076; 84484; 83880; 74177; 71045; 96375; 96374; 99285; Q9967; J2405; 81003; 81015

== ENCOUNTER 2020-08-13 16:34 | Emergency (ER) | payer OTHER ==
--- OUTSIDE RECORDS SUMMARY | 2020-08-13 16:37 | XMS REPORT | Continuity of Care Document ---
:1950 Author Organization [facility] Jean-Pierre Genomera Care Team Providers Name Role Phone Calligo Unavailable Un available Problems Problem Status Onset [...] Source Retroperitoneal Complete Retroperitoneal Complete US 08/01/2016 [facility] CLINICAL HISTORY:bladder retention. COMPARISON: None TECHNIQUE: Alvarado [...] abnormality is noted in either kidney. SL: [id number] Consultation Notes No Data Provided for This Section Discharge Summaries No Data Provided for This Section History and Physicals No Data Provided for This Section Vital Signs No Data Provided for This Section Encounters Location Location Encounter Encounter Reason Attending ADM LA Stat us Source Details Type Number For Provider Date Date Visit [facility] Outpatient [id number] Cele 08/01 08/02 Jean-Pierre Santos /2015 [facility] Procedures No Data Provided for This Section Assessment and Plan No Data Provided for This Section Plan of Care No Data Provided for This Section Social History Social History Date Source No data available for this 08/02/2016 [facility] section Family History No Data Provided for This Section Advance Directives No Data Provided for This Section Functional Status No Data Provided for This Section
--- OUTSIDE RECORDS SUMMARY | 2020-08-13 16:37 | XMS REPORT | Continuity of Care Document ---
:1950 Author Organization [facility] t Address [address] [place] [address] Care Team Providers Name Role Phone Ga Hobson Attending Clinician Danielle Attending Clinician Problems Condition Condition Condition Status Onset Resolution Last Treating Co mments Source Name Details Category Date Date Treatment Clinician Date R33.9 Diagnosis Active 2015-092016-08-01 [facility] RETENTION 0-31 13:07:00 l OF URINE, R33.9 00:00: Carlito n UNSPECIFIE RETENTION 00 D OF URINE, UNSPECIFIE D Active 07/21/2016 [facility] Diabetes Diabetes Problem [facility] - artery artery [facility] Coronary Coronary Problem [facility] disease [facility] involving involving l [place] [facility] coronary coronary ent artery of artery of Clin ics [place] heart heart without without angina angina pectoris pectoris Chronic, Chronic, Diagnosis Active [facility] continuous continuous Jocelyne kes - use of use of [facility] opioids opioids [facility] RETENTION Diagnosis Active 2016-08-01 [facility] OF URINE, 13:07:00 l UNSPECIFIE Carlito n D RETENTION OF URINE, UNSPECIFIE D Active [facility] Allergies, Adverse Reactions, Alerts This patient has no known allergies or adverse reactions. Social History Social Habit Start Date Stop Date Quantity Comments Source Social History 2016-08-02 2016-08-02 [facility] 05:59:00 05:59:00 Medications Ordered Filled Start Stop Current Ordering Indication Dosage Frequency Signature Comments Components Source Medication Medication Date Date Medication? Clinician (SIG) Name Name Mohinder Vines 2019-0 2019- No James [address] [facility] SoloStar 02-03 [facility] Plavix Plavix Yes [facility] 1 tablet [facility] Gabapentin Gabapentin Yes James [address] [facility] Nitroglycer Nitroglycer Yes James as [facility] Gabapentin Gabapentin Yes James [address] [facility] Pantoprazol Pantoprazol Yes James [address] [facility] e Sodium e Sodium Ty [facility] Restasis Restasis Yes James [address] [facility] affected [facility] Metformin Metformin Yes James [address] [facility] HCl HCl [facility] with a [facility] meal [facility] Fenofibrate Fenofibrate Yes James [address] [facility] with food [facility] Linzess Linzess Yes James [address] [facility] Hydrocodone Hydrocodone Yes James [address] [facility] [address] -Acetaminop -Acetaminop Ty as needed [facility] Procedures This patient has no known procedures. Encounters Start End Encounter Admission Attending Care Care Encounter Source Date/Time Date/Time Type Type Clinicians Facility Department ID 2020-04-12 2020-04-12 Office MARKELL Bergeron [id number] 09:07:37 10:06:12 Visit [facility] [id number] Surgical [id number] [facility] [id number] [place] 2019-06-20 2019-06-20 [place] [id number] [address] 09:51:00 09:51:00 [facility] 2019-05-19 2019-05-19 [place] [facility] [id number] 14:56:00 14:56:00 [facility] 2019-05-10 2019-05-10 [facility] [id number] 15:30:00 15:30:00 [facility] 2016-08-01 2016-08-01 Outpatient RAUL Santos [facility] [id number] 12:28:00 23:59:00 [place] 00 Results This patient has no known results.
[2020-08-13] MEDS ORDERED: HYDROCODONE/APAP 5/325 MG TAB ONE (18:43)
--- NOTE | 2020-08-13 19:04 | RAD REPORT ---
EXAM DESCRIPTION: CT - Thorax Wo Con CLINICAL HISTORY: Chest pain SMASH INJURY COMPARISON: Thorax Wo Con dated 12/12/2017 FINDINGS: The lungs are clear. No pleural thickening or pleural effusion. No pneumothorax. No axillary, mediastinal or hilar adenopathy. No displaced fracture is seen. Small hiatal hernia. Cholecystectomy clips. All CT scans are performed using dose optimization technique as appropriate and may include automated exposure control or mA/KV adjustment according to patient size. IMPRESSION: No acute intrathoracic finding is demonstrated.
--- NOTE | 2020-08-13 19:25 | RAD REPORT ---
EXAM DESCRIPTION: RAD - Hip Right 2 View - 08/13/2020 6:27 pm CLINICAL HISTORY: Pain;Smash injury COMPARISON: Hip Right 2 View dated 05/27/2014 FINDINGS: AP and frog-leg views of the right hip were obtained. There is no fracture or dislocation. No AVN or focal head abnormality. Hip joint degenerative changes minimal and unchanged from comparison. Patient has prominent SI joint degenerative change as well as advanced lower lumbar degenerative change. IMPRESSION: Minimal right hip joint degenerative change similar to 2014. No acute hip joint finding. Advanced lower lumbar degenerative change advanced right SI joint degenerative change.
--- NOTE | 2020-08-13 19:27 | RAD REPORT ---
EXAM DESCRIPTION: RAD - Knee Right 3 View - 08/13/2020 6:27 pm CLINICAL HISTORY: Pain;Smash injury COMPARISON: No comparisons FINDINGS: No fracture, dislocation or periosteal reaction.No joint effusion seen. Mild narrowing of the lateral compartment present. There are mild medial and lateral compartment marginal spurs. Patell a femoral joint space narrowing and patella marginal spurring present. Meniscal degenerative calcific ations are present. There is spurring along the tibial spine. No foreign body or other soft tissue ab normality. IMPRESSION: Bone and joint degenerative changes are present as detailed. No acute findings seen. Clinical concerns for internal derangement or occult bony injury could be further assessed with MR im aging.
--- NOTE | 2020-08-13 19:40 | ER ---
Nurse's Notes [facility] Name: Cherry Pompa Age: 70 yrs Sex: Female : 1950 Arrival Date: 08/13/2020 Time: 16:37 Bed 16 Private MD: Diagnosis: Fall on same level from slipping, tripping and stumbling with subsequent striking against other object Presentation: 08/13 16:43 Chief complaint: EMS states: at the [facility] in [place], tripped and fell on her R ca1 side < 1 hr [employer]. 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 C/O pain on R knee, and R rib cage under R armpit. Denies LOC. Denies hitting head. VS WNL. 16:43 Method Of Arrival: EMS: [facility] ca1 17:14 Coronavirus screen: Client denies travel out of the [place] in the last 14 days. At this ca1 time, the client does not indicate any symptoms associated with coronavirus-19. Ebola Screen: Patient negative for fever greater than or equal to 101.5 degrees Fahrenheit, and additional compatible Ebola Virus Disease symptoms Patient denies exposure to infectious person. Patient denies travel to an Ebola-affected area in the 21 days before illness onset. No symptoms or risks identified at this time. Initial Sepsis Screen: Does the patient meet any 2 criteria? No. Patient's initial sepsis screen is negative. Does the patient have a suspected source of infection? No. Patient's initial sepsis screen is negative. Risk Assessment: Do you want to hurt yourself or someone else? Patient reports no desire to harm self or others. Onset of symptoms was August 13, 2020. 17:14 Acuity: HERIBERTO 3 ca1 17:20 Care prior to arrival: None. Mechanism of Injury: Fall from standing position. Trauma tw2 event details: Injury occurred in the [facility]. Trauma Activation: Not Applicable Physician: ED Physician; Name: ; Notified At: ; Arrived At: Physician: General Surgeon; Name: ; Notified At: ; Arrived At: Physician: Radiology; Name: ; Notified At: ; Arrived At: Physician: Respiratory; Name: ; Notified At: ; Arrived At: Physician: Lab; Name: ; Notified At: ; Arrived At: Historical: - Allergies: 17:16 No Known Allergies; ca1 - Home Meds: 17:16 fenofibrate 160 mg Oral tab 1 tab once daily [Active]; Insulin Glargine Sub-Q [Active]; ca1 metformin 500 mg Oral tab 1 tab daily [Active]; metoprolol tartrate 50 mg Oral tab 1 tab once daily [Active]; Neurontin 300 mg Oral cap 1 cap twice a day [Active]; Plavix 75 mg Oral tab 1 tab once daily [Active]; - PMHx: 17:16 Anemia; Angina; Arthritis; Diabetes - IDDM; GERD; High Cholesterol; Hypertension; ca1 neuropathy; - PSHx: 17:16 Cholecystectomy; Hysterectomy; ca1 - Immunization history:: Adult Immunizations up to date, Flu vaccine is up to date. - Social history:: Smoking status: Patient denies any tobacco usage or history of. - Immunization history: Last tetanus immunization: unknown. Screenin:17 Abuse screen: Denies threats or abuse. Nutritional screening: No deficits noted. tw2 Tuberculosis screening: No symptoms or risk factors identified. Fall Risk Secondary diagnosis (15 points) impaired mobility. Primary Survey: 17:17 NO uncontrolled hemorrhage observed. A: The patient is alert. Airway: patent. tw2 Breathing/Chest: Respiratory pattern: regular, Respiratory effort: spontaneous, unlabored, Breath sounds: clear, bilaterally. Circulation: Heart tones present. Disability Alert. Exposure/Environment: All clothing and personal items were removed. Forensic evidence collection is not deemed to be indicated at this time. Items placed in patient belonging bag. There is no evidence of uncontrolled external bleeding. 19:20 Reassessment Airway Airway Patent Breathing/Chest Respiratory pattern Regular rr5 Respiratory effort Spontaneous Unlabored Chest inspection Symmetrical Circulation Pulses Palpable Disability Alert. Secondary Survey: 17:20 HEENT: No deficits noted. Gastrointestinal: No deficits noted. Abdomen is soft, Bowel tw2 sounds present in all quadrants. : No signs and/or symptoms were reported regarding the genitourinary system. Musculoskeletal: Range of motion: intact in all extremities. Assessment: 17:20 General: Appears in no apparent distress. uncomfortable, obese, well groomed, Behavior tw2 is cooperative, appropriate for age, fussy. Pain: Complains of pain in right knee, right ribcage. Neuro: Level of Consciousness is awake, alert, obeys commands, Oriented to person, place, time, situation. Cardiovascular: Heart tones S1 S2 Patient's skin is warm and dry. Respiratory: Airway is patent Respiratory effort is even, unlabored, Respiratory pattern is regular, symmetrical, Breath sounds are clear bilaterally. GI: No signs and/or symptoms were reported involving the gastrointestinal system. Abdomen is round non-distended, Bowel sounds present X 4 quads. : No signs and/or symptoms were reported regarding the genitourinary system. EENT: No signs and/or symptoms were reported regarding the EENT system. Derm: No signs and/or symptoms reported regarding the dermatologic system. Musculoskeletal: Range of motion: intact in all extremities, Reports pain in right knee and right ribcage. 18:19 Reassessment: pt in xray at this time. tw2 18:36 Reassessment: No changes from previously documented assessment. Patient and/or family tw2 updated on plan of care and expected duration. Pain level reassessed. Patient is alert, oriented x 3, equal unlabored respirations, skin warm/dry/pink. Patient states symptoms have not improved. 18:55 Reassessment: pt in CT at this time. tw2 19:15 Reassessment: Patient appears in no apparent distress at this time. Patient is alert, rr5 oriented x 3, equal unlabored respirations, skin warm/dry/pink. awaiting for CT scan result. 19:15 General: Appears in no apparent distress. comfortable, Behavior is calm, cooperative, rr5 appropriate for age. Neuro: Level of Consciousness is awake, alert, obeys commands, Oriented to person, place, time, situation. Cardiovascular: Capillary refill < 3 seconds Patient's skin is warm and dry. Respiratory: Airway is patent Respiratory effort is even, unlabored, Respiratory pattern is regular, symmetrical. 20:10 Reassessment: Patient appears in no apparent distress at this time. Patient is alert, rr5 oriented x 3, equal unlabored respirations, skin warm/dry/pink. complaint of right ribcage pain ED provider aware with order made and carried out. 20:23 Reassessment: call made to [facility] no one answered the call. for rr5 discharge awaiting for family member for the transport. 20:40 Reassessment: Patient appears in no apparent distress at this time. Patient is alert, rr5 oriented x 3, equal unlabored respirations, skin warm/dry/pink. discharge instruction given and explained to technical adjuster without complaints made Patient states feeling better. Patient states symptoms have improved. Vital Signs: 17:14 BP 130 / 103; Pulse 101; Resp 19 S; Temp 97.4(TE); Pulse Ox 99% on R/A; Weight 68.04 kg ca1 (R); Height 5 ft. 0 in. (152.40 cm) (R); Pain 10/10; 18:37 BP 183 / 97; Pulse 94; Resp 17; Pulse Ox 100% on R/A; tw2 19:10 BP 151 / 89; Pulse 89; Resp 17; Pulse Ox 98% on R/A; rr5 20:13 BP 161 / 140; Pulse 90; Resp 16; Pulse Ox 99% ; rr5 20:40 BP 133 / 75; Pulse 85; Resp 16; Pulse Ox 99% ; rr5 17:14 Body Mass Index 29.29 (68.04 kg, 152.40 cm) ca1 [place] Coma Score: 17:20 Eye Response: spontaneous(4). Verbal Response: oriented(5). Motor Response: obeys tw2 commands(6). Total: 15. 20:40 Eye Response: spontaneous(4). Verbal Response: oriented(5). Motor Response: obeys rr5 commands(6). Total: 15. Trauma Score (Adult): 17:20 Eye Response: spontaneous(1); Verbal Response: oriented(1); Motor Response: obeys tw2 commands(2); Systolic BP: > 89 mm Hg(4); Respiratory Rate: 10 to 29 per min(4); [place] Score: 15; Trauma Score: 12 20:40 Eye Response: spontaneous(1); Verbal Response: oriented(1); Motor Response: obeys rr5 commands(2); Systolic BP: > 89 mm Hg(4); Respiratory Rate: 10 to 29 per min(4); [place] Score: 15; Trauma Score: 12 ED Course: 16:37 Patient arrived in ED. as 17:15 Triage completed. ca1 17:16 Arm band placed on right wrist. ca1 17:17 Bed in low position. Call light in reach. Pulse ox on. NIBP on. Warm blanket given. tw2 17:20 Angely Dietz FNP-C is PHCP. snw 17:20 Carlos Kurtz MD is Attending Physician. snw 17:20 Patient maintains SpO2 saturation greater than 95% on room air. tw2 17:20 Thermoregulation: warm blanket given to patient. tw2 18:18 Rosio Sales, RN is Primary Nurse. tw2 18:27 Hip Right 2 View XRAY In Process Unspecified. EDMS 18:27 Knee Right 3 View XRAY In Process Unspecified. EDMS 18:56 CT Chest Wo Con In Process Unspecified. EDMS 19:04 Report given to ITA Lezama. tw2 20:40 No provider procedures requiring assistance completed. Patient did not have IV access rr5 during this emergency room visit. Administered Medications: 18:36 Drug: [place] 5 mg-325 mg 1 tabs {Note: RASS 0.} Route: PO; tw2 19:20 Follow up: Response: No adverse reaction; Pain is decreased; RASS: Alert and Calm (0) rr5 20:12 Drug: fentaNYL (PF) 25 mcg {Note: rass 0.} Route: IM; Site: left deltoid; rr5 Intake: 20:13 PO: 0ml; Total: 0ml. rr5 Outcome: 19:39 Discharge ordered by MD. snw 20:40 Discharged to home via wheelchair, with family. rr5 20:40 Condition: stable 20:40 Discharge instructions given to patient, Instructed on discharge instructions, follow up and referral plans. Demonstrated understanding of instructions, follow-up care, medications, Prescriptions given X 1. 20:40 Patient's length of stay in the Emergency Department was greater than 2 hours. awaiting rr5 for her ridePatient's length of stay extended due to 20:43 Patient left the ED. rr5 Signatures: Dispatcher [employer] EDMS Angely Ditez, WASTE PAPER HAMMERMILL OPERATOR-C WASTE PAPER HAMMERMILL OPERATOR-Csnw Leny Kasper as Rosio Sales, RN RN tw2 Teja Jain, ITA RN rr5 Liz Melgar RN RN ca1 Corrections: (The following items were deleted from the chart) 17:15 16:43 Chief complaint: EMS states: at the [facility] in [place], tripped and fell on ca1 her R side. 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 C/O pain on R knee, and R rib cage under R armpit. Denies LOC. VS WNL ca1 17:17 16:43 Chief complaint: EMS states: at the [facility] in [place], tripped and fell on ca1 her R side < 1 hr [employer]. 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 C/O pain on R knee, and R rib cage under R armpit. Denies LOC. VS WNL ca1
--- NOTE | 2020-08-13 19:40 | EDPHYS ---
Physician Documentation [facility] Name: Cherry Pompa Age: 70 yrs Sex: Female : 1950 Arrival Date: 08/13/2020 Time: 16:37 Bed 16 Private MD: ED Physician Carlos Kurtz HPI: 08/13 19:29 This 70 yrs old Female presents to ER via EMS with complaints of Fall Injury. snw 19:29 Details of fall: The patient fell from an upright position, while walking. Onset: The snw symptoms/episode began/occurred suddenly, and became persistent. Associated injuries: The patient sustained injury to the chest, specifically the right lateral anterior chest, pain with breathing, pain with movement. Severity of symptoms: At their worst the symptoms were moderate, severe. The patient has not experienced similar symptoms in the past. It is unknown whether or not the patient has recently seen a physician. Historical: - Allergies: 17:16 No Known Allergies; ca1 - Home Meds: 17:16 fenofibrate 160 mg Oral tab 1 tab once daily [Active]; Insulin Glargine Sub-Q [Active]; ca1 metformin 500 mg Oral tab 1 tab daily [Active]; metoprolol tartrate 50 mg Oral tab 1 tab once daily [Active]; Neurontin 300 mg Oral cap 1 cap twice a day [Active]; Plavix 75 mg Oral tab 1 tab once daily [Active]; - PMHx: 17:16 Anemia; Angina; Arthritis; Diabetes - IDDM; GERD; High Cholesterol; Hypertension; ca1 neuropathy; - PSHx: 17:16 Cholecystectomy; Hysterectomy; ca1 - Immunization history:: Adult Immunizations up to date, Flu vaccine is up to date. - Social history:: Smoking status: Patient denies any tobacco usage or history of. - Immunization history: Last tetanus immunization: unknown. ROS: 19:27 Constitutional: Negative for fever, chills, and weight loss, Eyes: Negative for injury, snw pain, redness, and discharge, ENT: Negative for injury, pain, and discharge, Neck: Negative for injury, pain, and swelling, Respiratory: Negative for shortness of breath, cough, wheezing, and pleuritic chest pain, Abdomen/GI: Negative for abdominal pain, nausea, vomiting, diarrhea, and constipation, Back: Negative for injury and pain, : Negative for injury, bleeding, discharge, and swelling, Skin: Negative for injury, rash, and discoloration, Neuro: Negative for headache, weakness, numbness, tingling, and seizure, Psych: Negative for depression, anxiety, suicide ideation, homicidal ideation, and hallucinations. 19:27 Cardiovascular: Positive for chest pain, with movement, of the right lateral anterior chest. 19:27 MS/extremity: Positive for injury or acute deformity, of the right knee. Exam: 19:27 Constitutional: This is a well developed, well nourished patient who is awake, alert, snw and in no acute distress. Head/Face: Normocephalic, atraumatic. Eyes: Pupils equal round and reactive to light, extra-ocular motions intact. Lids and lashes normal. Conjunctiva and sclera are non-icteric and not injected. Cornea within normal limits. Periorbital areas with no swelling, redness, or edema. ENT: Nares patent. No nasal discharge, no septal abnormalities noted. Tympanic membranes are normal and external auditory canals are clear. Oropharynx with no redness, swelling, or masses, exudates, or evidence of obstruction, uvula midline. Mucous membranes moist. Neck: Trachea midline, no thyromegaly or masses palpated, and no cervical lymphadenopathy. Supple, full range of motion without nuchal rigidity, or vertebral point tenderness. No Meningismus. Cardiovascular: Regular rate and rhythm with a normal S1 and S2. No gallops, murmurs, or rubs. Normal PMI, no JVD. No pulse deficits. Respiratory: Lungs have equal breath sounds bilaterally, clear to auscultation and percussion. No rales, rhonchi or wheezes noted. No increased work of breathing, no retractions or nasal flaring. Abdomen/GI: Soft, non-tender, with normal bowel sounds. No distension or tympany. No guarding or rebound. No evidence of tenderness throughout. Back: No spinal tenderness. No costovertebral tenderness. Full range of motion. Skin: Warm, dry with normal turgor. Normal color with no rashes, no lesions, and no evidence of cellulitis. MS/ Extremity: Pulses equal, no cyanosis. Neurovascular intact. Full, normal range of motion. Neuro: Awake and alert, GCS 15, oriented to person, place, time, and situation. Cranial nerves II-XII grossly intact. Motor strength 5/5 in all extremities. Sensory grossly intact. Cerebellar exam normal. Normal gait. Psych: Awake, alert, with orientation to person, place and time. Behavior, mood, and affect are within normal limits. 19:27 Chest/axilla: Inspection: normal, Palpation: crepitus, is not appreciated, tenderness, that is moderate, of the right lateral anterior chest. Vital Signs: 17:14 BP 130 / 103; Pulse 101; Resp 19 S; Temp 97.4(TE); Pulse Ox 99% on R/A; Weight 68.04 kg ca1 (R); Height 5 ft. 0 in. (152.40 cm) (R); Pain 10/10; 18:37 BP 183 / 97; Pulse 94; Resp 17; Pulse Ox 100% on R/A; tw2 19:10 BP 151 / 89; Pulse 89; Resp 17; Pulse Ox 98% on R/A; rr5 20:13 BP 161 / 140; Pulse 90; Resp 16; Pulse Ox 99% ; rr5 20:40 BP 133 / 75; Pulse 85; Resp 16; Pulse Ox 99% ; rr5 17:14 Body Mass Index 29.29 (68.04 kg, 152.40 cm) ca1 [place] Coma Score: 17:20 Eye Response: spontaneous(4). Verbal Response: oriented(5). Motor Response: obeys tw2 commands(6). Total: 15. 20:40 Eye Response: spontaneous(4). Verbal Response: oriented(5). Motor Response: obeys rr5 commands(6). Total: 15. Trauma Score (Adult): 17:20 Eye Response: spontaneous(1); Verbal Response: oriented(1); Motor Response: obeys tw2 commands(2); Systolic BP: > 89 mm Hg(4); Respiratory Rate: 10 to 29 per min(4); [place] Score: 15; Trauma Score: 12 20:40 Eye Response: spontaneous(1); Verbal Response: oriented(1); Motor Response: obeys rr5 commands(2); Systolic BP: > 89 mm Hg(4); Respiratory Rate: 10 to 29 per min(4); [place] Score: 15; Trauma Score: 12 MDM: 17:23 Patient medically screened. [facility] 19:28 Data reviewed: vital signs, nurses notes. Data interpreted: Pulse oximetry: on room air snw is 100 %. Interpretation: acceptable. Counseling: I had a detailed discussion with the patient and/or guardian regarding: the historical points, exam findings, and any diagnostic results supporting the discharge/admit diagnosis, the presence of at least one elevated blood pressure reading (>120/80) during this emergency department visit, radiology results, the need for outpatient follow up, to return to the emergency department if symptoms worsen or persist or if there are any questions or concerns that arise at home. Response to treatment: the patient's symptoms have mildly improved after treatment. Special discussion: Based on the history and exam findings, there is no indication for further emergent testing or inpatient evaluation. I discussed with the patient/guardian the need to see the primary care provider for further evaluation of the symptoms. 08/13 17:52 Order name: CT Chest Wo Con; Complete Time: 19:14 snw 08/13 17:52 Order name: Hip Right 2 View XRAY; Complete Time: 19:28 snw 08/13 17:52 Order name: Knee Right 3 View XRAY; Complete Time: 19:31 snw 08/13 19:38 Order name: INCENTIVE SPIROMETRY snw Administered Medications: 18:36 Drug: [place] 5 mg-325 mg 1 tabs {Note: RASS 0.} Route: PO; tw2 19:20 Follow up: Response: No adverse reaction; Pain is decreased; RASS: Alert and Calm (0) rr5 20:12 Drug: fentaNYL (PF) 25 mcg {Note: rass 0.} Route: IM; Site: left deltoid; rr5 Disposition: 08/14 09:25 Co-signature as Attending Physician, Carlos Kurtz MD I agree with the assessment and aramis plan of care. Disposition: 08/13/20 19:39 Discharged to Home. Impression: Fall on same level from slipping, tripping and stumbling with subsequent striking against other object. - Condition is Stable. - Discharge Instructions: Chest Contusion, Adult, Fall Prevention in the Home, Knee Pain, Incentive Spirometer, Fall Prevention in Hospitals, Adult. - Prescriptions for Tylenol- Codeine #3 300-30 mg Oral Tablet - take 2 tablets by ORAL route every 6 hours As needed; 14 tablet. - Medication Reconciliation Form, Thank You Letter, Antibiotic Education, Prescription Opioid Use form. - Follow up: Emergency Department; When: As needed; Reason: Worsening of condition. Follow up: Private Physician; When: 2 - 3 days; Reason: Recheck today's complaints, Continuance of care, Re-evaluation by your physician. Signatures: Dispatcher [employer] Carlos Wright MD MD cha Waters, Shelly, HSPT TUTOR-C HSPT TUTOR-Csnw Rosio Sales RN RN tw2 Teja Jain RN RN rr5 Liz Melgar RN RN ca1 Corrections: (The following items were deleted from the chart) 08/13 20:43 19:39 08/13/2020 19:39 Discharged to Home. Impression: Fall on same level from rr5 slipping, tripping and stumbling with subsequent striking against other object. Condition is Stable. Forms are Medication Reconciliation Form, Thank You Letter, Antibiotic Education, Prescription Opioid Use. Follow up: Emergency Department; When: As needed; Reason: Worsening of condition. Follow up: Private Physician; When: 2 - 3 days; Reason: Recheck today's complaints, Continuance of care, Re-evaluation by your physician. snw
[2020-08-13] MEDS ORDERED: FENTANYL CITR 100 MCG/2 ML ONE (20:22)
[2020-08-14 01:54] VITALS: TEMP 97.4
[2020-08-14 02:10] VITALS: BP 161/140; O2SAT 99
== END 2020-08-13 20:43 | disposition home or self-care (01) ==
LOC: ER 16:34
DX: R07.1 Chest pain on breathing (principal); W01.198A Fall on same level from slipping, tripping and stumbling with subsequent striking against other object, initial encounter; Y93.9 Activity, unspecified; Y92.29 Other specified public building as the place of occurrence of the external cause; I10 Essential (primary) hypertension; E11.9 Type 2 diabetes mellitus without complications; E78.00 Pure hypercholesterolemia, unspecified; Z79.01 Long term (current) use of anticoagulants; Z79.4 Long term (current) use of insulin
CPT/HCPCS: 71250; 73502; 73562; 96372; 99284; J3010

== ENCOUNTER 2021-06-02 06:40 | Inpatient (IN) | payer OTHER ==
--- OUTSIDE RECORDS SUMMARY | 2021-06-02 06:45 | XMS REPORT | Continuity of Care Document ---
:[address] [facility] t Address [address] [place] [address] Care Team Providers Name Role Phone Angela Ayers Primary Care Physician Singer COLLADO Attending Clinician Rogeilo SON, H Attending Clinician Siobhan Busby MD Attending Clinician Todd SON Attending Clinician Guy Frias MD Attending Clinician Tawnya SON, Iram Attending Clinician GUY FRIAS Attending Clinician Unavailable Juan Hobson Attending Clinician Santos Attending Clinician Siobhan Busby MD Admitting Clinician GUY FRIAS Admitting Clinician Unavailable Payers Payer Name Policy Type Policy Number Effective Date Expiration Date S ource Problems Condition Condition Condition Status Onset Resolution Last Treating Co mments Source Name Details Category Date Date Treatment Clinician Date Hypotensio Hypotensio Disease Active U nivers n n 9-07 ity of 00:00: [place] 00 Medical Branch Hypotensio Hypotensio Disease Active [facility] Stress Stress Disease Active Overview: Univer s incontinen incontinen 2-21 Formattin ity of ce ce 00:00: g of this [place] 00 note Medical might be Branch different from the original. Added automatic ally from request for surgery [id number] Pelvic Pelvic Disease Active Overview: Univer s organ organ 2-21 Formattin ity of prolapse prolapse 00:00: g of this [place] as quantifica quantifica 00 note Me dical tion stage tion stage might be Branch 3 3 different cystocele cystocele from the original. Added automatic ally from request for surgery [id number] Troponin I Troponin I Disease Active U nivers above above 1-21 it[place] of [place] range range 00 [place] Need for Need for Disease Active 2020- Unive rs Tdap Tdap 1-14 ity of vaccinatio vaccinatio [place] Need for Need for Disease Active 2020- Unive rs influenza influenza 1-14 ity of vaccinatio vaccinatio [place] [facility] [place] [facility] Disease Active 2020- Unive rs discharge discharge -09 ity of follow-up [place]up [place] Vaginal Vaginal Disease Active 2019- Univers prolapse prolapse 1-03 ity of 00:00: [place] [facility] Cystocele Cystocele Disease Active 2018-09 Uni vers with with 2 ity of prolapse prolapse 00:00: [place] [facility] Prolapse, Prolapse, Disease Active 2018-09 Uni vers post-hyste post-hyste 2- it y of rectomy rectomy 00:00: [place] 00 Medical Branch Gross Gross Disease Active 2018-09 Univers hematuria hematuria 2-01 ity of 00:00: [place] [facility] Atypical Atypical Disease Active 2018-09 Unive rs chest pain chest pain 1-30 it y of 00:00: [place] [facility] Coronary Coronary Disease Active Unive rs artery artery 4-19 ity of disease disease 00:00: [place] involving involving 00 [place] Branch coronary coronary artery of artery of [place] heart with heart with angina angina pectoris pectoris Small Small Disease Active Univers bowel bowel 4-19 ity of obstructio obstructio 00:00[place], partial n, partial 00 Me dical Branch UTI UTI Disease Active Univers (urinary (urinary 4-18 ity of tract tract 00:00: [place] infection) infection) 00 Me dical Branch Incisional Incisional Disease Active U nivers hernia hernia 4-18 ity of with bowel with bowel 00:[place] obstructio obstructio 00 Me dical n n Branch Diastasis Diastasis Disease Active Uni vers recti recti 4-18 ity of 00:00: [place] 00 Medical Branch Obesity Obesity Disease Active Univers (BMI (BMI 2-25 ity of 30-39.9) 30-39.9) 00:00: [place] [facility] Incarcerat Incarcerat Disease Active U nivers ed ventral ed ventral 2-25 it y of hernia hernia 00:00: [place] [facility] PEMA (acute PEMA (acute Disease Active U nivers kidney kidney 2-24 ity of injury) injury) 00:00: [place] [facility] Essential Essential Disease Active Uni vers hypertensi hypertensi 2-01 it y of on on 00:00: [place] [facility] Type 2 Type 2 Disease Active Univers diabetes diabetes 2-01 ity of mellitus mellitus 00:00: [place] with with 00 Medical complicati complicati Br anch on, with on, with long-term long-term current current use of use of insulin insulin Dyslipidem Dyslipidem Disease Active U nivers ia ia 2-01 ity of 00:00: [place] [facility] Neuropathy Neuropathy Disease Active U nivers 2-01 ity of 00:00: [place] 00 Medical Branch R33.9 Diagnosis Active 2015-092016-08-01 Mem oria RETENTION 0-31 13:07:00 l OF URINE, R33.9 00:00: Carlito adams UNSPECIFIE RETENTION 00 D OF URINE, UNSPECIFIE D Active 07/21/2016 [facility] RETENTION Diagnosis Active 2016-08-01 Memoria OF URINE, 13:07:00 l UNSPECIFIE Carlito n D RETENTION OF URINE, UNSPECIFIE D Active [facility] Allergies, Adverse Reactions, Alerts This patient has no known allergies or adverse reactions. Social History Social Habit Start Date Stop Date Quantity Comments Source Exposure to Not sure [facility] SARS-CoV-2 [place] [facility] (event) Branch History SDOH [facility] - Alcohol Binge Medical Chrissy ter History SDOH [facility] - Alcohol Comment Medical C enter History SDOH [facility] - Alcohol Std Medical Cente r Drinks Tobacco use and 2021-02-09 2021-02-[address] [facility] - exposure 00:00:00 00:00:00 [facility] Alcohol intake 2021-02-09 2021-02-[address] [facility] - 00:00:00 00:00:00 non-drinker Medical Cente r (finding) History SDOH 2021-02-09 2021-02-[address] [facility] - Alcohol Frequency 00:00:00 00:00:00 [facility] Social History 2016-08-02 2016-08-02 [facility] 05:59:00 05:59:00 Sex Assigned At [address] [facility] - 00:00:00 00:00:00 [facility] Smoking Status Start Date Stop Date Source Never smoker [facility] Former smoker 2021-02-09 00:00:00 2021-02-09 00:00:[address] [facility] [address] [facility] Medications Ordered Filled Start Stop Current Ordering Indication Dosage Frequency Signature Comments Components Source Medication Medication Date Date Medication? Clinician (SIG) Name Name phenazopyri Yes 100mg Take 100 U nivers dine HCl 9-11 mg by ity of (PHENAZOPYR 20:17: [place] IDINE ORAL[place] 33 Medical Branch Ranolazine Yes Take by Uni vers 1,000 mg 11 mouth. ity of tablet 20:17: [place] 33 Medical Branch Cholecalcif Yes [id number] 1000U Take 1 Univers herbert, 911 capsule by ity of Vitamin D3, 00:00: mouth [place] 25 mcg 00 daily. Medical (1,000 Branch unit) capsule zinc 2020- Yes [id number] 220mg Take 1 Unive rs sulfate 50 06-01-12 capsule by it y of mg zinc 00:00: 04:59 mouth [place] (220 mg) 00 :00 daily for Medica l capsule 30 days. Branch ascorbic 2020- Yes [id number] 500mg Take 500 Univers acid, 06-01-12 mg by ity of vitamin C, 00:00: 04:59 mouth 2 Cheng as 500 mg Cap 00 :00 (two) Medical times Branch daily for 30 days. ciprofloxac 2020- Yes [id number] 500mg Take 1 Univers in HCl 500 06-01 tablet by ity of mg tablet 00:00: 04:59 mouth [place] 00 :00 every 12 Medical (twelve) Branch hours for 7 days. ivermectin 2020- Yes [id number] 6mg Take 2 Univers 3 mg tablet 06-01 tablets by i ty of 00:00: 04:59 mouth [place] 00 :00 daily for Medical 5 days. Branch sulfur 2020- No [id number] 5mL 5 mL, Unive rs hexafluorid 05-29 Intravenou i ty of e microsphr 14:15: 14:15 s, ONCE, 1 [place] (LUMASON) 00 :00 dose, Wed Medic al injection 5 05/29/21 at [facility] mL 0915, Routine
family member caretaker approving Restricted medication : FRANKLIN ROJAS pantoprazol Yes 40mg 40 mg, Univ ers e 05-29 Oral, ity of (PROTONIX) 14:00: DAILY, [place] EC tablet 00 First dose Medi lulu 40 mg on Wed Branch 05/29/21 at 0900, Until Discontinu ed, Routine clopidogreL Yes 75mg 75 mg, Univ ers (PLAVIX) 05-29 Oral, ity of tablet 75 14:00: DAILY, [place] mg 00 First dose Medical on Thu Branch 05/29/21 at 0900, Until Discontinu ed, Routine aspirin 0 Yes 81mg 81 mg, Univers chewable 05-29 Oral, ity of tablet 81 14:00: DAILY, [place] mg 00 First dose Medical on Thu [facility] 05/29/21 at 0900, Until Discontinu ed, Routine Sliding 0 Yes Subcutaneo Univ ers Scale 05-29 us, TID ity of Insulin - 02:00: MEALS+HS, [place] as Lispro 00 First dose Medical (HumaLOG) + on [facility] 05/28/21 at Testing 2100, Until Discontinu ed, Routine insulin Yes 20U 20 Units, [facility] rs glargine 05-29 Subcutaneo ity o f (LANTUS 02:00: us, QHS, [place] U-100) 00 First dose Medical injection on [facility] 20 Units 05/28/21 at 2100, Until Discontinu ed, Routine atorvastati Yes 20mg 20 mg, [place] [facility] ers n (LIPITOR) 05-29 Oral, QHS, it y of tablet 20 02:00: First dose [place] mg 00 on [facility] 05/28/21 at Branch 2100, Until Discontinu ed, Routine gabapentin Yes 300mg 300 mg, Uni vers (NEURONTIN) 05-29 Oral, BID, it y of capsule 300 01:00: First dose [place] mg 00 on [facility] 05/28/21 at Branch 2000, Until Discontinu ed, Routine benzocaine- Yes 1{lozen 1 Lozenge, Univers menthoL 05-29 ge} Oral, ity of (CEPACOL 00:52: Q4HPRN, [place] SORE THROAT 36 Starting Medi lulu (NANCY-MEN)) [facility] 05/28/21 Br anch lozenge 1 at 1952, Lozenge Until Discontinu ed, Routine, Sore throat NaCl 0.9% 0 Yes 1000mL at 50 [facility] rs (NS) IV 9-08 mL/hr, IV ity of infusion 00:00: Infusion, [place] 1,000 mL 00 CONTINUOUS Medic al , Starting Branch [facility] 05/28/21 at 1900, Until Discontinu ed, Routine ketorolac 2020- No 15mg 15 mg, Unive rs (TORADOL) 05-28 Slow IV ity of injection 23:00: 16:15 Push, Q6H, [place] 15 mg 00 :00 4 doses, Medical First dose Branch on Thu05/28/21 at 1800, Last dose on Thu05/29/21 at 1200, Routine
family member caretaker approving Restricted medication : PRANAV KESSLER enoxaparin Yes 40mg 40 mg, Unive rs (LOVENOX) 05-28 Subcutaneo ity of injection 22:00: [place], DAILY, [place] 40 mg 00 First dose Medical on Thu Branch 05/28/21 at 1700, Until Discontinu ed, Routine piperacilli 2020- No 3.375g 3.375 g, Univers n-tazobacta 05-28 IV ity of m (ZOSYN) 20:00: 20:08 Piggyback, [place] 3.375 g in 00 :00 ONCE, 1 Medica l NaCl 0.9% dose, Thuc h (NS) 100 mL 05/28/21 at MINI-BAG 1500, Administer over 30 Minutes, 100 mL
Reas on for Anti-Infec tive: Empiric Therapy for Suspected Infection< br>Empiric Therapy Site: Urine
D uration of therapy: 72 hours ondansetron Yes 4mg 4 mg, Slow Univers (ZOFRAN 05-28 IV Push, ity of (PF)) 19:49: Q6HPRN, [place] injection 4 41 Starting Medi lulu mg Thu05/28/21 Branch at 1449, Until Discontinu ed, Routine, Nausea and Vomiting (N/V) HYDROcodone 2020- No 1{tbl} 1 tablet, Univers -acetaminop 05-28 Oral, ity of hen (NORCO 19:49: 19:48 Q6HPRN, [place] as 5) 5-325 mg 35 :35 Starting Medi lulu tablet 1 Thu05/28/21 Branc h tablet at 1449, Until Kerrie 05/30/21 at 1448, Routine, Pain (scale 4-6) acetaminoph Yes 650mg 650 mg, Un deo en 05-28 Oral, ity of (TYLENOL) 19:49: Q6HPRN, [place] tablet 650 34 Starting Medic al mg 05/28/21 Branch at 1449, Until Discontinu ed, Routine, Pain (scale 1-3) iopamidol 2020- No [id number] 120mL 120 mL, Univers (ISOVUE 05-28 Intravenou ity o f 370-500 mL) 19:28: 19:28 s, ONCE, 1 [place] injection 00 :00 dose, Tu Medic al 120 mL 05/28/21 at Branch 1445, Routine NaCl 0.9% 2020- No 500mL at 999 Univ ers (NS) IV 05-28 mL/hr, ity of infusion 18:45: 18:45 Intravenou [place] 500 mL 00 :00 s, ONCE, 1 Medical dose, [facility] Branch 05/28/21 at 1345, LEANDRA NaCl 0.9% 2020- No 1000mL at 999 Uni vers (NS) IV 05-28 mL/hr, ity of infusion 18:45: 17:20 Intravenou [place] 1,000 mL 00 :00 s, ONCE, 1 Medic al dose, [facility] Branch 05/28/21 at 1345, LEANDRA metFORMIN Yes 1000mg QD Take 1,[address] (GLUCOPHAGE 5-24 mg by [facility]ukes - ) 1000 MG 13:06: mouth Medical tablet 57 daily. Center HYDROcodone Yes 1{tbl} Take [address] -acetaminop 5-24 tablet by Thierry hernandez (NORCO 13:06: mouth Medica l 7.5-325) 57 every 6 Center 7.5-325 mg (six) per tablet hours as needed for Pain. metoprolol 2020- No QD Take by [facility] succinate 5-24 -22 mouth [facility] - (TOPROL-XL) 13:06: 00:00 daily. Med ical 100 MG 24 57 :00 Center hr tablet pravastatin 2020- No QD Take by [facility] (PRAVACHOL) -24 -22 mouth [facility] - 10 MG 13:06: 00:00 daily. Medical tablet 57 :00 Center metoprolol Yes 25mg QD Take 1 [facility] t succinate - tablet (25 Luke s - (TOPROL-XL) 00:00: mg total) M edical 25 MG 24 hr 00 by mouth Cent er tablet daily. ferrous 2021- No 325mg Take [address] sulfate 325 02-09 tablet [facility]ukes - (65 FE) MG 00:00: 23:59 (325 mg Med ical tablet 00 :00 total) by Center mouth daily with breakfast. benzonatate 2020- No 100mg Take [address] (TESSALON) 02-09 capsule [facility] - 100 MG 00:00: 23:59 (100 mg Medical capsule 00 :00 total) by Center mouth 3 (three) times daily as needed for Cough for up to 7 days. guaiFENesin 2020- No 600mg Take [address] (mucINEX) 02-09 tablet [facility] - 600 mg 12 00:00: 23:59 (600 mg Medi lulu hr tablet 00 :00 total) by Cente r mouth 2 (two) times daily as needed for up to 7 days. nitrofurant 2020- No 100mg Q.5D Take [address] oin, 02-09 capsule [facility]ukes - macrocrysta 00:00: 23:59 (100 mg Me dical l-monohydra 00 :00 total) by Chrissy ter te, mouth 2 (MACROBID) (two) 100 MG times capsule daily for 7 days. insulin Yes 6U Inject [address] [facility] lispro 100 4-14 Units [facility] - unit/mL 00:00: subcutaneo Medi lulu inph 00 usly 2 Center (two) times daily before meals. phenazopyri Yes 100mg Take 100 U nivers dine HCl 1-20 mg by ity of (PHENAZOPYR 20:02: [place]. [place] IDINE ORAL) Medical Branch Ranolazine Yes Take by Uni vers 1,000 mg 1-20 mouth. ity of tablet 20:02: [place] [address] Medical Branch metoprolol 2021-0 Yes [id number] 12.5mg Take 0.5 Univers tartrate 25 1-19 tablets by it y of mg tablet 00:00: mouth 2 00 (two) Medical times Branch daily. atorvastati 2020-0 Yes [id number] 20mg Take 1 Univers n 20 mg 1-19 tablet by ity of tablet 00:00: mouth at [place] 00 bedtime. Medical Branch metoprolol 0 Yes [id number] 12.5mg Take 0.5 Univers tartrate 25 1-19 tablets by it y of mg tablet 00:00: mouth 2 00 (two) Medical times Branch daily. atorvastati 2020-0 Yes [id number] 20mg Take 1 Univers n 20 mg 1-19 tablet by ity of tablet 00:00: mouth at [place] 00 bedtime. Medical Branch atorvastati Yes 20mg QD Take [address] n (LIPITOR) 1-19 by mouth Luke s - 20 MG 00:00: nightly. Medical tablet [address] [place] [address] clopidogreL 2019-1 Yes 75mg Take 1 Univ ers 75 mg 2-11 tablet by ity of tablet 00:00: mouth [place] 00 daily. Medical Branch clopidogreL 2019-1 Yes 75mg Take 1 Univ ers 75 mg 2-11 tablet by ity of tablet 00:00: mouth [place] 00 daily. Medical Branch clopidogreL 2020-1 Yes 75mg QD Take [address] (Plavix) 75 2-11 by mouth Luke s - mg tablet 00:00: daily. Medica l [address] [place] [address] aspirin 81 2020-0 Yes [id number] 81mg Take 1 U nivers mg chewable 1-25 tablet by ity of tablet 00:00: mouth [place] 00 daily. Medical Branch aspirin 81 2020-0 Yes [id number] 81mg Take 1 U nivers mg chewable 1-25 tablet by ity of tablet 00:00: mouth [place] 00 daily. Medical Branch metFORMIN 2020-0 Yes [id number] 1000mg Take 1 Univers 1,000 mg 1-24 tablet by ity of tablet 00:00: mouth 2 00 (two) Medical times Branch daily. pantoprazol 2020-0 Yes [id number] 40mg Take 1 Univers e 1-24 tablet by ity of (PROTONIX) 00:00: mouth [place] 40 mg EC 00 daily. Medical tablet Branch FLUoxetine 2020-0 Yes [id number] 40mg Take 1 U nivers 40 mg 1-24 capsule by ity of capsule 00:00: mouth [place] 00 daily. Medical Branch gabapentin 2020-0 Yes [id number] 300mg Take 1 Univers 300 mg 1-24 capsule by ity of capsule 00:00: mouth 2 [place] 00 (two) Medical times Branch daily. insulin 2020-0 Yes [id number] 20U inject 20 U nivers glargine 1-24 Units ity of (LANTUS 00:00: under the [place] U-100 00 skin at Medical INSULIN) bedtime. Branch 100 unit/mL injection metFORMIN 2020-0 Yes [id number] 1000mg Take 1 Univers 1,000 mg 1-24 tablet by ity of tablet 00:00: mouth 2 00 (two) Medical times Branch daily. pantoprazol 2020-0 Yes [id number] 40mg Take 1 Univers e 1-24 tablet by ity of (PROTONIX) 00:00: mouth [place] 40 mg EC 00 daily. Medical tablet Branch FLUoxetine 2020-0 Yes [id number] 40mg Take 1 U nivers 40 mg 1-24 capsule by ity of capsule 00:00: mouth [place] 00 daily. Medical Branch gabapentin 2020-0 Yes [id number] 300mg Take 1 Univers 300 mg 1-24 capsule by ity of capsule 00:00: mouth 2 [place] 00 (two) Medical times Branch daily. insulin 2019-0 Yes [id number] 20U inject 20 U nivers glargine 1-24 Units ity of (LANTUS 00:00: under the [place] U-100 00 skin at Medical INSULIN) bedtime. Branch 100 unit/mL injection nitroglycer 2018-[id number] 1 Univers in 0.4 mg 2-10 tablet ity of sublingual 00:00: under the [place] tablet 00 tongue Medical every 5 Branch (five) minutes as needed for Chest pain. nitroglycer 2018-[id number] 1 Univers in 0.4 mg 2-10 tablet ity of sublingual 00:00: under the [place] tablet 00 tongue Medical every 5 Branch (five) minutes as needed for Chest pain. Mohinder Vines 2019- No James [address] Vinicio Mooney 02-03 [facility] - 00:00: 00:00 Memoria 00 :00 l Outpat[facility] Clinics Plavix Plavix Yes [facility] 1 tablet [facility] Gabapentin Gabapentin Yes James [address] [facility] Nitroglycer Nitroglycer Yes James as [facility] in in [facility] directed [facility] Gabapentin Gabapentin Yes James [address] [facility] Pantoprazol Pantoprazol Yes James [address] [facility] Sodium e Sodium Ty [facility] Restasis Restasis Yes James [address] [facility] into [facility] - affected [facility] eye [facility] Metformin Metformin Yes James [address] HCl HCl [facility] with a [facility] - meal [facility] Fenofibrate Fenofibrate Yes James [address] [facility] with food [facility] Linzess Linzess Yes James [address] [facility] Hydrocodone Hydrocodone Yes James [address] -Acetaminop -Acetaminop Ty as needed [facility] hen hen [facility] Immunizations Ordered Filled Immunization Date Status Comments Sour e Immunization Name Name Influenza Virus 2020-06-28 Completed Universit y of Vaccine - Whole 00:00:00 [facility] Influenza Virus 2020-06-28 Completed Universit y of Vaccine - Whole 00:00:00 [facility] Influenza Virus 2019-07-05 Completed Universit y of Vaccine 00:00:00 [facility] Influenza Virus 2019-07-05 Completed Universit y of Vaccine 00:00:00 [facility] Influenza High Dose 2016-11-18 Completed Unive rsity of 00:00:00 [facility] Influenza High Dose 2016-11-18 Completed Unive rsity of 00:00:00 [facility] Pneumococcal 2013-05-22 Completed University o f Polysaccharide, 00:00:00 [facility] [place] [facility] PPSV23 (PNEUMOVAX) Branch Pneumococcal 2013-05-22 Completed University o f Polysaccharide, 00:00:00 [facility] [place] [facility] PPSV23 (PNEUMOVAX) [facility] Vital Signs Vital Name Observation Time Observation Value Comments Source Systolic blood 2021-06-01 17:00:00 128 mm[Hg] Univer sity of pressure [facility] Diastolic blood 2021-06-01 17:00:00 79 mm[Hg] Unive rsity of pressure [facility] Heart rate 2021-06-01 17:00:00 74 /min Universi ty of [facility] Body temperature 2021-06-01 17:00:00 37.06 Kendy [place] [facility] Respiratory rate 2021-06-01 17:00:00 20 /min [place] [facility] Oxygen saturation in 2021-06-01 17:00:00 90 /min [facility] Arterial blood by [facility] Pulse oximetry [place] Body height 2021-05-31 08:26:00 152.4 cm Universi ty of [facility] Body weight 2021-05-31 08:26:00 73.483 kg Universi ty of [facility] BMI 2021-05-31 08:26:00 31.64 kg/m2 Universi ty [facility] Systolic blood 2021-05-17 17:00:00 107 mm[Hg] Univer sity of [facility] Diastolic blood 2021-05-17 17:00:00 47 mm[Hg] Unive rsity of [facility] Heart rate 2021-05-17 17:00:00 70 /min Universi ty of [facility] Body temperature 2021-05-17 17:00:00 37.11 Kendy [place] [facility] ersity of [facility] Respiratory rate 2021-05-17 17:00:00 18 /min [place] [facility] ersity of [facility] Body height 2021-05-17 17:00:00 152.4 cm Universi ty of [facility] Body weight 2021-05-17 17:00:00 70.308 kg Universi ty of [facility] BMI 2021-05-17 17:00:00 30.27 kg/m2 Universi ty [facility] Systolic blood 2021-02-09 16:00:00 139 mm[facility]Hg[facility] Di[facility] blood 2021-02-09 16:00:00 65 mm[Hg] [facility] Heart rate 2021-02-09 16:00:00 83 /min [facility] Body temperature 2021-02-09 16:00:00 36.44 Kendy [facility] Respiratory rate 2021-02-09 16:00:00 18 /min [facility] Oxygen saturation in 2021-02-09 16:00:00 99 /min [facility] - Arterial blood by Medical Ce nter Pulse oximetry Body height 2021-02-09 00:10:00 152.4 cm [facility] Body weight 2021-02-09 00:10:00 67.631 kg [facility] BMI 2021-02-09 00:10:00 29.12 kg/m2 [facility] Procedures Procedure Date / Time Performing Clinician Source Performed POCT GLUCOSE (AUTOMATED) 2021-06-01 16:31:00 Rowan Mercado Uni versity of [facility] POCT GLUCOSE (AUTOMATED) 2021-06-01 12:55:00 Rowan Mercado Uni versity of [facility] POCT GLUCOSE (AUTOMATED) 2021-06-01 01:38:00 Rowan Mercado Uni versity of [facility] POCT GLUCOSE (AUTOMATED) 2021-05-31 21:38:00 Rowan Mercado Uni versity of [facility] POCT GLUCOSE (AUTOMATED) 2021-05-31 16:49:00 Rowan Mercado Uni versity of [facility] POCT GLUCOSE (AUTOMATED) 2021-05-31 13:09:00 Rowan Mercado Uni versity of [facility] POCT GLUCOSE (AUTOMATED) 2021-05-31 01:23:00 Rowan Mercado Uni versity of [facility] POCT GLUCOSE (AUTOMATED) 2021-05-30 22:16:00 Rowan Mercado Uni versity of [facility] POCT GLUCOSE (AUTOMATED) 2021-05-30 16:38:00 Rowan Mercado Uni versity of [facility] POCT GLUCOSE (AUTOMATED) 2021-05-30 13:07:00 Rowan Mercado Uni versity of [facility] POCT GLUCOSE (AUTOMATED) 2021-05-30 01:28:00 Rowan Mercado [facility] POCT GLUCOSE (AUTOMATED) 2021-05-29 21:41:00 Rowan Mercado [facility] POCT GLUCOSE (AUTOMATED) 2021-05-29 16:48:00 Rowan Mercado [facility] TRANSTHORACIC ECHO (TTE) 2021-05-29 14:03:05 Rowan Mercado [facility] W/ CONTRAST Medical Bra affinity [facility] DUPLEX VENOUS LEGS 2021-05-29 13:53:46 Rowan Mercado [facility] BILATERAL - BY VASCULAR Medical Branch LAB POCT GLUCOSE (AUTOMATED) 2021-05-29 12:36:00 Rowan Mercado [facility] BASIC METABOLIC PANEL 2021-05-29 09:14:00 Rowan Mercado [facility] (NA, K, CL, CO2, GLUCOSE, Medica l Branch BUN, CREATININE, CA) CBC WITH DIFF 2021-05-29 09:14:00 Rowan Mercado [facility] GLYCOSYLATED HEMOGLOBIN 2021-05-29 09:14:00 Rowan Mercado [facility] (A1C) [facility] POCT GLUCOSE (AUTOMATED) 2021-05-29 01:25:00 Rowan Mercado [facility] POCT GLUCOSE (AUTOMATED) 2021-05-28 22:11:00 Rowan Mercado [facility] URINE CULTURE 2021-05-28 20:20:00 Rowan Mercado [facility] CT ABDOMEN PELVIS W 2021-05-28 19:33:08 Pranav Kessler [facility] CONTRAST [facility] Branch LACTIC ACID WHOLE BLOOD 2021-05-28 17:12:00 Pranav Kessler [facility] BLOOD CULTURE SCREEN 2021-05-28 17:11:00 Pranav Kessler [facility] COMP. METABOLIC PANEL 2021-05-28 17:11:00 Pranav Kessler [facility] ([id number]) [facility] CBC WITH DIFF 2021-05-28 17:11:00 Singer Pranav [facility] URINALYSIS 2021-05-28 17:11:00 [facility] 2021-05-28 17:11:00 Singer [facility] COVID-19 (ID NOW RAPID 2021-05-28 17:11:00 Pranav Kessler [facility] TESTING) Medical Branch LAB ONLY COVID 2021-05-28 17:11:00 Pranav Kessler [facility] INTERPRETATION [facility] HB ECG ROUTINE & RHYTHM 2021-05-28 17:05:04 Pranav Kessler [facility] STRIP Medical Branch CONSENT/REFUSAL FOR 2021-05-28 16:53:31 Doctor Unassigned, [facility] DIAGNOSIS AND TREATMENT [facility] NOTICE OF PRIVACY 2021-05-28 16:52:28 Doctor Unassigned, [facility] PRACTICES [facility] POCT-GLUCOSE METER 2021-02-09 15:30:00 Vick Bowling [facility] POCT-GLUCOSE METER 2021-02-09 12:19:00 Vick Bowling [facility] POCT-GLUCOSE METER 2021-02-09 08:01:00 Rodriguez [facility] URINE CULTURE 2021-02-09 06:02:00 Rodriguez [facility] URINALYSIS W/ REFLEX 2021-02-09 06:02:00 Rodriguez [facility] URINE CULTURE [facility] CREATININE, RANDOM URINE 2021-02-09 06:02:00 Rodriguez [facility] SODIUM, RANDOM URINE 2021-02-09 06:02:00 Rodriguez [facility] XR FOOT 3 VIEWS RIGHT 2021-02-09 05:35:00 Rodriguez [facility] BASIC METABOLIC PANEL (7) 2021-02-09 05:16:00 Phil Frias I [facility] HEPATIC FUNCTION PANEL 2021-02-09 05:16:00 [facility] MAGNESIUM 2021-02-09 05:16[facility]OS[facility] 2021-02-09 05:16:00 [facility] CBC W/PLT COUNT & AUTO 2021-02-09 05:16:00 [facility]FFER[facility] CBC W/PLT COUNT & AUTO 2021-02-09 05:16:00 [facility] DIFFERENTIAL [facility] FERRITIN 2021-02-09 05:14:00 [facility] IRON, TIBC, % SAT. 2021-02-09 05:14:00 [facility] (WITHOUT FERRITIN) [facility] 2021-02-09 05:14:00 [facility] TROPONIN I 2021-02-09 01:10:00 [facility] REPORT OF PROCEDURE - 2021-02-08 00:00:00 Provider, Sundeep [facility] ENDOSCOPY SCAN Scanning [facility] Plan of Care Planned Activity Planned Date Details Comments Source Future Scheduled 1998-01-03 SHINGLES VACCINES ([address] [facility] - Test 00:00:00 of 2) [code = [facility] SHINGLES VACCINES (1 of 2)] Future Scheduled 1967-01-03 DTAP/TDAP/TD [facility] VACCINES (1 - Tdap) [facility] [code = DTAP/TDAP/TD VACCINES (1 - Tdap)] Future Scheduled 1966-01-[address] [facility] - Test 00:00:00 SCREENING [code = Medical Ce nter HEPATITIS C SCREENING] Future Scheduled 1960 COVID-19 VACCINE (1) [facility] - Test 00:00:00 [code = COVID-[address] VACCINE (1)] Future Scheduled [address] [facility] Test 00:00:00 malignant neoplasm Medical C enter of breast (procedure) [code = 040889041] Future Scheduled 1950 [facility]:00 malignant neoplasm Medical C enter of colon (procedure) [code = 091675902] Encounters Start End Encounter Admission Attending Care Care Encounter Source Date/Time Date/Time Type Type Clinicians Facility Department ID 2021-05-28 2021-06-01 [facility] Pranav Kessler [facility] [id number] Univers 12:00:00 15:02:00 Encounter Rowan Mercado [facility] [id number] ity of Laurie Busby [id number] [place] [phone] [address] ([facility]) 2021-05-17 2021-05-17 Office Todd [facility] [id number] Univers 11:41:27 12:11:27 Visit [place] [facility] [id number] i ty [facility] [id number] [facility] [phone] Oh dical nal 8 [facility] 2021-03-19 2021-03-19 Outpatient [facility] [id number] [facility] 2021-02-14 2021-02-14 Outpatient [facility] [id number] [facility] 2021-02-08 2021-02-09 [facility] Phil rFias [facility] [id number] 23:33:00 19:47:00 Encounter Vick Bowling [facility] 2021-02-09 2021-02-09 Travel [facility] [id number] [facility]00 [facility] 2021-02-05 2021-02-05 Outpatient [facility] [id number] [facility] 2021-01-22 2021-01-22 Outpatient [facility] [id number] [facility] 2021-01-10 2021-01-10 Outpatient [facility] [id number] [facility] 2021-01-02 2021-01-02 Outpatient [facility] [id number] [facility] 2020-11-18 2020-11-18 Outpatient [facility] [id number] [facility] 2020-11-14 2020-11-14 Outpatient [facility] [id number] [facility] 2020-11-12 2020-11-12 Outpatient [facility] [id number] [facility] 2020-10-31 2020-10-31 Outpatient [facility] [id number] [facility] 2020-10-25 2020-10-25 Outpatient [facility] [id number] [facility] 2020-10-17 2020-10-17 Outpatient [facility] [id number] [facility] 2020-10-09 2020-10-09 Outpatient [facility] [id number] [facility] 2020-10-04 2020-10-04 Outpatient [facility] [id number] [facility] 2020-09-28 2020-09-28 Outpatient [facility] [id number] [facility] 2020-09-17 2020-09-17 Outpatient [facility] [id number] [facility] 2020-09-11 2020-09-11 Outpatient [facility] [id number] [facility] 2020-09-08 2020-09-08 Outpatient [facility] [id number] [facility] 2020-09-04 2020-09-04 Outpatient [facility] [id number] [facility] 2020-08-28 2020-08-28 Outpatient [facility] [id number] [facility] 2020-08-14 2020-08-14 Outpatient [facility] [id number] [facility] 2020-04-12 2020-04-12 Office [facility] [id number] 09:07:37 10:06:12 Visit [facility] [id number] Surgical [id number] Specialti [id number] [address] 2019-06-20 2019-06-20 [facility] [id number] 09:51:00 09:51:00 t [facility] Outpati ent Clinics 2019-05-19 2019-05-19 [facility] [id number] 14:56:00 14:56:00 t [facility] Medicine Outpati ent Clinics 2019-05-10 2019-05-10 [facility] [id number] 15:30:00 15:30:00 t [facility] Medicine Outpati ent Clinics 2016-08-01 2016-08-02 Outpatient [place] [id number] Memoria 18:28:00 05:59:00 r Jean-Pierre 00 l [facility] 2016-08-01 2016-08-02 Outpatient [facility] [id number] Memoria 18:28:00 05:59:00 r Jean-Pierre 00 l [facility] 2016-08-01 2016-08-01 Outpatient Danielle, MHSE MHSE [id number] 12:28:00 23:59:00 [place] 00 Results Test Description Test Time Test Comments Results Result Comments Source POCT GLUCOSE (AUTOMATED) 2021-06-01 16:42:41 Test Item Value Reference Range Interpretation Comme nts POCT GLU (test code = 1478568633) 112 mg/dL 70-110 H Lab Interpretation (test code = 25516-9) Abnormal [facility] GLUCOSE (AUTOMATED)2021-06-01 13:07:08 Test Item Value Reference Range Interpretation Comments POCT GLU (test code = 8625356805) 87 mg/dL 70-110 Lab Interpretation (test code = Normal 76273-1) [facility] 01:42:34 Test Item Value Reference Range Interpretation Comments POCT GLU (test code = 164 mg/dL 70-110 H Notifi ed Provider [id number]) Lab Interpretation (test Abnormal code = 00540-7) [facility]2021-05-31 21:41:44 Test Item Value Reference Range Interpretation Comments POCT GLU (test code = 2042013675) 207 mg/dL 70-110 H Lab Interpretation (test code = Abnormal 45255-0) [facility]2021-05-31 16:59:18 Test Item Value Reference Range Interpretation Comments POCT GLU (test code = 4382212183) 119 mg/dL 70-110 H Lab Interpretation (test code = Abnormal 04032-4) [facility] [id number] 14:25:49 Test Item Value Reference Range Interpretation Comments URINE CULTURE (test 10,000 - 100,000 CFU/mL code = 630-4) mixed aerobic organisms - suggests endogenous microbial contamination [facility] GLUCOSE (AUTOMATED)2021-05-31 13:20:11 Test Item Value Reference Range Interpretation Comments POCT GLU (test code = 6702513040) 115 mg/dL 70-110 H Lab Interpretation (test code = Abnormal 88211-8) [facility] GLUCOSE (AUTOMATED)2021-05-31 01:33:47 Test Item Value Reference Range Interpretation Comments POCT GLU (test code = 8446082736) 118 mg/dL 70-110 H Lab Interpretation (test code = Abnormal 35400-1) [facility] GLUCOSE (AUTOMATED)2021-05-30 22:29:21 Test Item Value Reference Range Interpretation Comments POCT GLU (test code = 4259579071) 131 mg/dL 70-110 H Lab Interpretation (test code = Abnormal 70040-6) [facility] GLUCOSE (AUTOMATED)2021-05-30 22:21:32 Test Item Value Reference Range Interpretation Comments POCT GLU (test code = 3017535264) 138 mg/dL 70-110 H Lab Interpretation (test code = Abnormal 73922-8) [facility] [id number] 17:49:16 Test Item Value Reference Range Interpretation Comments URINE CULTURE (test code <10,000 CFU/mL = 630-4) Gram-Positive [facility] GLUCOSE (AUTOMATED)2021-05-30 13:18:39 Test Item Value Reference Range Interpretation Comments POCT GLU (test code = 0376392043) 133 mg/dL 70-110 H Lab Interpretation (test code = Abnormal 03240-8) [facility] GLUCOSE (AUTOMATED)2021-05-30 02:00:09 Test Item Value Reference Range Interpretation Comments POCT GLU (test code = 3635841344) 199 mg/dL 70-110 H Lab Interpretation (test code = Abnormal 85364-9) [facility] GLUCOSE (AUTOMATED)2021-05-29 21:57:56 Test Item Value Reference Range Interpretation Comments POCT GLU (test code = 5948632061) 131 mg/dL 70-110 H Lab Interpretation (test code = Abnormal 77947-0) [facility] GLUCOSE (AUTOMATED)2021-05-29 16:59:07 Test Item Value Reference Range Interpretation Comments POCT GLU (test code = 104 mg/dL 70-110 Notifi ed Provider [id number]) Lab Interpretation (test Normal code = 08810-0) [facility] GLUCOSE (AUTOMATED)2021-05-29 13:54:32 Test Item Value Reference Range Interpretation Comments POCT GLU (test code = 1142180097) 177 mg/dL 70-110 H Lab Interpretation (test code = Abnormal 93497-2) [facility] Metabolic Panel (NA, K, CL, CO2, GLUCOSE, BUN, CREATININE, CA)2021-05-29 10:25:35 Test Item Value Reference Range Interpretation Comments NA (test code = 137 mmol/L 135-145 5418300403) K (test code = 5.2 mmol/L 3.5-5.0 H Slight 1205491228) hemolysis CL (test code = 108 mmol/L 98-108 3365103329) CO2 TOTAL (test code 24 mmol/L 23-31 = 9854274114) AGAP (test code = 2-16 7695718395) BUN (test code = 12 mg/dL 7-23 Slight 1161349430) hemolysis GLUCOSE (test code = 259 mg/dL 70-110 H 4518252810) CREATININE (test code 0.82 mg/dL 0.50-1.04 = 9082726580) CALCIUM (test code = 8.2 mg/dL 8.6-10.6 L 9155819447) eGFR (test code = mL/min/1.73m2 9345973486) ANNE (test code = ANNE) Association of Glomerular Filtration Rate (GFR) and Staging of Kidney Disease* + -----+ --------+ +| GFR (mL/min/1.73 m2) ?| With Kidney Damage ?| ?Without Kidney Damage+ +------- +---- --+| ?>90 ?| ?Stage one ?| ? Normal ?+ ------+ ---------+--------- +| ?60-89 ?| ?Stage two ?| ? Decreased GFR ? + -----+ --------+ +| ?30-59 ?| ?Stage three ?| ? Stage three ? + -----+ --------+ +| ?15-29 ?| ?Stage four ? | ? Stage four ?+ ------+ ---------+--------- +| ?<15 (or dialysis) ? ?| ?Stage five ? | ? Stage five ?+ ------+ ---------+--------- + *Each stage assumes the associated GFR level has been in effect for at least three months. ?Stages 1 to 5, with or without kidney disease, indicate chronic kidney disease. Notes: Determination of stages one and two (with eGFR >59mL/min/1.73 m2) requires estimation of kidney damage for at least three months as defined by structural or functional abnormalities of the kidney, manifested by either:Pathological abnormalities or Markers of kidney damage (including abnormalities in the composition of the blood or urine or abnormalities in imaging tests). Lab Interpretation Abnormal (test code = 73223-7) [facility]2021-05-29 09:56:58 Test Item Value Reference Range Interpretation Comments HGB A1C (test code = 8.9 % 4.0-5.7 H 4548-4) ANNE (test code = ANNE) Reference RangesNormal: <5.7%Prediabetes: 5.7 - 6.4%Diabetes: > 6.5% Lab Interpretation (test Abnormal code = 41714-4) [facility] [id number] 09:25:10 Test Item Value Reference Range Interpretation Comments WBC (test code = See_Comment [Automated 6690-2) message] The sy stem which generated this result transmitted reference range : 4.30 - 11.10 10*3/?L. The reference range was not used to interpret this result as normal/abnormal . RBC (test code = See_Comment L [Automated 789-8) message] The sy stem which generated this result transmitted reference range : 3.93 - 5.25 10*6/?L. The reference range was not used to interpret this result as normal/abnormal . HGB (test code = 9.3 g/dL 11.6-15.0 L 718-7) HCT (test code = 29.9 % 35.7-45.2 L 4544-3) MCV (test code = 87.2 fL 80.6-95.5 787-2) MCH (test code = 27.1 pg 25.9-32.8 785-6) MCHC (test code = 31.1 g/dL 31.6-35.1 L 786-4) RDW-SD (test code = 42.3 fL 39.0-49.9 60948-3) RDW-CV (test code = 13.4 % 12.0-15.5 788-0) PLT (test code = See_Comment [Automated 777-3) message] The sy stem which generated this result transmitted reference range : 166 - 358 10*3/ ?L. The reference r jonathan was not used to interpret this result as normal/abnormal . MPV (test code = 9.4 fL 9.5-12.9 L 73054-0) NRBC/100 WBC (test See_Comment [Automat ed code = 3796431054) message] The system which generated this result transmitted reference range : 0.0 - 10.0 /100 WBCs. The refer ence range was not u sed to interpret th is result as normal/abnormal . NRBC x10^3 (test code <0.01 See_Comment [Auto mated = 3679461919) message] The s ystem which generated this result transmitted reference range : 10*3/?L. The reference range was not used to interpret this result as normal/abnormal . GRAN MAT (NEUT) % 72.6 % (test code = 770-8) IMM GRAN % (test code 0.30 % = 1181964857) LYMPH % (test code = 12.6 % 736-9) MONO % (test code = 10.6 % 5905-5) EOS % (test code = 3.1 % 713-8) BASO % (test code = 0.8 % 706-2) GRAN MAT x10^3(ANC) 6.71 10*3/uL 1.88-7.09 (test code = 4887292108) IMM GRAN x10^3 (test 0.03 10*3/uL 0.00-0.06 code = 0334057942) LYMPH x10^3 (test code 1.16 10*3/uL 1.32-3.29 L = 731-0) MONO x10^3 (test code 0.98 10*3/uL 0.33-0.92 H = 742-7) EOS x10^3 (test code = 0.29 10*3/uL 0.03-0.39 711-2) BASO x10^3 (test code 0.07 10*3/uL 0.01-0.07 = 704-7) Lab Interpretation Abnormal (test code = 25850-8) [facility] GLUCOSE (AUTOMATED)2021-05-29 01:37:14 Test Item Value Reference Range Interpretation Comments POCT GLU (test code = 8941174477) 160 mg/dL 70-110 H Lab Interpretation (test code = Abnormal 99648-9) [facility] GLUCOSE (AUTOMATED)2021-05-29 00:18:46 Test Item Value Reference Range Interpretation Comments POCT GLU (test code = 8184937494) 139 mg/dL 70-110 H Lab Interpretation (test code = Abnormal 62529-0) [facility] COVID [id number] 21:21:49COVID DMT InterpretationInterpretation/Recommendations:Molecular NAAT Tests for Active Infection with the SARS-CoV-2 Virus:The current test result is positive for the SARS-CoV-2 virus that causes COVID-19 illness. The patient should be considered infectious at this time. The patient may be considered no longer infectious when it has been at least 10 days since symptom onset, the patient has been afebrile for 24 hours without the use of fever-reducing medications, AND other symptoms of COVID-19 are improving. However, in patients who have been severely ill with COVID-19 or are severely immunocompromised, isolation up to 20 days after symptom onset is recommended. Asymptomatic patients are considered infectious for the first 10 days subsequent to the initial positive test result. From the onset of symptoms, if any, this result is likely to remain positive up to 2-4 weeks. Tests for IgM and/or IgG Antibodies to the SARS-CoV-2 Virus:Testing for IgM and IgG antibodies approximately 3 weeks after illness onset will likely indicate if the patient has produced antibodies to the SARS-CoV-2 virus. However, some patients may take longer to develop detectable antibodies, while others infected with SARS-CoV-2 may never develop antibodies, particularly those who have had mild or asymptomatic illness. Of no te, if the patient has been vaccinated earlier than 1-2 weeks prior to antibody testing, any positive SARS-CoV-2 IgG antibody result is likely due to vaccination. The specific duration and strength of immunity from SARS-CoV-2 IgG antibodies is highly variable between individuals and is dependent on a variety of factors, including infection vs. vaccination response, initial infection severity, the strength of the patient's own immune system, and the variants to which the patient has been exposed. ? -- Interpretation Result Comments:These interpretation comments are based upon all COVID-19 testing the patient has had at [facility], including molecular NAAT testing (more commonly known as PCR testing and Rapid ID Now testing) and antibody testing. It does not take into account any testing that a patient has had outside of the [facility] medical record. [facility] LABORATORY SERVICESCOVID VemunxcLOFH-DuR-7 NAAT (no units) ? ? Date ? Value ? 11/29/2020 ? Not Detected ? SARS-CoV-2 Rapid ID NOW (no units) ? ? Date ? Value ? 05/28/2021 ? Positive (A) ? ?? 10/04/2020 ? Not Detected ? [facility]ORATORY SERVICESUnCHRISTUS [facility]CT ABDOM[facility] PELVIS W [id number] 21:15:55Impression: 1. Cholecystectomy, with unchanged biliary dilatation.2. Mild hepatomegaly.3. Bilateralrenal cortical scarring and small left renal cyst.4. Small hiatal hernia.5. 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 Colonic diverticulosis, without diverticulitis.7. Ground glass opacities within both lung bases may reflect atelectasis.An atypical infectious process cannot be excluded. RL: 460 End of Report Ordering Physician: PRANAV KESSLER History: Abdominal abscess/infection suspected. Hypotension. Technique: CT abdomen and pelvis with intravenous contrast. Thisexamination was performed according to [employer] inciples. Technical quality: Adequate Comparison: October 04, 2020. Findings: The patient is status post cholecystectomy. Biliary dilatation does notappear significantly changed. No radiopaque calculusor other definiteobstructing lesion is identified. The liver is mildly enlarged. The spleen,pancreas, and adrenal glands are unremarkable. Bilateral renal corticalscarring is present. There is a small left renal cyst. There is a smallhiatal hernia. No acute gastric abnormalities are evident. There isatherosclerotic calcification of the abdominal aorta and its branches, withno evidence of aneurysm. There are moderate to high-grade stenoses of theproximal celiac and superior mesenteric arteries. The inferior mesentericartery enhances. The urinary bladder is grossly unremarkable. A surgical clip is again seenanterior to the bladder. There is colonic diverticulosis, withoutdiverticulitis. An appendix is not visualized. No pericecal inflammatorychanges are evident. There is no bowel obstruction. There is no freeintraperitoneal fluid or free intraperitoneal air. Atherosclerotic coronaryartery disease is present. Mitral annulus calcification is noted. Patchyground glass opacities are seen within the dependent portions of bothlungs. The patient is status post ORIF of the left femur. There aredegenerative changes of the spine. No acute bony abnormalities are evident. [facility], Radiant Results Inft User - 05/28/2021 4:17 PM CDT Ordering Physician: PRANAV KESSLERHistory: Abdominal abscess/infection suspected. Hypotension.Technique: CT abdomen and pelvis with intravenous contrast. Thisexamination was performed according to ALARA principles.Technical quality: AdequateComparison: October 04, 2020.Findings: The patient is status post cholecystectomy. Biliary dilatation does notappear significantly changed. No radiopaque calculus or other definiteo bstructing lesion is identified. The liver is mildly enlarged. The spleen,pancreas, and adrenal glands are unremarkable. Bilateral renal corticalscarring is present. There is a small left renal cyst. There is a smallhiatal hernia. No acute gastric abnormalities are evident. There isatherosclerotic calcification of the abdominal aorta and its branches, withno evidence of aneurysm. There are moderate to high-grade stenoses of theproximal celiac and superior mesenteric arteries. The inferior mesentericartery enhances.The urinary bladder is grossly unremarkable. A surgical clip is again seenanterior tothe bladder. There is colonic diverticulosis, withoutdiverticulitis. An appendix is not visualized. No pericecal inflammatorychanges are evident. There is no bowel obstruction. There is no freeintraperitoneal fluid or free intraperitoneal air. Atherosclerotic coronaryartery disease is present. Mitral annulus calcification is noted. Patchyground glass opacities are seen within the dependent portions of bothlungs. The patient is status post ORIF of the left femur. There aredegenerative changes of the spine. No acute bony abnormalities are evident.IMPRESSIONImpression: 1. Cholecystectomy, with unchanged biliary dilatation.2. Mild hepatomegaly.3. Bilateral renal cortical scarring and small left renal cyst.4. Small hiatal hernia.5. 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 Colonic diverticulosis, without diverticulitis.7. Ground glass opacities within both lung bases may reflect atelectasis.An atypical infectious process cannot be excluded.RL: 460End of Report UnCH[facility]evilleUrinalysis2021-[facility]-07 17:58:45 Test Item Value Reference Range Interpretation Comments APPEARANCE (test code = Turbid Clear A 1016167537) COLOR (test code = Sayra Yellow A 9803448301) PH (test code = 4.8-8.0 9611780716) SP GRAVITY (test code = 1.003-1.030 2333633283) GLU U QUAL (test code = Normal Normal 4033334482) BLOOD (test code = 1+ Negative A 7313060681) KETONES (test code = Negative Negative 2215886189) PROTEIN (test code = 100 mg/dL Negative A 2887-8) UROBILIN (test code = Normal Normal 2208438177) BILIRUBIN (test code = Negative Negative 7732210763) NITRITE (test code = Negative Negative 2078455797) LEUK DELANEY (test code = 250/uL Negative A 9165758832) RBC/HPF (test code = >182 See_Comment H [Autom ated message] 9853154601) The system [facility] generated this result transmit lee reference range : 0 - 3 HPF. The refe rence range was not u sed to interpret th is result as normal/abnormal . WBC/HPF (test code = >182 See_Comment H [Autom ated message] 8709803344) The system [facility] generated this result transmit lee reference range : 0 - 5 HPF. The refe rence range was not u sed to interpret th is result as normal/abnormal . BACTERIA (test code = Negative Negative 6917872855) SQ EPITH (test code = HPF 4081172107) WBC CLUMPS (test code = See_Comment H [Au tomated message] 8434125999) The system [facility] generated this result transmit lee reference range : <=1 HPF. The refere nce range was not u sed to interpret th is result as normal/abnormal . HYAL CAST (test code = See_Comment H [Aut omated message] 8280841770) The system [facility] generated this result transmit lee reference range : <=2 LPF. The refere nce range was not u sed to interpret th is result as normal/abnormal . TRANS EPI (test code = See_Comment H [Aut omated message] 0246763949) The system [facility] generated this result transmit lee reference range : <=1 HPF. The refere nce range was not u sed to interpret th is result as normal/abnormal . Lab Interpretation (test Abnormal code = 97235-1) [facility]. Metabolic Panel (17713)2021-05-28 17:47:50 Test Item Value Reference Range Interpretation Comments NA (test code = 136 mmol/L 135-145 1863172990) K (test code = 4.9 mmol/L 3.5-5.0 5872362569) CL (test code = 104 mmol/L 98-108 9904649780) CO2 TOTAL (test code = 26 mmol/L 23-31 6588818476) AGAP (test code = 2-16 5852306930) BUN (test code = 13 mg/dL 7-23 6728681550) GLUCOSE (test code = 157 mg/dL 70-110 H 1378081156) CREATININE (test code = 0.89 mg/dL 0.50-1.04 5905003895) TOTAL BILI (test code = 0.5 mg/dL 0.1-1.2 4001726695) CALCIUM (test code = 9.1 mg/dL 8.6-10.6 8860348656) T PROTEIN (test code = 7.6 g/dL 6.3-8.2 2206155440) ALBUMIN (test code = 3.9 g/dL 3.5-5.0 0360282021) ALK PHOS (test code = 103 U/L 34-122 5565351489) ALTv (test code = 21 U/L 5-35 1742-6) AST(SGOT) (test code = 33 U/L 13-40 7560125992) eGFR (test code = mL/min/1.73m2 6903525437) ANNE (test code = ANNE) Association of Glomerular Filtration Rate (GFR) and Staging of Kidney Disease* + --+ --+ ------+| GFR (mL/min/1.73 m2) ?| With Kidney Damage ?| ?Without Kidney Damage+ --------+ --------+ +| ?>90 ?| ?Stage one ?| ? Normal ?+ ---+ ---+ -------+| ?60-89 ?| ?Stage two ?| ? Decreased GFR ? + --+ --+ ------+| ?30-59 ?| ?Stage three ?| ? Stage three ? + --+ --+ ------+| ?15-29 ?| ?Stage four ? | ? Stage four ?+ ---+ ---+ -------+| ?<15 (or dialysis) ? ?| ?Stage five ? | ? Stage five ?+ ---+ ---+ -------+ *Each stage assumes the associated GFR level has been in effect for at least three months. ?Stages 1 to 5, with or without kidney disease, indicate chronic kidney disease. Notes: Determination of stages one and two (with eGFR >59mL/min/1.73 m2) requires estimation of kidney damage for at least three months as defined by structural or functional abnormalities of the kidney, manifested by either:Pathological abnormalities or Markers of kidney damage (including abnormalities in the composition of the blood or urine or abnormalities in imaging tests). Lab Interpretation Abnormal (test code = 18070-0) [facility] with [id number] 17:40:09 Test Item Value Reference Range Interpretation Comments WBC (test code = See_Comment [Automated 6690-2) message] The sy stem which generated this result transmitted reference range : 4.30 - 11.10 10*3/?L. The reference range was not used to interpret this result as normal/abnormal . RBC (test code = See_Comment L [Automated 789-8) message] The sy stem which generated this result transmitted reference range : 3.93 - 5.25 10*6/?L. The reference range was not used to interpret this result as normal/abnormal . HGB (test code = 9.2 g/dL 11.6-15.0 L 718-7) HCT (test code = 29.2 % 35.7-45.2 L 4544-3) MCV (test code = 85.6 fL 80.6-95.5 787-2) MCH (test code = 27.0 pg 25.9-32.8 785-6) MCHC (test code = 31.5 g/dL 31.6-35.1 L 786-4) RDW-SD (test code = 40.4 fL 39.0-49.9 71405-2) RDW-CV (test code = 13.1 % 12.0-15.5 788-0) PLT (test code = See_Comment [Automated 777-3) message] The sy stem which generated this result transmitted reference range : 166 - 358 10*3/ ?L. The reference r jonathan was not used to interpret this result as normal/abnormal . MPV (test code = 9.0 fL 9.5-12.9 L 81889-8) NRBC/100 WBC (test See_Comment [Automat ed code = 9001143085) message] The system which generated this result transmitted reference range : 0.0 - 10.0 /100 WBCs. The refer ence range was not u sed to interpret th is result as normal/abnormal . NRBC x10^3 (test code <0.01 See_Comment [Auto mated = 4695690812) message] The s ystem which generated this result transmitted reference range : 10*3/?L. The reference range was not used to interpret this result as normal/abnormal . GRAN MAT (NEUT) % 64.0 % (test code = 770-8) IMM GRAN % (test code 0.50 % = 3889374312) LYMPH % (test code = 18.5 % 736-9) MONO % (test code = 12.4 % 5905-5) EOS % (test code = 3.8 % 713-8) BASO % (test code = 0.8 % 706-2) GRAN MAT x10^3(ANC) 4.72 10*3/uL 1.88-7.09 (test code = 8957937651) IMM GRAN x10^3 (test 0.04 10*3/uL 0.00-0.06 code = 1693904652) LYMPH x10^3 (test code 1.37 10*3/uL 1.32-3.29 = 731-0) MONO x10^3 (test code 0.92 10*3/uL 0.33-0.92 = 742-7) EOS x10^3 (test code = 0.28 10*3/uL 0.03-0.39 711-2) BASO x10^3 (test code 0.06 10*3/uL 0.01-0.07 = 704-7) Lab Interpretation Abnormal (test code = 90209-7) [facility]21-[facility]-28 17:37:50 Test Item Value Reference Range Interpretation Comments SARS-CoV-2 Rapid ID NOW Positive Not Detected A (test code = 73934-9) ANNE (test code = ANNE) ID NOW COVID-19 Assay is an isothermal nucleic acid amplification test intended for the qualitative detection of nucleic acid from SARS-CoV-2 viral RNA in nasopharyngeal (MANAGEMENT DEPARTMENT CHAIR) specimens. It is used under Emergency Use Authorization (EUA) by FDA. The limit of detection (LOD) of the assay is 125 Genome Equivalents/mL. A positive result is indicative of the presence of SARS-CoV-2 RNA. ?Clinical correlation with patient history and other diagnostic information is necessary to determine patient infection status. A negative (Not Detected) result does not preclude SARS-CoV-2 infection. In patients with clinical symptoms and other tests that are consistent with SARS-CoV-2 infection, negative results should be treated as presumptive negative and a new specimen should be tested with alternative PCR molecular test. Invalid: Please collect a new specimen for repeat patient testing if clinically indicated. Lab Interpretation Abnormal (test code = 17449-5) [facility] Whole Urdrk2711-95-27 17:23:13 Test Item Value Reference Range Interpretation Comments LACTIC ACID (test code = 1.45 mmol/L 0.50-2.20 6192809366) Lab Interpretation (test code = Normal 91534-5) [facility] [id number] 08:51:00 Test Item Value Reference Range Interpretation Comments Result (test code = 10-19,000 col/mL skin 6463-4) leroy [facility]-Glucose [id number] 15:41:00 Test Item Value Reference Range Interpretation Comments POC-Glucose Meter (test 121 mg/dL 70-110 H : TE STED AT [facility] code = 1538) [address] [place] [address]: Machine Oiler/Techni donald ID = [id number] for Izquierdo, Marcy Lab Interpretation (test Abnormal code = 69712-5) [facility] [place] [id number] 15:41:00 Test Item Value Reference Range Interpretation Comments POC-GLUCOSE METER 121 mg/dL 70-110 H : TESTED A T [facility]17 (BEAKER) ([facility], = 1538) [place] [address]: Machine Oiler/Techni donald ID = [id number] for Harmeet awad Marcy POCT-GLUCOSE [id number] 12:30:00 Test Item Value Reference Range Interpretation Comments POC-GLUCOSE METER 126 mg/dL 70-110 H : TESTED A T [facility] [address] (BEAKER) (test code [address] [facility], = 1538) [place] [address]: Machine Oiler/Techni donald ID = [id number] for Harmeet awad Marcy POCT-GLUCOSE [id number] 08:12:00 Test Item Value Reference Range Interpretation Comments POC-GLUCOSE METER 119 mg/dL 70-110 H : TESTED A T [facility] [address] (BEAKER) (test code [address] [facility], = 1538) [place] [id number]: Machine Oiler/Techni donald ID = [id number] for Harmeet awad Marcy Bebujhub6976-94-86 07:17:00 Test Item Value Reference Range Interpretation Comments Ferritin (test code = 50.20 ng/mL 10.00-291.00 2276-4) ANNE (test code = ANNE) Machine Oiler ID - [id number] Lab Interpretation (test Normal code = 13297-7) [facility]:17[facility]00 Test Item Value Reference Range Interpretation Comments FERRITIN (BEAKER) (test code = 50.20 ng/mL 10.00-291.00 361) Machine Oiler ID - [id number], random krwma2271-49-35 07:02:00 Test Item Value Reference Range Interpretation Comments Creatinine, Ur 46.7 mg/dL (test code = 2161-8) ANNE (test code = Reference Range: No ANNE) NormalsOperator ID - [id number] [facility]AT[facility] RANDOM [id number] 07:02:00 Test Item Value Reference Range Interpretation Comments CREATININE URINE (BEAKER) (test 46.7 mg/dL code = 375) Reference Range: No NormalsOperator ID - [id number], TIBC, % sat. (without ferritin)2021-02-09 06:57:00 Test Item Value Reference Range Interpretation Comments Iron (test code = 2498-4) 38.0 ug/dL 45.0-170.0 L TIBC (test code = 2500-7) 340 ug/dL 250-550 Iron % Saturation (test 11 % 20-55 L code = 2502-3) ANNE (test code = ANNE) Machine Oiler ID - [id number] ID - [id number] Lab Interpretation (test Abnormal code = 06314-5) [facility], TIBC, % SAT. (WITHOUT FERRITIN)2021-02-09 06:57:00 Test Item Value Reference Range Interpretation Comments IRON (BEAKER) (test code = 547) 38.0 ug/dL 45.0-170.0 L TOTAL IRON BINDING CAPACITY 340 ug/dL 250-550 (BEAKER) (test code = 769) IRON % SATURATION (2) (BEAKER) 11 % 20-55 L (test code = 2590) Machine Oiler ID - [id number] ID - [id number], random tjpxy6844-56-11 06:55:00 Test Item Value Reference Range Interpretation Comments Sodium Urine (test 105 meq/L code = 2955-3) ANNE (test code = Reference Range: No ANNE) NormalsOperator ID - [id number] [facility] [id number] 06:55:00 Test Item Value Reference Range Interpretation Comments SODIUM URINE (BEAKER) (test code = 105 meq/L 243) Reference Range: No NormalsOperator ID - [id number] w/Microscopic + Reflex to [id number] 06:54:00 Test Item Value Reference Range Interpretation Comments Color, UA (test code = Yellow 5778-6) Clarity, UA (test code = Clear 5767-9) Specific [place], UA 1.015 1.001-1.035 (test code = 5811-5) pH, UA (test code = 6.0 5.0-8.0 5803-2) Protein, UA (test code = Negative Negative 02386-1) Glucose, UA (test code = Negative Negative 365) Ketones, UA (test code = Negative Negative 2514-8) Bilirubin, UA (test code Negative Negative = 57140-5) Blood, UA (test code = Small Negative A 91553-1) Nitrite, UA (test code = Negative Negative 5802-4) Leukocytes, UA (test Large Negative A code = 5799-2) Urobilinogen, UA (test 0.2 mg/dL 0.2-1.0 code = 98866-3) Bacteria, UA (test code Few = 00130-4) Amorphous Crystals (test Moderate code = 73303-1) RBC, UA (test code = <5 See_Comment [Autom ated message] 799-7) The system [facility] generated this result transmit lee reference range : /HPF. The refer ence range was not u sed to interpret th is result as normal/abnormal . WBC, UA (test code = >100 See_Comment [Autom ated message] 06126-1) The system [facility] generated this result transmit lee reference range : /HPF. The refer ence range was not u sed to interpret th is result as normal/abnormal . SQUAMOUS EPITHELIAL <5 See_Comment [Automa lee message] (test code = 34759-7) The sy stem which generated this result transmit lee reference range : /HPF. The refer ence range was not u sed to interpret th is result as normal/abnormal . Specimen Source (test code = 2795) Lab Interpretation (test Abnormal code = 59968-2) [facility]/ REFLEX URINE [id number] 06:54:00 Test Item Value Reference Range Interpretation Comments COLOR (BEAKER) (test code = 470) Yellow CLARITY (BEAKER) (test code = 469) Clear SPECIFIC GRAVITY UA (BEAKER) (test 1.015 1.001-1.035 code = 468) PH UA (BEAKER) (test code = 467) 6.0 5.0-8.0 PROTEIN UA (BEAKER) (test code = Negative Negative 464) GLUCOSE UA (BEAKER) (test code = Negative Negative 365) KETONES UA (BEAKER) (test code = Negative Negative 371) BILIRUBIN UA (BEAKER) (test code = Negative Negative 462) BLOOD UA (BEAKER) (test code = 461) Small Negative A NITRITE UA (BEAKER) (test code = Negative Negative 465) LEUKOCYTE ESTERASE UA (BEAKER) Large Negative A (test code = 466) UROBILINOGEN UA (BEAKER) (test code 0.2 mg/dL 0.2-1.0 = 463) BACTERIA (BEAKER) (test code = 517) Few AMORPHOUS CRYSTALS (BEAKER) (test Moderate code = 1584) RBC UA-MANUAL (BEAKER) (test code = <5 /HPF 1659) WBC UA-MANUAL (BEAKER) (test code = >100 /HPF 1661) SQUAMOUS EPITHELIAL MANUAL (BEAKER) <5 /HPF (test code = 1663) SOURCE(BEAKER) (test code = 2795) RAD, FOOT, MIN 3 VIEWS, [id number] 06:52:00Reason for exam:->foot pain [facility] : 1950 Sex: FFINAL REPORT TECHNIQUE: Three views of the right foot. INDICATION: foot pain. COMPARISON: None. FINDINGS:No acute fractures or dislocations.Moderate degenerative changes of the proximal interphalangeal joint of the second toe.Soft tissues are grossly unremarkable.The bones are diffusely demineralized.Calcification of the arteries of the foot and ankle IMPRESSION: No acute bone abnormality of the right foot. Signed: Saulo Madrigal MDReport Verified Date/Time: 02/09/2021 06:52:29 Reading Location: [address] Body Reading Room Basic metabolic [id number] 06:50:00 Test Item Value Reference Range Interpretation Comments Sodium (test code = 140 meq/L 999-665 8573-2) Potassium (test code 4.3 meq/L 3.6-5.5 = 2823-3) Chloride (test code = 106 meq/L 98-106 2075-0) CO2 (test code = 26 meq/L 20-29 2027-9) BUN (test code = 15 mg/dL 10-26 3094-0) Creatinine (test code 0.86 mg/dL 0.50-1.20 = 2160-0) Glucose (test code = 123 mg/dL 70-110 H 2345-7) Calcium (test code = 9.5 mg/dL 8.5-10.5 41675-6) EGFR ([place] = [place] [address]-1) CLINICAL DATA T O CALCULATE ESTIMATED GFR. ANNE (test code = ANNE) Machine Oiler ID - [id number] or ID - [id number] or ID - [id number] or ID - [id number] or ID - [id number] or ID - [id number] or ID - [id number] or ID - [id number] or ID - [id number] or ID - [id number] Lab Interpretation Abnormal (test code = 65475-2) [facility] HospitalHepatic function [id number] 06:50:00 Test Item Value Reference Range Interpretation Comments Protein, Total (test 7.3 See_Comment [Autom ated code = 2885-2) message] The system which generated this result transmit lee reference range : 6.0 - 8.5 gm/dL . The reference range was not u sed to interpret th is result as normal/abnormal . Albumin (test code = 3.6 g/dL 3.5-5.0 44285-5) Total Bilirubin (test 0.3 mg/dL 0.1-1.2 code = 1975-2) Bilirubin, Direct 0.2 mg/dL 0.0-0.4 (test code = 1967-7) Alkaline Phosphatase 63 U/L 30-115 (test code = 6768-6) AST (test code = 21 U/L 5-40 1920-8) ALT (test code = 13 U/L -50 1742-6) ANNE (test code = ANNE) Machine Oiler ID - [id number] or ID - [id number] or ID - [id number] or ID - [id number] or ID - [id number] or ID - [id number] or ID - [id number] Lab Interpretation Normal (test code = 22109-3) [facility] HospitalMagnesium2021-[facility] 06:50:00 Test Item Value Reference Range Interpretation Comments Magnesium (test code = 1.3 mg/dL 1.5-3.0 L 05626-3) ANNE (test code = ANNE) Machine Oiler ID - [id number] ID - [id number] ID - [id number] ID - [id number] Lab Interpretation (test Abnormal code = 77776-1) [facility]HEPATIC FUNCTION [id number] 06:50:00 Test Item Value Reference Range Interpretation Comments TOTAL PROTEIN (BEAKER) (test code = 7.3 gm/dL 6.0-8.5 770) ALBUMIN (BEAKER) (test code = 1145) 3.6 g/dL 3.5-5.0 BILIRUBIN TOTAL (BEAKER) (test code 0.3 mg/dL 0.1-1.2 = 377) BILIRUBIN DIRECT (BEAKER) (test 0.2 mg/dL 0.0-0.4 code = 706) ALKALINE PHOSPHATASE (BEAKER) (test 63 U/L 30-115 code = 346) AST (SGOT) (BEAKER) (test code = 21 U/L 5-40 353) ALT (SGPT) (BEAKER) (test code = 13 U/L 5-50 347) Machine Oiler ID - [id number] ID - [id number] ID - [id number] ID - [id number] - [id number] ID - [id number] ID - [id number] 06:50:00 Test Item Value Reference Range Interpretation Comments MAGNESIUM (BEAKER) (test code = 1.3 mg/dL 1.5-3.0 L 627) Machine Oiler ID - [id number] ID - [id number] ID - [id number] ID - [id number] METABOLIC [id number] 06:50:00 Test Item Value Reference Range Interpretation Comments SODIUM (BEAKER) (test 140 meq/L 135-148 code = 381) POTASSIUM (BEAKER) 4.3 meq/L 3.6-5.5 (test code = 379) CHLORIDE (BEAKER) 106 meq/L 98-106 (test code = 382) CO2 (BEAKER) (test 26 meq/L 20-29 code = 355) BLOOD UREA NITROGEN 15 mg/dL 10-26 (BEAKER) (test code = 354) CREATININE (BEAKER) 0.86 mg/dL 0.50-1.20 (test code = 358) GLUCOSE RANDOM 123 mg/dL 70-110 H (BEAKER) (test code = 652) CALCIUM (BEAKER) 9.5 mg/dL 8.5-10.5 (test code = 697) EGFR (BEAKER) (test INSUFFIC IENT CLINICAL code = 1092) DATA TO CALCULA TE ESTIMATED GFR. Machine Oiler ID - [id number] ID - [id number] ID - [id number] ID - [id number] - [id number] ID - [id number] ID - [id number] ID - [id number] ID - [id number] ID - [id number] Nwiuydbsqk2777-10-49 06:46:00 Test Item Value Reference Range Interpretation Comments Phosphorus (test code = 3.4 mg/dL 2.5-4.5 2777-1) ANNE (test code = ANNE) Machine Oiler ID - [id number] Lab Interpretation (test Normal code = 49380-0) [facility] 06:46:00 Test Item Value Reference Range Interpretation Comments PHOSPHORUS (BEAKER) (test code = 3.4 mg/dL 2.5-4.5 604) Machine Oiler ID - [id number] [id number] 06:45:00 Test Item Value Reference Range Interpretation Comments Hemoglobin A1C (test code 8.2 % 4.3-6.1 H = 4548-4) ANNE (test code = ANNE) Machine Oiler ID - [id number] Lab Interpretation (test Abnormal code = 70478-4) [facility]MOGLOBIN [id number] 06:45:00 Test Item Value Reference Range Interpretation Comments HEMOGLOBIN A1C (BEAKER) (test code = 8.2 % 4.3-6.1 H 368) Machine Oiler ID - [id number] with platelet count + automated [id number] 06:27:00 Test Item Value Reference Range Interpretation Comments WBC (test code = 6690-2) 6.9 See_Comment [A utomated message] The system [facility] generated this result transmitted ref erence range: 4.0 - 10 .0 K/L. The refe rence range was not u sed to interpret this result as normal/abnor mal. RBC (test code = 789-8) 3.93 See_Comment L [Au tomated message] The system [facility] generated this result transmitted ref erence range: 4.00 - 5 .00 M/L. The refe rence range was not u sed to interpret this result as normal/abnor mal. MCHC (test code = 786-4) 31.6 See_Comment L [A utomated message] The system [facility] generated this result transmitted ref erence range: 32.0 - 3 6.0 GM/DL. The refe rence range was not u sed to interpret this result as normal/abnor mal. Hematocrit (test code = 34.2 % 36.0-46.0 L 4544-3) MCV (test code = 787-2) 87.0 fL 82.0-99.0 MCH (test code = 785-6) 27.5 pg 27.0-33.0 RDW (test code = 788-0) 13.2 % 12.0-15.0 Platelets (test code = 264 See_Comment [Aut omated message] 777-3) The system [facility] generated this result transmitted ref erence range: 150 - 43 0 K/CU MM. The referen ce range was not u sed to interpret this result as normal/abnor mal. MPV (test code = 9.3 fL 6.0-11.5 95479-4) nRBC (test code = 413) 0 See_Comment [Aut omated message] The system [facility] generated this result transmitted ref erence range: 0 - 0 /1 00 WBC. The refere nce range was not u sed to interpret this result as normal/abnor mal. % Neutros (test code = 56 % 429) % Lymphs (test code = 31 % 430) % Monos (test code = 8 % 431) % Eos (test code = 432) 4 % % Baso (test code = 437) 1 % # Neutros (test code = 3.85 See_Comment [Aut omated message] 670) The system [facility] generated this result transmitted ref erence range: 1.80 - 8 .00 K/L. The refe rence range was not u sed to interpret this result as normal/abnor mal. # Lymphs (test code = 2.12 See_Comment [Auto mated message] 414) The system [facility] generated this result transmitted ref erence range: 1.48 - 4 .50 K/L. The refe rence range was not u sed to interpret this result as normal/abnor mal. # Monos (test code = 0.54 See_Comment [Autom ated message] 415) The system [facility] generated this result transmitted ref erence range: 0.00 - 1 .30 K/L. The refe rence range was not u sed to interpret this result as normal/abnor mal. # Eos (test code = 416) 0.27 See_Comment [Au tomated message] The system [facility] generated this result transmitted ref erence range: 0.00 - 0 .50 K/L. The refe rence range was not u sed to interpret this result as normal/abnor mal. # Baso (test code = 417) 0.09 See_Comment [A utomated message] The system [facility] generated this result transmitted ref erence range: 0.00 - 0 .20 K/L. The refe rence range was not u sed to interpret this result as normal/abnor mal. Immature 0 % 0-0 Granulocytes-Relative (test code = 2801) Lab Interpretation (test Abnormal code = 41489-7) [facility] W/PLT COUNT & AUTO [id number] 06:27:00 Test Item Value Reference Range Interpretation Comments WHITE BLOOD CELL COUNT (BEAKER) 6.9 K/ L 4.0-10.0 (test code = 775) RED BLOOD CELL COUNT (BEAKER) 3.93 M/ L 4.00-5.00 L (test code = 761) HEMOGLOBIN (BEAKER) (test code = 10.8 GM/DL 12.0-15.5 L 410) HEMATOCRIT (BEAKER) (test code = 34.2 % 36.0-46.0 L 411) MEAN CORPUSCULAR VOLUME (BEAKER) 87.0 fL 82.0-99.0 (test code = 753) MEAN CORPUSCULAR HEMOGLOBIN 27.5 pg 27.0-33.0 (BEAKER) (test code = 751) MEAN CORPUSCULAR HEMOGLOBIN CONC 31.6 GM/DL 32.0-36.0 L (BEAKER) (test code = 752) RED CELL DISTRIBUTION WIDTH 13.2 % 12.0-15.0 (BEAKER) (test code = 412) PLATELET COUNT (BEAKER) (test 264 K/CU MM 150-430 code = 756) MEAN PLATELET VOLUME (BEAKER) 9.3 fL 6.0-11.5 (test code = 754) NUCLEATED RED BLOOD CELLS 0 /100 WBC 0-0 (BEAKER) (test code = 413) NEUTROPHILS RELATIVE PERCENT 56 % (BEAKER) (test code = 429) LYMPHOCYTES RELATIVE PERCENT 31 % (BEAKER) (test code = 430) MONOCYTES RELATIVE PERCENT 8 % (BEAKER) (test code = 431) EOSINOPHILS RELATIVE PERCENT 4 % (BEAKER) (test code = 432) BASOPHILS RELATIVE PERCENT 1 % (BEAKER) (test code = 437) NEUTROPHILS ABSOLUTE COUNT 3.85 K/ L 1.80-8.00 (BEAKER) (test code = 670) LYMPHOCYTES ABSOLUTE COUNT 2.12 K/ L 1.48-4.50 (BEAKER) (test code = 414) MONOCYTES ABSOLUTE COUNT (BEAKER) 0.54 K/ L 0.00-1.30 (test code = 415) EOSINOPHILS ABSOLUTE COUNT 0.27 K/ L 0.00-0.50 (BEAKER) (test code = 416) BASOPHILS ABSOLUTE COUNT (BEAKER) 0.09 K/ L 0.00-0.20 (test code = 417) IMMATURE GRANULOCYTES-RELATIVE 0 % 0-0 PERCENT (BEAKER) (test code = 2801) Troponin [id number] 01:53:00 Test Item Value Reference Range Interpretation Comments Troponin I (test code = <0.03 0.00-0.15 21682-6) ANNE (test code = ANNE) Troponin I (TnI) levels must be interpreted in the context of the presenting symptoms and the clinical findings. Elevated TnI levels indicate myocardial damage, but are not specific for ischemic heart disease. Elevated TnI levels are seen in patients with other cardiac conditions (including myocarditis and congestive heart failure), and slight TnI elevations occur in patients with other conditions, including sepsis, renal failure, acidosis, acute neurological disease, and persistent tachyarrhythmia.Opera tor ID - [id number] Lab Interpretation (test Normal code = 46623-0) [id number] 01:53[facility]00 Test Item Value Reference Range Interpretation Comments TROPONIN I (BEAKER) (test code = 397) < ng/mL 0.00-0.15 Troponin I (TnI) levels must be interpreted in the context of the presenting symptoms and the clinical findings. Elevated TnI levels indicate myocardial damage, but are not specific for ischemic heart disease. Elevated TnI levels are seen in patients with other cardiac conditions (including myocarditis and congestive heart failure), and slight TnI elevations occur in patients with other conditions, including sepsis, renal failure, acidosis, acute neurological disease, and persistent tachyarrhythmia.Machine Oiler ID - [id number]"
[2021-06-02 07:24] LABS: Absolute Lymphocytes (CBC) 1.1 K/uL (0.7-4.9); Basophils % 0.3 % (0-1.3); Lymphocytes % 10.1 % (15.3-44.8); MPV 6.8 fL (7.6-11.3); RBC Red Blood Cell Count 2.24 M/uL (3.86-4.86)
[2021-06-02] MEDS ORDERED: NA CHLORIDE 0.9% 2,000 ML ONE (07:33)
[2021-06-02 07:39] LABS: Protime INR 1.09
[2021-06-02 07:42] LABS: Hematocrit 18.7 % (36.0-45.0)
[2021-06-02 07:48] LABS: Albumin 2.7 g/dL (3.4-5.0); Bilirubin Direct 0.2 mg/dL (0-0.2); Bilirubin Total 0.4 mg/dL (0.2-1.0); CKMB Creatine Kinase MB 4.5 ng/mL (1.0-3.6); Potassium 3.4 mmol/L (3.5-5.1); Protein, Total 7.3 g/dL (6.4-8.2); Troponin (Emerg Dept Use Only) 0.05 ng/mL (0.0-0.045)
[2021-06-02 08:00] LABS: Ferritin 260.1 ng/mL (8-388)
--- NOTE | 2021-06-02 08:50 | RAD REPORT ---
EXAM DESCRIPTION: RAD - Chest Single View - 06/02/2021 7:41 am CLINICAL HISTORY: SOB Chest pain. COMPARISON: Chest Single View dated 07/20/2020; Chest Single View dated 10/07/2019; Chest Single View dated 07/24/2019; Chest Single View dated 06/19/2019; Abdomen Pelvis W Contrast dated 10/07/2019 FINDINGS: Portable technique limits examination quality. Extensive bilateral pulmonary opacities are present likely representing COVID-19 infection. The heart is upper limit of normal size. No displaced fractures.
[2021-06-02] MEDS ORDERED: NA CHLORIDE 0.9% 500 ML ONE (10:32)
--- NOTE | 2021-06-02 11:23 | EDPHYS ---
Physician Documentation [facility] Name: Cherry Pompa Age: 71 yrs Sex: Female : 1950 Arrival Date: 06/02/2021 Time: 06:57 Bed 18 Private MD: ED Physician Bruce Araujo HPI: 06/02 07:09 This 71 yrs old Female presents to ER via EMS with complaints of Shortness Of pm1 Breath. 07:09 The patient has shortness of breath at rest. Onset: The symptoms/episode began/occurred pm1 today. Duration: The symptoms are continuous. The patient's shortness of breath is aggravated by nothing, is alleviated by nothing. Associated signs and symptoms: The patient has no apparent associated signs or symptoms. Severity of symptoms: in the emergency department the symptoms are worse. The patient has been recently seen by a physician: with different complaint(s), and apparently was diagnosed with UTI. Patient recently admitted over at [facility] for UTI. Patient was discharged yesterday. According to the son patient acquired Covid during hospitalization. Patient presenting today with shortness of breath and low oxygen saturation. Historical: - Allergies: 07:24 No Known Allergies; lp1 - Home Meds: 07:24 fenofibrate 160 mg Oral tab 1 tab once daily [Active]; Insulin Glargine Sub-Q [Active]; lp1 metformin 500 mg Oral tab 1 tab daily [Active]; metoprolol tartrate 50 mg Oral tab 1 tab once daily [Active]; Neurontin 300 mg Oral cap 1 cap twice a day [Active]; Plavix 75 mg Oral tab 1 tab once daily [Active]; - PMHx: 07:24 Anemia; Angina; Arthritis; Diabetes - IDDM; GERD; High Cholesterol; Hypertension; lp1 neuropathy; - Immunization history:: Adult Immunizations up to date. - Social history:: Smoking status: Patient denies any tobacco usage or history of. ROS: 07:09 Cardiovascular: Negative for chest pain, palpitations, and edema. pm1 07:09 Abdomen/GI: Negative for abdominal pain, nausea, vomiting, diarrhea, and constipation. 07:09 MS/Extremity: Negative for injury and deformity, Skin: Negative for injury, rash, and discoloration. 07:09 : Negative for injury, bleeding, discharge, and swelling. 07:09 Constitutional: Positive for body aches, Negative for fever. 07:09 Respiratory: Positive for cough, shortness of breath. 07:09 All other systems are negative. Exam: 07:09 Head/Face: Normocephalic, atraumatic. pm1 07:09 Skin: Warm, dry with normal turgor. Normal color with no rashes, no lesions, and no evidence of cellulitis. MS/ Extremity: Pulses equal, no cyanosis. Neurovascular intact. Full, normal range of motion. 07:09 Constitutional: The patient appears alert, awake, comfortable, non-diaphoretic, non-toxic, well developed, well hydrated, well groomed, well nourished. 07:09 Eyes: Exam is negative for acute changes, Periorbital structures: appear normal, Pupils: no acute changes, Extraocular movements: no acute changes. 07:09 ENT: Exam is negative for acute changes, Mouth: no acute changes, Lips: normal, moist, dry, Oral mucosa: normal, pink and intact, moist. 07:09 Cardiovascular: Exam negative for acute changes, Rate: normal, Rhythm: regular, Pulses: no pulse deficits are appreciated. 07:09 Respiratory: Exam negative for acute changes, respiratory distress, shortness of breath, Respirations: no acute changes, Breath sounds: decreased breath sounds. 07:09 Abdomen/GI: Exam negative for acute changes, Inspection: obese Palpation: abdomen is soft and non-tender, in all quadrants. 07:09 Neuro: Exam negative for acute changes, Orientation: is normal, Mentation: is normal, Motor: is normal, moves all fours. Vital Signs: 06:40 BP 62 / 36; Pulse 86; Resp 22; Temp 98.5(O); Pulse Ox 99% on 15% Non-rebreather mask; lp1 Weight 68.04 kg (R); Height 5 ft. 0 in. (152.40 cm); Pain 0/10; 07:00 Pulse Ox 72% on 5 lpm NC; lp1 07:00 Pulse Ox 99% on 15% Non-rebreather mask; lp1 07:20 Weight 68.04 kg; ll1 07:35 BP 129 / 51; Pulse 82; Pulse Ox 99% ; ll1 08:00 BP 123 / 46; Pulse 74; Resp 16; Pulse Ox 100% ; ll1 09:00 BP 126 / 55; Pulse 78; Resp 22; Pulse Ox 89% on 4 lpm NC; ll1 10:00 BP 136 / 67; Pulse 92; Resp 22; Pulse Ox 89% on 4 lpm NC; ll1 11:00 BP 122 / 48; Pulse 80; Resp 2; Pulse Ox 92% ; ll1 12:00 BP 134 / 62; Pulse 89; Resp 20; Pulse Ox 89% ; ll1 13:00 BP 120 / 50; Pulse 93; Resp 28; Pulse Ox 83% on 10 lpm NC; ll1 14:00 BP 135 / 65; Pulse 95; Resp 22; Pulse Ox 90% on 15 lpm NC; ll1 15:00 BP 124 / 63; Pulse 90; Resp 17; Temp 97.6; Pulse Ox 91% on NC; ll1 16:14 BP 135 / 57; Pulse 93; Resp 18; Temp 98.7; Pulse Ox 96% on NC; Pain 10/10; ll1 06:40 Body Mass Index 29.29 (68.04 kg, 152.40 cm) lp1 MDM: 06:59 Patient medically screened. pm1 07:03 Data interpreted: Pulse oximetry: on 5L(s) per nasal canula, is 72 %. Interpretation: pm1 hypoxia. 07:42 Data reviewed: vital signs. pm1 11:18 Counseling: I had a detailed discussion with the patient and/or guardian regarding: the pm1 historical points, exam findings, and any diagnostic results supporting the discharge/admit diagnosis, lab results, radiology results, the need for further work-up and treatment in the hospital. 06/02 07:04 Order name: Amylase, Serum pm1 06/02 07:04 Order name: Basic Metabolic Panel pm1 06/02 07:04 Order name: Blood Culture Adult (2) pm1 06/02 07:04 Order name: CBC with Diff; Complete Time: 07:50 pm1 06/02 07:04 Order name: CPK; Complete Time: 07:50 pm1 06/02 07:04 Order name: Ckmb; Complete Time: 07:50 pm1 06/02 07:04 Order name: LFT's; Complete Time: 07:50 pm1 06/02 07:04 Order name: Lactate; Complete Time: 11:47 pm1 06/02 07:04 Order name: Lipase; Complete Time: 07:50 pm1 06/02 07:04 Order name: Procalcitonin; Complete Time: 08:45 pm1 06/02 07:04 Order name: Protime (+inr); Complete Time: 07:50 pm1 06/02 07:04 Order name: Ptt, Activated; Complete Time: 07:50 pm1 06/02 07:04 Order name: Troponin (emerg Dept Use Only); Complete Time: 07:50 pm1 06/02 07:04 Order name: Urine Culture pm1 06/02 07:04 Order name: Urine Microscopic Only pm1 06/02 07:05 Order name: Amylase; Complete Time: 07:50 EDMS 06/02 07:05 Order name: Basic Metabolic Panel; Complete Time: 07:50 EDMS 06/02 07:05 Order name: COVID-19 : Document "Date of Symptom Onset" if Symptomatic. pm1 06/02 07:10 Order name: Ferritin; Complete Time: 08:45 pm1 06/02 07:10 Order name: CRP; Complete Time: 08:45 pm1 06/02 07:10 Order name: Flu; Complete Time: 10:37 pm1 06/02 07:13 Order name: Glucose, Ancillary Testing; Complete Time: 07:14 EDMS 06/02 12:35 Order name: Retic Count; Complete Time: 13:12 pm1 06/02 13:10 Order name: Type And Screen ss 06/02 13:50 Order name: Packed RBC Leukored [facility] 06/02 14:51 Order name: Occult Blood [facility] 06/02 14:51 Order name: Comprehensive Metabolic Panel [facility] 06/02 14:51 Order name: Comprehensive Metabolic Panel [facility] 06/02 14:51 Order name: Comprehensive Metabolic Panel [facility] 06/02 07:04 Order name: Chest Single View XRAY; Complete Time: 09:15 pm1 06/02 07:04 Order name: Accucheck; Complete Time: 07:05 pm1 06/02 07:04 Order name: Cardiac monitoring; Complete Time: 07:21 pm1 06/02 07:04 Order name: EKG - Nurse/Tech; Complete Time: 07:21 pm1 06/02 07:04 Order name: IV Saline Lock - Large Bore; Complete Time: 07:05 pm1 06/02 07:04 Order name: Labs collected and sent; Complete Time: 07:05 pm1 06/02 07:04 Order name: O2 Per Protocol; Complete Time: 07:05 pm1 06/02 07:04 Order name: O2 Sat Monitoring; Complete Time: 07:05 pm1 06/02 07:04 Order name: Urine Dipstick-Ancillary (obtain specimen); Complete Time: 15:29 pm1 06/02 07:50 Order name: Transfuse; Complete Time: 15:29 pm1 06/02 14:51 Order name: Comprehensive Metabolic Panel EDMS 06/02 14:51 Order name: CONS Physician Consult EDMS 06/02 14:51 Order name: Hemoglobin A1c EDMS 06/02 14:51 Order name: Lipid Profile EDMS 06/02 14:51 Order name: Thyroid Stimulating Hormone EDMS 06/02 14:51 Order name: CBC with Automated Diff EDMS 06/02 14:51 Order name: CBC with Automated Diff EDMS 06/02 14:51 Order name: CBC with Automated Diff EDMS 06/02 14:51 Order name: CBC with Automated Diff EDMS 06/02 14:52 Order name: Ova and Parasites EDMS 06/02 15:06 Order name: Social Service Consult EDMS 06/02 15:39 Order name: Urine Dipstick-Ancillary; Complete Time: 15:46 EDMS Administered Medications: 07:20 Drug: NS 0.9% (30 ml/kg) 30 ml/kg Route: IV; Rate: bolus; Site: right antecubital; ll1 16:13 Follow up: Response: No adverse reaction; IV Status: Completed infusion; IV Intake: ll1 1000ml 09:00 Drug: Rocephin (cefTRIAXone) 1 grams Route: IV; Rate: calculated rate; Site: left ll1 antecubital; 15:29 Follow up: Response: No adverse reaction; IV Status: Completed infusion; IV Intake: [id number] 13:08 Drug: Tylenol 650 mg Route: PO; ll1 15:29 Follow up: Response: Pain is unchanged, physician notified ll1 15:15 Drug: fentaNYL (PF) 25 mcg Route: IVP; Site: left antecubital; ll1 16:13 Follow up: Response: No adverse reaction; Pain is unchanged, physician notified; RASS: ll1 Restless (+1) Disposition: 17:00 Co-signature as Attending Physician, Bruce Araujo MD I agree with the assessment and rn plan of care. Attestation: The patient's history, exam findings, diagnostics, and a summary of any interventions or procedures was reviewed in detail with Jerel Quinn AIRPLANE PILOT PHOTOGRAMMETRY. Disposition Summary: 06/02/21 11:22 Hospitalization Ordered Hospitalization Status: Inpatient Admission pm1 Provider: James Crawford pm1 Location: Telemetry/[facility] (Inpatient) pm1 Condition: Stable pm1 Problem: new pm1 Symptoms: have improved pm1 Bed/Room Type: Standard pm1 Room Assignment: 426(06/02/21 15:22) dw Diagnosis - Anemia, unspecified pm1 - Pneumonia due to SARS-associated coronavirus pm1 - Hypoxia pm1 Forms: - Medication Reconciliation Form pm1 - SBAR form pm1 Signatures: Dispatcher [employer] EDMS Aurora Hodge, RN RN dw Bruce Araujo MD MD rn Pena, Laura RN RN 1 Jerel Quinn NP AIRPLANE PILOT PHOTOGRAMMETRY pm1 Philip Franklin RN RN ll1 Corrections: (The following items were deleted from the chart) 13:08 07:51 TYPE AND SCREEN+BB.LAB.BRZ ordered. EDMS EDMS 13:08 11:17 TYPE AND SCREEN+BB.LAB.BRZ reviewed. pm1 EDMS 15:22 11:22 pm1 dw 15:30 07:04 Beckham ordered. pm1 ll1
--- NOTE | 2021-06-02 11:23 | ER ---
Nurse's Notes [facility] Name: Cherry Pompa Age: 71 yrs Sex: Female : 1950 Arrival Date: 06/02/2021 Time: 06:57 Bed 18 Private MD: Diagnosis: Anemia, unspecified;Pneumonia due to SARS-associated coronavirus;Hypoxia Presentation: 06/02 06:40 Chief complaint: EMS states: Called for patient with shortness of breath and low blood lp1 pressure; On arrival, Patient had O2 in 60's% on room air; Family member reports recent discharge from hospital in [place] 1 day ago with diagnosis of UTI and COVID. 06:40 Coronavirus screen: Client reports previous positive COVID test result. Ebola Screen: lp1 No symptoms or risks identified at this time. Initial Sepsis Screen: Does the patient meet any 2 criteria? RR > 20 per min. Mean Arterial Pressure (MAP) < 65. Does the patient have a suspected source of infection? Yes: Productive cough/pneumonia. Risk Assessment: Do you want to hurt yourself or someone else? Patient reports no desire to harm self or others. Onset of symptoms was June 02, 2021. 06:40 Method Of Arrival: EMS: [facility] lp1 06:40 Acuity: HERIBERTO 2 lp1 Triage Assessment: 07:00 General: Appears ill, Behavior is calm. Pain: Denies pain. Neuro: Level of lp1 Consciousness is awake, obeys commands, Oriented to person, place, situation. Respiratory: Reports shortness of breath Airway is patent Respiratory effort is shallow, Respiratory pattern is regular, Onset: The symptoms/episode began/occurred gradually, the patient has moderate shortness of breath. : Parent/caregiver report the patient having family member reports recent hospitalization for UTI and COVID. Derm: Skin is thin, Skin is dry, Skin is normal. Historical: - Allergies: 07:24 No Known Allergies; lp1 - Home Meds: 07:24 fenofibrate 160 mg Oral tab 1 tab once daily [Active]; Insulin Glargine Sub-Q [Active]; lp1 metformin 500 mg Oral tab 1 tab daily [Active]; metoprolol tartrate 50 mg Oral tab 1 tab once daily [Active]; Neurontin 300 mg Oral cap 1 cap twice a day [Active]; Plavix 75 mg Oral tab 1 tab once daily [Active]; - PMHx: 07:24 Anemia; Angina; Arthritis; Diabetes - IDDM; GERD; High Cholesterol; Hypertension; lp1 neuropathy; - Immunization history:: Adult Immunizations up to date. - Social history:: Smoking status: Patient denies any tobacco usage or history of. Screenin:00 Abuse screen: Denies threats or abuse. Denies injuries from another. Nutritional lp1 screening: No deficits noted. Tuberculosis screening: No symptoms or risk factors identified. Fall Risk Total Jackson Fall Scale indicates High Risk Score (45 or more points). Fall prevention measures have been instituted. Side Rails Up X 2 As available patient and family educated on Fall Prevention Program and Strategies. Assessment: 07:35 Reassessment: No changes from previously documented assessment. Patient and/or family ll1 updated on plan of care and expected duration. Pain level reassessed. Patient is alert, oriented x 3, equal unlabored respirations, skin warm/dry/pink. 08:30 Reassessment: No changes from previously documented assessment. Patient and/or family ll1 updated on plan of care and expected duration. Pain level reassessed. Patient is alert, oriented x 3, equal unlabored respirations, skin warm/dry/pink. 09:30 Reassessment: No changes from previously documented assessment. Patient and/or family ll1 updated on plan of care and expected duration. Pain level reassessed. Patient is alert, oriented x 3, equal unlabored respirations, skin warm/dry/pink. Cardiovascular: Rhythm is regular. Respiratory: Airway is patent Trachea midline Respiratory effort is even, unlabored, Respiratory pattern is regular, symmetrical, Breath sounds are clear bilaterally. the patient has moderate shortness of breath. 10:30 Reassessment: No changes from previously documented assessment. Patient and/or family ll1 updated on plan of care and expected duration. Pain level reassessed. Patient is alert, oriented x 3, equal unlabored respirations, skin warm/dry/pink. 11:30 Reassessment: No changes from previously documented assessment. Patient and/or family ll1 updated on plan of care and expected duration. Pain level reassessed. Patient is alert, oriented x 3, equal unlabored respirations, skin warm/dry/pink. 12:15 Reassessment: Arin in lab asking for recollect for Type and Screen as the first one ss was hemolyzed. Recollect sent to lab by Philip Franklin RN. 12:40 Reassessment: Retic count added. Spoke to Arin in lab who states she can add it on ss to specimen that has been already sent. 13:00 Reassessment: No changes from previously documented assessment. Patient and/or family ll1 updated on plan of care and expected duration. Pain level reassessed. Patient is alert, oriented x 3, equal unlabored respirations, skin warm/dry/pink. 14:00 Reassessment: No changes from previously documented assessment. Patient and/or family ll1 updated on plan of care and expected duration. Pain level reassessed. Patient is alert, oriented x 3, equal unlabored respirations, skin warm/dry/pink. Vital Signs: 06:40 BP 62 / 36; Pulse 86; Resp 22; Temp 98.5(O); Pulse Ox 99% on 15% Non-rebreather mask; lp1 Weight 68.04 kg (R); Height 5 ft. 0 in. (152.40 cm); Pain 0/10; 07:00 Pulse Ox 72% on 5 lpm NC; lp1 07:00 Pulse Ox 99% on 15% Non-rebreather mask; lp1 07:20 Weight 68.04 kg; ll1 07:35 BP 129 / 51; Pulse 82; Pulse Ox 99% ; ll1 08:00 BP 123 / 46; Pulse 74; Resp 16; Pulse Ox 100% ; ll1 09:00 BP 126 / 55; Pulse 78; Resp 22; Pulse Ox 89% on 4 lpm NC; ll1 10:00 BP 136 / 67; Pulse 92; Resp 22; Pulse Ox 89% on 4 lpm NC; ll1 11:00 BP 122 / 48; Pulse 80; Resp 2; Pulse Ox 92% ; ll1 12:00 BP 134 / 62; Pulse 89; Resp 20; Pulse Ox 89% ; ll1 13:00 BP 120 / 50; Pulse 93; Resp 28; Pulse Ox 83% on 10 lpm NC; ll1 14:00 BP 135 / 65; Pulse 95; Resp 22; Pulse Ox 90% on 15 lpm NC; ll1 15:00 BP 124 / 63; Pulse 90; Resp 17; Temp 97.6; Pulse Ox 91% on NC; ll1 16:14 BP 135 / 57; Pulse 93; Resp 18; Temp 98.7; Pulse Ox 96% on NC; Pain 10/10; ll1 06:40 Body Mass Index 29.29 (68.04 kg, 152.40 cm) lp1 ED Course: 06:50 Patient has correct armband on for positive identification. Placed in gown. Bed in low lp1 position. Call light in reach. traffic monitor specialist on. Pulse ox on. NIBP on. 06:50 Inserted saline lock: 20 gauge in left antecubital area, using aseptic technique. Blood lp1 collected. 06:50 Initial lab(s) drawn, by de, sent to lab. First set of blood cultures drawn. lp1 06:57 Patient arrived in ED. em 06:59 Jerel Quinn NP is PHCP. pm1 06:59 Ajith Britt MD is Attending Physician. pm1 07:05 Indiana Zapata, RN is Primary Nurse. lp1 07:20 Triage completed. lp1 07:21 Arm band placed on. lp1 07:21 Patient placed in an exam room, on a stretcher. ll1 07:24 EKG done, by ED staff, reviewed by Jerel Quinn NP. dh3 07:41 Chest Single View XRAY In Process Unspecified. EDMS 08:29 Attending Physician role handed off by Ajith Britt MD rn 08:29 Bruce Araujo MD is Attending Physician. rn 11:22 James Crawford MD is Hospitalizing Provider. pm1 15:48 Urine Microscopic Only Sent. mh5 15:48 Urine Culture Sent. mh5 15:49 Urine collected: clean catch specimen, cloudy. mh5 16:12 No provider procedures requiring assistance completed. Patient admitted, IV remains in ll1 place. Administered Medications: 07:20 Drug: NS 0.9% (30 ml/kg) 30 ml/kg Route: IV; Rate: bolus; Site: right antecubital; ll1 16:13 Follow up: Response: No adverse reaction; IV Status: Completed infusion; IV Intake: ll1 1000ml 09:00 Drug: Rocephin (cefTRIAXone) 1 grams Route: IV; Rate: calculated rate; Site: left 1 antecubital; 15:29 Follow up: Response: No adverse reaction; IV Status: Completed infusion; IV Intake: [id number] 13:08 Drug: Tylenol 650 mg Route: PO; ll1 15:29 Follow up: Response: Pain is unchanged, physician notified ll1 15:15 Drug: fentaNYL (PF) 25 mcg Route: IVP; Site: left antecubital; ll1 16:13 Follow up: Response: No adverse reaction; Pain is unchanged, physician notified; RASS: ll1 Restless (+1) Intake: 15:29 IV: 20ml; Total: 20ml. ll1 16:13 IV: 1000ml; Total: 1020ml. ll1 Outcome: 11:22 Decision to Hospitalize by Provider. pm1 16:12 Admitted to Tele accompanied by nurse, via stretcher, room Rm 426. ll1 16:12 Condition: stable 16:12 Instructed on the need for admit. 16:52 Patient left the ED. Signatures: Dispatcher [employer] Chevy Acosta, ITA JEAN BAPTISTE Bruce Araujo MD MD rn Smirch, Shelby, RN RN Indiana Zapata RN RN 1 Jerel Quinn, BAILEY INSTRUMENT ASSEMBLER 1 Brigette Kasper Kacey Echevarria 3 Philip Franklin RN RN 1
[2021-06-02 12:45] LABS: RBC Red Blood Cell Count 2.21 M/uL (3.86-4.86)
[2021-06-02] MEDS ORDERED: ACETAMINOPHEN 325 MG TABLET ONE (13:25)
[2021-06-02] MEDS ORDERED: GLUCAGON 1 MG/VIAL IM PRN (14:49)
[2021-06-02] MEDS ORDERED: D50W 25 GM/50 ML SYRINGE IV PRN (14:49)
--- NOTE | 2021-06-02 15:05 | P.HP ---
Certification for Inpatient Patient admitted to: Inpatient With expected LOS: >2 Midnights Patient will require the following post-hospital care: Home Health Services Practitioner: I am a practitioner with admitting privileges, knowledge of patient current condition, hospital course, and medical plan of care. Services: Services provided to patient in accordance with Admission requirements found in Title 42 Section 412.3 of the Code of Federal Regulations Patient History Date of Service: 06/02/21 Primary Care Provider: none Reason for admission: covid pneumonia History of Present Illness: Patient is a pleasant woman with a history of dm2, cad, htn, hyperlipidemia. She comes in with sob. Her grandchildren are covid positive. The patient has covid pneumonia. She is doing better on high flow oxygen. She is very anemic as well. Denies any bleeding. She is not very alert. The patient has had anemia several times in the past. She does not seem to ever have had a work up. She is on plavix and aspirin Allergies No Known Drug Allergies Allergy (Verified 03/22/18 04:48) Unknown NKDA Allergy (Uncoded 03/22/18 04:48) Unknown No Known Allergies Allergy (Uncoded 03/22/18 04:48) Unknown Home Medications: Clopidogrel Bisulfate [Plavix*] 75 mg PO DAILY 06/08/19 Gabapentin [Neurontin] 600 mg PO BID 06/08/19 Insulin Glargine Human [Lantus*] 25 unit SQ DAILY 06/08/19 Metformin HCl [Glucophage*] 500 mg PO DAILY WITH BREAKFAST 06/08/19 Metoprolol Tartrate [Lopressor] 50 mg PO DAILY 06/08/19 Pantoprazole [Protonix Tab*] 40 mg PO DAILY 06/08/19 Acetaminophen [Tylenol] 325 mg PO TID 06/19/19 Hydrocodone 7.5/APAP 325 [[place] 7.5/325 mg*] 1 tab PO TID 07/24/19 Ranolazine [Ranexa] 500 mg PO BID #60 tab.er.12h 07/27/19 - Past Medical/Surgical History Diabetic: Yes -: HTN -: Hyperlipidemia -: CAD -: Arthritis -: Obesity -: Noncompliance -: Depression with anxiety -: Hyperlipidemia -: History of UTI -: 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 - Family History Mother -: Heart disease, Hypertension - Social History Alcohol use: No CD- Drugs: No Caffeine use: Yes Review of Systems 10-point ROS is otherwise unremarkable Respiratory: Shortness of Breath Musculoskeletal: Shoulder Pain (right side) Physical Examination - Physical Exam General: Alert, In no apparent distress HEENT: Atraumatic, PERRLA, Mucous membr. moist/pink, EOMI, Sclerae nonicteric Neck: Supple, 2+ carotid pulse no bruit, No LAD, Without JVD or thyroid abnormality Respiratory: Clear to auscultation bilaterally, Normal air movement Cardiovascular: Regular rate/rhythm, Normal S1 S2 Gastrointestinal: Normal bowel sounds, No tenderness Musculoskeletal: No tenderness Integumentary: No rashes Neurological: Normal gait, Normal speech, Normal strength at 5/5 x4 extr, Normal tone, Normal affect Lymphatics: No axilla or inguinal lymphadenopathy - Studies Laboratory Data (last 24 hrs) 06/02/21 06:50: PT 12.5, INR 1.09, APTT 30.8 06/02/21 06:50: WBC 10.90, Hgb 6.1 L*, Hct 18.7 L*, Plt Count 238 06/02/21 06:50: Sodium 134 L, Potassium 3.4 L, BUN 20 H, Creatinine 1.17, Glucose 150 H, Total Bilirubin 0.4, AST 38 H, ALT 16, Alkaline Phosphatase 82, Amylase 15 L, Lipase 32 L Microbiology Data (last 24 hrs): 06/02/21 08:50 Nasopharnyx Influenza Type A Antigen Screen - Final 06/02/21 08:50 Nasopharnyx Influenza Type B Antigen Screen - Final Assessment and Plan - Problems (Diagnosis) (1) COVID-19 Current Visit: Yes Status: Acute Plan: will admit her to the covid unit. Contiinue high flow oxygen and steroids. Consult to Dr. Bullock. (2) Coronary arteriosclerosis Current Visit: No Status: Chronic Plan: she is currently not complainting of chest pain. (3) Anemia of chronic disease Current Visit: No Status: Chronic Plan: not sure if this is myleofibrosis or chronic bleeding disease. will order transfusion. Check stool guiac and reticulocyte count. (4) Diabetes mellitus Onset Date: 07/17/15 Current Visit: No Status: Chronic Plan: continue her sliding scale. Will check an a1c. (5) Hyperlipidemia Current Visit: No Status: Chronic Plan: check a fasting lipid profile (6) Hypertension Onset Date: 08/06/15 Current Visit: No Status: Chronic Plan: continue home medications. Will adjust as necessary. Qualifiers: Hypertension type: primary hypertension Qualified Code(s): I10 - Essential (primary) hypertension Discharge Plan: Home Plan to discharge in: Greater than 2 days - Advance Directives Does patient have a Living Will: No Does patient have a Durable POA for Healthcare: No - Code Status/Comfort Care Code Status Assessed: No Code Status: Full Code Physician Review: Patient Assessed, Agree with Above Assessment and Plan Critical Care: No Time Spent Managing Pts Care (In Minutes): 45
[2021-06-02 15:38] LABS: Urine Blood 1+ (Negative); Urine Glucose Negative (Negative); Urine Protein 1+ (Negative); Urine Specific Gravity 1.015 (1.005-1.030); Urine pH 5.5 (5.0-7.0)
[2021-06-02] MEDS ORDERED: FENTANYL CITR 100 MCG/2 ML ONE (15:39)
[2021-06-02] MEDS: INSULIN -REGULAR HUMAN 50 UNIT/0.5 ML ML SQ SCH ×2 (16:30→21:00)
[2021-06-02] MEDS ORDERED: METHYLPRED NA SUC 80 MG in NA CHLORIDE 0.9% 100 ML IV SCH (17:00)
[2021-06-02 17:05] LABS: Urine Bacteria 20-50 /HPF (<20)
[2021-06-02 17:07] LABS: Urine Yeast PRESENT (NONE SEEN)
[2021-06-02] MEDS ORDERED: HYDROMORPHONE HCL 2 MG/ML inj ONE (17:50)
[2021-06-02 18:45] LABS: Hematocrit 30.9 % (36.0-45.0)
--- NOTE | 2021-06-02 18:52 | RAD REPORT ---
EXAM DESCRIPTION: RAD - Chest Single View - 06/02/2021 5:54 pm CLINICAL HISTORY: pain Chest pain. COMPARISON: Chest Single View dated 06/02/2021; Chest Single View dated 07/20/2020; Chest Single View dated 10/07/2019; Chest Single View dated 07/24/2019 FINDINGS: Portable technique limits examination quality. Extensive confluent bilateral consolidations are again seen, slightly worse than earlier study same d ay. This is compatible with COVID-19 infection. The heart is normal in size. No displaced fractures. IMPRESSION: Slight worsening in lung aeration since comparative study earlier today.
[2021-06-02] MEDS ORDERED: FUROSEMIDE 40 MG/4 ML VIAL IV ONE (20:00)
[2021-06-02] MEDS ORDERED: METHYLPREDNISOLONE 125 MG INJ IV ONE (20:01)
[2021-06-02] MEDS ORDERED: IPRATROPIUM BROM 0.5MG/2.5ML NEB STA (20:22)
[2021-06-02] MEDS ORDERED: LEVALBUTEROL 1.25 MG/3 ML NEB NEB STA (20:22)
[2021-06-02] MEDS ORDERED: HYDROCORTISONE SUC 100 MG INJ IV ONE (20:24)
[2021-06-02] MEDS: ACETAMINOPHEN 325 MG TABLET PO SCH (21:00)
[2021-06-02] MEDS: GABAPENTIN 300 MG CAP PO SCH (21:00)
[2021-06-02] MEDS ORDERED: HOME MED 1 EA UNK (Gabapentin [Neurontin] 600 MG Tablet) PO SCH (21:00)
[2021-06-02] MEDS: RANOLAZINE 1000 MG PO SCH (21:00)
[2021-06-02] MEDS: METHYLPREDNISOLONE 40 MG INJ IV SCH (21:00)
[2021-06-02] MEDS ORDERED: LEVALBUTEROL 1.25 MG/3 ML NEB ONE (21:23)
[2021-06-02 21:52] LABS: Absolute Lymphocytes (CBC) 0.7 K/uL (0.7-4.9); Basophils % 0.1 % (0-1.3); Hematocrit 34.9 % (36.0-45.0); MPV 7.3 fL (7.6-11.3); RBC Red Blood Cell Count 4.18 M/uL (3.86-4.86)
[2021-06-02 22:04] LABS: Albumin 2.7 g/dL (3.4-5.0); Bilirubin Total 0.5 mg/dL (0.2-1.0); Potassium 3.8 mmol/L (3.5-5.1); Troponin I 0.04 ng/mL (0.0-0.045)
[2021-06-02] MEDS ORDERED: Pharmacy Consult 1 EA XX PRN (22:16)
[2021-06-02] MEDS ORDERED: FUROSEMIDE 20 MG/ 2ML VIAL IV ONE (22:25)
[2021-06-02] MEDS: PIPER/TAZO/NS 3.375gm 3.375 GM/100 ML BAG IVPB SCH (22:30)
[2021-06-02 22:40] LABS: Arterial Blood Carboxyhemoglob 0.8 % (0-1.5); Blood Gas Oxyhemoglobin 88.1 % (94-97); Blood O2 Saturation 90.1 % (92-98.5)
[2021-06-02] MEDS ORDERED: FUROSEMIDE 20 MG/ 2ML VIAL ONE (22:47)
[2021-06-02] MEDS ORDERED: CEFTRIAXONE/SWI 1gm 1 GM/10 ML SYR IV SCH (23:00)
[2021-06-02] MEDS ORDERED: PIPERACIL/TAZO 3.375 GM VIAL IV ONE (23:03)
[2021-06-02] MEDS ORDERED: NA CHLORIDE 0.9% 100 ML ONE (23:03)
[2021-06-02 23:09] LABS: Blood Morphology Comment NOT SEEN (NOT SEEN); Platelet Estimate ADEQ
[2021-06-02] MEDS ORDERED: VANCOMYCIN 1 GM/VIAL ONE (23:47)
[2021-06-02] MEDS ORDERED: VANCOMYCIN 500 MG/VIAL ONE (23:51)
[2021-06-02] MEDS ORDERED: NA CHLORIDE 0.9% 250 ML ONE (23:55)
[2021-06-03] MEDS: METHYLPREDNISOLONE 40 MG INJ IV SCH ×2 (00:45→10:13)
[2021-06-03] MEDS: HYDROMORPHONE HCL 1 MG/ML INJ IV PRN ×3 (03:30→22:08)
[2021-06-03 05:49] LABS: Troponin I 0.09 ng/mL (0.0-0.045)
[2021-06-03 05:58] LABS: Albumin 2.2 g/dL (3.4-5.0); Bilirubin Total 0.5 mg/dL (0.2-1.0); Potassium 3.3 mmol/L (3.5-5.1); Protein, Total 6.8 g/dL (6.4-8.2); Thyroid Stimulating Hormone 0.943 uIU/mL (0.360-3.740)
[2021-06-03 06:02] LABS: Absolute Lymphocytes (CBC) 0.5 K/uL (0.7-4.9); Basophils % 0.1 % (0-1.3); Hematocrit 27.9 % (36.0-45.0); Lymphocytes % 2.4 % (15.3-44.8); RBC Red Blood Cell Count 3.34 M/uL (3.86-4.86)
[2021-06-03] MEDS: INSULIN -REGULAR HUMAN 50 UNIT/0.5 ML ML SQ SCH ×3 (06:35→18:00)
[2021-06-03 07:29] LABS: Blood Morphology Comment NOT SEEN (NOT SEEN); Platelet Estimate ADEQ
[2021-06-03] MEDS: RANOLAZINE 1000 MG PO SCH ×2 (09:00→20:18)
[2021-06-03] MEDS ORDERED: CEFTRIAXONE 1 GM/NS 50 ML 1 GM/50 ML BAG IV SCH (09:00)
[2021-06-03] MEDS ORDERED: CEFTRIAXONE/SWI 1gm 1 GM/10 ML SYR IV SCH (09:00)
[2021-06-03] MEDS: ACETAMINOPHEN 325 MG TABLET PO SCH ×3 (10:13→20:17)
[2021-06-03] MEDS: GABAPENTIN 300 MG CAP PO SCH ×2 (10:13→20:17)
[2021-06-03] MEDS: METOPROLOL TAR 50 MG TAB PO SCH (10:14)
[2021-06-03] MEDS: PANTOPRAZOLE 40MG TABLET PO SCH (10:14)
[2021-06-03] MEDS: HALOPERIDOL LACT 5 MG/ML INJ IV PRN (10:14)
[2021-06-03] MEDS: APIXABAN 2.5 MG TABLET PO SCH ×2 (10:14→20:18)
[2021-06-03] MEDS: PIPER/TAZO/NS 3.375gm 3.375 GM/100 ML BAG IVPB SCH (10:15)
--- NOTE | 2021-06-03 11:53 | P.PN ---
Subjective Date of Service: 06/03/21 Primary Care Provider: none Chief Complaint: covid pneumonia Subjective: No new changes patient has been removing her mask. Desaturates Review of Systems is unable to be obtained Physical Examination - Vital Signs Temperature: 100.8 F Blood Pressure: 91/68 Pulse: 105 Respirations: 14 Pulse Ox (%): 93 - Physical Exam General: Moderate distress, Delirious HEENT: Atraumatic, PERRLA, EOMI Neck: Supple, JVD not distended Respiratory: Clear to auscultation bilaterally, Diminished Cardiovascular: Regular rate/rhythm, Normal S1 S2 Gastrointestinal: Normal bowel sounds, No tenderness Musculoskeletal: No tenderness Integumentary: No rashes Neurological: Normal speech, Normal tone, Normal affect Lymphatics: No axilla or inguinal lymphadenopathy - Studies Microbiology Data (last 24 hrs): 06/02/21 08:50 Nasopharnyx Influenza Type A Antigen Screen - Final 06/02/21 08:50 Nasopharnyx Influenza Type B Antigen Screen - Final Assessment & Plan - Problems (Diagnosis) (1) COVID-19 Current Visit: Yes Status: Acute Plan: will admit her to the covid unit. Contiinue high flow oxygen and steroids. Consult to Dr. Bullock. 06/03 continue steroids and fluids. Would like to avoid intubation As this patient is not likely to have a good outcome. (2) Coronary arteriosclerosis Current Visit: No Status: Chronic Plan: she is currently not complainting of chest pain. (3) Anemia of chronic disease Current Visit: No Status: Chronic Plan: not sure if this is myleofibrosis or chronic bleeding disease. will order transfusion. Check stool guiac and reticulocyte count. (4) Diabetes mellitus Onset Date: 07/17/15 Current Visit: No Status: Chronic Plan: continue her sliding scale. Will check an a1c. (5) Hyperlipidemia Current Visit: No Status: Chronic Plan: check a fasting lipid profile (6) Hypertension Onset Date: 08/06/15 Current Visit: No Status: Chronic Plan: continue home medications. Will adjust as necessary. Qualifiers: Hypertension type: primary hypertension Qualified Code(s): I10 - Essential (primary) hypertension (7) Visit for family planning education Current Visit: Yes Status: Acute Plan: Have called the family for discussion of patient care. They want to transfer her to [facility]. Which is unlikely and possible fatal. They wish her to plan out financial considerations. Which is inappropriate. They are not likely to change the patients code status. She is overall a poor prognosis. will continue to meet with the family. Physician Review: Patient Assessed, Agree with Above Assessment and Plan
[2021-06-03] MEDS ORDERED: NA CHLORIDE 0.9% 1,000 ML IV PRN (12:20)
[2021-06-03] MEDS ORDERED: NA CHLORIDE 0.9% 250 ML ONE (12:46)
[2021-06-03] MEDS ORDERED: NA CHLORIDE 0.9% 250 ML IV ONE (15:36)
[2021-06-03] MEDS: NACHLORIDE 0.45% 1,000 ML IV SCH (15:42)
[2021-06-03 16:50] LABS: Hematocrit 27.2 % (36.0-45.0)
[2021-06-03] MEDS: METHYLPREDNISOLONE 125 MG INJ IV SCH (17:23)
[2021-06-03] MEDS ORDERED: METHYLPREDNISOLONE 40 MG INJ IV SCH (18:30)
[2021-06-03] MEDS ORDERED: VANCOMYCIN 1.25 GM in NA CHLORIDE 0.9% 250 ML IVPB SCH ×3 (23:00)
[2021-06-04] MEDS: INSULIN -REGULAR HUMAN 50 UNIT/0.5 ML ML SQ SCH ×5 (00:23→23:36)
[2021-06-04] MEDS: METHYLPREDNISOLONE 125 MG INJ IV SCH ×2 (00:28→07:49)
[2021-06-04 05:18] LABS: Absolute Lymphocytes (CBC) 0.7 K/uL (0.7-4.9); Basophils % 0.1 % (0-1.3); Hematocrit 30.6 % (36.0-45.0); Lymphocytes % 2.5 % (15.3-44.8); MPV 6.9 fL (7.6-11.3); RBC Red Blood Cell Count 3.65 M/uL (3.86-4.86)
[2021-06-04 05:30] LABS: Albumin 2.3 g/dL (3.4-5.0); Bilirubin Total 0.4 mg/dL (0.2-1.0); Potassium 3.6 mmol/L (3.5-5.1); Protein, Total 7.2 g/dL (6.4-8.2)
--- NOTE | 2021-06-04 06:00 | P.PN ---
Subjective Date of Service: 06/04/21 Primary Care Provider: none Chief Complaint: covid pneumonia Subjective: Other (Patient remains on BiPAP at 100%. Patient ate yesterday. No Dobbhoff was required) Physical Examination - Vital Signs Temperature: 97.1 F Blood Pressure: 101/43 Pulse: 92 Respirations: 21 Pulse Ox (%): 93 Assessment & Plan Discharge Plan: LTAC Plan to discharge in: Greater than 2 days Physician Review Additional Text: COVID: positive CXR 06/02/2021: COMPARISON: Chest Single View dated 06/02/2021; Chest Single View dated 07/20/2020; Chest Single View dated 10/07/2019; Chest Single View dated 07/24/2019 FINDINGS: Portable technique limits examination quality. Extensive confluent bilateral consolidations are again seen, slightly worse than earlier study same day. This is compatible with COVID-19 infection. The heart is normal in size. No displaced fractures. IMPRESSION: Slight worsening in lung aeration since comparative study earlier today. Physical exam: General: Patient alert, cooperative. HEENT: Atraumatic, PERRLA, EOMI Neck: Supple, JVD not distended Respiratory: Currently on BiPAP at 100% Cardiovascular: Regular rate/rhythm, Normal S1 S2 Gastrointestinal: Normal bowel sounds, No tenderness Musculoskeletal: No tenderness Integumentary: No rashes Neurological: Normal speech, Normal tone, Normal affect Lymphatics: No axilla or inguinal lymphadenopathy Impression: Acute respiratory failure secondary to bilateral COVID 19 pneumonia CAD Anemia of chronic disease DM Type 2 insulin-dependent Chronic pain HTN Plan: Acute respiratory failure secondary to bilateral COVID 19 pneumonia: Patient remains on BiPAP at 100%. Continue to wean off to maintain sats above 90%. Continue IV steroids. Patient with leukocytosis. Patient remains on IV antibiotic therapy. Will discuss with pulmonology about plan of care. Need to discuss with family about the possibility of long-term acute facility placement as she improves. CAD: Continue with DVT prophylaxis. Continue Ranexa Anemia of chronic disease: We will monitor closely. DM Type 2 insulin-dependent: Sliding scale in place. Will monitor and adjust medication appropriately. Patient takes Lantus at home. Chronic pain: Continue with gabapentin and hydrocodone. HTN: Continue medicationmetoprolol DVT prophylaxis: Eliquis Code Status: Full code Advanced care planning: We will need to consider long-term acute facility placement in the future Time Spent Managing Pts Care (In Minutes): 55
[2021-06-04] MEDS: PANTOPRAZOLE 40MG TABLET PO SCH (07:49)
[2021-06-04] MEDS: APIXABAN 2.5 MG TABLET PO SCH ×2 (07:49→19:46)
[2021-06-04] MEDS: GABAPENTIN 300 MG CAP PO SCH ×2 (07:49→19:45)
[2021-06-04] MEDS: CEFTRIAXONE/SWI 1gm 1 GM/10 ML SYR IVP SCH (07:50)
[2021-06-04] MEDS: ACETAMINOPHEN 325 MG TABLET PO SCH ×4 (07:50→20:00)
[2021-06-04] MEDS: METOPROLOL TAR 50 MG TAB PO SCH (07:51)
[2021-06-04] MEDS: RANOLAZINE 1000 MG PO SCH ×2 (07:52→19:59)
[2021-06-04] MEDS: NACHLORIDE 0.45% 1,000 ML IV SCH ×3 (07:55→23:37)
[2021-06-04 08:58] LABS: Blood Morphology Comment NOT SEEN (NOT SEEN); Platelet Estimate ADEQ
[2021-06-04] MEDS: HYDROMORPHONE HCL 1 MG/ML INJ IV PRN (12:45)
--- NOTE | 2021-06-04 14:59 | P.PN ---
Subjective Date of Service: 06/04/21 Primary Care Provider: none Chief Complaint: covid pneumonia No change in patient's conditions continues to remain agitated Review of Systems is unable to be obtained Physical Examination - Vital Signs Temperature: 97.1 F Blood Pressure: 101/43 Pulse: 92 Respirations: 20 Pulse Ox (%): 90 - Physical Exam General: Delirious Assessment & Plan - Problems (Diagnosis) (1) COVID-19 Current Visit: Yes Status: Acute Plan: Patient admitted with coronavirus pneumonia continues to remain delirious a gitated fused Elton recommend TPN white count elevated DC vancomycin for now PICC line continue with IV fluids reduce dose of Solu-Medrol to decrease agitation Physician Review: Patient Assessed, Agree with Above Assessment and Plan
[2021-06-04] MEDS: HYDROCODONE/APAP 7.5/325 MG TAB PO PRN (19:45)
[2021-06-04] MEDS: METHYLPREDNISOLONE 40 MG INJ IV SCH (19:45)
--- NOTE | 2021-06-05 05:56 | P.PN ---
Subjective Date of Service: 06/05/21 Primary Care Provider: none Chief Complaint: covid pneumonia Subjective: Other (Patient reports improvement. Currently on 100% BiPAP) Physical Examination - Vital Signs Temperature: 97.5 F Blood Pressure: 147/64 Pulse: 87 Respirations: 19 Pulse Ox (%): 94 Assessment & Plan Discharge Plan: Home Plan to discharge in: Greater than 2 days Physician Review Additional Text: COVID: positive CXR 06/05/2021: COMPARISON: Chest Single View dated 06/02/2021; Chest Single View dated 06/02/2021; Chest Single View dated 07/20/2020; Chest Single View dated 10/07/2019 FINDINGS: Lines: None. Lungs: Severe bilateral airspace disease which is similar to 06/02/2021 Pleural: No significant pleural effusions or pneumothorax. Cardiac: Cardiomegaly. Bones: No acute fractures. IMPRESSION: Unchanged severe widespread airspace disease. Physical exam: General: Patient alert, cooperative. HEENT: Neck supple Respiratory: Currently on BiPAP at 100% Cardiovascular: Regular rate/rhythm, Normal S1 S2 Gastrointestinal: Normal bowel sounds, No tenderness Musculoskeletal: No tenderness Integumentary: No rashes Neurological: Normal speech, Normal tone, Normal affect Lymphatics: No axilla or inguinal lymphadenopathy Impression: Acute respiratory failure secondary to bilateral COVID 19 pneumonia CAD Anemia of chronic disease DM Type 2 insulin-dependent Chronic pain HTN Plan: Acute respiratory failure secondary to bilateral COVID 19 pneumonia: Patient remained stable. Nurses report patient able to get some nutrition. Dobbhoff was not successful the other day. PICC line was tried yesterday without any success. Will monitor nutrition closely. If with poor nutrition will consider central line placement for TPN. Patient remains on BiPAP at 100% FiO2. Continue to wean off to maintain sats above 90%. . Continue IV steroids. Patient with leukocytosis. Patient remains on IV antibiotic therapy. Await culture results. Continue with pulmonology recommendations for plan of care. Need to discuss with family about the possibility of long-term acute facility placement as she improves. CAD: Continue with DVT prophylaxis. Continue Ranexa Anemia of chronic disease: We will monitor closely. DM Type 2 insulin-dependent: Sliding scale in place. Will monitor and adjust medication appropriately. Patient takes Lantus at home. Chronic pain: Continue with gabapentin and hydrocodone. HTN: Continue medicationmetoprolol DVT prophylaxis: Eliquis Code Status: Full code Advanced care planning: We will need to consider long-term acute facility placement in the future Time Spent Managing Pts Care (In Minutes): 55
[2021-06-05 05:58] LABS: Absolute Lymphocytes (CBC) 0.6 K/uL (0.7-4.9); Albumin 2.2 g/dL (3.4-5.0); Basophils % 0.1 % (0-1.3); Bilirubin Total 0.4 mg/dL (0.2-1.0); Hematocrit 32.3 % (36.0-45.0); Lymphocytes % 2.4 % (15.3-44.8); MPV 7.4 fL (7.6-11.3); RBC Red Blood Cell Count 3.87 M/uL (3.86-4.86)
[2021-06-05 06:00] LABS: Ferritin 693.5 ng/mL (8-388); Magnesium 1.8 mg/dL (1.8-2.4)
[2021-06-05] MEDS: INSULIN -REGULAR HUMAN 50 UNIT/0.5 ML ML SQ SCH ×3 (06:20→17:31)
--- NOTE | 2021-06-05 07:01 | RAD REPORT ---
EXAM DESCRIPTION: RAD - Chest Single View - 06/05/2021 5:35 am CLINICAL HISTORY: Respiratory failure COMPARISON: Chest Single View dated 06/02/2021; Chest Single View dated 06/02/2021; Chest Single View dated 07/20/2020; Chest Single View dated 10/07/2019 FINDINGS: Lines: None. Lungs: Severe bilateral airspace disease which is similar to 06/02/2021 Pleural: No significant pleural effusions or pneumothorax. Cardiac: Cardiomegaly. Bones: No acute fractures. Other: IMPRESSION: Unchanged severe widespread airspace disease.
[2021-06-05] MEDS: APIXABAN 2.5 MG TABLET PO SCH ×2 (08:37→20:33)
[2021-06-05] MEDS: PANTOPRAZOLE 40MG TABLET PO SCH (08:37)
[2021-06-05] MEDS: ACETAMINOPHEN 325 MG TABLET PO SCH ×3 (08:37→20:33)
[2021-06-05] MEDS: GABAPENTIN 300 MG CAP PO SCH ×2 (08:38→20:33)
[2021-06-05] MEDS: METHYLPREDNISOLONE 40 MG INJ IV SCH ×2 (08:38→20:33)
[2021-06-05] MEDS: METOPROLOL TAR 50 MG TAB PO SCH (08:38)
[2021-06-05] MEDS: CEFTRIAXONE/SWI 1gm 1 GM/10 ML SYR IVP SCH (08:38)
[2021-06-05] MEDS: RANOLAZINE 1000 MG PO SCH ×2 (08:39→20:34)
[2021-06-05] MEDS: NACHLORIDE 0.45% 1,000 ML IV SCH (12:28)
[2021-06-05] MEDS ORDERED: REMDESIVIR (EUA) 200 MG in NA CHLORIDE 0.9% 250 ML IV ONE (15:00)
[2021-06-05] MEDS: FLUCONAZOLE 100mg IVPB 100 MG/50 ML BAG IV SCH (15:23)
[2021-06-05] MEDS: HYDROCODONE/APAP 7.5/325 MG TAB PO PRN ×2 (15:24→22:13)
--- NOTE | 2021-06-05 17:47 | RAD REPORT ---
EXAM DESCRIPTION: RAD - Chest Single View - 06/05/2021 5:31 pm CLINICAL HISTORY: Picc line placement COMPARISON: Chest Single View dated 06/05/2021; Chest Single View dated 06/02/2021; Chest Single View dated 06/02/2021; Chest Single View dated 07/20/2020; Chest Single View dated 03/01/2017 FINDINGS: Portable chest was obtained following placement of a left upper extremity PICC line. The c atheter tip projects over the SVC.
[2021-06-05] MEDS ORDERED: AA 4.25 %/D5W/ELECTROLYTES 2,000 ML, Lipids 20% 250 ML with MULTIVITAMINS INJ 10 ML IV ONE ×3 (18:00)
[2021-06-05] MEDS ORDERED: DEXTROSE 10%-WATER 500 ML IV SCH ×3 (18:00)
[2021-06-06] MEDS: INSULIN -REGULAR HUMAN 50 UNIT/0.5 ML ML SQ SCH ×4 (00:06→17:51)
[2021-06-06 05:01] LABS: Absolute Lymphocytes (CBC) 0.7 K/uL (0.7-4.9); Basophils % 0.1 % (0-1.3); Hematocrit 30.5 % (36.0-45.0); Lymphocytes % 2.8 % (15.3-44.8); RBC Red Blood Cell Count 3.64 M/uL (3.86-4.86)
[2021-06-06 05:43] LABS: Albumin 2.1 g/dL (3.4-5.0); Bilirubin Direct 0.1 mg/dL (0-0.2); Bilirubin Total 0.3 mg/dL (0.2-1.0); C-Reactive Protein 97.6 mg/L (<3.00); Potassium 4.4 mmol/L (3.5-5.1); Protein, Total 6.7 g/dL (6.4-8.2)
--- NOTE | 2021-06-06 05:56 | P.PN ---
Subjective Date of Service: 06/06/21 Primary Care Provider: none Chief Complaint: covid pneumonia Subjective: Other (Overall stable. Currently on BiPAP at 100%. PICC line was placed yesterday.) Physical Examination - Vital Signs Temperature: 96.5 F Blood Pressure: 148/70 Pulse: 76 Respirations: 20 Pulse Ox (%): 91 Assessment & Plan Discharge Plan: LTAC Plan to discharge in: Greater than 2 days Physician Review Additional Text: COVID: positive CXR 06/06/2021: COMPARISON: June 05 TECHNIQUE: AP portable chest image was obtained 06/06/2021 5:35 am . FINDINGS: Low lung volume examination shows extensive bilateral airspace opacification similar to slightly worse than prior imaging Cardiomediastinal silhouette is distorted by significant rotation. Left upper extremity PICC line has not changed positioning. Heart and vasculature are normal. No measurable pleural effusion and no pneumothorax. No acute bony abnormality seen. No acute aortic findings suspected. IMPRESSION: Extensive bilateral airspace opacification similar to slightly worse than prior imaging. Physical exam: General: Patient alert, cooperative. HEENT: Neck supple Respiratory: Currently on BiPAP at 100% Cardiovascular: Regular rate/rhythm, Normal S1 S2 Gastrointestinal: Normal bowel sounds, No tenderness Musculoskeletal: No tenderness Integumentary: No rashes Neurological: Normal speech, Normal tone, Normal affect Lymphatics: No axilla or inguinal lymphadenopathy Impression: Acute respiratory failure secondary to bilateral COVID 19 pneumonia CAD Anemia of chronic disease DM Type 2 insulin-dependent Chronic pain HTN Plan: Acute respiratory failure secondary to bilateral COVID 19 pneumonia: Patient stable. PICC line was placed yesterday. Continue TPN. Patient remains on BiPAP at 100%. CRP and ferritin improved. Continue IV steroids and supplementation. Patient remains on IV antibiotic therapy. Continue with pulmonology recommendations. Respiratory to try to wean off to maintain sats above 90%. Will discuss with family about long-term acute care facility placement. CAD: Continue with DVT prophylaxis. Continue Ranexa Anemia of chronic disease: We will monitor closely. DM Type 2 insulin-dependent: Sliding scale in place. Will monitor and adjust medication appropriately. Patient takes Lantus at home. Chronic pain: Continue with gabapentin and hydrocodone. HTN: Continue medicationmetoprolol DVT prophylaxis: Eliquis Code Status: Full code Advanced care planning: We will need to consider long-term acute facility placement in the future Time Spent Managing Pts Care (In Minutes): 55
[2021-06-06] MEDS: HYDROCODONE/APAP 7.5/325 MG TAB PO PRN ×2 (06:20→12:28)
--- NOTE | 2021-06-06 07:48 | RAD REPORT ---
EXAM DESCRIPTION: RAD - Chest Single View - 06/06/2021 5:35 am CLINICAL HISTORY: follow up COVID COMPARISON: June 05 TECHNIQUE: AP portable chest image was obtained 06/06/2021 5:35 am . FINDINGS: Low lung volume examination shows extensive bilateral airspace opacification similar to sl ightly worse than prior imaging Cardiomediastinal silhouette is distorted by significant rotation. Left upper extremity PICC line has not changed positioning. Heart and vasculature are normal. No measurable pleural effusion and no pne umothorax. No acute bony abnormality seen. No acute aortic findings suspected. IMPRESSION: Extensive bilateral airspace opacification similar to slightly worse than prior imaging.
[2021-06-06] MEDS: APIXABAN 2.5 MG TABLET PO SCH ×2 (08:31→19:34)
[2021-06-06] MEDS: METOPROLOL TAR 50 MG TAB PO SCH (08:31)
[2021-06-06] MEDS: CEFTRIAXONE/SWI 1gm 1 GM/10 ML SYR IVP SCH (08:31)
[2021-06-06] MEDS: GABAPENTIN 300 MG CAP PO SCH ×2 (08:31→19:34)
[2021-06-06] MEDS: METHYLPREDNISOLONE 40 MG INJ IV SCH ×2 (08:31→19:34)
[2021-06-06] MEDS: PANTOPRAZOLE 40MG TABLET PO SCH (08:32)
[2021-06-06] MEDS: ACETAMINOPHEN 325 MG TABLET PO SCH ×3 (08:32→19:36)
[2021-06-06] MEDS: RANOLAZINE 1000 MG PO SCH ×2 (09:00→19:35)
[2021-06-06] MEDS: REMDESIVIR (EUA) 100 MG in NA CHLORIDE 0.9% 250 ML IV SCH (09:23)
[2021-06-06] MEDS ORDERED: D5W 100 ML IV ONE (09:45)
[2021-06-06] MEDS: FLUCONAZOLE 100mg IVPB 100 MG/50 ML BAG IV SCH (13:34)
[2021-06-06] MEDS: AA 5%/D20W/ELECTROLYTES-TPN 2,000 ML with MULTIVITAMINS INJ 10 ML IV SCH ×2 (17:47)
[2021-06-06] MEDS: WATER FOR INJ,STERILE 10 ML IM PRN (19:35)
[2021-06-06] MEDS: ZIPRASIDONE MESYLA 20 MG/VIAL IM PRN (19:38)
[2021-06-06] MEDS: HYDROMORPHONE HCL 1 MG/ML INJ IV PRN (19:40)
[2021-06-07] MEDS ORDERED: INSULIN -REGULAR HUMAN 50 UNIT/0.5 ML ML IV ONE (00:12)
[2021-06-07] MEDS: INSULIN -REGULAR HUMAN 50 UNIT/0.5 ML ML SQ SCH ×4 (00:15→17:44)
[2021-06-07] MEDS: HYDROMORPHONE HCL 1 MG/ML INJ IV PRN ×7 (00:16→23:24)
--- NOTE | 2021-06-07 05:57 | P.PN ---
Subjective Date of Service: 06/07/21 Primary Care Provider: none Chief Complaint: covid pneumonia Subjective: Other (Patient remained stable at this time. Currently on BiPAP at 100%) Physical Examination - Vital Signs Temperature: 97.3 F Blood Pressure: 155/72 Pulse: 77 Respirations: 17 Pulse Ox (%): 94 Assessment & Plan Discharge Plan: LTAC Plan to discharge in: Greater than 2 days Physician Review Additional Text: COVID: positive CXR 06/07/2021: COMPARISON: June 05 TECHNIQUE: AP portable chest image was obtained 06/06/2021 5:35 am . FINDINGS: Low lung volume examination shows extensive bilateral airspace opacification similar to slightly worse than prior imaging Cardiomediastinal silhouette is distorted by significant rotation. Left upper extremity PICC line has not changed positioning. Heart and vasculature are normal. No measurable pleural effusion and no pneumothorax. No acute bony abnormality seen. No acute aortic findings suspected. IMPRESSION: Extensive bilateral airspace opacification similar to slightly worse than prior imaging. Physical exam: General: Patient alert, cooperative. HEENT: Neck supple Respiratory: Currently on BiPAP at 90 % Cardiovascular: Regular rate/rhythm, Normal S1 S2 Gastrointestinal: Normal bowel sounds, No tenderness Musculoskeletal: No tenderness Integumentary: No rashes Neurological: Normal speech, Normal tone, Normal affect Lymphatics: No axilla or inguinal lymphadenopathy Impression: Acute respiratory failure secondary to bilateral COVID 19 pneumonia CAD Anemia of chronic disease DM Type 2 insulin-dependent Chronic pain HTN Plan: Acute respiratory failure secondary to bilateral COVID 19 pneumonia: Patient remained stable. Down down to BiPAP at 90% FiO2. Continue to wean off oxygen to maintain sats above 90%. PICC line in place. Patient is getting TPN. CRP and ferritin improved. Continue IV steroids and supplements. Continue with pulmonology recommendations. Case discussed at length with son who agrees with current plan of care. He also agrees with LTAC placement in the future. Will discuss with social media strategist. CAD: Continue with DVT prophylaxis. Continue Ranexa Anemia of chronic disease: We will monitor closely. DM Type 2 insulin-dependent: Sliding scale in place. Will monitor and adjust medication appropriately. We will start Lantus for better diabetic control. Chronic pain: Continue with gabapentin and hydrocodone. HTN: Continue medicationmetoprolol DVT prophylaxis: Eliquis Code Status: Full code Advanced care planning: Case discussed at length with son. Son agrees with long-term acute care facility placement once more medically stable. Time Spent Managing Pts Care (In Minutes): 55
[2021-06-07 06:11] LABS: Absolute Lymphocytes (CBC) 0.5 K/uL (0.7-4.9); Basophils % 0.2 % (0-1.3); Hematocrit 35.2 % (36.0-45.0); Lymphocytes % 2.8 % (15.3-44.8); MPV 6.9 fL (7.6-11.3); RBC Red Blood Cell Count 4.14 M/uL (3.86-4.86)
--- NOTE | 2021-06-07 07:24 | RAD REPORT ---
EXAM DESCRIPTION: RAD - Chest Single View - 06/07/2021 5:33 am CLINICAL HISTORY: COVID COMPARISON: June 06 TECHNIQUE: AP portable chest image was obtained 06/07/2021 5:33 am . FINDINGS: Lung volumes are low. Left upper extremity PICC line unchanged in positioning. Interstitial and alveolar opacities are present. Slight clearing is evident though substantial opacif ication remains. Heart borders and left hemidiaphragm are better visualized. Cardiomediastinal silhouette has not changed. No pneumothorax or enlarging pleural effusion. IMPRESSION: Extensive bilateral lung parenchymal opacification similar or fractionally improved from June 06. No evidence for progression.
[2021-06-07] MEDS: PANTOPRAZOLE 40MG TABLET PO SCH (07:30)
[2021-06-07] MEDS: RANOLAZINE 1000 MG PO SCH ×2 (07:52→21:00)
[2021-06-07] MEDS: GABAPENTIN 300 MG CAP PO SCH ×2 (07:52→21:00)
[2021-06-07] MEDS: METOPROLOL TAR 50 MG TAB PO SCH (07:52)
[2021-06-07] MEDS: APIXABAN 2.5 MG TABLET PO SCH ×2 (07:52→21:00)
[2021-06-07] MEDS: ACETAMINOPHEN 325 MG TABLET PO SCH ×3 (07:53→21:00)
[2021-06-07] MEDS: CEFTRIAXONE/SWI 1gm 1 GM/10 ML SYR IVP SCH (07:59)
[2021-06-07] MEDS: METHYLPREDNISOLONE 40 MG INJ IV SCH ×2 (08:00→21:30)
[2021-06-07 08:58] LABS: Albumin 2.4 g/dL (3.4-5.0); Bilirubin Direct 0.1 mg/dL (0-0.2); Bilirubin Total 0.4 mg/dL (0.2-1.0); C-Reactive Protein 60.3 mg/L (<3.00); Magnesium 2.1 mg/dL (1.8-2.4); Potassium 4.6 mmol/L (3.5-5.1); Protein, Total 7.2 g/dL (6.4-8.2)
[2021-06-07] MEDS: REMDESIVIR (EUA) 100 MG in NA CHLORIDE 0.9% 250 ML IV SCH (09:39)
[2021-06-07] MEDS ORDERED: FUROSEMIDE 20 MG/ 2ML VIAL IV ONE (11:50)
--- NOTE | 2021-06-07 11:51 | P.PN ---
Subjective Date of Service: 06/07/21 Primary Care Provider: none Chief Complaint: covid pneumonia Severe coronavirus pneumonia patient continues to remain agitated on 100% FiO2 with a BiPAP and TPN agitation seems to have improved a little significant desaturation last night Review of Systems is unable to be obtained Physical Examination - Vital Signs Temperature: 97.3 F Blood Pressure: 155/72 Pulse: 77 Respirations: 17 Pulse Ox (%): 94 - Physical Exam General: Unresponsive - Studies Microbiology Data (last 24 hrs): 06/02/21 07:20 Blood - Blood Aerobic Blood Culture - Final No growth in 5 days. 06/02/21 07:20 Blood - Blood Anaerobic Blood Culture - Final No growth in 5 days. 06/02/21 06:50 Blood - Blood Aerobic Blood Culture - Final No growth in 5 days. 06/02/21 06:50 Blood - Blood Anaerobic Blood Culture - Final No growth in 5 days. Assessment & Plan - Problems (Diagnosis) (1) COVID-19 Current Visit: Yes Status: Acute Plan: Respiratory failure oxygen requirements have improved today FiO2 has been decreased to 90% patient should qualify for Actemra will approach the pharmacy white count is declining patient is on antibiotics and Diflucan addition to remdesivir add IV Lasix Physician Review: Patient Assessed, Agree with Above Assessment and Plan
[2021-06-07 12:08] LABS: C.diff Antigen/Toxin Ag pos : Tox neg (NEG : NEG)
[2021-06-07] MEDS: INSULIN GLARGINE 100 UNITS/ML SQ SCH ×2 (12:12→21:29)
[2021-06-07] MEDS: FLUCONAZOLE 100mg IVPB 100 MG/50 ML BAG IV SCH (13:16)
[2021-06-07] MEDS ORDERED: propofoL 500 MG/50 ML ML IV ONE (14:09)
[2021-06-07] MEDS ORDERED: RSI MEDICATION KIT IV ONE (14:10)
[2021-06-07] MEDS ORDERED: NA CHLORIDE 0.9% IV ONE ×2 (15:00)
[2021-06-07] MEDS ORDERED: TOCILIZUMAB IV ONE ×2 (15:00)
[2021-06-07] MEDS: AA 5%/D20W/ELECTROLYTES-TPN 2,000 ML, Lipids 20% 250 ML with MULTIVITAMINS INJ 10 ML IV SCH ×3 (17:42)
[2021-06-07] MEDS: HYDRALAZINE HCL 20 MG/ML VIAL IV PRN ×2 (19:14→23:23)
[2021-06-07] MEDS: ZIPRASIDONE MESYLA 20 MG/VIAL IM PRN (19:51)
[2021-06-08] MEDS: INSULIN -REGULAR HUMAN 50 UNIT/0.5 ML ML SQ SCH ×6 (00:14→18:03)
[2021-06-08] MEDS ORDERED: INSULIN -REGULAR HUMAN 50 UNIT/0.5 ML ML IV ONE ×2 (00:24→06:00)
[2021-06-08] MEDS: HALOPERIDOL LACT 5 MG/ML INJ IV PRN ×3 (00:45→19:45)
[2021-06-08] MEDS: ZIPRASIDONE MESYLA 20 MG/VIAL IM PRN ×2 (02:10→19:45)
[2021-06-08] MEDS: HYDROMORPHONE HCL 1 MG/ML INJ IV PRN ×3 (04:09→13:28)
[2021-06-08 05:43] LABS: Albumin 2.2 g/dL (3.4-5.0); Bilirubin Direct 0.2 mg/dL (0-0.2); Bilirubin Total 0.3 mg/dL (0.2-1.0); Magnesium 1.9 mg/dL (1.8-2.4); Potassium 4.2 mmol/L (3.5-5.1); Protein, Total 6.5 g/dL (6.4-8.2)
[2021-06-08 05:51] LABS: Hematocrit 33.9 % (36.0-45.0); MPV 7.2 fL (7.6-11.3); RBC Red Blood Cell Count 4.01 M/uL (3.86-4.86)
[2021-06-08] MEDS: HYDRALAZINE HCL 20 MG/ML VIAL IV PRN ×3 (06:13→18:40)
[2021-06-08] MEDS: PANTOPRAZOLE 40MG TABLET PO SCH (07:30)
--- NOTE | 2021-06-08 08:30 | RAD REPORT ---
EXAM DESCRIPTION: RAD - Chest Single View - 06/08/2021 6:57 am CLINICAL HISTORY: COVID pneumonia COMPARISON: June 07June 06 TECHNIQUE: AP portable chest image was obtained 06/08/2021 6:57 am . FINDINGS: Lung volumes are slightly improved. Bilateral lung parenchymal opacification continues to show minimal incremental improvements on serial imaging. No progressive lung parenchymal process. Lef t upper extremity PICC line has not changed. Heart and vasculature are normal. No measurable pleural effusion and no pneumothorax. No acute bony abnormality seen. No acute aortic findings suspected. IMPRESSION: Additional minimal incremental improvement in the bilateral lung parenchymal opacificati on over serial imaging.
[2021-06-08] MEDS: RANOLAZINE 1000 MG PO SCH ×2 (09:00→21:00)
[2021-06-08] MEDS: GABAPENTIN 300 MG CAP PO SCH ×3 (09:00→21:00)
[2021-06-08] MEDS: METOPROLOL TAR 50 MG TAB PO SCH (09:00)
[2021-06-08] MEDS: ACETAMINOPHEN 325 MG TABLET PO SCH ×3 (09:00→20:33)
[2021-06-08] MEDS: APIXABAN 2.5 MG TABLET PO SCH ×2 (09:00→20:34)
[2021-06-08 09:08] LABS: Blood Morphology Comment NOT SEEN (NOT SEEN); Platelet Estimate ADEQ
[2021-06-08] MEDS: FUROSEMIDE 20 MG/ 2ML VIAL IV SCH (10:04)
[2021-06-08] MEDS: CEFTRIAXONE/SWI 1gm 1 GM/10 ML SYR IVP SCH (10:04)
[2021-06-08] MEDS: METHYLPREDNISOLONE 40 MG INJ IV SCH ×2 (10:04→20:35)
[2021-06-08] MEDS: INSULIN GLARGINE 100 UNITS/ML SQ SCH ×2 (10:04→20:39)
[2021-06-08] MEDS: REMDESIVIR (EUA) 100 MG in NA CHLORIDE 0.9% 250 ML IV SCH (10:05)
[2021-06-08] MEDS: FLUCONAZOLE 100mg IVPB 100 MG/50 ML BAG IV SCH (14:00)
[2021-06-08] MEDS: LORazepam 2 MG/ML VIAL IV ONE ×2 (15:32→22:04)
--- NOTE | 2021-06-08 15:36 | P.PN ---
Date of Service: 06/08/21 Subjective Date of Service: 06/08/21 Primary Care Provider: none Chief Complaint: covid pneumonia Subjective: very agitated on bipap trying to remove mask, (Patient remained stable at this time. Currently on BiPAP at 90-100%) Physical Examination - Vital Signs Temperature: 97.3 F Blood Pressure: 155/72 Pulse: 77 Respirations: 17 Pulse Ox (%): 94 Physical exam: General: very agitated on BIPAP HEENT: Neck supple, no JBP Respiratory: Currently on BiPAP at 90 % Coarse sounds Cardiovascular: Regular rate/rhythm, Normal S1 S2 Gastrointestinal: Normal bowel sounds, No tenderness Musculoskeletal: No tenderness Integumentary: No rashes Neurological: Normal speech, Normal tone, Normal affect Lymphatics: No axilla or inguinal lymphadenopathy Assessment & Plan Discharge Plan: LTAC Plan to discharge in: Greater than 2 days Physician Review Additional Text: COVID: positive labs reviewed Impression: Acute respiratory failure secondary to bilateral COVID 19 pneumonia CAD Anemia of chronic disease DM Type 2 insulin-dependent Chronic pain HTN Plan: Acute respiratory failure secondary to bilateral COVID 19 pneumonia: Patient remained stable. BiPAP at 90-100% FiO2 not much improvement over night. Continue to wean off oxygen to maintain sats above 90%. on TPN. CRP down to 97 and ferritin down to 462 Continue IV steroids and supplements. Continue with pulmonology recommendations. son aagrees with LTAC placement in the future. Will discuss with secondary social studies teacher on thursday can not transfer till pt stable Pt still empirically on cefepime and diflucan as as well as Remedisver . CAD: Continue with DVT prophylaxis. Continue Ranexa Anemia of chronic disease: relatively stable DM Type 2 insulin-dependent: Sliding scale in place. ICE added regular scheduled insuline 15 unit Q 6 hour , beside lantuse, will adjust lantus in AM based on ISS over next 24 hours Chronic pain: Continue with gabapentin and diluded . HTN: Continue medicationmetoprolol Agitation ,will add ativan, she is on Geodon and diludied but not helpin g DVT prophylaxis: Eliquis 2.5 mg bid Code Status: Full code Advanced care planning: Case discussed at length with son. Son agrees with long-term acute care facility placement once more medically stable.
[2021-06-08] MEDS: AA 5%/D20W/ELECTROLYTES-TPN 2,000 ML with MULTIVITAMINS INJ 10 ML IV SCH ×2 (18:03)
[2021-06-08] MEDS: HYDROCODONE/APAP 7.5/325 MG TAB PO PRN (20:22)
[2021-06-08] MEDS ORDERED: NA CHLORIDE 0.9% 250 ML IV PRN (23:00)
[2021-06-08] MEDS ORDERED: NA CHLORIDE 0.9% 1,000 ML ONE (23:32)
[2021-06-09] MEDS: INSULIN -REGULAR HUMAN 50 UNIT/0.5 ML ML SQ SCH ×8 (00:32→17:42)
[2021-06-09] MEDS: HYDROCODONE/APAP 7.5/325 MG TAB PO PRN ×3 (02:11→15:47)
[2021-06-09] MEDS: ACETAMINOPHEN 325 MG TABLET PO SCH ×3 (06:30→19:32)
[2021-06-09 06:47] LABS: Bilirubin Direct 0.2 mg/dL (0-0.2); Bilirubin Total 0.3 mg/dL (0.2-1.0); Protein, Total 5.7 g/dL (6.4-8.2)
[2021-06-09] MEDS: RANOLAZINE 1000 MG PO SCH ×2 (07:46→19:33)
[2021-06-09] MEDS: GABAPENTIN 300 MG CAP PO SCH ×2 (09:00→19:32)
[2021-06-09] MEDS: METOPROLOL TAR 50 MG TAB PO SCH (09:00)
[2021-06-09] MEDS: CEFTRIAXONE/SWI 1gm 1 GM/10 ML SYR IVP SCH (09:40)
[2021-06-09] MEDS: METHYLPREDNISOLONE 40 MG INJ IV SCH (09:41)
[2021-06-09] MEDS: REMDESIVIR (EUA) 100 MG in NA CHLORIDE 0.9% 250 ML IV SCH (09:41)
[2021-06-09] MEDS: INSULIN GLARGINE 100 UNITS/ML SQ SCH (09:41)
[2021-06-09] MEDS: PANTOPRAZOLE 40MG TABLET PO SCH (09:41)
[2021-06-09] MEDS: APIXABAN 2.5 MG TABLET PO SCH ×2 (09:41→19:32)
[2021-06-09] MEDS: FUROSEMIDE 20 MG/ 2ML VIAL IV SCH (09:41)
[2021-06-09 12:23] LABS: Blood Gas Oxyhemoglobin 94.9 % (94-97); Blood O2 Saturation 97.8 % (92-98.5)
--- NOTE | 2021-06-09 13:13 | P.PN ---
Date of Service: 06/09/21 Subjective Date of Service: 06/08/21 Primary Care Provider: none Chief Complaint: covid pneumonia Subjective: very agitated on bipap trying to remove mask, and she desat on NRB (Patient remained stable at this time. Currently on BiPAP at 90-100%) Physical Examination - Vital Signs Temperature: 97.3 F Blood Pressure: 155/72 Pulse: 77 Respirations: 17 Pulse Ox (%): 94 Physical exam: General: calm on NRB HEENT: Neck supple, no JBP Respiratory: Currently on NRP at 76 % on 100 % FIO2 Coarse sounds Cardiovascular: Regular rate/rhythm, Normal S1 S2 Gastrointestinal: Normal bowel sounds, No tenderness Musculoskeletal: No tenderness Integumentary: No rashes Neurological: Normal speech, Normal tone, Normal affect Lymphatics: No axilla or inguinal lymphadenopathy Assessment & Plan Discharge Plan: LTAC Plan to discharge in: Greater than 2 days Physician Review Additional Text: COVID: positive Labs all pending today CXR 06/08 FINDINGS: Lung volumes are slightly improved. Bilateral lung parenchymal opacification continues to show minimal incremental improvements on serial imaging. No progressive lung parenchymal process. Left upper extremity PICC line has not changed. Heart and vasculature are normal. No measurable pleural effusion and no pneumothorax. No acute bony abnormality seen. No acute aortic findings suspected. IMPRESSION: Additional minimal incremental improvement in the bilateral lung parenchymal opacification over serial imaging. Impression: Acute respiratory failure secondary to bilateral COVID 19 pneumonia CAD Anemia of chronic disease DM Type 2 insulin-dependent Chronic pain HTN Plan: Acute respiratory failure secondary to bilateral COVID 19 pneumonia: Patient remained stable but not any better. BiPAP at 90-100% FiO2 , she is not able to tolerate NRB and she is fighting CPAP so will get sitter , keep her on CPAP , Continue to wean off oxygen as much as possible to maintain sats above 90%. on TPN but will stop due to hyperglycemia . CRP down to 97 and ferritin down to 462 yesterday but today labs pending, Continue IV steroids and supplements as before. Continue with pulmonology recommendations. son agrees with LTAC pl acement in the future. Will discuss with dialysis social worker on Thursday can not transfer till pt stable Pt still empirically on cefepime and diflucan as as well as Remedisver . CAD: Continue with DVT prophylaxis. Continue Ranexa Anemia of chronic disease: relatively stable yesterday , labs pending today DM Type 2 insulin-dependent: Sliding scale in place. lantus and Regular insulin 15 unit Q 6 hour , will stop TPN which have high glucose proceed with TF hopding that will get her DM under better control Chronic pain: Continue with Gabapentin and diluded . HTN: Continue medicationmetoprolol Agitation Cont prn ativan, Geodon and diludied DVT prophylaxis: Eliquis 2.5 mg bid Nutritional consult in AM, will start TF now and stop TPN Code Status: Full code Advanced care planning: Dr Wolfe discussed at length with son thursday . Son agrees with long-term acute care facility placement once more medically stable.
[2021-06-09 14:11] LABS: Absolute Lymphocytes (CBC) 0.3 K/uL (0.7-4.9); Basophils % 0.1 % (0-1.3); Hematocrit 32.9 % (36.0-45.0); Lymphocytes % 1.7 % (15.3-44.8); MPV 7.6 fL (7.6-11.3); RBC Red Blood Cell Count 3.84 M/uL (3.86-4.86)
[2021-06-09 14:33] LABS: Albumin 2.1 g/dL (3.4-5.0); Bilirubin Total 0.3 mg/dL (0.2-1.0); Ferritin 498.2 ng/mL (8-388); Potassium 4.3 mmol/L (3.5-5.1); Protein, Total 6.1 g/dL (6.4-8.2)
[2021-06-09] MEDS ORDERED: HYDROMORPHONE HCL 1 MG/ML INJ IV PRN (16:34)
[2021-06-09] MEDS: AA 5%/D20W/ELECTROLYTES-TPN 2,000 ML with MULTIVITAMINS INJ 10 ML IV SCH ×2 (17:00)
[2021-06-09] MEDS: FLUCONAZOLE 100mg IVPB 100 MG/50 ML BAG IV SCH (17:01)
--- NOTE | 2021-06-09 18:57 | P.PN ---
Subjective Date of Service: 06/09/21 Primary Care Provider: none Chief Complaint: covid pneumonia Severe Agitation. Very difficult to manage Review of Systems is unable to be obtained Physical Examination - Vital Signs Temperature: 98 F Blood Pressure: 138/63 Pulse: 103 Respirations: 38 Pulse Ox (%): 91 - Physical Exam General: Unresponsive Assessment & Plan - Problems (Diagnosis) (1) COVID-19 Current Visit: Yes Status: Acute Plan: Resp failure hypernatremia and hyperglycemai, Start on insulin drip andD5 water, WBC declining/ Very hypoxic/ Pt has a sarah/ Start tube feeds waer flushes. Low dose Dilaudid Physician Review: Patient Assessed, Agree with Above Assessment and Plan
[2021-06-09] MEDS ORDERED: D5W 1,000 ML IV SCH (19:00)
[2021-06-09] MEDS ORDERED: dexAMETHasone 10 MG/ML VIAL IV SCH (19:21)
[2021-06-09] MEDS: HALOPERIDOL LACT 5 MG/ML INJ IV PRN (19:32)
[2021-06-09] MEDS: INSULIN -REGULAR HUMAN 100 UNIT in NA CHLORIDE 0.9% 100 ML IV SCH (19:34)
[2021-06-09] MEDS ORDERED: NA CHLORIDE 0.9% 100 ML ONE (19:48)
[2021-06-09] MEDS: HYDROMORPHONE HCL 1 MG/ML INJ IV PRN (22:30)
[2021-06-10] MEDS: HYDROCODONE/APAP 7.5/325 MG TAB PO PRN ×2 (03:50→19:26)
[2021-06-10] MEDS: HYDROMORPHONE HCL 1 MG/ML INJ IV PRN ×4 (04:15→20:45)
[2021-06-10 05:38] LABS: Absolute Lymphocytes (CBC) 0.4 K/uL (0.7-4.9); Basophils % 0.1 % (0-1.3); Hematocrit 32.7 % (36.0-45.0); Lymphocytes % 1.8 % (15.3-44.8); RBC Red Blood Cell Count 3.83 M/uL (3.86-4.86)
[2021-06-10 05:57] LABS: Albumin 2.2 g/dL (3.4-5.0); Bilirubin Total 0.4 mg/dL (0.2-1.0); C-Reactive Protein 16.4 mg/L (<3.00); Ferritin 429.5 ng/mL (8-388); Potassium 4.3 mmol/L (3.5-5.1); Protein, Total 5.9 g/dL (6.4-8.2)
[2021-06-10] MEDS: INSULIN -REGULAR HUMAN 50 UNIT/0.5 ML ML SQ SCH ×4 (06:00→16:24)
[2021-06-10] MEDS: RANOLAZINE 1000 MG PO SCH ×2 (08:16→21:00)
[2021-06-10] MEDS: METOPROLOL TAR 50 MG TAB PO SCH (08:28)
--- NOTE | 2021-06-10 08:44 | P.PN ---
Subjective Date of Service: 06/10/21 Primary Care Provider: none Chief Complaint: covid pneumonia No change severe agitation difficult to manage Review of Systems is unable to be obtained Physical Examination - Vital Signs Temperature: 99.3 F Blood Pressure: 115/58 Pulse: 98 Respirations: 35 Pulse Ox (%): 94 - Physical Exam General: Unresponsive Assessment & Plan - Problems (Diagnosis) (1) COVID-19 Current Visit: Yes Status: Acute Plan: Respiratory failure blood sugars a little bit better controlled with use rate of insulin drip increase IV fluids still is hyponatremic BUN elevated continue with tube feeds patient requiring Dilaudid blood pressure stable on 100% FiO2 very difficult to manage requires a sitter Physician Review: Patient Assessed, Agree with Above Assessment and Plan
[2021-06-10] MEDS: APIXABAN 2.5 MG TABLET PO SCH ×2 (08:45→21:00)
[2021-06-10] MEDS: GABAPENTIN 300 MG CAP PO SCH ×2 (08:45→21:00)
[2021-06-10] MEDS: PANTOPRAZOLE 40MG TABLET PO SCH (08:45)
[2021-06-10] MEDS: dexAMETHasone 10 MG/ML VIAL IV SCH ×2 (08:45→21:01)
[2021-06-10] MEDS: ACETAMINOPHEN 325 MG TABLET PO SCH ×3 (08:46→21:00)
[2021-06-10] MEDS: CEFTRIAXONE/SWI 1gm 1 GM/10 ML SYR IVP SCH (08:47)
[2021-06-10] MEDS: D5W 1,000 ML IV SCH ×2 (09:31→17:22)
--- NOTE | 2021-06-10 10:22 | RAD REPORT ---
EXAM DESCRIPTION: RAD - Abdomen 1 View (KUB) - 06/08/2021 11:26 pm CLINICAL HISTORY: 71 years, Female, DUB PLACEMENT COMPARISON: None. FINDINGS: 1 X-ray view of the abdomen (supine) was performed. There has been interval placement of a feeding tube tip within the antrum/duodenal bulb in good position. The gas pattern is nondiagnostic. No signs of ileus or obstruction is demonstrated. No areas of abnormal calcifications were ident ified in either renal fossa no organomegaly. Clips within the gallbladder fossa correspond to previou s cholecystectomy. Bony structures demonstrate minimal degenerative changes/spondylosis. IMPRESSION: Interval placement of a feeding tube tip within the antrum/duodenal bulb in good positio n. Electronically signed by: Kofi Andrew MD 06/08/2021 11:46 PM CDT Due to temporary technical issues with the PACS/Fluency reporting system, reports are being signed by the in house radiologists without review as a courtesy to insure prompt reporting. The interpreting radiologist is fully responsible for the content of the report.
[2021-06-10 12:05] LABS: Platelet Estimate DECR
[2021-06-10 12:06] LABS: Blood Morphology Comment NOT SEEN (NOT SEEN)
[2021-06-10] MEDS ORDERED: GLUCERNA 1.5 CAL 1,000 ML BOT RTH SCH (14:00)
[2021-06-10] MEDS: AA 5%/D20W/ELECTROLYTES-TPN 2,000 ML, Lipids 20% 250 ML with MULTIVITAMINS INJ 10 ML IV SCH ×3 (15:16)
[2021-06-10] MEDS: FLUCONAZOLE 100mg IVPB 100 MG/50 ML BAG IV SCH (15:39)
[2021-06-10] MEDS: HALOPERIDOL LACT 5 MG/ML INJ IV PRN (21:50)
[2021-06-11] MEDS: INSULIN -REGULAR HUMAN 100 UNIT in NA CHLORIDE 0.9% 100 ML IV SCH (01:29)
[2021-06-11] MEDS: D5W 1,000 ML IV SCH ×2 (01:29→10:24)
[2021-06-11] MEDS: HYDROMORPHONE HCL 1 MG/ML INJ IV PRN ×7 (01:56→23:45)
[2021-06-11] MEDS: HALOPERIDOL LACT 5 MG/ML INJ IV PRN ×3 (03:30→19:58)
[2021-06-11] MEDS: INSULIN -REGULAR HUMAN 50 UNIT/0.5 ML ML SQ SCH ×5 (06:00→23:44)
--- NOTE | 2021-06-11 07:41 | RAD REPORT ---
EXAM DESCRIPTION: US - UPPER EXTREMITY VENOUS UNILATE - 06/10/2021 11:49 pm CLINICAL HISTORY: Left arm swelling COMPARISON: None. FINDINGS: Left PICC line in place. Echogenic material consistent with thrombus is present the left axillary vein. The vein is not compre ssible. Left internal jugular vein, left subclavian vein, , left brachial vein, left cephalic, left basilic, left ulnar and left radial veins demonstrate phasic signal. The veins are compressible. Doppler demon strates good flow. . IMPRESSION: Acute thrombus left axillary vein
[2021-06-11 08:14] LABS: Albumin 2.1 g/dL (3.4-5.0); Bilirubin Total 0.4 mg/dL (0.2-1.0); Potassium 4.7 mmol/L (3.5-5.1); Protein, Total 5.4 g/dL (6.4-8.2)
[2021-06-11] MEDS: HYDROCODONE/APAP 7.5/325 MG TAB PO PRN ×2 (08:22→21:50)
[2021-06-11] MEDS: METOPROLOL TAR 50 MG TAB PO SCH (08:41)
[2021-06-11] MEDS: RANOLAZINE 1000 MG PO SCH ×2 (09:00→21:00)
[2021-06-11] MEDS: ACETAMINOPHEN 325 MG TABLET PO SCH ×3 (09:00→20:20)
[2021-06-11] MEDS: GABAPENTIN 300 MG CAP PO SCH ×2 (10:37→20:21)
[2021-06-11] MEDS: PANTOPRAZOLE 40MG TABLET PO SCH (10:38)
[2021-06-11] MEDS: APIXABAN 2.5 MG TABLET PO SCH ×2 (10:38→20:21)
[2021-06-11] MEDS: CEFTRIAXONE/SWI 1gm 1 GM/10 ML SYR IVP SCH (10:38)
[2021-06-11] MEDS: dexAMETHasone 10 MG/ML VIAL IV SCH ×2 (10:38→20:20)
[2021-06-11] MEDS ORDERED: INSULIN GLARGINE 100 UNITS/ML SQ ONE (12:00)
[2021-06-11] MEDS: FLUCONAZOLE 100mg IVPB 100 MG/50 ML BAG IV SCH (16:09)
--- NOTE | 2021-06-11 16:54 | P.PN ---
Subjective Date of Service: 06/11/21 Primary Care Provider: none Chief Complaint: covid pneumonia No change severe agitation difficult to manage,[place] Review of Systems is unable to be obtained Physical Examination - Vital Signs Temperature: 97.9 F Blood Pressure: 134/65 Pulse: 98 Respirations: 36 Pulse Ox (%): 97 - Physical Exam General: Unresponsive Assessment & Plan - Problems (Diagnosis) (1) COVID-19 Current Visit: Yes Status: Acute Plan: Resp failure CW Dilaudid 2 mg Q4 , hypernatremia corrected. IV DC, on tube feeds.CW NG fluids Physician Review: Patient Assessed, Agree with Above Assessment and Plan
[2021-06-12] MEDS: HYDROMORPHONE HCL 1 MG/ML INJ IV PRN ×6 (03:10→19:30)
[2021-06-12] MEDS: HALOPERIDOL LACT 5 MG/ML INJ IV PRN ×2 (05:00→19:30)
[2021-06-12 05:25] LABS: Absolute Lymphocytes (CBC) 0.3 K/uL (0.7-4.9); Basophils % 0.1 % (0-1.3); Hematocrit 32.3 % (36.0-45.0); Lymphocytes % 1.4 % (15.3-44.8); MPV 8.3 fL (7.6-11.3); RBC Red Blood Cell Count 3.82 M/uL (3.86-4.86)
[2021-06-12 05:54] LABS: Albumin 2.2 g/dL (3.4-5.0); Bilirubin Total 0.3 mg/dL (0.2-1.0); Protein, Total 5.5 g/dL (6.4-8.2)
[2021-06-12 05:58] LABS: Potassium 6.2 mmol/L (3.5-5.1)
[2021-06-12] MEDS: INSULIN -REGULAR HUMAN 50 UNIT/0.5 ML ML SQ SCH ×3 (06:00→18:00)
[2021-06-12] MEDS ORDERED: FUROSEMIDE 20 MG/ 2ML VIAL IV ONE ×3 (06:05→18:44)
[2021-06-12] MEDS ORDERED: INSULIN -REGULAR HUMAN 50 UNIT/0.5 ML ML IV ONE ×2 (06:05→19:00)
[2021-06-12] MEDS ORDERED: D50W 25 GM/50 ML SYRINGE IV ONE ×2 (06:05→19:00)
[2021-06-12] MEDS ORDERED: SODIUM BICARB 50 MEQ/50ML VIAL ONE (06:44)
[2021-06-12] MEDS ORDERED: D50W 25 GM/50 ML SYRINGE IV PRN (06:48)
[2021-06-12] MEDS ORDERED: GLUCAGON 1 MG/VIAL IM PRN (06:48)
[2021-06-12] MEDS ORDERED: FUROSEMIDE 40 MG/4 ML VIAL ONE (06:49)
--- NOTE | 2021-06-12 08:29 | P.PN ---
Date of Service: 06/10/21 Subjective Subjective: Patient is very combative. Difficulty even get insulin checks. Most likely encephalopathy related to viral infection. Review of Systems is unable to be obtained Physical Examination - Vital Signs Reviewed - Physical Exam General: Moderate distress, Delirious; difficult to communicate with. May need family to visit. Respiratory: Clear to auscultation bilaterally, Diminished Cardiovascular: Regular rate/rhythm, Normal S1 S2 Gastrointestinal: Normal bowel sounds, No tenderness Neurological: Delirious Assessment & Plan - Problems (Diagnosis) (1) COVID-19 Current Visit: Yes Status: Acute (2) Coronary arteriosclerosis Current Visit: No Status: Chronic (3) Anemia of chronic disease Current Visit: No Status: Chronic (4) Diabetes mellitus Onset Date: 07/17/15 Current Visit: No Status: Chronic (5) Hyperlipidemia Current Visit: No Status: Chronic (6) Hypertension Onset Date: 08/06/15 Current Visit: No Status: Chronic Qualifiers: Hypertension type: primary hypertension Qualified Code(s): I10 - Essential (primary) hypertension (7) Visit for family planning education Current Visit: Yes Status: Acute Plan: 1. Continue with IV steroids 2. Monitor inflammatory markers 3. Repeat chest x-ray 4. O2 per protocol 5. Pulmonary consultation 6. Continue with albuterol inhaler therapy; also supportive care 7. Monitor LFTs 8. Patient many 1 on 1 sitter 9. GI and DVT prophylaxis
--- NOTE | 2021-06-12 08:30 | P.PN ---
Date of Service: 06/11/21 Subjective Subjective: No substantial changes. Son at bedside. Continue with current treatment plan. Hopefully patient mentation improves. Otherwise prognosis remains poor. Still requiring substantial amount of oxygen at times. When she is awake her oxygen requirements are decrease but when she is asleep her oxygen requirements go up substantially. Review of Systems is unable to be obtained Physical Examination - Vital Signs Reviewed - Physical Exam General: Moderate distress, Delirious; difficult to communicate with. Respiratory: Clear to auscultation bilaterally, Diminished Cardiovascular: Regular rate/rhythm, Normal S1 S2 Gastrointestinal: Normal bowel sounds, No tenderness Neurological: Delirious Assessment & Plan - Problems (Diagnosis) (1) COVID-19 Current Visit: Yes Status: Acute (2) Coronary arteriosclerosis Current Visit: No Status: Chronic (3) Anemia of chronic disease Current Visit: No Status: Chronic (4) Diabetes mellitus Onset Date: 07/17/15 Current Visit: No Status: Chronic (5) Hyperlipidemia Current Visit: No Status: Chronic (6) Hypertension Onset Date: 08/06/15 Current Visit: No Status: Chronic Qualifiers: Hypertension type: primary hypertension Qualified Code(s): I10 - Essential (primary) hypertension (7) Visit for family planning education Current Visit: Yes Status: Acute Plan: No substantial changes in the plan of care. Patient is getting a 1 on 1 sitter and having family visits. Hopefully mentation will continue to improve. 1. Continue with IV steroids 2. Monitor inflammatory markers 3. Repeat chest x-ray 4. O2 per protocol 5. Pulmonary consultation 6. Continue with albuterol inhaler therapy; also supportive care 7. Monitor LFTs 8. Patient many 1 on 1 sitter 9. GI and DVT prophylaxis
--- NOTE | 2021-06-12 08:31 | P.PN ---
Date of Service: 06/12/21 Subjective Subjective: Patient's clinical condition is not really improving. She still is very obtunded. Difficulty redirecting her. Requiring 1 on 1 sitter. Family at bedside and spoke with them regarding plan of care. Review of Systems is unable to be obtained Physical Examination - Vital Signs Reviewed - Physical Exam General: Moderate distress, Delirious; difficult to communicate with. Respiratory: Diminished bilaterally Cardiovascular: Regular rate/rhythm, Normal S1 S2 Gastrointestinal: Normal bowel sounds, No tenderness Neurological: Delirious Assessment & Plan - Problems (Diagnosis) (1) COVID-19 acute hypoxic respiratory failure Current Visit: Yes Status: Acute (2) Coronary arteriosclerosis Current Visit: No Status: Chronic (3) Anemia of chronic disease Current Visit: No Status: Chronic (4) Diabetes mellitus Onset Date: 07/17/15 Current Visit: No Status: Chronic (5) Hyperlipidemia Current Visit: No Status: Chronic (6) Hypertension Onset Date: 08/06/15 Current Visit: No Status: Chronic Qualifiers: Hypertension type: primary hypertension Qualified Code(s): I10 - Essential (primary) hypertension (7) Visit for family planning education Current Visit: Yes Status: Acute Plan: No substantial changes in the plan of care. Patient is getting a 1 on 1 sitter and having family visits. Hopefully mentation will continue to improve. 1. Continue with IV steroids 2. Patient clinical condition deteriorating. Spoke with family regarding plan of care. 3. Repeat chest x-ray in the morning 4. Continue BiPAP support 5. Pulmonary consultation appreciated 6. Nebulizer therapies as needed 7. Strict blood pressure and blood sugar control 8. Continue with cardiac meds 9. GI and DVT prophylaxis
[2021-06-12 08:43] LABS: Blood Morphology Comment NOT SEEN (NOT SEEN); Platelet Estimate ADEQ
--- NOTE | 2021-06-12 08:51 | RAD REPORT ---
EXAM DESCRIPTION: RAD - Chest Single View - 06/12/2021 5:45 am CLINICAL HISTORY: resp failure Chest pain. COMPARISON: Abdomen 1 View (KUB) dated 06/08/2021; Chest Single View dated 06/08/2021; Chest Single Vi ew dated 06/07/2021; Chest Single View dated 06/06/2021 FINDINGS: Portable technique limits examination quality. Enteric tube descends into the upper abdomen. Moderate bilateral pulmonary opacities are seen, essent ially unchanged since 06/08/2021. Left-sided PICC line is stable in position. The heart is upper limi t normal in size. IMPRESSION: Stable chest since 06/08/2021.
[2021-06-12] MEDS: RANOLAZINE 1000 MG PO SCH ×2 (09:00→21:00)
[2021-06-12] MEDS: METOPROLOL TAR 50 MG TAB PO SCH (09:00)
[2021-06-12] MEDS: INSULIN GLARGINE 100 UNITS/ML SQ SCH (09:06)
[2021-06-12] MEDS: PANTOPRAZOLE 40MG TABLET PO SCH (09:07)
[2021-06-12] MEDS: ACETAMINOPHEN 325 MG TABLET PO SCH ×3 (09:07→20:43)
[2021-06-12] MEDS: GABAPENTIN 300 MG CAP PO SCH ×2 (09:07→20:42)
[2021-06-12] MEDS: dexAMETHasone 10 MG/ML VIAL IV SCH ×2 (09:07→20:43)
[2021-06-12] MEDS: APIXABAN 2.5 MG TABLET PO SCH ×2 (09:07→20:43)
[2021-06-12] MEDS: CEFTRIAXONE/SWI 1gm 1 GM/10 ML SYR IVP SCH (09:07)
[2021-06-12] MEDS: FLUCONAZOLE 100mg IVPB 100 MG/50 ML BAG IV SCH (12:53)
[2021-06-12 23:13] LABS: Albumin 2.1 g/dL (3.4-5.0); Bilirubin Total 0.2 mg/dL (0.2-1.0); Potassium 5.2 mmol/L (3.5-5.1)
[2021-06-13] MEDS: INSULIN -REGULAR HUMAN 50 UNIT/0.5 ML ML SQ SCH ×5 (00:09→23:39)
[2021-06-13] MEDS: HYDROMORPHONE HCL 1 MG/ML INJ IV PRN ×4 (00:58→23:43)
[2021-06-13] MEDS: HYDROCODONE/APAP 7.5/325 MG TAB PO PRN ×2 (00:59→20:11)
[2021-06-13] MEDS: HALOPERIDOL LACT 5 MG/ML INJ IV PRN ×2 (02:59→06:00)
[2021-06-13 05:25] LABS: Absolute Lymphocytes (CBC) 0.4 K/uL (0.7-4.9); Basophils % 0.1 % (0-1.3); Hematocrit 31.8 % (36.0-45.0); Lymphocytes % 1.4 % (15.3-44.8); MPV 8.6 fL (7.6-11.3); RBC Red Blood Cell Count 3.74 M/uL (3.86-4.86)
[2021-06-13 05:54] LABS: Albumin 2.1 g/dL (3.4-5.0); Bilirubin Total 0.3 mg/dL (0.2-1.0); Protein, Total 5.3 g/dL (6.4-8.2)
[2021-06-13 05:55] LABS: Potassium 5.7 mmol/L (3.5-5.1)
--- NOTE | 2021-06-13 06:52 | RAD REPORT ---
EXAM DESCRIPTION: Jeri Single View06/13/2021 5:58 am CLINICAL HISTORY: Respiratory failure COMPARISON: June 12, 2021 FINDINGS: Pneumomediastinum and subcutaneous emphysema right neck have developed. No significant change in the bilateral pulmonary opacities. Feeding tube in the first portion duodenu m. IMPRESSION: Pneumomediastinum and subcutaneous emphysema right neck. No change in the bilateral pulmonary opacities Patient's nurse was notified prior to this dictation
[2021-06-13] MEDS ORDERED: D50W 25 GM/50 ML SYRINGE IV ONE (07:13)
[2021-06-13] MEDS ORDERED: INSULIN -REGULAR HUMAN 50 UNIT/0.5 ML ML IV ONE (07:14)
[2021-06-13] MEDS ORDERED: D50W 25 GM/50 ML SYRINGE IV PRN (07:14)
[2021-06-13] MEDS ORDERED: GLUCAGON 1 MG/VIAL IM PRN (07:14)
[2021-06-13 07:22] LABS: Blood Morphology Comment NOT SEEN (NOT SEEN); Platelet Estimate ADEQ
[2021-06-13] MEDS: dexAMETHasone 10 MG/ML VIAL IV SCH ×2 (08:00→20:09)
[2021-06-13] MEDS: ACETAMINOPHEN 325 MG TABLET PO SCH (08:01)
[2021-06-13] MEDS: GABAPENTIN 300 MG CAP PO SCH (08:02)
[2021-06-13] MEDS: INSULIN GLARGINE 100 UNITS/ML SQ SCH (08:02)
[2021-06-13] MEDS: PANTOPRAZOLE 40MG TABLET PO SCH (08:02)
[2021-06-13] MEDS: APIXABAN 2.5 MG TABLET PO SCH ×2 (08:03→20:09)
[2021-06-13] MEDS: METOPROLOL TAR 50 MG TAB PO SCH (08:03)
[2021-06-13] MEDS: RANOLAZINE 1000 MG PO SCH ×2 (08:04→20:10)
[2021-06-13] MEDS: CEFTRIAXONE/SWI 1gm 1 GM/10 ML SYR IVP SCH (08:06)
[2021-06-13] MEDS ORDERED: METOPROLOL TARTRATE 5 MG/5 ML INJ IV STA (08:29)
[2021-06-13] MEDS ORDERED: METOPROLOL TARTRATE 5 MG/5 ML INJ IV ONE (08:55)
[2021-06-13] MEDS ORDERED: propofoL 500 MG/50 ML ML IV ONE ×3 (10:14→20:32)
[2021-06-13] MEDS ORDERED: SUCCINYLCHOLINE 20 MG/ML (10 ML) IV ONE (10:14)
[2021-06-13] MEDS ORDERED: RSI MEDICATION KIT IV ONE (10:17)
[2021-06-13] MEDS ORDERED: NA CHLORIDE 0.9% 500 ML ONE ×2 (10:18→10:35)
[2021-06-13] MEDS ORDERED: SOD POLYSTYREN SUL 15 GM/60 ML UCUP PO ONE (10:32)
[2021-06-13] MEDS ORDERED: CEFEPIME 1 GM/VIAL IV SCH (10:34)
[2021-06-13] MEDS ORDERED: NOREPINEPHRINE 4mg/D5W 250mL 4 MG/250 ML BAG IV ONE (10:35)
--- NOTE | 2021-06-13 10:36 | P.PN ---
Subjective Date of Service: 06/13/21 Primary Care Provider: none Chief Complaint: covid pneumonia Worse now more hypoxic and SQ emphysema Review of Systems is unable to be obtained Physical Examination - Vital Signs Temperature: 97.4 F Blood Pressure: 135/94 Pulse: 78 Respirations: 13 Pulse Ox (%): 94 - Physical Exam General: Unresponsive Respiratory: Other (sub cut emphysema) Assessment & Plan - Problems (Diagnosis) (1) COVID-19 Current Visit: Yes Status: Acute Plan: Resp faiure worse with SQ emphysema. S/p angiocath placed on the ledt side of the chest, Labs reviewed hyperkamoc and hypernatremic/start on IVF, kayexalte , prop poor To DW family regarding comfort care/inc Decadron Physician Review: Patient Assessed, Agree with Above Assessment and Plan
[2021-06-13] MEDS ORDERED: D5W 1,000 ML IV SCH (11:00)
--- NOTE | 2021-06-13 11:01 | RAD REPORT ---
EXAM DESCRIPTION: Jeri Single View06/13/2021 10:51 am CLINICAL HISTORY: Device placement endotracheal tube placement IMPRESSION: An endotracheal tube has been inserted with its tip at the level of the aortic arch Subcutaneous emphysema has progressed. Pneumomediastinum again demonstrated. No significant change in the bilateral pulmonary opacities. Feeding tube in place Equivocal tiny right apical pneumothorax. Curvilinear opacity left apex probably a skin fold. A PICC line present
[2021-06-13] MEDS ORDERED: LORazepam 2 MG/ML VIAL IV PRN (11:11)
[2021-06-13] MEDS ORDERED: FENTANYL CITR 100 MCG/2 ML IV PRN (11:11)
[2021-06-13] MEDS: CEFEPIME/SWI 1gm 10 ML IV SCH ×2 (11:25→20:09)
[2021-06-13] MEDS: FLUCONAZOLE 100mg IVPB 100 MG/50 ML BAG IV SCH (14:36)
[2021-06-13] MEDS ORDERED: NOREPINEPHRINE 4 MG in D5W 250 ML IV PRN (14:45)
[2021-06-13] MEDS: propofoL 500 MG/50 ML ML IV PRN ×2 (16:00→20:08)
[2021-06-13] MEDS: FAMOTIDINE 20 MG/2 ML VIAL IV SCH (20:09)
[2021-06-13] MEDS: METRONIDAZOLE 500mg IVPB 500 MG/100 ML BAG IV SCH (23:42)
[2021-06-13] MEDS: VANCOMYCIN ORAL SOLN 250 MG/5 ML OSYR PO SCH (23:45)
[2021-06-14] MEDS: propofoL 500 MG/50 ML ML IV PRN ×6 (01:10→19:10)
[2021-06-14] MEDS: INSULIN -REGULAR HUMAN 50 UNIT/0.5 ML ML SQ SCH ×3 (05:21→17:17)
[2021-06-14] MEDS: HYDROMORPHONE HCL 1 MG/ML INJ IV PRN ×2 (05:21→12:12)
[2021-06-14 05:39] LABS: Blood O2 Saturation 87.3 % (92-98.5)
[2021-06-14 05:51] LABS: Absolute Lymphocytes (CBC) 0.4 K/uL (0.7-4.9); Hematocrit 30.5 % (36.0-45.0); Lymphocytes % 1.8 % (15.3-44.8); MPV 8.8 fL (7.6-11.3); RBC Red Blood Cell Count 3.58 M/uL (3.86-4.86)
[2021-06-14] MEDS: VANCOMYCIN ORAL SOLN 250 MG/5 ML OSYR PO SCH ×3 (06:00→17:12)
[2021-06-14 06:24] LABS: C-Reactive Protein 3.38 mg/L (<3.00); Ferritin 330.5 ng/mL (8-388); Magnesium 2.8 mg/dL (1.8-2.4); Phosphorus 4.1 mg/dL (2.5-4.9); Potassium 4.9 mmol/L (3.5-5.1)
--- NOTE | 2021-06-14 07:26 | RAD REPORT ---
EXAM DESCRIPTION: Jeri Single View06/14/2021 6:03 am CLINICAL HISTORY: Respiratory failure COMPARISON: June 13, 2021 FINDINGS: Pneumomediastinum and subcutaneous emphysema without significant change. No significant change in diffuse bilateral pulmonary opacities Lines and tubes in good position Questionable small bilateral pneumothoraces. IMPRESSION: Pneumomediastinum and subcutaneous emphysema without significant change No significant change in diffuse bilateral pulmonary opacities Questionable small bilateral pneumothoraces. If clinically indicated further evaluation with unenhanc ed CT chest be obtained
[2021-06-14] MEDS: METOPROLOL TAR 50 MG TAB PO SCH ×2 (07:59→09:00)
[2021-06-14] MEDS: dexAMETHasone 10 MG/ML VIAL IV SCH ×2 (07:59→20:23)
[2021-06-14] MEDS: APIXABAN 2.5 MG TABLET PO SCH ×2 (07:59→20:23)
[2021-06-14] MEDS: INSULIN GLARGINE 100 UNITS/ML SQ SCH (08:00)
[2021-06-14] MEDS: CEFEPIME/SWI 1gm 10 ML IV SCH (08:01)
[2021-06-14] MEDS: FAMOTIDINE 20 MG/2 ML VIAL IV SCH ×2 (08:01→20:23)
[2021-06-14] MEDS: RANOLAZINE 1000 MG PO SCH ×2 (08:01→20:25)
[2021-06-14] MEDS: METRONIDAZOLE 500mg IVPB 500 MG/100 ML BAG IV SCH ×2 (09:00→16:33)
--- NOTE | 2021-06-14 11:03 | P.PN ---
Subjective Date of Service: 06/14/21 Primary Care Provider: none Chief Complaint: covid pneumonia On vent sedated No change Review of Systems is unable to be obtained Physical Examination - Vital Signs Temperature: 97.1 F Blood Pressure: 118/50 Pulse: 81 Respirations: 25 Pulse Ox (%): 92 - Physical Exam General: Unresponsive Neck: Other (sig sub emphysema) Assessment & Plan - Problems (Diagnosis) (1) COVID-19 Current Visit: Yes Status: Acute Plan: Resp failure on vent Sub Q emphysema worse increase water flushes hypernatrmia resp failure with hypercarbia/ unlikely to survive Physician Review: Patient Assessed, Agree with Above Assessment and Plan
[2021-06-14] MEDS: FLUCONAZOLE 100mg IVPB 100 MG/50 ML BAG IV SCH (14:49)
[2021-06-14] MEDS: CEFEPIME 1 GM/100 ML BAG IV SCH (20:24)
[2021-06-14] MEDS ORDERED: NA CHLORIDE 0.9% 100 ML ONE (20:38)
[2021-06-14] MEDS ORDERED: CEFEPIME 1 GM/VIAL ONE (20:38)
--- NOTE | 2021-06-14 23:05 | P.PN ---
Date of Service: 06/13/21 Subjective Subjective: Patient with pneumomediastinum this morning on chest x-ray. Spoke with numerous family members including patient's daughter, son, and grandson. Decision to proceed with intubation although prognosis is poor. Repeat chest x-ray. Family understands that patient's long-term prognosis is very poor. Review of Systems is unable to be obtained Physical Examination - Vital Signs Reviewed - Physical Exam General: Moderate distress, Delirious; difficult to communicate with. Respiratory: Diminished bilaterally Cardiovascular: Regular rate/rhythm, Normal S1 S2 Gastrointestinal: Normal bowel sounds, No tenderness Neurological: Delirious Assessment & Plan - Problems (Diagnosis) (1) COVID-19 acute hypoxic respiratory failure Current Visit: Yes Status: Acute (2) Coronary arteriosclerosis Current Visit: No Status: Chronic (3) Anemia of chronic disease Current Visit: No Status: Chronic (4) Diabetes mellitus Onset Date: 07/17/15 Current Visit: No Status: Chronic (5) Hyperlipidemia Current Visit: No Status: Chronic (6) Hypertension Onset Date: 08/06/15 Current Visit: No Status: Chronic Qualifiers: Hypertension type: primary hypertension Qualified Code(s): I10 - Essential (primary) hypertension (7) Visit for family planning education Current Visit: Yes Status: Acute Plan: 1. Decision to proceed with intubation. Continue on mechanical ventilation. Prognosis poor. 2. Patient clinical condition deteriorating. Family realizes that patient may not survive. 3. Continue monitoring chest x-ray 4. Continue with mechanical ventilation 5. Appreciate anesthesia's assistance 6. Continue with tube feeds 7. Strict blood pressure and blood sugar control 8. Continue with cardiac meds 9. GI and DVT prophylaxis
--- NOTE | 2021-06-14 23:06 | P.PN ---
Date of Service: 06/14/21 Subjective Subjective: Patient mechanically ventilated. Repeat chest x-ray this morning shows small pneumothorax. Clinical prognosis is poor. Review of Systems is unable to be obtained Physical Examination - Vital Signs Reviewed - Physical Exam General: Moderate distress, Delirious; difficult to communicate with. Respiratory: Diminished bilaterally Cardiovascular: Regular rate/rhythm, Normal S1 S2 Gastrointestinal: Normal bowel sounds, No tenderness Neurological: Delirious Assessment & Plan - Problems (Diagnosis) (1) COVID-19 acute hypoxic respiratory failure Current Visit: Yes Status: Acute (2) Coronary arteriosclerosis Current Visit: No Status: Chronic (3) Anemia of chronic disease Current Visit: No Status: Chronic (4) Diabetes mellitus Onset Date: 07/17/15 Current Visit: No Status: Chronic (5) Hyperlipidemia Current Visit: No Status: Chronic (6) Hypertension Onset Date: 08/06/15 Current Visit: No Status: Chronic Qualifiers: Hypertension type: primary hypertension Qualified Code(s): I10 - Essential (primary) hypertension (7) Visit for family planning education Current Visit: Yes Status: Acute Plan: 1. Continue with mechanical ventilation 2. Patient clinical condition deteriorating. Family realizes that patient may not survive. 3. Continue monitoring chest x-ray 4. Continue with mechanical ventilation 5. Appreciate anesthesia's assistance 6. Continue with tube feeds 7. Strict blood pressure and blood sugar control 8. Continue with cardiac meds 9. GI and DVT prophylaxis
[2021-06-15] MEDS: VANCOMYCIN ORAL SOLN 250 MG/5 ML OSYR PO SCH ×5 (00:11→23:43)
[2021-06-15] MEDS: INSULIN -REGULAR HUMAN 50 UNIT/0.5 ML ML SQ SCH ×5 (00:12→23:43)
[2021-06-15] MEDS: METRONIDAZOLE 500mg IVPB 500 MG/100 ML BAG IV SCH ×2 (00:13→08:10)
[2021-06-15] MEDS: propofoL 500 MG/50 ML ML IV PRN ×8 (01:27→22:38)
[2021-06-15 06:06] LABS: Absolute Lymphocytes (CBC) 0.4 K/uL (0.7-4.9); Basophils % 0.1 % (0-1.3); Hematocrit 29.6 % (36.0-45.0); Lymphocytes % 1.5 % (15.3-44.8); RBC Red Blood Cell Count 3.51 M/uL (3.86-4.86)
[2021-06-15] MEDS: dexAMETHasone 10 MG/ML VIAL IV SCH ×2 (08:11→19:29)
[2021-06-15] MEDS: METOPROLOL TAR 50 MG TAB PO SCH (08:11)
[2021-06-15] MEDS: INSULIN GLARGINE 100 UNITS/ML SQ SCH (08:11)
[2021-06-15] MEDS: APIXABAN 2.5 MG TABLET PO SCH ×2 (08:11→19:30)
[2021-06-15] MEDS: RANOLAZINE 1000 MG PO SCH ×2 (08:25→19:30)
[2021-06-15] MEDS: FAMOTIDINE 20 MG/2 ML VIAL IV SCH ×2 (08:35→19:29)
[2021-06-15] MEDS: CEFEPIME 1 GM/100 ML BAG IV SCH ×2 (09:00→19:29)
--- NOTE | 2021-06-15 10:22 | RAD REPORT ---
EXAM DESCRIPTION: RAD - Chest Single View - 06/15/2021 7:01 am CLINICAL HISTORY: resp failure Chest pain. COMPARISON: Chest Single View dated 06/14/2021; Chest Single View dated 06/13/2021; Chest Single View dated 06/13/2021; Chest Single View dated 06/12/2021 FINDINGS: Portable technique limits examination quality. Tip of the endotracheal tube is at the level of the superior aortic arch. Enteric tube descends into the stomach. Moderate bilateral pulmonary opacities remain unchanged since prior study. Pneumomediast inum and small probable bilateral pneumothoraces appear unchanged. Left PICC line is stable in positi on.Extensive subcutaneous emphysema noted, similar to prior study. IMPRESSION: No real change is seen in the appearance of the chest since yesterday's study.
--- NOTE | 2021-06-15 11:59 | P.PN ---
Subjective Date of Service: 06/15/21 Primary Care Provider: none Chief Complaint: covid pneumonia Respiratory failure patient is not doing well patient not doing well subcutaneous emphysema stable on 85% FiO2 Review of Systems is unable to be obtained Physical Examination - Vital Signs Temperature: 97.6 F Blood Pressure: 143/62 Pulse: 89 Respirations: 19 Pulse Ox (%): 87 - Physical Exam General: Unresponsive Assessment & Plan - Problems (Diagnosis) (1) COVID-19 Current Visit: Yes Status: Acute Plan: Respiratory failure prognosis poor/vent settings changed on 85% FiO2 chest x-ray shows subcutaneous emphysema patient has subcutaneous catheters in place for her subcutaneous emphysema which seems to be stable patient is hypernatremic/patient is now positive for C deficile/white count remained stable but elevated/start patient on D5 start patient on D5 water DC Flagyl patient is on oral vancomycin Physician Review: Patient Assessed, Agree with Above Assessment and Plan
--- NOTE | 2021-06-15 12:33 | P.PN ---
Subjective Date of Service: 06/15/21 Primary Care Provider: none Chief Complaint: covid pneumonia Patient intubated Review of Systems is unable to be obtained Physical Examination - Vital Signs Temperature: 97.6 F Blood Pressure: 143/62 Pulse: 89 Respirations: 19 Pulse Ox (%): 87 - Physical Exam General: Unresponsive HEENT: Atraumatic, PERRLA, EOMI Neck: Supple, JVD not distended Respiratory: Clear to auscultation bilaterally, Normal air movement Cardiovascular: Regular rate/rhythm, Normal S1 S2 Gastrointestinal: Normal bowel sounds, No tenderness Musculoskeletal: No tenderness Integumentary: No rashes Neurological: Normal speech, Normal tone, Normal affect Lymphatics: No axilla or inguinal lymphadenopathy Assessment & Plan - Problems (Diagnosis) (1) COVID-19 Current Visit: Yes Status: Acute Plan: will admit her to the covid unit. Contiinue high flow oxygen and steroids. Consult to Dr. Bullock. 06/14 Patient is poor prognosis. (2) Coronary arteriosclerosis Current Visit: No Status: Chronic Plan: she is currently not complainting of chest pain. (3) Anemia of chronic disease Current Visit: No Status: Chronic Plan: not sure if this is myleofibrosis or chronic bleeding disease. will order transfusion. Check stool guiac and reticulocyte count. (4) Diabetes mellitus Onset Date: 07/17/15 Current Visit: No Status: Chronic Plan: continue her sliding scale. Will check an a1c. (5) Hyperlipidemia Current Visit: No Status: Chronic Plan: check a fasting lipid profile (6) Hypertension Onset Date: 08/06/15 Current Visit: No Status: Chronic Plan: continue home medications. Will adjust as necessary. Qualifiers: Hypertension type: primary hypertension Qualified Code(s): I10 - Essential (primary) hypertension (7) Visit for family planning education Current Visit: Yes Status: Acute Plan: Have called the family for discussion of patient care. They want to transfer her to [place]. Which is unlikely and possible fatal. They wish her to plan out financial considerations. Which is inappropriate. They are not likely to change the patients code status. She is overall a poor prognosis. will continue to meet with the family. Discharge Plan: Home Plan to discharge in: Greater than 2 days - Code Status/Comfort Care Code Status Assessed: No Physician Review: Patient Assessed, Agree with Above Assessment and Plan Physician Review Additional Text: COVID: positive CXR 06/07/2021: COMPARISON: June 05 TECHNIQUE: AP portable chest image was obtained 06/06/2021 5:35 am . FINDINGS: Low lung volume examination shows extensive bilateral airspace opacification similar to slightly worse than prior imaging Cardiomediastinal silhouette is distorted by significant rotation. Left upper extremity PICC line has not changed positioning. Heart and vasculature are normal. No measurable pleural effusion and no pneumothorax. No acute bony abnormality seen. No acute aortic findings suspected. IMPRESSION: Extensive bilateral airspace opacification similar to slightly worse than prior imaging. Physical exam: General: Patient alert, cooperative. HEENT: Neck supple Respiratory: Currently on BiPAP at 90 % Cardiovascular: Regular rate/rhythm, Normal S1 S2 Gastrointestinal: Normal bowel sounds, No tenderness Musculoskeletal: No tenderness Integumentary: No rashes Neurological: Normal speech, Normal tone, Normal affect Lymphatics: No axilla or inguinal lymphadenopathy Impression: Acute respiratory failure secondary to bilateral COVID 19 pneumonia CAD Anemia of chronic disease DM Type 2 insulin-dependent Chronic pain HTN Plan: Acute respiratory failure secondary to bilateral COVID 19 pneumonia: Patient remained stable. Down down to BiPAP at 90% FiO2. Continue to wean off oxygen to maintain sats above 90%. PICC line in place. Patient is getting TPN. CRP and ferritin improved. Continue IV steroids and supplements. Continue with pulmonology recommendations. Case discussed at length with son who agrees with current plan of care. He also agrees with LTAC placement in the future. Will discuss with psych social worker. CAD: Continue with DVT prophylaxis. Continue Ranexa Anemia of chronic disease: We will monitor closely. DM Type 2 insulin-dependent: Sliding scale in place. Will monitor and adjust medication appropriately. We will start Lantus for better diabetic control. Chronic pain: Continue with gabapentin and hydrocodone. HTN: Continue medicationmetoprolol DVT prophylaxis: Eliquis Code Status: Full code Advanced care planning: Case discussed at length with son. Son agrees with long-term acute care facility placement once more medically stable. Critical Care: Yes Time Spent Managing Pts Care (In Minutes): 20
[2021-06-15] MEDS: D5W 1,000 ML IV SCH (12:58)
[2021-06-15] MEDS: FLUCONAZOLE 100mg IVPB 100 MG/50 ML BAG IV SCH (14:46)
[2021-06-16] MEDS: D5W 1,000 ML IV SCH ×2 (01:34→15:15)
[2021-06-16] MEDS: propofoL 500 MG/50 ML ML IV PRN ×5 (01:35→20:24)
[2021-06-16] MEDS: INSULIN -REGULAR HUMAN 50 UNIT/0.5 ML ML SQ SCH ×3 (05:29→17:45)
[2021-06-16] MEDS: VANCOMYCIN ORAL SOLN 250 MG/5 ML OSYR PO SCH ×3 (05:29→17:44)
--- NOTE | 2021-06-16 07:49 | RAD REPORT ---
EXAM DESCRIPTION: RAD - Chest Single View - 06/16/2021 6:17 am CLINICAL HISTORY: resp failure COMPARISON: June 15, June 14 TECHNIQUE: AP portable chest image was obtained 06/16/2021 6:17 am . FINDINGS: ET tube is good position mid aortic arch level 3.5 cm above the nara. Feeding tube tip i s in the proximal to mid stomach. Left-sided PICC line remains positioned in the SVC. Small bilateral pneumothoraces are present showing no enlargement from June 15. Left-sided pneum othorax may be fractionally improved. Pneumomediastinum and subcutaneous emphysema are stable. Heart and vasculature are normal. No new or enlarging pleural effusion. No acute bony abnormality se en. Lung parenchymal opacification stable as well. IMPRESSION: Small bilateral pneumothorax, stable on the right and stable or fractionally improved on the left. Tubes and lines as detailed are stable. Scattered bilateral lung parenchymal opacification stable as well.
[2021-06-16] MEDS: RANOLAZINE 1000 MG PO SCH ×2 (09:00→20:25)
[2021-06-16] MEDS: dexAMETHasone 10 MG/ML VIAL IV SCH ×2 (09:07→20:22)
[2021-06-16] MEDS: METOPROLOL TAR 50 MG TAB PO SCH (09:07)
[2021-06-16] MEDS: APIXABAN 2.5 MG TABLET PO SCH ×2 (09:07→20:42)
[2021-06-16] MEDS: FAMOTIDINE 20 MG/2 ML VIAL IV SCH ×2 (09:08→20:22)
[2021-06-16] MEDS: INSULIN GLARGINE 100 UNITS/ML SQ SCH (09:09)
[2021-06-16] MEDS: CEFEPIME 1 GM/100 ML BAG IV SCH ×2 (09:09→20:24)
--- NOTE | 2021-06-16 11:20 | P.PN ---
Subjective Date of Service: 06/16/21 Primary Care Provider: none Chief Complaint: covid pneumonia Patient intubated, no changes Review of Systems is unable to be obtained Physical Examination - Vital Signs Temperature: 97.4 F Blood Pressure: 115/48 Pulse: 73 Respirations: 23 Pulse Ox (%): 92 - Physical Exam General: Unresponsive HEENT: Atraumatic, PERRLA, EOMI Neck: Supple, JVD not distended Respiratory: Clear to auscultation bilaterally, Normal air movement Cardiovascular: Regular rate/rhythm, Normal S1 S2 Gastrointestinal: Normal bowel sounds, No tenderness Musculoskeletal: No tenderness Integumentary: No rashes Neurological: Normal speech, Normal tone, Normal affect Lymphatics: No axilla or inguinal lymphadenopathy Assessment & Plan - Problems (Diagnosis) (1) COVID-19 Current Visit: Yes Status: Acute Plan: Patient is intubated. Overall poor prognosis. (2) Coronary arteriosclerosis Current Visit: No Status: Chronic Plan: she is currently not complainting of chest pain. (3) Anemia of chronic disease Current Visit: No Status: Chronic Plan: not sure if this is myleofibrosis or chronic bleeding disease. will order transfusion. Check stool guiac and reticulocyte count. (4) Diabetes mellitus Onset Date: 07/17/15 Current Visit: No Status: Chronic Plan: continue her sliding scale. Will check an a1c. (5) Hyperlipidemia Current Visit: No Status: Chronic Plan: check a fasting lipid profile (6) Hypertension Onset Date: 08/06/15 Current Visit: No Status: Chronic Plan: continue home medications. Will adjust as necessary. Qualifiers: Hypertension type: primary hypertension Qualified Code(s): I10 - Essential (primary) hypertension (7) Visit for family planning education Current Visit: Yes Status: Acute Plan: Have called the family for discussion of patient care. They want to transfer h er to [place]. Which is unlikely and possible fatal. They wish her to plan out financial considerations. Which is inappropriate. They are not likely to change the patients code status. She is overall a poor prognosis. will continue to meet with the family. Discharge Plan: Home Plan to discharge in: Greater than 2 days - Code Status/Comfort Care Code Status Assessed: No Physician Review: Patient Assessed, Agree with Above Assessment and Plan Physician Review Additional Text: COVID: positive CXR 06/07/2021: COMPARISON: June 05 TECHNIQUE: AP portable chest image was obtained 06/06/2021 5:35 am . FINDINGS: Low lung volume examination shows extensive bilateral airspace opacification similar to slightly worse than prior imaging Cardiomediastinal silhouette is distorted by significant rotation. Left upper extremity PICC line has not changed positioning. Heart and vasculature are normal. No measurable pleural effusion and no pneumothorax. No acute bony abnormality seen. No acute aortic findings suspected. IMPRESSION: Extensive bilateral airspace opacification similar to slightly worse than prior imaging. Physical exam: General: Patient alert, cooperative. HEENT: Neck supple Respiratory: Currently on BiPAP at 90 % Cardiovascular: Regular rate/rhythm, Normal S1 S2 Gastrointestinal: Normal bowel sounds, No tenderness Musculoskeletal: No tenderness Integumentary: No rashes Neurological: Normal speech, Normal tone, Normal affect Lymphatics: No axilla or inguinal lymphadenopathy Impression: Acute respiratory failure secondary to bilateral COVID 19 pneumonia CAD Anemia of chronic disease DM Type 2 insulin-dependent Chronic pain HTN Plan: Acute respiratory failure secondary to bilateral COVID 19 pneumonia: Patient remained stable. Down down to BiPAP at 90% FiO2. Continue to wean off oxygen to maintain sats above 90%. PICC line in place. Patient is getting TPN. CRP and ferritin improved. Continue IV steroids and supplements. Continue with pulmonology recommendations. Case discussed at length with son who agrees with current plan of care. He also agrees with LTAC placement in the future. Will discuss with social welfare clerk. CAD: Continue with DVT prophylaxis. Continue Ranexa Anemia of chronic disease: We will monitor closely. DM Type 2 insulin-dependent: Sliding scale in place. Will monitor and adjust medication appropriately. We will start Lantus for better diabetic control. Chronic pain: Continue with gabapentin and hydrocodone. HTN: Continue medicationmetoprolol DVT prophylaxis: Eliquis Code Status: Full code Advanced care planning: Case discussed at length with son. Son agrees with long-term acute care facility placement once more medically stable. Critical Care: Yes Time Spent Managing Pts Care (In Minutes): 20
[2021-06-16] MEDS: FLUCONAZOLE 100mg IVPB 100 MG/50 ML BAG IV SCH (15:13)
[2021-06-17] MEDS: INSULIN -REGULAR HUMAN 50 UNIT/0.5 ML ML SQ SCH ×5 (00:04→23:34)
[2021-06-17] MEDS: VANCOMYCIN ORAL SOLN 250 MG/5 ML OSYR PO SCH ×5 (00:05→23:36)
[2021-06-17] MEDS: propofoL 500 MG/50 ML ML IV PRN ×7 (00:05→20:48)
[2021-06-17] MEDS: D5W 1,000 ML IV SCH (04:00)
--- NOTE | 2021-06-17 05:55 | P.PN ---
Subjective Date of Service: 06/17/21 Primary Care Provider: none Chief Complaint: covid pneumonia Subjective: Other (Patient remains on the ventilator.) Physical Examination - Vital Signs Temperature: 96.8 F Blood Pressure: 111/53 Pulse: 66 Respirations: 22 Pulse Ox (%): 87 Assessment & Plan Discharge Plan: Home Plan to discharge in: Greater than 2 days Physician Review Additional Text: COVID: positive CXR 06/17/2021: COMPARISON: June 16 TECHNIQUE: AP portable chest image was obtained 06/17/2021 4:54 am . FINDINGS: ET tube is top of the aortic arch 3.5 cm above nara, good position. Left extremity PICC line remains in good position. Feeding tube is no longer identifiable. This may have been purposely removed or has retracted above the level of the mid cervical esophagus. Small stable right-sided pneumothorax with stable right lung parenchymal opacification. Left pneumothorax has enlarged but this may be artifact of expiration. Left lung parenchymal opacification is stable. Heart and vasculature are normal. No new or enlarging pleural effusion. No acute bony abnormality seen. No acute aortic findings suspected. Subcutaneous emphysema stable. IMPRESSION: Approximately 20% left-sided pneumothorax measuring slightly larger than prior day study. Small right-sided pneumothorax is stable. Bilateral lung parenchymal opacities are stable. Endotracheal tube is in good position 3.5 cm above the nara. Feeding tube is no longer identifiable. This may have been purposely new moved or has been retracted above the mid cervical esophagus level. Physical exam: General: Patient on ventilator with sedation HEENT: Neck supple Respiratory: Patient on ventilator at 90% FiO2 Cardiovascular: Regular rate/rhythm, Normal S1 S2 Gastrointestinal: Normal bowel sounds, No tenderness Musculoskeletal: No tenderness Integumentary: No rashes Neurological: Normal speech, Normal tone, Normal affect Lymphatics: No axilla or inguinal lymphadenopathy Impression: Acute respiratory failure secondary to bilateral COVID 19 pneumonia complicated with 20% left-sided pneumothorax and small right-sided pneumothorax CAD Anemia of chronic disease DM Type 2 insulin-dependent Chronic pain HTN Leukocytosis likely related to above complicated with C. difficile colitis Plan: Acute respiratory failure secondary to bilateral COVID 19 pneumonia complicated with 20% left-sided pneumothorax and small right-sided pneumothorax: Patient remains intubated at this time. FiO2 at 90%. Patient with 20% left-sided pneumothorax and small right-sided pneumothorax. Patient remains on IV steroids and supplementation. Patient on IV antibiotic therapy. Case discussed at length with pulmonology and surgery. Patient requires bilateral chest tube placement. Condition poor. Prognosis poor. Case discussed in detail with son and grandson. They are helping to make decisions for the patient. After lengthy discussion with the son, he understands patient condition has not significantly improved. Her condition is likely to worsen especially with bilateral chest tube. Son reports patient would not want to be suffering or be on long-term ventilator. Advanced directives readdressed. Patient now DO NOT RESUSCITATE. After lengthy discussion with pulmonology son does not want to have chest tubes placed at this time. The plan moving forward would be to have family visit with patient and potentially pay their last respects. After family has seen the patient they will consider possible comfort measures and likely withdrawal of care if her condition continues to decline. We will continue with current medications at this time. Care discussed with nurse. Nurse to reassess placement of NG tube CAD: Will adjust DVT prophylaxis to Lovenox. Continue Ranexa Anemia of chronic disease: Overall stable. Monitor closely. DM Type 2 insulin-dependent: Sliding scale in place. Continue with Lantus. Continue to adjust for better control. Chronic pain: Continue with pain medication as needed. HTN: Will decrease metoprolol. Leukocytosis likely related to above complicated with C. difficile colitis: Continue cefepime and vancomycin DVT prophylaxis: Lovenox Code Status: This was discussed in detail with son. Patient now DNR. Advanced care [id number] minutes: This was discussed in detail with son. Patient now DNR. We will continue with above plan of care. No chest tube at this time. Continue current measures. Will consider comfort measures and withdrawal of care if her condition continues to decline. Time Spent Managing Pts Care (In Minutes): 55
--- NOTE | 2021-06-17 05:55 | RAD REPORT ---
EXAM DESCRIPTION: RAD - Chest Single View - 06/17/2021 4:54 am CLINICAL HISTORY: possible aspiration tube feeding COMPARISON: June 16 TECHNIQUE: AP portable chest image was obtained 06/17/2021 4:54 am . FINDINGS: ET tube is top of the aortic arch 3.5 cm above nara, good position. Left extremity PICC line remains in good position. Feeding tube is no longer identifiable. This may have been purposely removed or has retracted above t he level of the mid cervical esophagus. Small stable right-sided pneumothorax with stable right lung parenchymal opacification. Left pneumoth orax has enlarged but this may be artifact of expiration. Left lung parenchymal opacification is stab le. Heart and vasculature are normal. No new or enlarging pleural effusion. No acute bony abnormality se en. No acute aortic findings suspected. Subcutaneous emphysema stable. IMPRESSION: Approximately 20% left-sided pneumothorax measuring slightly larger than prior day study . Small right-sided pneumothorax is stable. Bilateral lung parenchymal opacities are stable. Endotracheal tube is in good position 3.5 cm above the nara. Feeding tube is no longer identifiable. This may have been purposely new moved or has been retracted above the mid cervical esophagus level.
[2021-06-17 07:45] LABS: Absolute Lymphocytes (CBC) 0.4 K/uL (0.7-4.9); Basophils % 0.5 % (0-1.3); Hematocrit 31.7 % (36.0-45.0); Lymphocytes % 1.5 % (15.3-44.8); MPV 9.5 fL (7.6-11.3); RBC Red Blood Cell Count 3.73 M/uL (3.86-4.86)
[2021-06-17 08:02] LABS: ALT/SGPT 43 U/L (12-78); AST/SGOT 22 U/L (15-37); Albumin 1.8 g/dL (3.4-5.0); Alkaline Phosphatase 211 U/L (45-117); BUN Blood Urea Nitrogen 68 mg/dL (7-18); Bicarbonate 35 mmol/L (21-32); Bilirubin Total 0.4 mg/dL (0.2-1.0); Ferritin 266.7 ng/mL (8-388); Glucose Level 356 mg/dL (74-106); Magnesium 2.6 mg/dL (1.8-2.4); Potassium 4.6 mmol/L (3.5-5.1); Protein, Total 4.4 g/dL (6.4-8.2); Sodium Level 137 mmol/L (136-145)
[2021-06-17 08:03] LABS: C-Reactive Protein < 2.90 mg/L (<3.00)
[2021-06-17 08:28] LABS: Blood Morphology Comment NOT SEEN (NOT SEEN); Platelet Estimate ADEQ; Toxic Granulation 1+
[2021-06-17] MEDS: RANOLAZINE 1000 MG PO SCH ×2 (09:00→19:20)
[2021-06-17] MEDS: METOPROLOL TAR 50 MG TAB PO SCH (09:00)
[2021-06-17] MEDS: APIXABAN 2.5 MG TABLET PO SCH (09:00)
[2021-06-17] MEDS: INSULIN GLARGINE 100 UNITS/ML SQ SCH (09:48)
[2021-06-17] MEDS: dexAMETHasone 10 MG/ML VIAL IV SCH ×2 (09:48→20:16)
[2021-06-17] MEDS: FAMOTIDINE 20 MG/2 ML VIAL IV SCH ×2 (09:49→20:16)
[2021-06-17] MEDS: CEFEPIME 1 GM/100 ML BAG IV SCH ×2 (09:49→20:16)
--- NOTE | 2021-06-17 11:00 | P.PN ---
Subjective Date of Service: 06/17/21 Primary Care Provider: none Chief Complaint: covid pneumonia/pneumothorax Resp failure NC/ Left penumothorax worsened Review of Systems is unable to be obtained Physical Examination - Vital Signs Temperature: 96.8 F Blood Pressure: 132/61 Pulse: 71 Respirations: 22 Pulse Ox (%): 90 - Physical Exam General: Unresponsive Assessment & Plan - Problems (Diagnosis) (1) COVID-19 Current Visit: Yes Status: Acute Plan: Resp failure Now has Left sided penumothorax and sQ emphysema/ WBC elevated prog poor/Consider withdrawal of care/ Chest tube ordered /labs reviewed BS elevated/ Dc D5 water/ DVT in CHRISTOPH arm/ Physician Review: Patient Assessed, Agree with Above Assessment and Plan
[2021-06-17 12:13] LABS: C.diff Antigen/Toxin Ag pos : Tox pos (NEG : NEG)
--- NOTE | 2021-06-17 13:16 | RAD REPORT ---
EXAM DESCRIPTION: RAD - Chest Single View - 06/17/2021 1:09 pm CLINICAL HISTORY: Lt pneumothorax COMPARISON: June 17 0445 hour examination TECHNIQUE: AP portable chest image was obtained 06/17/2021 1:09 pm . FINDINGS: ET tube remains in place with the tip at the top of the aortic arch approximately 3 cm abo ve the nara. Left upper extremity PICC line remains in place in good position. NG/OG tube has been placed curled in the stomach. No abnormal bend or kink of the tubing identified. The tip is near the gastric antrum. Left-sided pneumothorax is again identified decreased slightly in size from the prior examination. Ri ght apical pneumothorax is more difficult to identify but does appear to be still present. Lung parenchymal opacification has not changed. Subcutaneous emphysema at the base of the neck has no t changed. Heart size is normal. No enlarging pleural effusions seen. IMPRESSION: Left-sided pneumothorax is smaller than seen earlier in the day. Right apical pneumothor ax is difficult to visualize on today's study. No enlargement of a right-sided pneumothorax. Placement of an NG/ OG tube curled in the stomach. Tip is near the antrum of the stomach with no abno rmal bend or kink of the tubing. ET tube remains in good position. Lung parenchymal opacification has not changed.
[2021-06-17] MEDS: ENOXAPARIN 40 MG/0.4 ML SQ SCH (18:09)
[2021-06-18] MEDS: propofoL 500 MG/50 ML ML IV PRN ×5 (00:47→21:04)
[2021-06-18 05:17] LABS: Absolute Lymphocytes (CBC) 0.4 K/uL (0.7-4.9); Basophils % 1.2 % (0-1.3); Hematocrit 33.3 % (36.0-45.0); Lymphocytes % 1.6 % (15.3-44.8); MPV 9.4 fL (7.6-11.3); RBC Red Blood Cell Count 3.94 M/uL (3.86-4.86)
[2021-06-18] MEDS: INSULIN -REGULAR HUMAN 50 UNIT/0.5 ML ML SQ SCH ×3 (05:29→17:25)
[2021-06-18] MEDS: VANCOMYCIN ORAL SOLN 250 MG/5 ML OSYR PO SCH ×3 (05:30→17:27)
--- NOTE | 2021-06-18 05:55 | P.PN ---
Subjective Date of Service: 06/18/21 Primary Care Provider: none Chief Complaint: covid pneumonia Subjective: Other (Patient remains on the ventilator) Physical Examination - Vital Signs Temperature: 97.1 F Blood Pressure: 126/61 Pulse: 87 Respirations: 23 Pulse Ox (%): 93 Assessment & Plan Discharge Plan: Home Plan to discharge in: Greater than 2 days Physician Review Additional Text: COVID: positive CXR 06/17/2021: COMPARISON: June 16 TECHNIQUE: AP portable chest image was obtained 06/17/2021 4:54 am . FINDINGS: ET tube is top of the aortic arch 3.5 cm above nara, good position. Left extremity PICC line remains in good position. Feeding tube is no longer identifiable. This may have been purposely removed or has retracted above the level of the mid cervical esophagus. Small stable right-sided pneumothorax with stable right lung parenchymal opacification. Left pneumothorax has enlarged but this may be artifact of expiration. Left lung parenchymal opacification is stable. Heart and vasculature are normal. No new or enlarging pleural effusion. No acute bony abnormality seen. No acute aortic findings suspected. Subcutaneous emphysema stable. IMPRESSION: Approximately 20% left-sided pneumothorax measuring slightly larger than prior day study. Small right-sided pneumothorax is stable. Bilateral lung parenchymal opacities are stable. Endotracheal tube is in good position 3.5 cm above the nara. Feeding tube is no longer identifiable. This may have been purposely new moved or has been retracted above the mid cervical esophagus level. Follow up CXR 06/18/2021: COMPARISON: June 17 TECHNIQUE: AP portable chest image was obtained 06/18/2021 6:01 am . FINDINGS: Lung volumes remain low. Scattered bilateral airspace opacities are present not clearly different from prior imaging. Trace pneumothorax remains on the right. Left-sided pneumothorax is much more difficult to visualize on today's study, presumably reduced since prior day study. Endotracheal tube tip is mid aortic arch level 2.5 cm above the nara. This is adequate positioning. NG/OG tube remains curled in the stomach. No abnormal bend or kink of the tubing. Left upper extremity PICC line tip is difficult to visualize but does not appear to have changed. Heart and vasculature are normal. No new or enlarging pleural effusion. Subcuta neous emphysema at the neck is similar or slightly reduced. IMPRESSION: Tubes and lines are in adequate positioning as detailed. Trace pneumothorax on the right, stable. Left pneumothorax has shown further reduction and is difficult to visualize on today's study. No significant change to the bilateral lung parenchymal opacities since comparison study. Physical exam: General: Patient on ventilator with sedation HEENT: Neck supple Respiratory: Patient on ventilator at 90% FiO2 Cardiovascular: Regular rate/rhythm, Normal S1 S2 Gastrointestinal: Normal bowel sounds, No tenderness Musculoskeletal: No tenderness Integumentary: No rashes Neurological: Normal speech, Normal tone, Normal affect Lymphatics: No axilla or inguinal lymphadenopathy Impression: Acute respiratory failure secondary to bilateral COVID 19 pneumonia complicated with 20% left-sided pneumothorax and small right-sided pneumothorax CAD Anemia of chronic disease DM Type 2 insulin-dependent Chronic pain HTN Leukocytosis likely related to above complicated with C. difficile colitis Plan: Acute respiratory failure secondary to bilateral COVID 19 pneumonia complicated with 20% left-sided pneumothorax and small right-sided pneumothorax: Patient remains intubated at this time. FiO2 at 90%. Left-sided pneumothorax slightly improved. Trace right pneumothorax. Continue with plan of care. Case discussed at length with son yesterday. Patient remains DO NOT RESUSCITATE. Family does not want to pursue chest tubes at this time. Continue to monitor closely. Consider possible comfort measures and likely withdraw if the patient continues to decline. CAD: Will adjust DVT prophylaxis to Lovenox. Continue Ranexa Anemia of chronic disease: Overall stable. Monitor closely. DM Type 2 insulin-dependent: Sliding scale in place. Continue with Lantus. Continue to adjust for better control. Chronic pain: Continue with pain medication as needed. HTN: Will decrease metoprolol. Leukocytosis likely related to above complicated with C. difficile colitis: Continue cefepime and vancomycin DVT prophylaxis: Lovenox Code Status: This was discussed in detail with son. Patient now DNR. Advanced care [id number] minutes: This was discussed in detail with son yesterday. Patient remains DNR. We will continue with above plan of care. No chest tube at this time. Continue current measures. Will consider comfort measures and withdrawal of care if her condition continues to decline. Time Spent Managing Pts Care (In Minutes): 55
[2021-06-18 05:58] LABS: ALT/SGPT 43 U/L (12-78); AST/SGOT 29 U/L (15-37); Albumin 1.9 g/dL (3.4-5.0); Alkaline Phosphatase 151 U/L (45-117); BUN Blood Urea Nitrogen 61 mg/dL (7-18); Bicarbonate 36 mmol/L (21-32); Bilirubin Total 0.5 mg/dL (0.2-1.0); Ferritin 245.5 ng/mL (8-388); Glucose Level 203 mg/dL (74-106); Potassium 4.8 mmol/L (3.5-5.1); Protein, Total 4.6 g/dL (6.4-8.2); Sodium Level 139 mmol/L (136-145)
[2021-06-18 06:06] LABS: C-Reactive Protein < 2.90 mg/L (<3.00)
[2021-06-18 07:08] LABS: Platelet Estimate ADEQ; Smudge Cells PRESENT
[2021-06-18 07:09] LABS: Basophilic Stippling 1+; Blood Morphology Comment NOTED (NOT SEEN); Hypochromasia 1+
--- NOTE | 2021-06-18 07:12 | RAD REPORT ---
EXAM DESCRIPTION: RAD - Chest Single View - 06/18/2021 6:01 am CLINICAL HISTORY: follow up COVIDpneumonia COMPARISON: June 17 TECHNIQUE: AP portable chest image was obtained 06/18/2021 6:01 am . FINDINGS: Lung volumes remain low. Scattered bilateral airspace opacities are present not clearly di fferent from prior imaging. Trace pneumothorax remains on the right. Left-sided pneumothorax is much more difficult to visualize on today's study, presumably reduced since prior day study. Endotracheal tube tip is mid aortic arch level 2.5 cm above the nara. This is adequate positioning. NG/OG tube remains curled in the stomach. No abnormal bend or kink of the tubing. Left upper extremit y PICC line tip is difficult to visualize but does not appear to have changed. Heart and vasculature are normal. No new or enlarging pleural effusion. Subcutaneous emphysema at th e neck is similar or slightly reduced. IMPRESSION: Tubes and lines are in adequate positioning as detailed. Trace pneumothorax on the right, stable. Left pneumothorax has shown further reduction and is difficu lt to visualize on today's study. No significant change to the bilateral lung parenchymal opacities since comparison study.
[2021-06-18] MEDS: ENOXAPARIN 40 MG/0.4 ML SQ SCH (08:01)
[2021-06-18] MEDS: dexAMETHasone 10 MG/ML VIAL IV SCH ×2 (08:01→20:03)
[2021-06-18] MEDS: METOPROLOL TAR 25 MG TAB PO SCH (08:02)
[2021-06-18] MEDS: INSULIN GLARGINE 100 UNITS/ML SQ SCH (08:03)
[2021-06-18] MEDS: FAMOTIDINE 20 MG/2 ML VIAL IV SCH ×2 (08:03→20:03)
[2021-06-18] MEDS: CEFEPIME 1 GM/100 ML BAG IV SCH ×2 (08:45→20:03)
[2021-06-18] MEDS: RANOLAZINE 1000 MG PO SCH ×2 (08:45→19:26)
[2021-06-18] MEDS ORDERED: NOREPINEPHRINE 4 MG in D5W 250 ML IV SCH (16:00)
[2021-06-19] MEDS: INSULIN -REGULAR HUMAN 50 UNIT/0.5 ML ML SQ SCH ×4 (00:12→17:35)
[2021-06-19] MEDS: VANCOMYCIN ORAL SOLN 250 MG/5 ML OSYR PO SCH ×4 (00:15→17:34)
[2021-06-19] MEDS: propofoL 500 MG/50 ML ML IV PRN ×5 (03:36→20:49)
[2021-06-19 05:31] LABS: Absolute Lymphocytes (CBC) 0.3 K/uL (0.7-4.9); Basophils % 0.6 % (0-1.3); Hematocrit 32.4 % (36.0-45.0); Lymphocytes % 1.3 % (15.3-44.8); MPV 9.5 fL (7.6-11.3); RBC Red Blood Cell Count 3.81 M/uL (3.86-4.86)
[2021-06-19 05:44] LABS: ALT/SGPT 47 U/L (12-78); AST/SGOT 28 U/L (15-37); Albumin 1.8 g/dL (3.4-5.0); Alkaline Phosphatase 238 U/L (45-117); BUN Blood Urea Nitrogen 68 mg/dL (7-18); Bicarbonate 34 mmol/L (21-32); Bilirubin Total 0.4 mg/dL (0.2-1.0); C-Reactive Protein < 2.90 mg/L (<3.00); Ferritin 222.1 ng/mL (8-388); Glucose Level 300 mg/dL (74-106); Protein, Total 4.5 g/dL (6.4-8.2); Sodium Level 135 mmol/L (136-145)
--- NOTE | 2021-06-19 05:56 | P.PN ---
Subjective Date of Service: 06/19/21 Primary Care Provider: none Chief Complaint: covid pneumonia Subjective: Other (No significant change since yesterday. Currently on ventilator at 90%.) Physical Examination - Vital Signs Temperature: 97 F Blood Pressure: 152/61 Pulse: 85 Respirations: 29 Pulse Ox (%): 95 Assessment & Plan Discharge Plan: Home Plan to discharge in: Greater than 2 days Physician Review Additional Text: COVID: positive CXR 06/17/2021: COMPARISON: June 16 TECHNIQUE: AP portable chest image was obtained 06/17/2021 4:54 am . FINDINGS: ET tube is top of the aortic arch 3.5 cm above nara, good position. Left extremity PICC line remains in good position. Feeding tube is no longer identifiable. This may have been purposely removed or has retracted above the level of the mid cervical esophagus. Small stable right-sided pneumothorax with stable right lung parenchymal opacification. Left pneumothorax has enlarged but this may be artifact of expiration. Left lung parenchymal opacification is stable. Heart and vasculature are normal. No new or enlarging pleural effusion. No acute bony abnormality seen. No acute aortic findings suspected. Subcutaneous emphysema stable. IMPRESSION: Approximately 20% left-sided pneumothorax measuring slightly larger than prior day study. Small right-sided pneumothorax is stable. Bilateral lung parenchymal opacities are stable. Endotracheal tube is in good position 3.5 cm above the nara. Feeding tube is no longer identifiable. This may have been purposely new moved or has been retracted above the mid cervical esophagus level. Follow up CXR 06/19/2021: COMPARISON: Chest Single View dated 06/18/2021; Chest Single View dated 06/17/2021; Chest Single View dated 06/17/2021; Chest Single View dated 06/16/2021 FINDINGS: Lines: Endotracheal tube less than 1 cm above the aortic arch and may have retracted depending on position of the patient's neck. Left subclavian approach PICC. The tip is difficult to visualize . Enteric tube overlies the stomach. Lungs: Patchy bilateral airspace disease which is similar to prior. Pleural: No significant pleural effusions or pneumothorax. Cardiac: The heart size is within normal limits. Bones: No acute fractures. Other: Small volume of subcutaneous emphysema. IMPRESSION: Similar bilateral airspace disease consistent with multifocal pneumonia. No appreciable pneumothoraces. Note that the endotracheal tube terminates less than 1 cm above the aortic arch and may have retracted compared with 06/18/2021 though this may also be related to position of the neck. Physical exam: General: Patient on ventilator with sedation HEENT: Neck supple Respiratory: Patient on ventilator at 90% FiO2 Cardiovascular: Regular rate/rhythm, Normal S1 S2 Gastrointestinal: Normal bowel sounds, No tenderness Musculoskeletal: No tenderness Integumentary: No rashes Neurological: Normal speech, Normal tone, Normal affect Lymphatics: No axilla or inguinal lymphadenopathy Impression: Acute respiratory failure secondary to bilateral COVID 19 pneumonia complicated with 20% left-sided pneumothorax and small right-sided pneumothorax CAD Anemia of chronic disease DM Type 2 insulin-dependent Chronic pain HTN Leukocytosis likely related to above complicated with C. difficile colitis Plan: Acute respiratory failure secondary to bilateral COVID 19 pneumonia complicated with 20% left-sided pneumothorax and small right-sided pneumothorax: No si gnificant change since yesterday. Patient remains intubated at this time. FiO2 at 90%. X-ray today shows no appreciable pneumothoraxes. Continue with current plan of care. Case discussed with pulmonology. Will discuss with family about plan of care. Patient remains DNR. Need to consider possible comfort measures or withdrawal of care if her condition declines. CAD: Will adjust DVT prophylaxis to Lovenox. Continue Ranexa Anemia of chronic disease: Overall stable. Monitor closely. DM Type 2 insulin-dependent: Sliding scale in place. Continue with Lantus. Continue to adjust for better control. Chronic pain: Continue with pain medication as needed. HTN: Will decrease metoprolol. Leukocytosis likely related to above complicated with C. difficile colitis: Continue cefepime and vancomycin DVT prophylaxis: Lovenox Code Status: This was discussed in detail with son. Patient now DNR. Advanced care [id number] minutes: Patient remains DNR. We will continue with above plan of care. No chest tube at this time. Continue current measures. Will consider comfort measures and withdrawal of care if her condition continues to decline. Time Spent Managing Pts Care (In Minutes): 55
[2021-06-19] MEDS: FAMOTIDINE 20 MG/2 ML VIAL IV SCH ×2 (07:50→20:01)
[2021-06-19] MEDS: METOPROLOL TAR 25 MG TAB PO SCH (07:50)
[2021-06-19] MEDS: dexAMETHasone 10 MG/ML VIAL IV SCH ×2 (07:50→20:00)
[2021-06-19] MEDS: RANOLAZINE 1000 MG PO SCH ×2 (07:51→19:42)
[2021-06-19] MEDS: INSULIN GLARGINE 100 UNITS/ML SQ SCH (07:51)
[2021-06-19] MEDS: ENOXAPARIN 40 MG/0.4 ML SQ SCH (07:51)
--- NOTE | 2021-06-19 08:05 | RAD REPORT ---
EXAM DESCRIPTION: RAD - Chest Single View - 06/19/2021 6:09 am CLINICAL HISTORY: follow up COVID COMPARISON: Chest Single View dated 06/18/2021; Chest Single View dated 06/17/2021; Chest Single View dated 06/17/2021; Chest Single View dated 06/16/2021 FINDINGS: Lines: Endotracheal tube less than 1 cm above the aortic arch and may have retracted faustino ding on position of the patient's neck. Left subclavian approach PICC. The tip is difficult to visual ize . Enteric tube overlies the stomach. Lungs: Patchy bilateral airspace disease which is similar to prior. Pleural: No significant pleural effusions or pneumothorax. Cardiac: The heart size is within normal limits. Bones: No acute fractures. Other: Small volume of subcutaneous emphysema. IMPRESSION: Similar bilateral airspace disease consistent with multifocal pneumonia. No appreciable pneumothoraces. Note that the endotracheal tube terminates less than 1 cm above the aortic arch and m ay have retracted compared with 06/18/2021 though this may also be related to position of the neck.
[2021-06-19 08:09] LABS: Blood Morphology Comment NOT SEEN (NOT SEEN); Platelet Estimate ADEQ
[2021-06-19] MEDS: CEFEPIME 1 GM/100 ML BAG IV SCH ×2 (10:31→20:01)
[2021-06-19] MEDS: HYDROMORPHONE HCL 1 MG/ML INJ IV PRN (11:36)
[2021-06-20] MEDS: INSULIN -REGULAR HUMAN 50 UNIT/0.5 ML ML SQ SCH ×4 (00:20→17:54)
[2021-06-20] MEDS: VANCOMYCIN ORAL SOLN 250 MG/5 ML OSYR PO SCH ×4 (00:21→17:57)
[2021-06-20] MEDS: propofoL 500 MG/50 ML ML IV PRN ×4 (03:58→22:29)
[2021-06-20] MEDS ORDERED: ALTEPLASE 2 MG/VIAL IV ONE (05:03)
[2021-06-20] MEDS: WATER FOR INJ,STERILE 10 ML IM PRN (05:22)
--- NOTE | 2021-06-20 05:57 | P.PN ---
Subjective Date of Service: 06/20/21 Primary Care Provider: none Chief Complaint: covid pneumonia Subjective: Other (No change. Patient remains on ventilator) Physical Examination - Vital Signs Temperature: 97.0 F Blood Pressure: 145/59 Pulse: 96 Respirations: 22 Pulse Ox (%): 93 Assessment & Plan Discharge Plan: Home Plan to discharge in: Greater than 2 days Physician Review Additional Text: COVID: positive CXR 06/17/2021: COMPARISON: June 16 TECHNIQUE: AP portable chest image was obtained 06/17/2021 4:54 am . FINDINGS: ET tube is top of the aortic arch 3.5 cm above nara, good position. Left extremity PICC line remains in good position. Feeding tube is no longer identifiable. This may have been purposely removed or has retracted above the level of the mid cervical esophagus. Small stable right-sided pneumothorax with stable right lung parenchymal opacification. Left pneumothorax has enlarged but this may be artifact of expi ration. Left lung parenchymal opacification is stable. Heart and vasculature are normal. No new or enlarging pleural effusion. No acute bony abnormality seen. No acute aortic findings suspected. Subcutaneous emphysema stable. IMPRESSION: Approximately 20% left-sided pneumothorax measuring slightly larger than prior day study. Small right-sided pneumothorax is stable. Bilateral lung parenchymal opacities are stable. Endotracheal tube is in good position 3.5 cm above the nara. Feeding tube is no longer identifiable. This may have been purposely new moved or has been retracted above the mid cervical esophagus level. Follow up CXR 06/20/2021: COMPARISON: Chest Single View dated 06/19/2021; Chest Single View dated 06/18/2021; Chest Single View dated 06/17/2021; Chest Single View dated 06/17/2021 FINDINGS: Lines: Endotracheal tube at the aortic arch in satisfactory position. Enteric tube below the diaphragm. Left subclavian approach PICC with tip difficult to visualize. Lungs: Mild bilateral airspace disease which is similar to 06/19/2021. Pleural: Small left apical pneumothorax has slightly increased and better seen on today's radiograph. Cardiac: The heart size is within normal limits. Bones: No acute fractures. Other: Subcutaneous emphysema noted. This is unchanged. Surgical clips in the right upper quadrant. IMPRESSION: Small left apical pneumothorax which is slightly larger and better seen on today's chest radiograph. Support apparatus in satisfactory position. Bilateral airspace disease is similar. Physical exam: General: Patient on ventilator with sedation HEENT: Neck supple Respiratory: Patient on ventilator at 90% FiO2 Cardiovascular: Regular rate/rhythm, Normal S1 S2 Gastrointestinal: Normal bowel sounds, No tenderness Musculoskeletal: No tenderness Integumentary: No rashes Neurological: Normal speech, Normal tone, Normal affect Lymphatics: No axilla or inguinal lymphadenopathy Impression: Acute respiratory failure secondary to bilateral COVID 19 pneumonia complicated with 20% left-sided pneumothorax and small right-sided pneumothorax CAD Anemia of chronic disease DM Type 2 insulin-dependent Chronic pain HTN Leukocytosis likely related to above complicated with C. difficile colitis Plan: Acute respiratory failure secondary to bilateral COVID 19 pneumonia complicated with 20% left-sided pneumothorax and small right-sided pneumothorax: No significant change since yesterday. Patient remains intubated at this time. FiO2 at 90%. X-ray today shows small left apical pneumothorax yesterday. Continue with IV steroids, antibiotics. Will discuss with family today about plan of care. Family to decide on the possibility of comfort measures and withdrawal of care. Patient remains DNR. CAD: Will adjust DVT prophylaxis to Lovenox. Continue Ranexa Anemia of chronic disease: Overall stable. Monitor closely. DM Type 2 insulin-dependent: Sliding scale in place. Continue with Lantus. Continue to adjust for better control. Chronic pain: Continue with pain medication as needed. HTN: Will decrease metoprolol. Leukocytosis likely related to above complicated with C. difficile colitis: Continue cefepime and vancomycin DVT prophylaxis: Lovenox Code Status: This was discussed in detail with son. Patient now DNR. Advanced care [id number] minutes: Patient remains DNR. Will discuss with family later today to discuss plan of care. Considerations to be considered are comfort measures and withdrawal of care. Time Spent Managing Pts Care (In Minutes): 55
--- NOTE | 2021-06-20 07:22 | RAD REPORT ---
EXAM DESCRIPTION: RAD - Chest Single View - 06/20/2021 5:50 am CLINICAL HISTORY: follow up COVID COMPARISON: Chest Single View dated 06/19/2021; Chest Single View dated 06/18/2021; Chest Single View dated 06/17/2021; Chest Single View dated 06/17/2021 FINDINGS: Lines: Endotracheal tube at the aortic arch in satisfactory position. Enteric tube below t he diaphragm. Left subclavian approach PICC with tip difficult to visualize. Lungs: Mild bilateral airspace disease which is similar to 06/19/2021. Pleural: Small left apical pneumothorax has slightly increased and better seen on today's radiograph. Cardiac: The heart size is within normal limits. Bones: No acute fractures. Other: Subcutaneous emphysema noted. This is unchanged. Surgical clips in the right upper quadrant. IMPRESSION: Small left apical pneumothorax which is slightly larger and better seen on today's chest radiograph. Support apparatus in satisfactory position. Bilateral airspace disease is similar.
[2021-06-20 08:34] LABS: Absolute Lymphocytes (CBC) 0.3 K/uL (0.7-4.9); Basophils % 0.1 % (0-1.3); Hematocrit 34.9 % (36.0-45.0); Lymphocytes % 1.1 % (15.3-44.8); MPV 8.8 fL (7.6-11.3); RBC Red Blood Cell Count 4.12 M/uL (3.86-4.86)
[2021-06-20] MEDS: RANOLAZINE 1000 MG PO SCH ×2 (09:00→19:49)
[2021-06-20] MEDS: FAMOTIDINE 20 MG/2 ML VIAL IV SCH ×2 (09:03→20:01)
[2021-06-20] MEDS: METOPROLOL TAR 25 MG TAB PO SCH (09:03)
[2021-06-20] MEDS: dexAMETHasone 10 MG/ML VIAL IV SCH ×2 (09:03→20:01)
[2021-06-20] MEDS: INSULIN GLARGINE 100 UNITS/ML SQ SCH (09:04)
[2021-06-20] MEDS: ENOXAPARIN 40 MG/0.4 ML SQ SCH (09:04)
[2021-06-20] MEDS: CEFEPIME 1 GM/100 ML BAG IV SCH ×2 (09:06→20:01)
[2021-06-20 09:09] LABS: ALT/SGPT 41 U/L (12-78); AST/SGOT 24 U/L (15-37); Alkaline Phosphatase 257 U/L (45-117); BUN Blood Urea Nitrogen 71 mg/dL (7-18); Bicarbonate 34 mmol/L (21-32); Bilirubin Total 0.4 mg/dL (0.2-1.0); Ferritin 232.1 ng/mL (8-388); Glucose Level 314 mg/dL (74-106); Potassium 5.2 mmol/L (3.5-5.1); Protein, Total 4.9 g/dL (6.4-8.2); Sodium Level 137 mmol/L (136-145)
[2021-06-20 09:10] LABS: C-Reactive Protein < 2.90 mg/L (<3.00)
[2021-06-20 09:27] LABS: Blood Morphology Comment NOT SEEN (NOT SEEN); Platelet Estimate ADEQ
[2021-06-20 10:31] LABS: Urine Appearance CLOUDY (Clear); Urine Bilirubin NEGATIVE (Negative); Urine Blood NEGATIVE (Negative); Urine Color YELLOW (Yellow); Urine Glucose 2+ (Negative); Urine Protein NEGATIVE (Negative); Urine Specific Gravity 1.025 (1.005-1.030); Urine Urobilinogen 0.2 mg/dL (0.2-1.0); Urine pH 5.5 (5.0-7.0)
[2021-06-20] MEDS: FLUCONAZOLE 200mg IVPB 200 MG/100 ML BAG IV SCH (10:34)
[2021-06-20 10:40] LABS: Urine Microscopic Reflex ORDER UMIC
[2021-06-20 11:20] LABS: Urine Bacteria <20 /HPF (<20); Urine RBC <5 /HPF (NONE SEEN)
[2021-06-20 11:21] LABS: Urine Yeast MANY (NONE SEEN)
--- NOTE | 2021-06-20 14:00 | P.PN ---
Subjective Date of Service: 06/20/21 Primary Care Provider: none Chief Complaint: covid pneumonia NC still vry hypoxic, pneumothorax has improved Review of Systems is unable to be obtained Physical Examination - Vital Signs Temperature: 97.0 F Blood Pressure: 145/59 Pulse: 96 Respirations: 22 Pulse Ox (%): 93 - Physical Exam General: Unresponsive Neck: Other (SQ emphysema) Respiratory: Diminished Assessment & Plan - Problems (Diagnosis) (1) COVID-19 Current Visit: Yes Status: Acute Plan: REsp failure no sig change still on 85% Fio2 / WBC elevated Pt has C Deficile. NC past 2 wks. Prognosis very poor. Agree with withdrawal of care/ labs reviewed Physician Review: Patient Assessed, Agree with Above Assessment and Plan
[2021-06-21] MEDS: VANCOMYCIN ORAL SOLN 250 MG/5 ML OSYR PO SCH ×3 (00:09→12:58)
[2021-06-21] MEDS: INSULIN -REGULAR HUMAN 50 UNIT/0.5 ML ML SQ SCH ×3 (00:09→12:58)
[2021-06-21] MEDS: propofoL 500 MG/50 ML ML IV PRN ×2 (03:30→09:35)
[2021-06-21 04:26] VITALS: BMI 31.4
--- NOTE | 2021-06-21 06:00 | P.PN ---
Subjective Date of Service: 06/21/21 Primary Care Provider: none Chief Complaint: covid pneumonia Subjective: Other (Patient remains on the ventilator. No changes since yesterday.) Physical Examination - Vital Signs Temperature: 96.8 F Blood Pressure: 157/64 Pulse: 87 Respirations: 21 Pulse Ox (%): 93 Assessment & Plan Discharge Plan: Home Plan to discharge in: Greater than 2 days Physician Review Additional Text: COVID: positive CXR 06/17/2021: COMPARISON: June 16 TECHNIQUE: AP portable chest image was obtained 06/17/2021 4:54 am . FINDINGS: ET tube is top of the aortic arch 3.5 cm above nara, good position. Left extremity PICC line remains in good position. Feeding tube is no longer identifiable. This may have been purposely removed or has retracted above the level of the mid cervical esophagus. Small stable right-sided pneumothorax with stable right lung parenchymal opacification. Left pneumothorax has enlarged but this may be artifact of expiration. Left lung parenchymal opacification is stable. Heart and vasculature are normal. No new or enlarging pleural effusion. No acute bony abnormality seen. No acute aortic findings suspected. Subcutaneous emphysema stable. IMPRESSION: Approximately 20% left-sided pneumothorax measuring slightly larger than prior day study. Small right-sided pneumothorax is stable. Bilateral lung parenchymal opacities are stable. Endotracheal tube is in good position 3.5 cm above the nara. Feeding tube is no longer identifiable. This may have been purposely new moved or has been retracted above the mid cervical esophagus level. Follow up CXR 06/20/2021: COMPARISON: Chest Single View dated 06/19/2021; Chest Single View dated 06/18/2021; Chest Single View dated 06/17/2021; Chest Single View dated 06/17/2021 FINDINGS: Lines: Endotracheal tube at the aortic arch in satisfactory position. Enteric tube below the diaphragm. Left subclavian approach PICC with tip difficult to visualize. Lungs: Mild bilateral airspace disease which is similar to 06/19/2021. Pleural: Small left apical pneumothorax has slightly increased and better seen on today's radiograph. Cardiac: The heart size is within normal limits. Bones: No acute fractures. Other: Subcutaneous emphysema noted. This is unchanged. Surgical clips in the right upper quadrant. IMPRESSION: Small left apical pneumothorax which is slightly larger and better seen on today's chest radiograph. Support apparatus in satisfactory position. Bilateral airspace disease is similar. Physical exam: General: Patient on ventilator with sedation HEENT: Neck supple Respiratory: Patient on ventilator at 90% FiO2 Cardiovascular: Regular rate/rhythm, Normal S1 S2 Gastrointestinal: Normal bowel sounds, No tenderness Musculoskeletal: No tenderness Integumentary: No rashes Neurological: Normal speech, Normal tone, Normal affect Lymphatics: No axilla or inguinal lymphadenopathy Impression: Acute respiratory failure secondary to bilateral COVID 19 pneumonia complicated with 20% left-sided pneumothorax and small right-sided pneumothorax CAD Anemia of chronic disease DM Type 2 insulin-dependent Chronic pain HTN Leukocytosis likely related to above complicated with C. difficile colitis Plan: Acute respiratory failure secondary to bilateral COVID 19 pneumonia complicated with 20% left-sided pneumothorax and small right-sided pneumothorax: No changes since yesterday. Patient remains on ventilator at FiO2 of 90%. Case discussed in detail with family about comfort measures and withdrawal of care yesterday. Family plans for withdrawal of care today. We will continue with comfort rodríguez sures once this is arranged. Paperwork to be signed. Patient remains DNR. CAD: Will adjust DVT prophylaxis to Lovenox. Continue Ranexa Anemia of chronic disease: Overall stable. Monitor closely. DM Type 2 insulin-dependent: Sliding scale in place. Continue with Lantus. Continue to adjust for better control. Chronic pain: Continue with pain medication as needed. HTN: Will decrease metoprolol. Leukocytosis likely related to above complicated with C. difficile colitis: Continue cefepime and vancomycin DVT prophylaxis: Lovenox Code Status: This was discussed in detail with son. Patient now DNR. Advanced care [id number] minutes: Spoke at length with family yesterday concerning plan of care. Patient remains DNR. Family has decided to withdraw care and continue with comfort measures only. This will likely occur today. Once this is established, we will continue with comfort measures and discontinue supportive care. Time Spent Managing Pts Care (In Minutes): 55
[2021-06-21] MEDS: RANOLAZINE 1000 MG PO SCH (09:00)
[2021-06-21] MEDS: dexAMETHasone 10 MG/ML VIAL IV SCH (09:35)
[2021-06-21] MEDS: FAMOTIDINE 20 MG/2 ML VIAL IV SCH (09:35)
[2021-06-21] MEDS: METOPROLOL TAR 25 MG TAB PO SCH (09:36)
[2021-06-21] MEDS: INSULIN GLARGINE 100 UNITS/ML SQ SCH (09:36)
[2021-06-21] MEDS: ENOXAPARIN 40 MG/0.4 ML SQ SCH (09:36)
[2021-06-21] MEDS: CEFEPIME 1 GM/100 ML BAG IV SCH (09:37)
--- NOTE | 2021-06-21 12:06 | RAD REPORT ---
EXAM DESCRIPTION: RAD - Chest Single View - 06/21/2021 11:53 am CLINICAL HISTORY: resp failure COMPARISON: Chest Single View dated 06/20/2021; Chest Single View dated 06/19/2021; Chest Single View dated 06/18/2021; Chest Single View dated 06/17/2021 FINDINGS: Enlarging now moderate right-sided pneumothorax. Small left apical pneumothorax is unchang ed. Endotracheal tube at the level of the aortic arch in satisfactory position. NG tube overlying the stomach. Surgical clips in right upper quadrant. Heart size is normal. Subcutaneous emphysema at the base of the neck. Widespread bilateral airspace disease. IMPRESSION: Enlarging/new moderate right-sided pneumothorax. Small left pneumothorax is unchanged. R e- demonstrated widespread airspace disease concerning for multifocal pneumonia.
[2021-06-21] MEDS: FLUCONAZOLE 200mg IVPB 200 MG/100 ML BAG IV SCH (12:58)
--- NOTE | 2021-06-21 12:59 | P.PN ---
Subjective Date of Service: 06/21/21 Primary Care Provider: none Chief Complaint: covid pneumonia [place] Very hypoxic, Worsening pneumothorax on R side on propofol Review of Systems is unable to be obtained Physical Examination - Vital Signs Temperature: 97.5 F Blood Pressure: 165/76 Pulse: 95 Respirations: 15 Pulse Ox (%): 94 - Physical Exam General: Unresponsive Respiratory: Clear to auscultation bilaterally Assessment & Plan - Problems (Diagnosis) (1) COVID-19 Current Visit: Yes Status: Acute Plan: Resp faiure Worsening pneumothorax on Right side , severe COVID on CXRY, plan to wean doen on propofol, ABG. labs pending / WBC elevated/porgnosis poor agree with withdrawal of care Physician Review: Patient Assessed, Agree with Above Assessment and Plan
[2021-06-21 13:22] VITALS: TEMP 96.8
[2021-06-21 16:28] VITALS: BP 147/65
[2021-06-21 16:30] VITALS: O2SAT 93
--- NOTE | 2021-06-21 17:15 | P.DS ---
Admission Date: 06/02/21 Discharge Date: 06/21/21 Primary Care Provider: none Disposition: Reason for Admission: covid pneumonia Consultations: Pulmonary-Dr. Grace Procedures: COVID: positive CXR 06/17/2021: COMPARISON: June 16 TECHNIQUE: AP portable chest image was obtained 06/17/2021 4:54 am . FINDINGS: ET tube is top of the aortic arch 3.5 cm above nara, good position. Left extremity PICC line remains in good position. Feeding tube is no longer identifiable. This may have been purposely removed or has retracted above the level of the mid cervical esophagus. Small stable right-sided pneumothorax with stable right lung parenchymal opacification. Left pneumothorax has enlarged but this may be artifact of expiration. Left lung parenchymal opacification is stable. Heart and vasculature are normal. No new or enlarging pleural effusion. No acute bony abnormality seen. No acute aortic findings suspected. Subcutaneous emphysema stable. IMPRESSION: Approximately 20% left-sided pneumothorax measuring slightly larger than prior day study. Small right-sided pneumothorax is stable. Bilateral lung parenchymal opacities are stable. Endotracheal tube is in good position 3.5 cm above the nara. Feeding tube is no longer identifiable. This may have been purposely new moved or has been retracted above the mid cervical esophagus level. Follow up CXR 06/20/2021: COMPARISON: Chest Single View dated 06/19/2021; Chest Single View dated 06/18/2021; Chest Single View dated 06/17/2021; Chest Single View dated 06/17/2021 FINDINGS: Lines: Endotracheal tube at the aortic arch in satisfactory position. Enteric tube below the diaphragm. Left subclavian approach PICC with tip difficult to visualize. Lungs: Mild bilateral airspace disease which is similar to 06/19/2021. Pleural: Small left apical pneumothorax has slightly increased and better seen on today's radiograph. Cardiac: The heart size is within normal limits. Bones: No acute fractures. Other: Subcutaneous emphysema noted. This is unchanged. Surgical clips in the right upper quadrant. IMPRESSION: Small left apical pneumothorax which is slightly larger and better seen on today's chest radiograph. Support apparatus in satisfactory position. Bilateral airspace disease is similar. Medical Problem List: Acute respiratory failure secondary to bilateral COVID 19 pneumonia complicated with 20% left-sided pneumothorax and small right-sided pneumothorax CAD Anemia of chronic disease DM Type 2 insulin-dependent Chronic pain HTN Leukocytosis likely related to above complicated with C. difficile colitis Brief History of Present Illness: 71-year-old female with history of diabetes, CAD, hypertension and hyperlipidemia. Patient presented with increasing shortness of breath. Patient was found to have acute respiratory failure with Covid pneumonia. Patient admitted for treatment. Hospital Course: Patient presented with acute respiratory failure secondary to bilateral Covid pneumonia complicated with left-sided pneumothorax. Patient with underlying history of CAD, anemia of chronic disease, diabetes mellitus type 2 insulin- dependent, chronic pain, and hypertension. The patient was admitted for treatme nt. Patient received IV steroids. Patient required intubation. Patient seen and evaluated by pulmonology. Patient also developed pneumothorax. This did not require chest tube as family did not want to pursue chest tube placement. Her condition did not improve. Patient remained on ventilator with FiO2 of 90%. No significant progress was made. Patient advanced directives were readdressed. Patient was made DNR. After further evaluation and with no significant change the family decided to withdraw care as the patient would not want to be on life support. Arrangements were made for the patient to withdraw care. This was done. Patient peacefully . May she rest in peace. Vital Signs/Physical Exam: Temp Pulse Resp BP Pulse Ox 96.8 F 89 26 H 147/65 H 93 06/21/21 13:21 06/21/21 16:00 06/21/21 16:00 06/21/21 16:00 06/21/21 16:00 General: Other (Patient ) Laboratory Data at Discharge: WBC Cancelled 06/21/21 05:59 Hgb Cancelled 06/21/21 05:59 Hct Cancelled 06/21/21 05:59 Plt Count Cancelled 06/21/21 05:59 PT 12.5 SECONDS (9.5-12.5) 06/02/21 06:50 INR 1.09 06/02/21 06:50 APTT 30.8 SECONDS (24.3-36.9) 06/02/21 06:50 Sodium Cancelled 06/21/21 05:59 Potassium Cancelled 06/21/21 05:59 BUN Cancelled 06/21/21 05:59 Creatinine Cancelled 06/21/21 05:59 Glucose Cancelled 06/21/21 05:59 Phosphorus 4.1 mg/dL (2.5-4.9) 06/14/21 05:25 Magnesium Cancelled 06/21/21 05:59 Total Bilirubin Cancelled 06/21/21 05:59 AST Cancelled 06/21/21 05:59 ALT Cancelled 06/21/21 05:59 Alkaline Phosphatase Cancelled 06/21/21 05:59 Troponin I 0.05 ng/mL (0.0-0.045) H 06/03/21 13:07 Triglycerides 127 mg/dL (<150) 06/03/21 04:58 Cholesterol 78 mg/dL (<200) 06/03/21 04:58 HDL Cholesterol 23 mg/dL (40-60) L 06/03/21 04:58 Cholesterol/HDL Ratio 3.39 06/03/21 04:58 Amylase 15 U/L (25-115) L 06/02/21 06:50 Lipase 32 U/L (73-393) L 06/02/21 06:50 Home Medications: Clopidogrel Bisulfate [Plavix*] 75 mg PO DAILY 06/08/19 Gabapentin [Neurontin] 600 mg PO BID 06/08/19 Insulin Glargine Human [Lantus*] 25 unit SQ DAILY 06/08/19 Metformin HCl [Glucophage*] 500 mg PO DAILY WITH BREAKFAST 06/08/19 Metoprolol Tartrate [Lopressor] 50 mg PO DAILY 06/08/19 Pantoprazole [Protonix Tab*] 40 mg PO DAILY 06/08/19 Acetaminophen [Tylenol] 325 mg PO TID 06/19/19 Hydrocodone 7.5/APAP 325 [[place] 7.5/325 mg*] 1 tab PO TID 07/24/19 Ranolazine [Ranexa] 500 mg PO BID #60 tab.er.12h 07/27/19 Physician Discharge Instructions: Patient . May she rest in peace. Time spent managing pt's care (in minutes): 55
== END 2021-06-21 16:41 | disposition expired | DRG 870 ==
LOC: ER 06:40 → ERHOLD 15:07 → 4TH 16:20 → 3RD-ICU 20:40
PROVIDERS: ADMIT Internal Medicine; ATTEND Family Medicine
PROC: 5A09557 Assistance with Respiratory Ventilation, Greater than 96 Consecutive Hours, Continuous Positive Airway Pressure (ICD-10-PCS; 2021-06-02)
PROC: 0T9B70Z Drainage of Bladder with Drainage Device, Via Natural or Artificial Opening (ICD-10-PCS; 2021-06-02)
PROC: 30233N1 Transfusion of Nonautologous Red Blood Cells into Peripheral Vein, Percutaneous Approach (ICD-10-PCS; 2021-06-02)
PROC: XW033E5 Introduction of Remdesivir Anti-infective into Peripheral Vein, Percutaneous Approach, New Technology Group 5 (ICD-10-PCS; 2021-06-05)
PROC: 02HV33Z Insertion of Infusion Device into Superior Vena Cava, Percutaneous Approach (ICD-10-PCS; 2021-06-05)
PROC: 5A1955Z Respiratory Ventilation, Greater than 96 Consecutive Hours (ICD-10-PCS; principal; 2021-06-13)
PROC: 0BH17EZ Insertion of Endotracheal Airway into Trachea, Via Natural or Artificial Opening (ICD-10-PCS; 2021-06-13)
DX: A41.9 Sepsis, unspecified organism (principal); U07.1 COVID-19; J12.82 Pneumonia due to coronavirus disease 2019; J96.01 Acute respiratory failure with hypoxia; J93.9 Pneumothorax, unspecified; A04.72 Enterocolitis due to Clostridium difficile, not specified as recurrent; E44.0 Moderate protein-calorie malnutrition; E11.9 Type 2 diabetes mellitus without complications; I25.10 Atherosclerotic heart disease of native coronary artery without angina pectoris; I10 Essential (primary) hypertension; E78.5 Hyperlipidemia, unspecified; M19.90 Unspecified osteoarthritis, unspecified site; E66.9 Obesity, unspecified; F41.8 Other specified anxiety disorders; G89.29 Other chronic pain; D63.8 Anemia in other chronic diseases classified elsewhere; J98.2 Interstitial emphysema; Z66 Do not resuscitate; Z68.31 Body mass index [BMI] 31.0-31.9, adult; Z91.19 Patient's noncompliance with other medical treatment and regimen; Z78.1 Physical restraint status
CPT/HCPCS: 36415; 36569; 71045; 74018; 80048; 80053; 80061; 80076; 81003; 81015; 82150; 82248; 82274; 82550; 82553; 82728; 82805; 82947; 83036; 83605; 83690; 83735; 84100; 84132; 84145; 84443; 84484; 85014; 85018; 85025; 85044; 85379; 85610; 85652; 85730; 86140; 86850; 86900; 86901; 87040; 87086; 87088; 87177; 87209; 87324; 87449; 87493; 87804; 93005; 93971; 94002; 94003; 94640; 94660; 99285; J0330; J0360; J0692; J0696; J1100; J1170; J1450; J1630; J1650; J1720; J1815; J1940; J2543; J2920; J2930; J2997; J3010; J3262; J3370; J3486; J7030; J7040; J7050; J7060; P9016; U0003